=== PATIENT | male | born 1995 | race Caucasian/White ===

== ENCOUNTER 2018-12-20 16:15 | Emergency (ER) | payer OTHER, SELFPAY ==
[2018-12-20 16:16] VITALS: BP 146/93; PULSE 92; RESP 16; TEMP 36.3; BMI 30.4
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
[2018-12-20] MEDS: Diphth,Pertuss(Acell),Tet Vac 0.5 ML Vial IM (16:42)
== END 2018-12-20 17:21 | disposition home or self-care (01) ==
PROVIDERS: Emergency Provider Nurse Practitioner; Family Provider Family Medicine; PCP Family Medicine
DX: S61.214A Laceration without foreign body of right ring finger without damage to nail, initial encounter (principal); W45.8XXA Other foreign body or object entering through skin, initial encounter; Y93.89 Activity, other specified
CPT/HCPCS: 12001; 90715; 99282

== ENCOUNTER 2022-05-07 08:42 | Emergency (ER) | payer OTHER, SELFPAY ==
[2022-05-07 08:43] VITALS: BP 167/95; PULSE 86; RESP 14; TEMP 36.2; O2SAT 97; BMI 32.5
--- NOTE | 2022-05-07 09:11 | EDS_ITS ---
HPI HPI - GI History of Present Illness Chief Complaint: Abd Pain Informant: patient Narrative Narrative: Patient is a 26-year-old male with history of heavy alcohol use (drinks 8-12 which lights a day) and gallbladder/pancreas issues presenting with lower abdominal pain. Patient states he ate [employer] around noon yesterday for lunch. He states his stomach felt bad after that. Around 6 PM he started having diarrhea. He had 1 episode of pretty bad diarrhea and thought maybe there is some small flecks of black in his stool. He since had some small but formed bowel movements. He has burning in his lower abdomen diffusely. He states when he woke up this morning and drink water the burning got better. He went to urgent care where they wanted him to be evaluated for that the ER. He was told he had blood in his urine at the urgent care. Denies associated urinary symptoms or back pain. Denies any fever but did have cold sweats. Notes currently he is just very anxious about being in the ER and feels nauseous secondary to being so anxious. He states he is afraid of needles as he passed out once when he had an IV. He notes his pain is improving currently. No other complaints at this time. PFSH PFSH Home Medications naproxen 500 mg tablet 500 mg PO BID PRN #20 tabs 06/02/15 [Rx Last Taken Unknown] oxycodone-acetaminophen 5 mg-325 mg tablet 1 - 2 tab PO Q4H PRN PRN Pain #20 tabs 06/02/15 [Rx Last Taken Unknown] azithromycin 250 mg tablet (Zithromax Z-Dung) See Rx Instructions PO .COMPLEX #6 tabs 12/23/20 [Rx Last Taken Unknown] prednisone 10 mg tablet 10 mg PO .COMPLEX #30 tabs 12/23/20 [Rx Last Taken Unknown] famotidine 20 mg tablet (Pepcid) 20 mg PO BID #28 tabs 05/07/22 [Rx Last Taken Unknown] Allergy/AdvReac Type Severity Reaction Status Date / Time No Known Allergies Allergy Verified 05/07/22 08:45 Social History Smoking Status: Unknown if ever smoked Smokeless tobacco user: chewing tobacco ROS ROS ED Constitutional Constitutional ED: Reports sweats; Denies chills or fever(s) Cardiovascular Cardiovascular: Denies chest pain Respiratory/Chest Respiratory/Chest: Denies cough Gastrointestinal Gastrointestinal: Reports abdominal pain, diarrhea and nausea; Denies melena or vomiting Genitourinary Genitourinary ED: Denies dysuria, hematuria or urinary frequency Musculoskeletal Musculoskeletal: Denies arthralgias, back pain or myalgias Integumentary Denies rash Neurologic Neurologic: Denies headache(s) or weakness Psychiatric Psychiatric: Reports anxiety; Denies depression Hematologic/Lymphatic Hematologic/Lymphatic: Denies easy bleeding or easy bruising EXAM Physical Exam Const Vital Signs: 05/07/22 08:43 Temperature 97.2 F L Temperature Source Temporal Pulse Rate 86 Respiratory Rate 14 Blood Pressure 167/95 H Blood Pressure Mean 119 Pulse Ox 97 Oxygen Delivery Method Room Air Positive well nourished and well developed General Appearance ED: well developed and NAD; Negative for pallor HEENT Reports dry mucous membranes Mouth ED: Yes dry mucous membranes Mouth: dry mucous membranes Eyes PERRL and EOMs intact bilaterally Neck supple Resp normal respiratory effort and clear to auscultation bilaterally Cardio regular rate, regular rhythm and no murmurs GI non-tender and non-distended Inspection: Negative for abdominal distention Auscultation: hyperactive bowel sounds Palpation: soft; Negative for guarding, rigid, pulsatile mass or rebound tenderness present Back/Spine no CVA tenderness Extremity full ROM General Extremety ED: Negative for edema General Extremity: Negative for edema Neuro moves all extremities Sensorium / Orientation: alert, oriented to person, oriented to place and oriented to time Psych mental status grossly normal and thought process normal Mood & Affect: anxious Skin no wounds General Skin Exam: Negative for jaundice or pallor MDM MDM MDM Narrative Medical decision making narrative: Patient is evaluated for lower abdominal discomfort that been going on for a little over 12 hours. He is quite anxious but otherwise peers nontoxic. Abdominal exam is pretty benign. He describes a burning lower abdominal pain. Urinalysis is largely normal and not consistent with infection or hematuria. Patient does not appear dehydrated based on his specific gravity 1.005, lack of ketones and normal kidney function. He has a slightly elevated hemoglobin of 17.9 but this appears to be patient's baseline. Patient does not have any si gnificant electrolyte abnormalities. Patient counseled that given his benign abdominal exam, lack of fever, normal labs and normal vital signs I do not think he requires further emergent evaluation including CT imaging. He is comfortable with this. Patient is counseled the importance of abstaining from alcohol, following with a primary care doctor and given his anxiety discussed follow-up with the counseling center. He is also given information for 180 for his alcohol use. At this time patient does not appear to be having any signs of active alcohol withdrawal and I do not think requires medical admission for detox. Patient is given return precautions. Discharged home in stable condition. Lab Data Attestation: I reviewed the patient's lab results. Labs: Laboratory Results - last 24 hr 05/07/22 05/07/22 05/07/22 09:45 09:53 09:53 WBC 10.9 RBC 5.44 Hgb 17.9 H Hct 49.3 MCV 90.6 MCH 32.9 H MCHC 36.3 H RDW Std Deviation 39.7 RDW Coeff of Jett 12.1 Plt Count 234 MPV 9.6 Immature Gran % (Auto) 0.500 Neut % (Auto) 82.7 H Lymph % (Auto) 12.2 L [place] % (Auto) 3.5 Eos % (Auto) 0.5 Baso % (Auto) 0.6 Absolute Neuts (auto) 9.0 H Absolute Lymphs (auto) 1.32 Nucleated RBC % 0 Sodium 138 Potassium 4.1 Chloride 106 Carbon Dioxide 24.0 Anion Gap 8 BUN 12 Creatinine 1.10 Estim Creat Clear Calc 99.98 Est GFR (MDRD) Af Amer 102 Est GFR (MDRD) Non-Af 84 BUN/Creatinine Ratio 10.9 Glucose 128 H Calcium 9.9 Total Bilirubin 0.70 AST 36 ALT 57 Alkaline Phosphatase 71 Total Protein 8.7 H Albumin 4.6 Globulin 4.1 Albumin/Globulin Ratio 1.1 Lipase 114 Urine Color Yellow Urine Clarity Clear Urine pH 6.0 Ur Specific [place] 1.005 Urine Protein Negative Urine Glucose (UA) Normal Urine Ketones Negative Urine Occult Blood Negative Urine Nitrite Negative Urine Bilirubin Negative Urine Urobilinogen Normal Ur Leukocyte Esterase Negative Urine RBC 0 SEEN Urine WBC 0 SEEN Ur Squamous Epith Cells 0 SEEN Urine Bacteria 0 SEEN Urine Mucus 0 SEEN Discharge Plan Triage Chief Complaint: Abd Pain ED Provider: Iliana Nixon Dx/Rx/DC Orders Clinical Impression: Lower abdominal pain Instructions: ED Abdominal Pain Unkn Cause Male... Prescriptions: New famotidine [Pepcid] 20 mg tablet 20 mg PO BID Qty: 28 0RF No Action azithromycin [Zithromax Z-Dung] 250 mg tablet See Rx Instructions PO .COMPLEX Qty: 6 0RF Rx Instructions: take 500 mg today (day 1), then 250 mg for 4 days (days 2-5) PO prednisone 10 mg tablet 10 mg PO .COMPLEX Qty: 30 0RF Rx Instructions: Take 4 pills for 3 days, 3 pills for 3 days, 2 pills for 3 days, take 1 pill for 3 days naproxen 500 MG tablet 500 mg PO BID PRN Qty: 20 0RF oxycodone-acetaminophen 1 TABLET tablet 1 - 2 tab PO Q4H PRN PRN (Reason: Pain) Qty: 20 0RF Stand Alone Forms: ED Work / School Excuse Primary Care Provider: Alma Beavers Referrals: Alma Beavers MD [Primary Care Provider] - Martina Cherry MD [Med Staff - Active Staff] - As soon as possible [facility] [Non-Staff] - As soon as possible Activity Restrictions/Additional Instructions: Drink lots of fluids. You can take [id number] Pepto-Bismol for your discomfort. At this time your lab work is largely normal. I recommend you follow-up with a primary care doctor as well as abstain from alcohol. To be given referral to [facility] which is a service in [facility] for addiction. There is also the counseling center if you like to talk to someone about your anxiety. Disposition Disposition: Home, Self Care
[2022-05-07 09:51] LABS: Bacteria 0 SEEN /hpf (None Seen); Mucous, Urine 0 SEEN /hpf (<or=2+); Red Blood Cells-Urine 0 SEEN /hpf (0-5); Squamous Epithelial Cells - UA 0 SEEN /hpf (0-5); White Blood Cells 0 SEEN /hpf (0-5)
[2022-05-07 09:56] LABS: Color, Urine Yellow (Yellow); Glucose, Dipstick Normal (Normal); Ketone-Dipstick Negative (Negative); Leukocyte Esterase-Dipstick Negative /ul (Negative); Nitrite-Dipstick Negative (Negative); Occult Blood-Urine Negative /ul (Negative); Protein-Dipstick Negative (Negative); Specific Gravity, Urine 1.005 (1.002-1.030); Urine Bilirubin Dipstick Negative (Negative); Urine Clarity Clear (Clear); Urine Urobilinogen Normal (Normal)
[2022-05-07 10:07] LABS: Absolute Lymphocyte Count 1.32 X10^3/uL (0.83-4.51); Basophil# 0.06 X10^3/uL; Basophil% 0.6 % (0-1); Eosinophil# 0.05 X10^3/uL; Eosinophils% 0.5 % (0-5); Hematocrit 49.3 % (40-54); Hemoglobin 17.9 g/dL (13.0-16.5); Lymphocyte # 1.32 X10^3/ul (0.83-4.51); Lymphocyte % 12.2 % (19-41); Mean Corp Hgb Conc 36.3 g/dL (32-36); Mean Corpuscular Hgb 32.9 pg (27.0-32.0); Mean Corpuscular Volume 90.6 fL (80-94); Mean Platelet Vol. 9.6 fl (6.2-12.0); Monocyte# 0.38 X10^3/uL; Monocyte% 3.5 % (0-10); NRBC Flagged by Analyzer 0 % (0-5); Neutrophil % 82.7 % (47-70); Platelet Count 234 K/mm3 (150-450); RBC Distribution Width CV 12.1 % (11.6-14.6); RBC Distribution Width SD 39.7 fl (35.1-43.9); Red Blood Count 5.44 M/mm3 (4.6-6.2); White Blood Count 10.9 K/mm3 (4.4-11.0)
[2022-05-07 10:24] LABS: ALB/GLOB Ratio 1.1 RATIO (0.9-2.4); AST(SGOT) 36 U/L (15-37); Alanine Aminotransfer ALT/SGPT 57 U/L (16-61); Albumin, Serum 4.6 g/dL (3.2-5.0); Alkaline Phosphatase 71 U/L (45-117); Anion Gap 8 (5-15); BUN 12 mg/dL (7-18); BUN/Creat Ratio 10.9 RATIO (10-20); Calcium,Total 9.9 mg/dL (8.5-10.1); Chloride 106 mmol/L (98-107); EST Glomerular Filtration Rate 84 mL/min (>60); Est Glom Filt Rate - Afr Amer 102 mL/min (>60); Estimated Creatinine Clearance 99.98 ml/min; Globulin 4.1 g/dL (2.2-4.2); Glucose 128 mg/dL (74-106); Lipase 114 U/L (73-393); Potassium 4.1 mmol/L (3.5-5.1); Protein, Total 8.7 g/dL (6.4-8.2); Sodium Level 138 mmol/L (136-145)
== END 2022-05-07 11:07 | disposition home or self-care (01) ==
PROVIDERS: Emergency Provider Emergency Medicine; PCP Family Medicine; Visit Provider Emergency Medicine
DX: R10.30 Lower abdominal pain, unspecified (principal); F17.220 Nicotine dependence, chewing tobacco, uncomplicated
CPT/HCPCS: 80053; 81001; 83690; 85025; 99282

== ENCOUNTER 2022-05-08 10:49 | Inpatient (IN) | payer OTHER, SELFPAY ==
[2022-05-08] VITALS (9 sets, daily range): BP systolic 134–166; BP diastolic 77–95; PULSE 100–120; RESP 17–18; TEMP 37–39.6; O2SAT 93–97; BMI 31.6
--- NOTE | 2022-05-08 11:35 | EDS_ITS ---
HPI HPI - GI History of Present Illness Chief Complaint: Abd Pain Informant: patient Abdominal Pain/Flank Pain Onset: Days (3) Context: Gradual Onset Timing: Continuous Quality: Burning Location: RLQ Worsened by: Movement Relieved by: Nothing Nausea/Vomiting/Emesis GI Symptom: Positive for Nausea; Negative for Vomiting Diarrhea/Melena/Hematochezia GI Symptom: Positive for Diarrhea; Negative for Melena or Hematochezia Associated Symptoms Associated Symptoms: Negative for Dysuria, Frequency or Hematuria Narrative Narrative: Patient presents with abdominal pain that became worse today. Patient states that it is gradually gotten worse over the last 3 days. Patient states he was seen here yesterday but states yesterday his pain was over his entire lower abdomen. Patient describes his pain as burning. Patient states today is localized to the right lower abdomen. Patient states it is worse with movement. Patient admits to nausea decreased appetite. Patient admits to diarrhea but denies any melena or hematochezia. Patient denies any vomiting. Patient denies any dysuria or hematuria or frequency. Patient denies any fevers or chills. PFSH PFSH Medical History Anxiety Home Medications famotidine 20 mg tablet (Pepcid) 20 mg PO BID #28 tabs 05/07/22 [Rx Last Taken 05/08/22] bupropion HCl 150 mg 24 hr tablet, extended release 150 mg PO DAILY 05/08/22 [History Last Taken 05/08/22] ibuprofen 200 mg tablet 200 - 400 mg PO Q6H PRN Pain 05/08/22 [History Last Taken 05/08/22] Allergy/AdvReac Type Severity Reaction Status Date / Time No Known Allergies Allergy Verified 05/07/22 08:45 Social History Smoking Status: Current some day smoker tobacco type: cigarettes Smokeless tobacco user: chewing tobacco ROS ROS ED Constitutional Constitutional ED: Denies chills or fever(s) Eyes Eyes: Denies blurry vision or change in vision ENT ENT ED: Denies rhinorrhea or sore throat Cardiovascular Cardiovascular: Denies chest pain or palpitations Respiratory/Chest Respiratory/Chest: Denies cough or dyspnea Gastrointestinal Gastrointestinal: Reports abdominal pain, diarrhea and nausea; Denies vomiting Genitourinary Genitourinary ED: Denies dysuria or hematuria Musculoskeletal Musculoskeletal: Denies back pain or neck pain Integumentary Denies abscess or rash Neurologic Neurologic: Denies headache(s) or weakness Allergic/Immunologic Allergic/Immunologic ED: Denies mouth swelling or urticaria EXAM Physical Exam Const Vital Signs: 05/08/22 10:51 Temperature 98.9 F Temperature Source Temporal Pulse Rate 109 H Respiratory Rate 17 Blood Pressure 160/89 H Blood Pressure Mean 112 Pulse Ox 96 Oxygen Delivery Method Room Air Positive well nourished, well developed and obese General Appearance ED: well developed and NAD Nutritional Appearance: obese HEENT Reports moist mucous membranes Neck supple and no JVD Resp normal respiratory effort and clear to auscultation bilaterally Cardio regular rate, regular rhythm and no murmurs GI normal to inspection, nondistended, normoactive bowel sounds Palpation: soft and tender RLQ and Rovsing's sign; Negative for guarding or rebound tenderness present Extremity normal to inspection General Extremety ED: Negative for edema or tenderness General Extremity: Negative for edema Neuro oriented x3, CN's II-XII intact bilaterally and no sensory deficits noted Sensorium / Orientation: alert Motor Exam: strength 5/5 throughout Psych mental status grossly normal Mood & Affect: anxious Skin no rashes or lesions noted MDM MDM MDM Narrative Medical decision making narrative: Differential diagnosis includes appendicitis, gastroenteritis, ureteral calculus, urinary tract infection, pyelonephritis, enteritis, colitis, and mesenteric adenitis. CBC will be obtained to assess for leukocytosis and anemia. Comprehensive metabolic profile will be obtained to assess for hepatic function, renal function, and electrolyte abnormality. Urinalysis will be obtained to assess for urinary tract infection and hematuria. CT scan of the abdomen pelvis will be obtained to assess for appendicitis, colitis, mesenteric adenitis, perforation, and enteritis. Lab Data Lab results narrative: CBC was reviewed. There is a leukocytosis of 15.6. Platelets are normal. Comprehensive metabolic profile was reviewed. There is a hypokalemia of 2.7. The remainder was within normal limits. Urinalysis was reviewed and does not show any evidence of urinary tract infection or hematuria. Labs: Laboratory Results - last 24 hr 05/08/22 05/08/22 05/08/22 11:45 11:45 13:20 WBC 15.6 H RBC 5.23 Hgb 17.2 H Hct 47.6 MCV 91.0 MCH 32.9 H MCHC 36.1 H RDW Std Deviation 40.4 RDW Coeff of Jett 12.3 Plt Count 222 MPV 9.6 Immature Gran % (Auto) 0.400 Neut % (Auto) 89.4 H Lymph % (Auto) 6.1 L [place] % (Auto) 3.9 Eos % (Auto) 0.1 Baso % (Auto) 0.1 Absolute Neuts (auto) 13.9 H Absolute Lymphs (auto) 0.96 Nucleated RBC % 0 Sodium 143 Potassium 2.7 L* Chloride 113 H Carbon Dioxide 23.0 Anion Gap 7 BUN 7 Creatinine 0.76 Estim Creat Clear Calc 144.71 Est GFR (MDRD) Af Amer 155 Est GFR (MDRD) Non-Af 128 BUN/Creatinine Ratio 9.2 L Glucose 101 Calcium 7.2 L Total Bilirubin 0.80 AST 12 L ALT 30 Alkaline Phosphatase 52 Total Protein 6.3 L Albumin 3.2 Globulin 3.1 Albumin/Globulin Ratio 1.0 Urine Color Yellow Urine Clarity Clear Urine pH 7.0 Ur Specific [place] 1.010 Urine Protein 30 H Urine Glucose (UA) Normal Urine Ketones Negative Urine Occult Blood 10 H Urine Nitrite Negative Urine Bilirubin Negative Urine Urobilinogen Normal Ur Leukocyte Esterase 25 H Urine RBC 0 SEEN Urine WBC 0 SEEN Ur Squamous Epith Cells 0 SEEN Urine Bacteria 0 SEEN Urine Mucus 0 SEEN Radiography Diagnostic Testing: Clinical Impression(s) from Imaging Studies Abdomen/Pelvis CT 05/08/22 11:42 IMPRESSION: Acute appendicitis with appendicolith in the appendiceal lumen. Increased markings in the surrounding peritoneal fat in the right lower quadrant extending into the right pararenal space with inflammatory change. Small lymph nodes are also seen within the mesentery in the right lower quadrant. Electronically Signed: Maurilio Kwan MD at 14:11 EST , CT scan of the abdomen pelvis was reviewed independently by myself. There is evidence of appendicitis with an appendicolith. There is no perforation or obst ruction. Radiologist also interpreted the CT scan and agrees that there is appendicitis with an appendicolith. There are small lymph nodes noted in the mesentery of the right lower quadrant as well. Treatment and Re-Evaluation Narrative: Patient was given IV fluids, morphine, and Zofran. Patient was given a dose of IV potassium. Patient was started on Zosyn. Patient was advised of his findings of appendicitis. Patient was advised of the need for surgery. Patient is agreeable with admission for surgery. Case was discussed with Dr. Mtz from general surgery. He will admit the patient to his service. He also asked to consult the hospitalist because patient reported to his physician assistant golf professional that he drinks 8 beers per day. Previously to me, he only stated that he drank occasionally. Case was discussed with the hospitalist. She will see the patient in consultation. Patient understands and is agreeable with the plan. All questions were answered. Discharge Plan Dx/Rx/DC Orders Clinical Impression: Acute appendicitis, Right lower quadrant abdominal pain, Hypokalemia Disposition Disposition: [facility]
--- NOTE | 2022-05-08 11:42 | CT_ITS ---
STUDY: CT ABDOMEN AND PELVIS WITH CONTRAST REASON FOR EXAM: Male, 26 years old. Abdominal pain -- IV PO Contrast RADIATION DOSAGE (If Supplied By Facility): CTDIvol = ( 14.9 ) mGy, DLP = ( 1146.78 ) mGycm TECHNIQUE: Transaxial images were obtained from the dome of the diaphragm to the symphysis pubis with oral contrast. Oral and amp;amp; IV Gastrografin and amp;amp; 100mL Isovue-300 was administered. Sagittal and coronal images were reconstructed. Individualized dose optimization techniques were used for this CT. COMPARISON: None. FINDINGS: Mild degree of increased markings at the lung bases slightly more prominent on the right side suggestive of bibasilar atelectasis. The visualized portions of the heart are within normal limits. There is decreased attenuation of the liver consistent with steatosis. Normal gallbladder and extrahepatic biliary system. Normal spleen. Normal pancreas. Normal bilateral adrenal glands. Normal right kidney. Normal left kidney. Normal visualized stomach. Normal small intestine. Inflammatory changes involving the cecum. There is a tubular, thick-walled appendix (>7mm), consistent with acute appendicitis. Inflammatory changes are seen in the mesenteric fat in the right lower quadrant extending into the right pararenal space. An appendicolith is seen within the appendiceal lumen. Normal abdominal aorta. Normal inferior vena cava. Normal retroperitoneum. Normal urinary bladder. Normal abdominal wall. Normal osseous structures. CT/Abdomen/Pelvis WITH Contrast IMPRESSION: Acute appendicitis with appendicolith in the appendiceal lumen. Increased markings in the surrounding peritoneal fat in the right lower quadrant extending into the right pararenal space with inflammatory change. Small lymph nodes are also seen within the mesentery in the right lower quadrant. Electronically Signed: Maurilio Kwan MD at 14:11 EST ,
[2022-05-08] MEDS: 0.9% Normal Saline 1,000 ML 1000 ML IV (12:02)
[2022-05-08] MEDS: Morphine 4 MG/ML Syringe IV (12:02)
[2022-05-08] MEDS: Ondansetron 4 MG/2 ML Vial IV (12:02)
[2022-05-08 12:05] LABS: Absolute Lymphocyte Count 0.96 X10^3/uL (0.83-4.51); Absolute Neutrophil Count 13.9 X10^3/uL (2.0-7.7); Basophil# 0.02 X10^3/uL; Basophil% 0.1 % (0-1); Eosinophil# 0.02 X10^3/uL; Eosinophils% 0.1 % (0-5); Hematocrit 47.6 % (40-54); Hemoglobin 17.2 g/dL (13.0-16.5); Lymphocyte # 0.96 X10^3/ul (0.83-4.51); Lymphocyte % 6.1 % (19-41); Mean Corp Hgb Conc 36.1 g/dL (32-36); Mean Corpuscular Hgb 32.9 pg (27.0-32.0); Mean Platelet Vol. 9.6 fl (6.2-12.0); Monocyte# 0.61 X10^3/uL; Monocyte% 3.9 % (0-10); NRBC Flagged by Analyzer 0 % (0-5); Neutrophil # 13.94 X10^3/uL (2.7-7.7); Neutrophil % 89.4 % (47-70); Platelet Count 222 K/mm3 (150-450); RBC Distribution Width CV 12.3 % (11.6-14.6); RBC Distribution Width SD 40.4 fl (35.1-43.9); Red Blood Count 5.23 M/mm3 (4.6-6.2); White Blood Count 15.6 K/mm3 (4.4-11.0)
[2022-05-08 12:40] LABS: AST(SGOT) 12 U/L (15-37); Alanine Aminotransfer ALT/SGPT 30 U/L (16-61); Albumin, Serum 3.2 g/dL (3.2-5.0); Alkaline Phosphatase 52 U/L (45-117); Anion Gap 7 (5-15); BUN 7 mg/dL (7-18); BUN/Creat Ratio 9.2 RATIO (10-20); Calcium,Total 7.2 mg/dL (8.5-10.1); Chloride 113 mmol/L (98-107); Creatinine, Serum 0.76 mg/dL (0.70-1.30); EST Glomerular Filtration Rate 128 mL/min (>60); Est Glom Filt Rate - Afr Amer 155 mL/min (>60); Estimated Creatinine Clearance 144.71 ml/min; Globulin 3.1 g/dL (2.2-4.2); Glucose 101 mg/dL (74-106); Potassium 2.7 mmol/L (3.5-5.1); Protein, Total 6.3 g/dL (6.4-8.2); Sodium Level 143 mmol/L (136-145)
[2022-05-08] MEDS: Potassium Chloride 10mEq/100mL 10 MEQ/100 ML IV.SOLN. 100 MEQ IV BOLUS ×2 (13:34→14:41)
[2022-05-08 13:38] LABS: Bacteria 0 SEEN /hpf (None Seen); Mucous, Urine 0 SEEN /hpf (<or=2+); Red Blood Cells-Urine 0 SEEN /hpf (0-5); Squamous Epithelial Cells - UA 0 SEEN /hpf (0-5); White Blood Cells 0 SEEN /hpf (0-5)
[2022-05-08 13:41] LABS: Color, Urine Yellow (Yellow); Glucose, Dipstick Normal (Normal); Ketone-Dipstick Negative (Negative); Leukocyte Esterase-Dipstick 25 /ul (Negative); Nitrite-Dipstick Negative (Negative); Occult Blood-Urine 10 /ul (Negative); Protein-Dipstick 30 mg/dl (Negative); Urine Bilirubin Dipstick Negative (Negative); Urine Clarity Clear (Clear); Urine Urobilinogen Normal (Normal)
--- NOTE | 2022-05-08 15:39 | PCM.HP.STD ---
HPI - General General Date of Service: 05/08/22 Chief Complaint: Acute appendicitis HPI Narrative LUCIANA CORDOBA, is a 26 M who presents with 3 day history of right lower quadrant abdominal pain. Patient notes nausea associated with his abdominal pain. He notes his appetite has been poor over the last 3 days due to the pain. Patient denies vomiting. He denies fever. He notes constipation. He notes he presented to the ED yesterday however his abdomen was nontender at that time on exam and patient's labs were unremarkable. Patient was discharged to home. Patient returned to the ED today noting increased abdominal pain. CT scan of the abdomen/pelvis was obtained demonstrating acute appendicitis with appendicolith. Patient is also noted to have an elevated WBC of 15.6 with a left shift. Patient's labs are also notable for hypokalemia. Patient was given 10 meq bolus in the ED. Patient denies any cardiac or pulmonary history. Patient denies any previous abdominal surgeries. He denies having any anesthesia previously. Patient notes he is a heavy alcohol drinker daily. Patient states he drinks approximately 10-12 beers daily. He notes on the weekends he smokes cigarettes while consuming alcohol. Patient states he has not been drinking for 3 days due to his onset of abdominal symptoms. Patient was concerned that his alcohol consumption contributed to his abdominal pain. Patient denies any withdraw symptoms. He notes feeling anxious about the surgery. Patient notes he is not dependent on the alcohol, he notes he just likes to have a few drinks after work. [facility] Medical History Anxiety Home Medications famotidine 20 mg tablet (Pepcid) 20 mg PO BID #28 tabs 05/07/22 [Rx Last Taken 05/08/22] bupropion HCl 150 mg 24 hr tablet, extended release 150 mg PO DAILY 05/08/22 [History Last Taken 05/08/22] ibuprofen 200 mg tablet 200 - 400 mg PO Q6H PRN Pain 05/08/22 [History Last Taken 05/08/22] Allergy/AdvReac Type Severity Reaction Status Date / Time No Known Allergies Allergy Verified 05/07/22 08:45 Social History Smoking Status: Current some day smoker tobacco type: cigarettes Smokeless tobacco user: chewing tobacco ROS Constitutional Constitutional: Reports systems reviewed and no addt'l complaints, except as documented Eyes Eyes: Reports systems reviewed and no addt'l complaints, except as documented ENT HEENT: Reports systems reviewed and no addt'l complaints, except as documented Cardiovascular Cardiovascular: Reports systems reviewed and no addt'l complaints, except as documented Respiratory/Chest Respiratory/Chest: Reports systems reviewed and no addt'l complaints, except as documented Gastrointestinal Gastrointestinal: Reports systems reviewed and no addt'l complaints, except as documented Genitourinary Genitourinary: Reports systems reviewed and no addt'l complaints, except as documented Musculoskeletal Musculoskeletal: Reports systems reviewed and no addt'l complaints, except as documented Integumentary Integumentary: Reports systems reviewed and no addt'l complaints, except as documented Neurologic Neurologic: Reports systems reviewed and no addt'l complaints, except as documented Psychiatric Psychiatric: Reports systems reviewed and no addt'l complaints, except as documented Endocrine Endocrinology: Reports systems reviewed and no addt'l complaints, except as documented Hematologic/Lymphatic Hematologic/Lymphatic: Reports systems reviewed and no addt'l complaints, except as documented Allergic/Immunologic Allergic/Immunologic: Reports systems reviewed and no addt'l complaints, except as documented Vital Signs Vital Signs Vital Signs: 05/08/22 10:51 Temperature 98.9 F Temperature Source Temporal Pulse Rate 109 H Respiratory Rate 17 Blood Pressure 160/89 H Blood Pressure Mean 112 Pulse Ox 96 Oxygen Delivery Method Room Air Weight Weight: 213 lb 14.4 oz Body Mass Index (BMI) 31.6 Physical Exam Const alert and oriented x3 HEENT normocephalic and head/scalp atraumatic HEENT Narrative: Red face and neck Eyes PERRL Neck full ROM Lymph Lymphatic: no lymphadenopathy noted Resp normal respiratory effort and clear to auscultation bilaterally Cardio regular rhythm Rate: tachycardic GI Inspection: central obesity Auscultation: hypoactive bowel sounds Palpation: tender RLQ, McBurney's point and Rovsing's sign and guarding no CVA tenderness Back/Spine no CVA tenderness Extremity normal to inspection Skin no rashes or lesions noted Neuro no focal motor deficits and no sensory deficits noted Psych mental status grossly normal Mood & Affect: anxious Results Lab / Micro Data Result Diagrams: 05/08/22 11:45 05/08/22 11:45 Labs: Laboratory Results - last 24 hr 05/08/22 11:45: WBC 15.6 H, RBC 5.23, Hgb 17.2 H, Hct 47.6, MCV 91.0, MCH 32.9 H, MCHC 36.1 H, RDW Std Deviation 40.4, RDW Coeff of Jett 12.3, Plt Count 222, MPV 9.6, Immature Gran % (Auto) 0.400, Neut % (Auto) 89.4 H, Lymph % (Auto) 6.1 L, [place] % (Auto) 3.9, Eos % (Auto) 0.1, Baso % (Auto) 0.1, Absolute Neuts (auto) 13.9 H, Absolute Lymphs (auto) 0.96, Nucleated RBC % 0 05/08/22 11:45: Sodium 143, Potassium 2.7 L*, Chloride 113 H, Carbon Dioxide 23.0, Anion Gap 7, BUN 7, Creatinine 0.76, Estim Creat Clear Calc 144.71, Est GFR (MDRD) Af Amer 155, Est GFR (MDRD) Non-Af 128, BUN/Creatinine Ratio 9.2 L, Glucose 101, Calcium 7.2 L, Total Bilirubin 0.80, AST 12 L, ALT 30, Alkaline Phosphatase 52, Total Protein 6.3 L, Albumin 3.2, Globulin 3.1, Albumin/Globulin Ratio 1.0 05/08/22 13:20: Urine Color Yellow, Urine Clarity Clear, Urine pH 7.0, Ur Specific [place] 1.010, Urine Protein 30 H, Urine Glucose (UA) Normal, Urine Ketones Negative, Urine Occult Blood 10 H, Urine Nitrite Negative, Urine Bilirubin Negative, Urine Urobilinogen Normal, Ur Leukocyte Esterase 25 H, Urine RBC 0 SEEN, Urine WBC 0 SEEN, Ur Squamous Epith Cells 0 SEEN, Urine Bacteria 0 SEEN, Urine Mucus 0 SEEN Radiology Impression Abdomen/Pelvis CT 05/08/22 11:42 IMPRESSION: Acute appendicitis with appendicolith in the appendiceal lumen. Increased markings in the surrounding peritoneal fat in the right lower quadrant extending into the right pararenal space with inflammatory change. Small lymph nodes are also seen within the mesentery in the right lower quadrant. Electronically Signed: Maurilio Kwan MD at 14:11 EST , Assessment & Plan Assessment/Plan (1) Acute appendicitis: PLAN: Plan I am seeing this patient in conjunction with Dr. Mtz. We will plan to admit the patient for observation. Dr. Mtz will plan to perform a laparoscopic appendectomy. Procedure details, risks and benefits have been explained. Patient and his have had the opportunity to ask and have questions answered. Patient verbally understands and agrees with the plan. We will consult the hospitalist as patient is a heavy alcohol drinker and has currently ceased his alcohol 72 hours now. Patient is currently anxious and clammy. Concern for withdrawal symptoms. Appreciate hospitalist recommendations and care of this patient. Thank you for allowing us to participate in this patient's care. Charges/Coding Visit Charges Inpatient E&M: 35451 Init Hosp L2
--- NOTE | 2022-05-08 15:41 | NURSING ---
SURGERY PARTH ACUTE APPENDICITIS, HYPOKALEMIA, RT LOWER QUADRENT ABD PAIN
--- NOTE | 2022-05-08 16:13 | CON.PCM.HO_ITS ---
Assessment & Plan Assessment/Plan (1) Acute appendicitis: (2) No history of previous surgery: PLAN: Plan The patient is a 26 y/o M w/ PMHx: Anxiety, Tobacco use (2 packs/week, primarily Sat/Sun), EtOH abuse (8 beers, 12 ounces each daily) who presents to the [facility] ED on 05/08/22 with history of persistent right lower quadrant progressively worsening abdominal pain x3 days with associated nausea with decreased appetite with no specific recent fevers or chills however did have onset of fevers while in the emergency room reporting pain severe and sharp in the right lower quadrant, 10 out of 10 in severity currently, worse with any movement or palpation. #1. Acute appendicitis: Patient will be admitted per primary service, noted plan transition from ED to OR for appendectomy per Dr. Mtz, currently n.p.o. status on IV fluids with continued IV Zosyn therapy, as needed oral and IV pain regimen per primary service discretion, as needed antiemetics. #2. Elevated BP without hypertensive diagnosis: Potentially secondary to acute presentation as noted #1 with acute pain, continue to monitor and if despite alleviation of pain ongoing elevated blood pressure may necessitate oral regimen, as needed IV hydralazine in interim. #3. Hypokalemia, hypomagnesia, hypophosphatemia: Admission potassium 2.7, magnesium obtained and noted to be 1.6 as well as Phos 1.3, supplementation administered, repeat BMP with improvement with potassium 3.6, will repeat those in the morning. #4. EtOH Abuse: Patient notes routine consumption of approximately 8 beers per day. He notes his last intake was 3 days prior to current presentation he denies any withdrawal symptoms. He states he can go days at a time without alcohol and does not have any withdrawal symptoms during those episodes either. Will maintain on CIWA protocol, MVI, thiamine and folic acid to be cautious. Mag and Phos levels obtained as noted and supplementation administered. Case management consulted for substance abuse assistance. #5. Tobacco Abuse: Encouraged cessation, inpatient consultation per RT, NR if desired. #6. DVT prophylaxis: SCDs/chemoprophylaxis all per surgery discretion given planned OR. Admission Evaluation Time spent evaluating chart, patient history, patient evaluation, care planning and discussion with specialists: 60 minutes. HPI Consult Data Date of Consult: 05/08/22 HPI Narrative Reason for Consultation: Medical management HPI Narrative: The patient is a 26 y/o M w/ PMHx: Anxiety, Tobacco use (2 packs/week, primarily Sat/Sun), EtOH abuse (8 beers, 12 ounces each daily) who presents to the [facility] ED on 05/08/22 with history of persistent right lower quadrant progressively worsening abdominal pain x3 days with associated nausea with decreased appetite with no specific recent fevers or chills however did have onset of fevers while in the emergency room reporting pain severe and sharp in the right lower quadrant, 10 out of 10 in severity currently, worse with any movement or palpation. He does report that his last alcohol consumption was approximately 3 days prior to his current presentation secondary to his abdominal discomfort ongoing. Work-up in the ED included initially 98.9 however patient quickly became febrile with T103.2, heart rate 109, BP 160/89, respiratory rate 17, 96% on room air, CBC with WBC 15.6, hemoglobin 17.2, platelet 222 with left shift, CMP with sodium 143, potassium 2.7, chloride 113, glucose 101 hepatic profile not marked appearing, CT abdomen and pelvis with acute appendicitis with appendicolith in the appendiceal lumen with increased markings in the surrounding peritoneal fat in the right lower quadrant extending into the right pararenal space with inflammatory change, small lymph nodes also seen within the mesentery in the right lower quadrant. In the ED patient ministered normal saline 1 L bolus, IV Zosyn, IV Zofran and morphine. ED physician discussed case with general surgery who planned admission with transition from ED to OR with requested hospitalist consultation given concern for patient's alcohol abuse. [facility] Medical History Alcohol abuse Anxiety Tobacco use Home Medications famotidine 20 mg tablet (Pepcid) 20 mg PO BID #28 tabs 05/07/22 [Rx Last Taken 05/08/22] bupropion HCl 150 mg 24 hr tablet, extended release 150 mg PO DAILY 05/08/22 [History Last Taken 05/08/22] ibuprofen 200 mg tablet 200 - 400 mg PO Q6H PRN Pain 05/08/22 [History Last Taken 05/08/22] Allergy/AdvReac Type Severity Reaction Status Date / Time No Known Allergies Allergy Verified 05/07/22 08:45 Family History (Updated 05/08/22 @ 20:[address] Shahnaz Lambert MD) Mother Breast cancer Father Hypertension Surgical History No history of previous surgery Social History (Updated 05/08/22 @ 20:[address] Shahnaz Lambert MD) household members: significant other Smoking Status: Current some day smoker tobacco type: cigarettes Smokeless tobacco user: chewing tobacco and other alcohol intake: current alcohol intake frequency: 3 or more drinks per day details: Drinks 8-10, 12 ounces beers daily. substance use type: does not use ROS ROS Narrative Admission Review of Systems: CONSTITUTIONAL: No weight loss, fever, chills, + weakness or fatigue although does have onset then of fever while in the ED. HEENT: Eyes: No visual loss, blurred vision, double vision or yellow sclerae. Ears, Nose, Throat: No hearing loss, sneezing, congestion, runny nose or sore throat. SKIN: No rash or itching, lesions, wounds. CARDIOVASCULAR: No chest pain, chest pressure or chest discomfort, palpitations, edema, orthopnea, syncopal events. RESPIRATORY: No shortness of breath, cough or sputum, wheezing, hemoptysis. GASTROINTESTINAL: + anorexia, nausea without vomiting, abdominal pain, No diarrhea, melena, BRBPR. GENITOURINARY: No dysuria, frequency, urgency or retention. NEUROLOGICAL: No headache, dizziness, syncope, paralysis, ataxia, numbness or tingling in the extremities, focal weakness, change in bowel or bladder control, seizure. MUSCULOSKELETAL: + muscle, back pain, joint pain or stiffness. HEMATOLOGIC: No anemia, bleeding or bruising. LYMPHATICS: No enlarged nodes. No history of splenectomy. PSYCHIATRIC: + history of depression or anxiety. ENDOCRINOLOGIC: No reports of sweating, cold or heat intolerance. No polyuria or polydipsia. ALLERGIES: No history of asthma, hives, eczema or rhinitis. Physical Exam Narrative Physical Examination: General: Awake, alert, oriented x 3 and cooperative, seated upright in the ED bed, significantly uncomfortable appearing, ill-appearing. Skin: Flushed color, normal turgor, no icterus, no cyanosis. HEENT: AT/NC, EOMI, PERRLA, dry MM, no carotid bruits or JVD noted. Lungs: Diminished, mildly decreased bases, mildly increased respiratory rate but no distress, no rales, ronchi or wheezing. Heart: Tachycardic with regular rhythm; no gallop, rub audible. Abdomen: Soft, significant right lower quadrant discomfort with palpation with rebound and guarding, no obvious distention, distant bowel sounds, unable to discern HSM given severity of pain with palpation. Extremities: No cyanosis, clubbing, or edema. Neurological: Patient awake, alert, oriented as noted, cognitive function intact; pupils equally reactive to light and accommodation, cranial nerves II- XII grossly normal, moving all 4 extremities, no focal deficits, strength severely impaired given acute presentation with infection. Psychiatric: Affect appears uncomfortable, ill-appearing, no acute evidence of depressive or anxiety feelings. Lab / Micro Data Result Diagrams: 05/08/22 11:45 05/08/22 16:34 Labs: Laboratory Results - last 24 hr 05/08/22 11:45: WBC 15.6 H, RBC 5.23, Hgb 17.2 H, Hct 47.6, MCV 91.0, MCH 32.9 H , MCHC 36.1 H, RDW Std Deviation 40.4, RDW Coeff of Jett 12.3, Plt Count 222, MPV 9.6, Immature Gran % (Auto) 0.400, Neut % (Auto) 89.4 H, Lymph % (Auto) 6.1 L, [place] % (Auto) 3.9, Eos % (Auto) 0.1, Baso % (Auto) 0.1, Absolute Neuts (auto) 13.9 H, Absolute Lymphs (auto) 0.96, Nucleated RBC % 0 05/08/22 11:45: Sodium 143, Potassium 2.7 L*, Chloride 113 H, Carbon Dioxide 23.0, Anion Gap 7, BUN 7, Creatinine 0.76, Estim Creat Clear Calc 144.71, Est GFR (MDRD) Af Amer 155, Est GFR (MDRD) Non-Af 128, BUN/Creatinine Ratio 9.2 L, Glucose 101, Calcium 7.2 L, Total Bilirubin 0.80, AST 12 L, ALT 30, Alkaline Phosphatase 52, Total Protein 6.3 L, Albumin 3.2, Globulin 3.1, Albumin/Globulin Ratio 1.0 05/08/22 13:20: Urine Color Yellow, Urine Clarity Clear, Urine pH 7.0, Ur Specific [place] 1.010, Urine Protein 30 H, Urine Glucose (UA) Normal, Urine Ketones Negative, Urine Occult Blood 10 H, Urine Nitrite Negative, Urine Bilirubin Negative, Urine Urobilinogen Normal, Ur Leukocyte Esterase 25 H, Urine RBC 0 SEEN, Urine WBC 0 SEEN, Ur Squamous Epith Cells 0 SEEN, Urine Bacteria 0 SEEN, Urine Mucus 0 SEEN Radiology Impression Abdomen/Pelvis CT 05/08/22 11:42 IMPRESSION: Acute appendicitis with appendicolith in the appendiceal lumen. Increased markings in the surrounding peritoneal fat in the right lower quadrant extending into the right pararenal space with inflammatory change. Small lymph nodes are also seen within the mesentery in the right lower quadrant. Electronically Signed: Maurilio Kwan MD at 14:11 EST , Charges/Coding Visit Charges Office Visits / Consults: [id number] IP Consult L3
--- NOTE | 2022-05-08 16:22 | CHAPLAIN ---
Type of Pastoral Visit _x__ Initial Visit ___ Follow-up Visit ___ On-call Visit ___ General Patient Visit ___ Spiritual Assessment ___ Family Conference ___ Bereavement ___ Rapid Response ___ Code Blue ___ Other (describe below) Pastoral Care Referral From ___ Patient ___ Family ___ Nurse ___ Physician ___ Consumer Advocate ___ Livestock Commission Agent _x__ Other (describe below) Sacrament/Intervention _x__ Active listening ___ Anointing ___ Gnosticist ___ Bereavement ___ Communion ___ Beatriz exploration ___ ___ Life review _x__ Prayer ___ Reconciliation ___ Sacrament of Sick _x__ Supportive presence ___ Wedding ___ Other (describe below) Pastoral Comments Volunteer recommended offer of support for this patient who was exhibiting anxiety; offer of support to patient was welcomed; spouse was also in the room; pt describes his situation and pain; pt welcomes presence and prayer for support
--- NOTE | 2022-05-08 16:30 | APP_PTH ---
PATIENT: LUCIANA CORDOBA LOC: MS3 U#:[id number] AGE/SX: 26/M ROOM: [facility] RE05/08/[address]: Dr. Ben Mtz MD : 1995 BED: 1 DIS: 05/11/2022 SPEC #: [id number] RECD: 05/09/22 08:55 STATUS: NISSA REQ #: [id number] RUBENS: 05/08/22 16:[address]: Ben Mtz DEPT: SURGICAL PATHOLOGY RECD BY: Faustina Ledezma ENTERED: 05/09/22 12:28 SP TYPE: APPENDIX OTHR DR: MD Dr. Laura Nielson MD Dr. Autumn L White, MD Dr. Mary Catherine Sementi, MD Severiano Alvarez Dr., MD Dr. Eric Jopperi, DO MD Dr. Martina Rhodes MD Dr. Joseph Agyepong, MD Dr. James Mooney, MD Dr. Jonathan Vogt, DO Dr. Marline Shin, DO Dr. Andrea Nassar, MD Dr. Fab Grigsby Dr., MD Dr. Prakash Chand, MD Dr. Paul Nielsen, MD Dr. Paige Pierce, MD Dr. Ryan Burkholder, MD Jessica Franklin, [employer] CONS[employer]ANT-C Tissues: Appendix, NOS Procedures: Surgery Specimen Level III HEADER OPERATION: Laparoscopic appendectomy PRE-OP DIAGNOSIS: Acute appendicitis TISSUE SUBMITTED: Appendix MICROSCOPIC DIAGNOSIS Appendix, appendectomy: Acute necrotizing and hemorrhagic appendicitis and periappendicitis. RAYRAY:sasha 05/10/2022 MICROSCOPIC DESCRIPTION Slides are reviewed. GROSS DESCRIPTION Received in fixative is one container labeled with the patient's name and designated appendix. The specimen consists of an L-shaped appendix measuring 9.5 cm in length and up to 1.2 cm in diameter. The attached periappendiceal adipose tissue measures up to 1 cm in width. Also present in the container is a detached piece of periappendiceal adipose tissue measuring 2 x 2 x 1 cm. The serosal surface is congested and hemorrhagic. No obvious perforation is identified. The lumen contains fecal material. No fecalith is identified. In Processing Instructor sections are submitted in one cassette. / RAYRAY:sasha 05/09/2022 TC:2 [facility]: [id number]
[2022-05-08 16:46] LABS: Phosphorus 1.3 mg/dL (2.5-4.9)
[2022-05-08 17:00] LABS: Magnesium 1.6 mg/dL (1.6-2.6)
[2022-05-08 17:23] LABS: Anion Gap 9 (5-15); BUN 9 mg/dL (7-18); BUN/Creat Ratio 7.3 RATIO (10-20); Chloride 105 mmol/L (98-107); Creatinine, Serum 1.24 mg/dL (0.70-1.30); EST Glomerular Filtration Rate 73 mL/min (>60); Est Glom Filt Rate - Afr Amer 89 mL/min (>60); Estimated Creatinine Clearance 88.69 ml/min; Glucose 118 mg/dL (74-106); Potassium 3.6 mmol/L (3.5-5.1); Sodium Level 139 mmol/L (136-145)
[2022-05-08] MEDS: Acetaminophen 500 MG Tablet PO ×2 (18:19→23:12)
[2022-05-08] MEDS: Lactated Ringers 1,000 ML 15 ML IV (18:22)
[2022-05-08] MEDS: Bupiv/Epi 0.5% Mpf 30 ML Vial (20:17)
--- NOTE | 2022-05-08 21:22 | OP.PCM_ITS ---
Report of Operation Date of Procedure: 05/08/22 Pre-Operative Diagnosis: Acute appendicitis Post-Operative Diagnosis: Acute, perforated appendicitis Surgery/Procedure Performed:: Laparoscopic appendectomy with drain placement Description of Surgical Findings:: ? Purulent fluid flowing along the right paracolic gutter with obvious perforation in the mid appendix secreting purulent fluid Surgeon: Ben Mtz manager communication: None Type of Anesthesia: General/Supplemental Anesthesiologist: Antoni Felton Specimen's removed: 1. Peritoneal fluid culture 2. Appendix Drains: 15 Mauritanian round Elijah Estimated Blood Loss (mL): 25 Description of Procedure: After appropriate identification in the preoperative holding area, the patient was brought to the operating room and placed supine on the operating room table. Antibiotics had been preoperatively administered by emergency medicine. Patient was then induced with general endotracheal anesthetic. The abdomen was prepped and draped in usual sterile fashion. Formal timeout was conducted to confirm both the patient and the procedure. A supraumbilical incision was made and carried down to the level of the fascia which was sharply opened. After opening the peritoneum in like fashion a finger sweep was made to confirm position, and a balloon trocar was placed and pneumoperitoneum was established to 15 mmHg. Patient was positioned in Trendelenburg with the left side down. 2 additional 5 mm trocars were placed in the left lower quadrant and suprapubic positions. The peritoneum was inspected and there were no signs of inadvertent injury from this Saab entry. However, there was a significant amount of purulent fluid along the right paracolic gutter entering the pelvis and the appendix was partially visualized with severe inflammation. Given the presence of this fluid, a Luken's trap was attached to our suction granulating blender and a peritoneal fluid specimen was obtained. The right colon was gently retracted medially so that we could better visualize the appendix which was adherent to the paracolic gutter. With this retraction of the colon pressure was applied to the appendix and there was extrusion of purulent fluid from the midportion of the appendix?indicating the point of its perforation. Notably the base of the appendix appeared relatively free of inflammation. Using blunt laparoscopic dissection, a window was made in the mesoappendix adjacent to the appendiceal base. Then the base of the appendix was divided with the use of an Endo EDMUDN stapler. The harmonic scalpel device was used to seal and divide the mesoappendix. The appendix was placed in an Endo Catch bag. The staple line was inspected for intactness and hemostasis. After hemostasis was confirmed, purulent fluid was suctioned free of the peritoneum from the paracolic gutter as well as the pelvis. Then a a 15 [place]ian round Elijah drain was fed into the abdomen through the suprapubic port and the the appendix was removed from the umbilical port site. Pneumoperitoneum was then evacuated and the drain was secured at the skin using a 2-0 nylon suture. The supraumbilical port site fascia was closed with #1 Vicryl in a [id number] fashion. The port sites were infiltrated with 30 mL local anesthetic. The skin of each port site was closed with 4-0 Monocryl in a subcuticular fashion. Steri-Strips and OpSite dressings were applied. Patient tolerated procedure well without any apparent complications. They were awoken from general anesthetic without issue and transferred to post anesthesia care unit for ongoing recovery. Complications None Admit VTE Documentation VTE Mechan Device Prophylaxis: SCD's Procedures Digestive [id number]-49xxx: [id number] Laparoscopy appendectomy
[2022-05-08] MEDS: 0.9% Saline Lock 10 ML Syringe IV (22:58)
[2022-05-08] MEDS: HYDROmorphone 1 MG/ML Syringe IV (22:58)
[2022-05-08] MEDS: 0.9% Normal Saline 1,000 ML 125 ML IV (23:00)
[2022-05-09 00:45] VITALS: BP 154/90; PULSE 95; RESP 18; TEMP 37.3; O2SAT 99
[2022-05-09] MEDS: oxyCODONE 5 MG Tablet PO ×3 (00:57→17:17)
[2022-05-09 02:28] VITALS: BP 141/87; PULSE 95; RESP 18; TEMP 37.3; O2SAT 100
[2022-05-09] MEDS: HYDROmorphone 1 MG/ML Syringe IV ×4 (02:33→20:36)
[2022-05-09] MEDS: 0.9% Saline Lock 10 ML Syringe IV ×4 (02:34→20:36)
[2022-05-09] MEDS: 0.9% Normal Saline 1,000 ML 125 ML IV (05:19)
[2022-05-09 05:50] LABS: Absolute Lymphocyte Count 0.91 X10^3/uL (0.83-4.51); Absolute Neutrophil Count 12.4 X10^3/uL (2.0-7.7); Basophil# 0.02 X10^3/uL; Basophil% 0.1 % (0-1); Hematocrit 43.2 % (40-54); Hemoglobin 14.6 g/dL (13.0-16.5); Lymphocyte # 0.91 X10^3/ul (0.83-4.51); Lymphocyte % 6.5 % (19-41); Mean Corp Hgb Conc 33.8 g/dL (32-36); Mean Corpuscular Hgb 32.7 pg (27.0-32.0); Mean Corpuscular Volume 96.9 fL (80-94); Mean Platelet Vol. 9.9 fl (6.2-12.0); Monocyte# 0.56 X10^3/uL; NRBC Flagged by Analyzer 0 % (0-5); Neutrophil # 12.44 X10^3/uL (2.7-7.7); Neutrophil % 88.8 % (47-70); Platelet Count 183 K/mm3 (150-450); RBC Distribution Width CV 12.9 % (11.6-14.6); RBC Distribution Width SD 45.6 fl (35.1-43.9); Red Blood Count 4.46 M/mm3 (4.6-6.2)
--- NOTE | 2022-05-09 05:50 | NURSING ---
encouraged pt to try and stand at bedside and ambulate. pt states that will cause pain and Im scared to. pt educated on importance of early ambulation and promotion of flatus production. this RN also reassured using the splinting technique, pt aware and acknowledged and wants to wait regardless
[2022-05-09 06:00] LABS: Anion Gap 6 (5-15); BUN 10 mg/dL (7-18); BUN/Creat Ratio 8.4 RATIO (10-20); Calcium,Total 8.5 mg/dL (8.5-10.1); Chloride 106 mmol/L (98-107); Creatinine, Serum 1.19 mg/dL (0.70-1.30); EST Glomerular Filtration Rate 77 mL/min (>60); Est Glom Filt Rate - Afr Amer 93 mL/min (>60); Estimated Creatinine Clearance 92.42 ml/min; Glucose 111 mg/dL (74-106); Magnesium 2.6 mg/dL (1.6-2.6); Potassium 3.9 mmol/L (3.5-5.1); Sodium Level 140 mmol/L (136-145)
[2022-05-09 06:27] LABS: Phosphorus 3.4 mg/dL (2.5-4.9)
--- NOTE | 2022-05-09 07:16 | PN.HOSP_ITS ---
Reason for Visit Reason for Visit: Diagnoses Unspecified acute appendicitis (05/08/22) Subjective Subjective Mr. Chance is a 26-year-old white male with a history of alcohol abuse (8 12 ounce beers daily) who presented to [facility] on 05/08/2022 with right lower quadrant pain that had worsened over 3 days with associated decreased appetite and nausea. He rated the pain sharp in the right lower quadrant at 10 out of 10 in severity at its worse. He did indicate it worsened with any movement or palpation. Last alcohol consumption was approximately 3 days prior to presentation. CT of the abdomen pelvis showed acute appendicitis and he was taken to the OR on 05/08/2022. He was diagnosed with acute perforated appendicitis and a laparoscopic appendectomy with drain placement was performed. He tolerated the surgery well and we were consulted postoperatively for medical management. No flatus. Pain is minimal. Patient is anxious to get out of bed and get moving around some. He states he is tired of laying in bed. States he is little bit anxious just because of everything that happened. No specific complaints. Objective Data Objective Data Vital Signs: Vital Signs Temp Pulse Resp BP Pulse Ox O2 Del Method O2 Flow Rate 99.2 F H 95 18 141/87 H 100 Room Air 2 05/09/22 02:28 05/09/22 02:28 05/09/22 02:28 05/09/22 02:28 05/09/22 02:28 05/09/22 02:28 05/08/22 22:45 Oxygen Flow Rate (L/min) 2 Oxygen Delivery Method Room Air Weight: 97 kg Body Mass Index (BMI) 31.6 Intake & Output: Intake and Output for Last 24 Hours 05/07/22 05/08/22 05/09/22 23:59 23:59 23:59 Intake Total 1370 / 1370 1300.58 / 1300.58 Output Total 550 / 550 880 / 880 Balance 820 / 820 420.58 / 420.58 Lab / Micro Data Result Diagrams: 05/09/22 05:20 05/09/22 05:20 Labs: Laboratory Results - last 24 hr 05/08/22 11:45: WBC 15.6 H, RBC 5.23, Hgb 17.2 H, Hct 47.6, MCV 91.0, MCH 32.9 H , MCHC 36.1 H, RDW Std Deviation 40.4, RDW Coeff of Jett 12.3, Plt Count 222, MPV 9.6, Immature Gran % (Auto) 0.400, Neut % (Auto) 89.4 H, Lymph % (Auto) 6.1 L, [place] % (Auto) 3.9, Eos % (Auto) 0.1, Baso % (Auto) 0.1, Absolute Neuts (auto) 13.9 H, Absolute Lymphs (auto) 0.96, Nucleated RBC % 0 05/08/22 11:45: Sodium 143, Potassium 2.7 L*, Chloride 113 H, Carbon Dioxide 23.0, Anion Gap 7, BUN 7, Creatinine 0.76, Estim Creat Clear Calc 144.71, Est GFR (MDRD) Af Amer 155, Est GFR (MDRD) Non-Af 128, BUN/Creatinine Ratio 9.2 L, Glucose 101, Calcium 7.2 L, Total Bilirubin 0.80, AST 12 L, ALT 30, Alkaline Phosphatase 52, Total Protein 6.3 L, Albumin 3.2, Globulin 3.1, Albumin/Globulin Ratio 1.0 05/08/22 11:45: Sodium Cancelled, Potassium Cancelled, Chloride Cancelled, Car bon Dioxide Cancelled, Anion Gap Cancelled, BUN Cancelled, Creatinine Cancelled, Est GFR (MDRD) Af Amer Cancelled, Est GFR (MDRD) Non-Af Cancelled, BUN/Creatinine Ratio Cancelled, Glucose Cancelled, Calcium Cancelled, Magnesium 1.6 05/08/22 11:45: Phosphorus 1.3 L 05/08/22 13:20: Urine Color Yellow, Urine Clarity Clear, Urine pH 7.0, Ur Specific [place] 1.010, Urine Protein 30 H, Urine Glucose (UA) Normal, Urine Ketones Negative, Urine Occult Blood 10 H, Urine Nitrite Negative, Urine Bilirubin Negative, Urine Urobilinogen Normal, Ur Leukocyte Esterase 25 H, Urine RBC 0 SEEN, Urine WBC 0 SEEN, Ur Squamous Epith Cells 0 SEEN, Urine Bacteria 0 SEEN, Urine Mucus 0 SEEN 05/08/22 16:34: Sodium 139, Potassium 3.6, Chloride 105, Carbon Dioxide 25.0, Anion Gap 9, BUN 9, Creatinine 1.24, Estim Creat Clear Calc 88.69, Est GFR (MDRD) Af Amer 89, Est GFR (MDRD) Non-Af 73, BUN/Creatinine Ratio 7.3 L, Glucose 118 H, Calcium 9.0 05/09/22 05:20: WBC 14.0 H, RBC 4.46 L, Hgb 14.6, Hct 43.2, MCV 96.9 H D, MCH 32.7 H, MCHC 33.8 D, RDW Std Deviation 45.6 H, RDW Coeff of Jett 12.9, Plt Count 183, MPV 9.9, Immature Gran % (Auto) 0.600, Neut % (Auto) 88.8 H, Lymph % (Auto) 6.5 L, [place] % (Auto) 4.0, Eos % (Auto) 0.0, Baso % (Auto) 0.1, Absolute Neuts (auto) 12.4 H, Absolute Lymphs (auto) 0.91, Nucleated RBC % 0 05/09/22 05:20: Sodium 140, Potassium 3.9, Chloride 106, Carbon Dioxide 28.0, Anion Gap 6, BUN 10, Creatinine 1.19, Estim Creat Clear Calc 92.42, Est GFR (MDRD) Af Amer 93, Est GFR (MDRD) Non-Af 77, BUN/Creatinine Ratio 8.4 L, Glucose 111 H, Calcium 8.5, Magnesium 2.6 05/09/22 05:20: Phosphorus 3.4 Radiography Diagnostic Testing: Radiology Impression Abdomen/Pelvis CT 05/08/22 11:42 IMPRESSION: Acute appendicitis with appendicolith in the appendiceal lumen. Increased markings in the surrounding peritoneal fat in the right lower quadrant extending into the right pararenal space with inflammatory change. Small lymph nodes are also seen within the mesentery in the right lower quadrant. Electronically Signed: Maurilio Kwan MD at 14:11 EST , Physical Exam Const alert, oriented x3, no apparent distress and well nourished Constitutional Narrative: Obese, young, white male, sitting up in bed, appears comfortable nontoxic, nursing at bedside HEENT head/scalp atraumatic and moist oral mucous membranes Head and Scalp: normocephalic Resp normal respiratory effort, no retractions, no use of accessory muscles and clear to auscultation bilaterally Auscultation: Negative for rales, rhonchi or wheezes Cardio regular rate, regular rhythm, S1 normal heart sound, S2 normal heart sound, no murmurs, no rub, no gallops and no clicks GI GI Narrative: Bowel sounds are hypoactive, Doron-Kruger drain in place with serosanguineous drainage, abdomen is soft and no significant distention, mild diffuse tenderness related to operative procedure Extremity no clubbing, cyanosis or edema Extremity Narrative: 2+ pedal pulses Neuro oriented x3, moves all extremities and no focal motor deficits Speech: speech normal Psych affect normal Mood & Affect: anxious Assessment & Plan Assessment/Plan (1) Acute appendicitis: (2) Right lower quadrant abdominal pain: (3) Leukocytosis: (4) Fever: (5) Hypokalemia: (6) Elevated blood pressure reading: (7) Tachycardia: PLAN: Plan Right lower quadrant pain secondary to acute appendicitis with perforation -Postop day 1 status post laparoscopic appendectomy with drain placement -Management per primary service -Continue pain medications -Continue IV fluids--> will decrease to 75 cc/h -Patient remains n.p.o. -Await return of bowel function--> high risk for postoperative ileus with perforation Fever/leukocytosis -Suspect attributed to the above -Seems to be clinically improving -White count has trended down subtly -Tmax through the night was 100 and fever curve seems to be improving Tachycardia -Mild and seems to be improving -Suspect reactive with acute infection -Continue to monitor Hypokalemia -Replaced and resolved Elevated blood pressure reading -Suspect related to acute events -As needed hydralazine for systolic pressure greater than 160 -Would monitor and follow-up as an outpatient once acute issues are resolved to see if he actually has the diagnosis of hypertension Alcohol abuse -Patient does regularly consume 8 beers per day -Last intake was 3 days prior to admission -Given the length of time from his last use until now acute alcohol withdrawal is highly unlikely -Continue thiamine and folate -CIWA as ordered Tobacco abuse -Recommend cessation -Nicotine replacement DVT prophylaxis -SCDs -Chemoprophylaxis per primary service Charges/Coding Visit Charges Inpatient E&M: 23098 Subs Hosp L2
[2022-05-09 08:25] VITALS: BP 141/86; PULSE 98; RESP 18; TEMP 37.3; O2SAT 93
[2022-05-09] MEDS: Thiamine Hydrochloride 100 MG Tablet PO (08:35)
[2022-05-09] MEDS: Folic Acid 1 MG Tablet PO (08:35)
[2022-05-09 09:10] VITALS: O2SAT 92
[2022-05-09] MEDS: Acetaminophen 500 MG Tablet PO ×2 (09:12→17:17)
--- NOTE | 2022-05-09 09:40 | PCM.PN.SRG ---
Subjective Subjective Patient evaluated resting comfortably in bed. Patient notes minimal amount of incisional discomfort. Patient denies nausea, vomiting, fever. Patient denies passing flatus or bowel movement. He notes pain is much improved compared to yesterday. Objective Data Objective Data Vital Signs: Vital Signs Temp Pulse Resp BP Pulse Ox O2 Del Method O2 Flow Rate 99.2 F H 98 18 141/86 H 92 Room Air 2 05/09/22 08:25 05/09/22 08:25 05/09/22 08:25 05/09/22 08:25 05/09/22 09:10 05/09/22 09:10 05/08/22 22:45 Oxygen Flow Rate (L/min) 2 Oxygen Delivery Method Room Air Weight: 213 lb 13.574 oz Body Mass Index (BMI) 31.6 Intake & Output: Intake and Output for Last 24 Hours 05/07/22 05/08/22 05/09/22 23:59 23:59 23:59 Intake Total 1370 / 1370 1300.58 / 1300.58 Output Total 550 / 550 880 / 880 Balance 820 / 820 420.58 / 420.58 Lab / Micro Data Result Diagrams: 05/09/22 05:20 05/09/22 05:20 Labs: Laboratory Results - last 24 hr 05/08/22 11:45: WBC 15.6 H, RBC 5.23, Hgb 17.2 H, Hct 47.6, MCV 91.0, MCH 32.9 H, MCHC 36.1 H, RDW Std Deviation 40.4, RDW Coeff of Jett 12.3, Plt Count 222, MPV 9.6, Immature Gran % (Auto) 0.400, Neut % (Auto) 89.4 H, Lymph % (Auto) 6.1 L, [place] % (Auto) 3.9, Eos % (Auto) 0.1, Baso % (Auto) 0.1, Absolute Neuts (auto) 13.9 H, Absolute Lymphs (auto) 0.96, Nucleated RBC % 0 05/08/22 11:45: Sodium 143, Potassium 2.7 L*, Chloride 113 H, Carbon Dioxide 23.0, Anion Gap 7, BUN 7, Creatinine 0.76, Estim Creat Clear Calc 144.71, Est GFR (MDRD) Af Amer 155, Est GFR (MDRD) Non-Af 128, BUN/Creatinine Ratio 9.2 L, Glucose 101, Calcium 7.2 L, Total Bilirubin 0.80, AST 12 L, ALT 30, Alkaline Phosphatase 52, Total Protein 6.3 L, Albumin 3.2, Globulin 3.1, Albumin/Globulin Ratio 1.0 05/08/22 11:45: Sodium Cancelled, Potassium Cancelled, Chloride Cancelled, Carbon Dioxide Cancelled, Anion Gap Cancelled, BUN Cancelled, Creatinine Cancelled, Est GFR (MDRD) Af Amer Cancelled, Est GFR (MDRD) Non-Af Cancelled, BUN/Creatinine Ratio Cancelled, Glucose Cancelled, Calcium Cancelled, Magnesium 1.6 05/08/22 11:45: Phosphorus 1.3 L 05/08/22 13:20: Urine Color Yellow, Urine Clarity Clear, Urine pH 7.0, Ur Specific [place] 1.010, Urine Protein 30 H, Urine Glucose (UA) Normal, Urine Ketones Negative, Urine Occult Blood 10 H, Urine Nitrite Negative, Urine Bilirubin Negative, Urine Urobilinogen Normal, Ur Leukocyte Esterase 25 H, Urine RBC 0 SEEN, Urine WBC 0 SEEN, Ur Squamous Epith Cells 0 SEEN, Urine Bacteria 0 SEEN, Urine Mucus 0 SEEN 05/08/22 16:34: Sodium 139, Potassium 3.6, Chloride 105, Carbon Dioxide 25.0, Anion Gap 9, BUN 9, Creatinine 1.24, Estim Creat Clear Calc 88.69, Est GFR (MDRD) Af Amer 89, Est GFR (MDRD) Non-Af 73, BUN/Creatinine Ratio 7.3 L, Glucose 118 H, Calcium 9.0 05/09/22 05:20: WBC 14.0 H, RBC 4.46 L, Hgb 14.6, Hct 43.2, MCV 96.9 H D, MCH 32.7 H, MCHC 33.8 D, RDW Std Deviation 45.6 H, RDW Coeff of Jett 12.9, Plt Count 183, MPV 9.9, Immature Gran % (Auto) 0.600, Neut % (Auto) 88.8 H, Lymph % (Auto) 6.5 L, [place] % (Auto) 4.0, Eos % (Auto) 0.0, Baso % (Auto) 0.1, Absolute Neuts (auto) 12.4 H, Absolute Lymphs (auto) 0.91, Nucleated RBC % 0 05/09/22 05:20: Sodium 140, Potassium 3.9, Chloride 106, Carbon Dioxide 28.0, Anion Gap 6, BUN 10, Creatinine 1.19, Estim Creat Clear Calc 92.42, Est GFR (MDRD) Af Amer 93, Est GFR (MDRD) Non-Af 77, BUN/Creatinine Ratio 8.4 L, Glucose 111 H, Calcium 8.5, Magnesium 2.6 05/09/22 05:20: Phosphorus 3.4 Micro: Microbiology 05/08/22 Unknown Incision/Surgical Site Wound Culture - Preliminary GNR lactose senior behavioral scientist Radiography Diagnostic Testing: Radiology Impression Abdomen/Pelvis CT 05/08/22 11:42 IMPRESSION: Acute appendicitis with appendicolith in the appendiceal lumen. Increased markings in the surrounding peritoneal fat in the right lower quadrant extending into the right pararenal space with inflammatory change. Small lymph nodes are also seen within the mesentery in the right lower quadrant. Electronically Signed: Maurilio Kwan MD at 14:11 EST , Physical Exam GI GI Narrative: KATIE drain intact draining serosanguineous drainage. Inspection: abdominal distention and incision intact and healing well Auscultation: hypoactive bowel sounds Palpation: tender other (generalized minimal tenderness) Assessment & Plan Assessment/Plan (1) Acute appendicitis with perforation and generalized peritonitis: PLAN: Recommend ambulating multiple times per day today and sitting in the chair Continue NPO until passing flatus Continue antibiotic Labs were reviewed. WBC trending down We will continue to monitor patient Charges/Coding Visit Charges Inpatient E&M: 06874 Subs Hosp L1 (post-op; no charge)
--- NOTE | 2022-05-09 12:24 | CASEMGMT ---
PAMELA LEWIS DC Planning Assessment: Face to Face with patient for initial transition planning/care coordination assessment.?Pt alert, oriented x4, sitting up in chair with pt's present. PAMELA LEWIS introduced self and role at [facility], pt voices understanding and is agreeable to participate in assessment in the presence of his .? Care providers, pharmacy,?and demographics verified. Admitting dx: acute appendicitis with perforation PCP: Ruthann Specialists: none Preferred Pharmacy: [facility] Insurance: U[employer] Prescription Benefit:?yes Living Will/HPOA: none LNOK: Naz Living Arrangements: Pt lives with his and 1yo child in a single story home without steps. Pt states he is independent with all ADLs including self care and household tasks. Transportation: pt drives and is able to drive if needed DME/HHC/SNF: none ? Plan: Pt plans to return home at discharge with the support of his . Denies any discharge needs at this time. Will continue to monitor and assist with needs as identified. Fidencio Pizarro RN CM
--- NOTE | 2022-05-09 13:47 | CASEMGMT ---
Social Work SW met with pt and spoke with him regarding alcohol use. Pt willing to speak openly with SW. Pt states he drinks beer daily and is uncertain how many a day. Possibly 8 to 10. Pt states he has spoke to physicians about fatty liver and it has been a wake up call for him. Pt with good insight and able to state understanding of need to quit drinking for health reasons. Pt also citing his one year old daughter as a reason to stop drinking. SW provided support and encouragement regarding cessation. SW provided resources for local agencies to assist with alcohol use. Pt appreciative and accepting of information. Denies further needs. DAVID Jimenes
[2022-05-09 14:24] VITALS: BP 129/81; PULSE 90; RESP 18; TEMP 37.6; O2SAT 95
--- NOTE | 2022-05-09 15:27 | CHAPLAIN ---
Type of Pastoral Visit ___ Initial Visit _x__ Follow-up Visit ___ On-call Visit ___ General Patient Visit ___ Spiritual Assessment ___ Family Conference ___ Bereavement ___ Rapid Response ___ Code Blue ___ Other (describe below) Pastoral Care Referral From _x__ Patient ___ Family ___ Nurse ___ Physician ___ Pharmacology Associate ___ Traffic Survey Technician ___ Other (describe below) Sacrament/Intervention _x__ Active listening ___ Anointing ___ Taoism ___ Bereavement ___ Communion ___ Beatriz exploration ___ ___ Life review _x__ Prayer ___ Reconciliation ___ Sacrament of Sick _x__ Supportive presence ___ Wedding ___ Other (describe below) Pastoral Comments patient met in ED yesterday and had surgery yesterday; this is follow up to offer support and presence; pt welcomed support and spoke about his recovery from surgery and his years of struggles with anxiety; pt asked for prayer support; pt invited this wire twister to return for another follow up tomorrow if possible
[2022-05-09] MEDS: 0.9% Normal Saline 1,000 ML 75 ML IV (15:43)
[2022-05-09 20:35] VITALS: BP 161/92; PULSE 102; RESP 18; TEMP 37.1; O2SAT 95
[2022-05-10] VITALS (9 sets, daily range): BP systolic 140–168; BP diastolic 69–95; PULSE 93–113; RESP 16–18; TEMP 36.7–38.1; O2SAT 92–98
[2022-05-10] MEDS: oxyCODONE 5 MG Tablet PO ×4 (01:31→20:45)
[2022-05-10] MEDS: Acetaminophen 500 MG Tablet PO ×3 (01:31→14:26)
[2022-05-10] MEDS: hydrOXYzine PAM 25 MG Capsule 50 MG PO ×3 (01:31→20:05)
[2022-05-10] MEDS: Dicyclomine 10 MG Capsule 20 MG PO (01:31)
[2022-05-10] MEDS: 0.9% Normal Saline 1,000 ML 75 ML IV ×2 (01:43→15:11)
[2022-05-10] MEDS: HYDROmorphone 1 MG/ML Syringe IV ×2 (02:30→05:36)
[2022-05-10] MEDS: Ondansetron 4 MG/2 ML Vial IV (02:30)
[2022-05-10] MEDS: LORazepam 1 MG Tablet 2 MG PO (02:31)
[2022-05-10] MEDS: 0.9% Saline Lock 10 ML Syringe IV ×2 (05:36→07:36)
[2022-05-10 06:49] LABS: Absolute Lymphocyte Count 0.66 X10^3/uL (0.83-4.51); Absolute Neutrophil Count 12.4 X10^3/uL (2.0-7.7); Basophil# 0.03 X10^3/uL; Basophil% 0.2 % (0-1); Eosinophil# 0.01 X10^3/uL; Eosinophils% 0.1 % (0-5); Hematocrit 45.4 % (40-54); Hemoglobin 14.8 g/dL (13.0-16.5); Lymphocyte # 0.66 X10^3/ul (0.83-4.51); Lymphocyte % 4.8 % (19-41); Mean Corp Hgb Conc 32.6 g/dL (32-36); Mean Corpuscular Hgb 32.2 pg (27.0-32.0); Mean Corpuscular Volume 98.7 fL (80-94); Mean Platelet Vol. 9.8 fl (6.2-12.0); Monocyte# 0.57 X10^3/uL; Monocyte% 4.1 % (0-10); NRBC Flagged by Analyzer 0 % (0-5); Neutrophil # 12.35 X10^3/uL (2.7-7.7); Neutrophil % 89.9 % (47-70); Platelet Count 223 K/mm3 (150-450); RBC Distribution Width CV 12.9 % (11.6-14.6); RBC Distribution Width SD 46.6 fl (35.1-43.9); White Blood Count 13.8 K/mm3 (4.4-11.0)
[2022-05-10 07:04] LABS: Anion Gap 9 (5-15); BUN 11 mg/dL (7-18); BUN/Creat Ratio 10.7 RATIO (10-20); Chloride 105 mmol/L (98-107); Creatinine, Serum 1.03 mg/dL (0.70-1.30); EST Glomerular Filtration Rate 91 mL/min (>60); Est Glom Filt Rate - Afr Amer 110 mL/min (>60); Estimated Creatinine Clearance 106.77 ml/min; Glucose 115 mg/dL (74-106); Potassium 4.1 mmol/L (3.5-5.1); Sodium Level 136 mmol/L (136-145)
[2022-05-10] MEDS: Metoclopramide 10 MG/2 ML Vial 5 MG IV (07:36)
--- NOTE | 2022-05-10 07:42 | PCM.PN.SRG ---
Subjective Subjective Patient seen and examined early in the a.m. and then just before lunchtime. Earlier in the day patient complained that he had a difficult overnight course. He reported significant anxiety and nausea. He also expressed concern over his drain output. He stated that he attempted to pass gas but felt as though he had a small bowel movement. He reports I could eat, but denies express hunger. He denies frequent belching or hiccuping. Lastly confirms that he does feel puffy. Objective Data Objective Data Vital Signs: Vital Signs Temp Pulse Resp BP Pulse Ox O2 Del Method O2 Flow Rate 99.1 F 107 H 18 159/84 H 92 Room Air 2 05/10/22 05:37 05/10/22 05:37 05/10/22 05:37 05/10/22 05:37 05/10/22 05:37 05/10/22 05:37 05/08/22 22:45 Oxygen Flow Rate (L/min) 2 Oxygen Delivery Method Room Air Weight: 213 lb 13.574 oz Body Mass Index (BMI) 31.6 Intake & Output: Intake and Output for Last 24 Hours 05/08/22 05/09/22 05/10/22 23:59 23:59 23:59 Intake Total 1370 / 1370 2500.58 / 2500.58 800 / 800 Output Total 550 / 550 1274 / 1274 415 / 415 Balance 820 / 820 1226.58 / 1226.58 385 / 385 Lab / Micro Data Result Diagrams: 05/10/22 06:30 05/10/22 06:30 Labs: Laboratory Results - last 24 hr 05/10/22 06:30: WBC 13.8 H, RBC 4.60, Hgb 14.8, Hct 45.4, MCV 98.7 H, MCH 32.2 H, MCHC 32.6, RDW Std Deviation 46.6 H, RDW Coeff of Jett 12.9, Plt Count 223, MPV 9.8, Immature Gran % (Auto) 0.900, Neut % (Auto) 89.9 H, Lymph % (Auto) 4.8 L, [place] % (Auto) 4.1, Eos % (Auto) 0.1, Baso % (Auto) 0.2, Absolute Neuts (auto) 12.4 H, Absolute Lymphs (auto) 0.66 L, Nucleated RBC % 0 05/10/22 06:30: Sodium 136, Potassium 4.1, Chloride 105, Carbon Dioxide 22.0, Anion Gap 9, BUN 11, Creatinine 1.03, Estim Creat Clear Calc 106.77, Est GFR (MDRD) Af Amer 110, Est GFR (MDRD) Non-Af 91, BUN/Creatinine Ratio 10.7, Glucose 115 H, Calcium 9.0 Micro: Microbiology 05/08/22 Unknown Incision/Surgical Site Gram Stain - Final 05/08/22 Unknown Incision/Surgical Site Wound Culture - Preliminary GNR lactose senior bi developer Physical Exam Const oriented x3 Constitutional Narrative: Mild distress initially, then improved later in the morning Resp normal respiratory effort GI GI Narrative: Moderate abdominal distention. Some erythema surrounding patient's supraumbilical port site closure that is blanchable. Unremarkable left lower quadrant port site. Drain site appropriate containing KATIE drain with simple peritoneal fluid. Patient mildly tender with palpation. Assessment & Plan Assessment/Plan (1) Acute appendicitis with perforation and generalized peritonitis: PLAN: Postoperative day 2 from laparoscopic appendectomy with drain placement. Patient appears consistent with postoperative ileus that is slowly resolving given signs of return of bowel function. Recommend ambulating multiple times per day today and sitting in the chair Advance to sips of clear liquids Continue drain until patient tolerating p.o. Continue antibiotic Labs were reviewed. WBC still trending down Charges/Coding Visit Charges Inpatient E&M: 52929 Subs Hosp L2
[2022-05-10] MEDS: Folic Acid 1 MG Tablet PO (08:07)
[2022-05-10] MEDS: Thiamine Hydrochloride 100 MG Tablet PO (08:07)
--- NOTE | 2022-05-10 11:44 | PN.HOSP_ITS ---
Reason for Visit Reason for Visit: Diagnoses Elevated white blood cell count, unspecified (05/08/22) Hypokalemia (05/08/22) Acute appendicitis with generalized peritonitis, without abscess (05/08/22) Unspecified acute appendicitis (05/08/22) Tachycardia, unspecified (05/08/22) Elevated blood-pressure reading, without diagnosis of hypertension (05/08/22) Right lower quadrant pain (05/08/22) Fever, unspecified (05/08/22) Subjective Subjective Patient reports he is feeling better. He stated he have some anxiety overnight with some abdominal pain however I did assure him having pain after a perforated appendix and surgery was normal. He has had continued output of his Doron- Kruger drain but it is clear to sanguinous fluid appearance at this point. Patient is ambulating around the room independently and overall feels much improved and looks better clinically. Objective Data Objective Data Vital Signs: Vital Signs Temp Pulse Resp BP Pulse Ox O2 Del Method O2 Flow Rate 98.0 F 110 H 18 168/95 H 94 Room Air 2 05/10/22 08:02 05/10/22 08:15 05/10/22 08:02 05/10/22 08:02 05/10/22 08:02 05/10/22 08:15 05/08/22 22:45 Oxygen Flow Rate (L/min) 2 Oxygen Delivery Method Room Air Weight: 97 kg Body Mass Index (BMI) 31.6 Intake & Output: Intake and Output for Last 24 Hours 05/08/22 05/09/22 05/10/22 23:59 23:59 23:59 Intake Total 1370 / 1370 2500.58 / 2500.58 800 / 800 Output Total 550 / 550 1274 / 1274 415 / 415 Balance 820 / 820 1226.58 / 1226.58 385 / 385 Lab / Micro Data Result Diagrams: 05/10/22 06:30 05/10/22 06:30 Labs: Laboratory Results - last 24 hr 05/10/22 06:30: WBC 13.8 H, RBC 4.60, Hgb 14.8, Hct 45.4, MCV 98.7 H, MCH 32.2 H , MCHC 32.6, RDW Std Deviation 46.6 H, RDW Coeff of Jett 12.9, Plt Count 223, MPV 9.8, Immature Gran % (Auto) 0.900, Neut % (Auto) 89.9 H, Lymph % (Auto) 4.8 L, [place] % (Auto) 4.1, Eos % (Auto) 0.1, Baso % (Auto) 0.2, Absolute Neuts (auto) 12.4 H, Absolute Lymphs (auto) 0.66 L, Nucleated RBC % 0 05/10/22 06:30: Sodium 136, Potassium 4.1, Chloride 105, Carbon Dioxide 22.0, Anion Gap 9, BUN 11, Creatinine 1.03, Estim Creat Clear Calc 106.77, Est GFR ( MDRD) Af Amer 110, Est GFR (MDRD) Non-Af 91, BUN/Creatinine Ratio 10.7, Glucose 115 H, Calcium 9.0 Micro: Microbiology 05/08/22 Unknown Incision/Surgical Site Gram Stain - Final 05/08/22 Unknown Incision/Surgical Site Wound Culture - Preliminary Escherichia coli Gram positive organism Physical Exam Const alert, oriented x3, no apparent distress and well nourished Constitutional Narrative: Obese, young, white male, standing up in room getting ready to ambulate around the halls appears comfortable nontoxic HEENT head/scalp atraumatic and moist oral mucous membranes Head and Scalp: normocephalic Resp normal respiratory effort, no retractions, no use of accessory muscles and clear to auscultation bilaterally Auscultation: Negative for rales, rhonchi or wheezes Cardio regular rate, regular rhythm, S1 normal heart sound, S2 normal heart sound, no murmurs, no rub, no gallops and no clicks GI GI Narrative: Bowel sounds are normal active, Doron-Kruger drain in place with sanguinous drainage, abdominal is soft but abdomen appears somewhat distended today, mild diffuse tenderness related to operative procedure Extremity no clubbing, cyanosis or edema Extremity Narrative: 2+ pedal pulses Neuro oriented x3, moves all extremities and no focal motor deficits Speech: speech normal Psych Mood & Affect: anxious Assessment & Plan Assessment/Plan (1) Acute appendicitis: (2) Right lower quadrant abdominal pain: (3) Leukocytosis: (4) Fever: (5) Hypokalemia: (6) Elevated blood pressure reading: (7) Tachycardia: PLAN: Plan Right lower quadrant pain secondary to acute appendicitis with perforation -Postop day 2 status post laparoscopic appendectomy with drain placement -Management per primary service -Continue pain medications -Continue IV fluids--> but would recommend discontinuation if patient tolerates p.o. -Clear liquid initiated -Bowel function appears to be returning Fever/leukocytosis -Suspect attributed to the above -Seems to be clinically improving -White count is slowly trending down -Tmax through the night was 100.5 but overall fever curve is improving Tachycardia -Mild and seems to be improving -Suspect reactive with acute infection -Rates are fluctuating -Patient with also significant anxiety -Continue to monitor Hypokalemia -Replaced and resolved Elevated blood pressure reading -Suspect related to acute events -As needed hydralazine for systolic pressure greater than 160 -Would monitor and follow-up as an outpatient once acute issues are resolved to see if he actually has the diagnosis of hypertension Alcohol abuse -Patient does regularly consume 8 beers per day -No signs of acute withdrawal -Last intake was 3 days prior to admission -Given the length of time from his last use until now acute alcohol withdrawal is highly unlikely -Continue thiamine and folate -CIWA as ordered Tobacco abuse -Recommend cessation -Nicotine replacement DVT prophylaxis -SCDs -Chemoprophylaxis per primary service Charges/Coding Visit Charges Inpatient E&M: 79107 Subs Hosp L2
[2022-05-11] MEDS: Acetaminophen 500 MG Tablet PO ×2 (01:29→10:08)
[2022-05-11] MEDS: oxyCODONE 5 MG Tablet PO (03:08)
[2022-05-11] MEDS: hydrOXYzine PAM 25 MG Capsule 50 MG PO (03:09)
[2022-05-11] MEDS: 0.9% Normal Saline 1,000 ML 75 ML IV (04:31)
[2022-05-11 05:36] VITALS: BP 132/63; PULSE 90; RESP 16; TEMP 37.1; O2SAT 96
[2022-05-11 07:01] VITALS: O2SAT 93
--- NOTE | 2022-05-11 07:38 | PN.HOSP_ITS ---
Reason for Visit Reason for Visit: Diagnoses Elevated white blood cell count, unspecified (05/08/22) Hypokalemia (05/08/22) Acute appendicitis with generalized peritonitis, without abscess (05/08/22) Unspecified acute appendicitis (05/08/22) Tachycardia, unspecified (05/08/22) Elevated blood-pressure reading, without diagnosis of hypertension (05/08/22) Right lower quadrant pain (05/08/22) Fever, unspecified (05/08/22) Objective Data Objective Data Follow-up for postop acute appendicitis with history of chronic alcohol use, electrolyte abnormality. Vital Signs: Vital Signs Temp Pulse Resp BP Pulse Ox O2 Del Method O2 Flow Rate 98.8 F 90 16 132/63 H 93 Room Air 2 05/11/22 05:36 05/11/22 05:36 05/11/22 05:36 05/11/22 05:36 05/11/22 07:01 05/11/22 07:01 05/08/22 22:45 Oxygen Flow Rate (L/min) 2 Oxygen Delivery Method Room Air Weight: 213 lb 13.574 oz Body Mass Index (BMI) 31.6 Intake & Output: Intake and Output for Last 24 Hours 05/09/22 05/10/22 05/11/22 23:59 23:59 23:59 Intake Total 2500.58 / 2500.58 2300 / 2300 1050 / 1050 Output Total 1274 / 1274 560 / 560 Balance 1226.58 / 1226.58 1740 / 1740 1050 / 1050 Lab / Micro Data Result Diagrams: 05/11/22 06:44 05/11/22 06:44 Micro: Microbiology 05/08/22 Unknown Incision/Surgical Site Gram Stain - Final 05/08/22 Unknown Incision/Surgical Site Wound Culture - Preliminary Escherichia coli Gram positive organism 05/08/22 Unknown Incision/Surgical Site Anaerobic Culture - Preliminary Checking for anaerobes, further studies to follow. Physical Exam Narrative Seen and examined. Patient is walking around the nursing station. Mild postop pain. Patient does not have symptoms of acute alcohol withdrawal. Physical exam: General: Alert, Oriented x3, Cooperative HEENT: Atraumatic, PERRLA, EOMI, Normocephalic Oral: No Gingival or Mucosal Lesions/ Ulcerations Neck: Supple, No JVD, Negative Carotid Bruits Lungs: Air entry diminished in bilateral lung bases. No crepitation/rhonchi Cardiovascular: Regular rate, Regular Rhythm, Normal S1, Normal S2, No murmurs Abdomen:Surgical dressing dry. Bowel Sounds sluggish, soft, Non Tender, Non- Distended : No renal angle tenderness. No suprapubic tenderness. Extremities: No edema, Capillary Refill Less than 3 Seconds Skin: No rashes, No breakdown Musculoskeletal: No Tenderness to Palpation of Joints or Extremities Neurological: Cranial nerves II-XII grossly intact, DTR 2+/4 and Symmetrical, Neuro grossly intact Psych/Mental Status: Normal Affect, Appropriate. Assessment & Plan Assessment/Plan (1) Acute appendicitis: (2) Hypokalemia: PLAN: Plan Patient was admitted with acute appendicitis. 1. Acute appendicitis with perforation and peritonitis: Patient had laparos copic appendectomy with drain placement on 05/08/2022. Found to have purulent fluid along right paracolic gutter with obvious perforation with appendix. On postop day 3. Tmax 100.6 Fahrenheit. No tachycardia or tachypnea or hypoxia. Clear liquid diet advanced. Patient is getting discharged today. Hypokalemia -Replaced and resolved. Repeat potassium 4.1. Electrolytes sodium potassium chloride bicarb and anion gap in normal limit. Elevated BP probably transient and reactive due to acute appendicitis:Repeat blood pressure elevated 168/93. Advised follow-up with PCP. Will need outpatient home BP monitoring or ambulatory BP monitoring to diagnose hypertension. Chronic alcohol use disorder -Patient does regularly consume 8 beers per day -No signs of acute withdrawal -Last intake was 3 days prior to admission -Given the length of time from his last use until now acute alcohol withdrawal is highly unlikely -Continue thiamine and folate Chronic nicotine/cigarette smoking use disorder -Recommend cessation -Nicotine replacement DVT prophylaxis -SCDs -Chemoprophylaxis per primary service Follow-up with PCP. Patient is being discharged home. Charges/Coding Visit Charges Inpatient E&M: 17797 Subs Hosp L2
[2022-05-11 07:51] LABS: Absolute Lymphocyte Count 1.07 X10^3/uL (0.83-4.51); Basophil# 0.02 X10^3/uL; Basophil% 0.3 % (0-1); Eosinophil# 0.17 X10^3/uL; Eosinophils% 2.1 % (0-5); Hematocrit 39.7 % (40-54); Hemoglobin 13.3 g/dL (13.0-16.5); Lymphocyte # 1.07 X10^3/ul (0.83-4.51); Lymphocyte % 13.5 % (19-41); Mean Corp Hgb Conc 33.5 g/dL (32-36); Mean Corpuscular Hgb 32.6 pg (27.0-32.0); Mean Corpuscular Volume 97.3 fL (80-94); Mean Platelet Vol. 9.6 fl (6.2-12.0); Monocyte# 0.63 X10^3/uL; NRBC Flagged by Analyzer 0 % (0-5); Neutrophil % 75.7 % (47-70); Platelet Count 219 K/mm3 (150-450); RBC Distribution Width CV 12.7 % (11.6-14.6); RBC Distribution Width SD 45.4 fl (35.1-43.9); Red Blood Count 4.08 M/mm3 (4.6-6.2); White Blood Count 7.9 K/mm3 (4.4-11.0)
[2022-05-11 08:43] LABS: Anion Gap 8 (5-15); BUN 11 mg/dL (7-18); BUN/Creat Ratio 10.7 RATIO (10-20); Calcium,Total 8.8 mg/dL (8.5-10.1); Chloride 107 mmol/L (98-107); Creatinine, Serum 1.03 mg/dL (0.70-1.30); EST Glomerular Filtration Rate 91 mL/min (>60); Est Glom Filt Rate - Afr Amer 110 mL/min (>60); Estimated Creatinine Clearance 106.77 ml/min; Glucose 85 mg/dL (74-106); Magnesium 2.1 mg/dL (1.6-2.6); Phosphorus 2.2 mg/dL (2.5-4.9); Potassium 4.1 mmol/L (3.5-5.1); Sodium Level 140 mmol/L (136-145)
--- NOTE | 2022-05-11 09:54 | PN.SURG_ITS ---
Subjective Subjective patient has minimal abdominal pain feels hungry passing flatus wants to go home Objective Data Objective Data Vital Signs: Vital Signs Temp Pulse Resp BP Pulse Ox O2 Del Method O2 Flow Rate 98.8 F 90 16 132/63 H 93 Room Air 2 05/11/22 05:36 05/11/22 05:36 05/11/22 05:36 05/11/22 05:36 05/11/22 07:01 05/11/22 07:01 05/08/22 22:45 Oxygen Flow Rate (L/min) 2 Oxygen Delivery Method Room Air Weight: 97 kg Body Mass Index (BMI) 31.6 Intake & Output: Intake and Output for Last 24 Hours 05/09/22 05/10/22 05/11/22 23:59 23:59 23:59 Intake Total 2500.58 / 2500.58 2300 / 2300 1050 / 1050 Output Total 1274 / 1274 560 / 560 Balance 1226.58 / 1226.58 1740 / 1740 1050 / 1050 Lab / Micro Data Attestation: I reviewed the patient's lab results. Result Diagrams: 05/11/22 06:44 05/11/22 06:44 Labs: Laboratory Results - last 24 hr 05/11/22 06:44: WBC 7.9, RBC 4.08 L, Hgb 13.3, Hct 39.7 L, MCV 97.3 H, MCH 32.6 H, MCHC 33.5, RDW Std Deviation 45.4 H, RDW Coeff of Jett 12.7, Plt Count 219, MPV 9.6, Immature Gran % (Auto) 0.400, Neut % (Auto) 75.7 H, Lymph % (Auto) 13.5 L, Frederick % (Auto) 8.0, Eos % (Auto) 2.1, Baso % (Auto) 0.3, Absolute Neuts (auto) 6.0, Absolute Lymphs (auto) 1.07, Nucleated RBC % 0 05/11/22 06:44: Sodium 140, Potassium 4.1, Chloride 107, Carbon Dioxide 25.0, Anion Gap 8, BUN 11, Creatinine 1.03, Estim Creat Clear Calc 106.77, Est GFR (MDRD) Af Amer 110, Est GFR (MDRD) Non-Af 91, BUN/Creatinine Ratio 10.7, Glucose 85, Calcium 8.8, Phosphorus 2.2 L, Magnesium 2.1 Micro: Microbiology 05/08/22 Unknown Incision/Surgical Site Gram Stain - Final 05/08/22 Unknown Incision/Surgical Site Wound Culture - Preliminary Escherichia coli Gram positive organism 05/08/22 Unknown Incision/Surgical Site Anaerobic Culture - Preliminary Checking for anaerobes, further studies to follow. Physical Exam GI GI Narrative: abdomen is soft and benign - dressings intact Assessment & Plan Assessment/Plan (1) Acute appendicitis with perforation and generalized peritonitis: PLAN: POD#3 s/p laparoscopic appendectomy for perforated appendicits will start diet if tolerated, then d/c to home
[2022-05-11] MEDS: Thiamine Hydrochloride 100 MG Tablet PO (10:00)
[2022-05-11] MEDS: Folic Acid 1 MG Tablet PO (10:00)
[2022-05-11 10:09] VITALS: BP 168/93; PULSE 94; RESP 16; TEMP 37.5; O2SAT 96
--- NOTE | 2022-05-21 11:56 | PCM.DC.SUM ---
Providers Date of Admission: 05/08/22 Primary Care Physician: Dr. Alma Beavers MD Consultations 05/08/22 19:40 Consult: Hospitalist Routine Consulting Provider: Toby Guy Reason for Consult: Management of alcohol withdraw EMERGENT Consult: No MD Notified: Yes Date Notified: 05/08/22 Time Notified: 15:36 Method of Notification: ED Physician Initiated Reason For Visit: ACUTE APPENDICITIS Diagnosis Discharge Diagnosis (1) Acute appendicitis: Status: Acute Code(s): K35.80 - Unspecified acute appendicitis (2) Hypokalemia: Status: Acute Code(s): E87.6 - Hypokalemia Hospital Course Operations appendectomy Procedures None Summary of Care Provided Minutes Spent on Discharge: 5 Hospital Course: Patient is a 26-year-old male who presented on 05/08/2022 with complaints of severe right lower quadrant pain that had been progressive over the preceding couple of days and acutely worsened that day. ER work-up was consistent with acute appendicitis. CT imaging was included as part of this work-up and radiology not record any concerns for perforation at that time. However, the patient was taken later that same day for emergent laparoscopic appendectomy and intraoperatively was determined to have perforated appendicitis. Given this operative finding/contamination a suprapubic drain was left and a inpatient admission was planned. Patient was kept on IV antibiotics postoperatively on account of the peritoneal contamination. It should also be noted that patient reported a history of alcohol abuse during his ER history taking and, therefore, the hospitalist service was consulted for assistance with possible withdrawal symptoms. CIWA protocol was ordered. Postoperatively Mr. Chance was kept n.p.o. with maintenance IV fluids until he experienced return of bowel function as a postoperative ileus was anticipated. Gradually this return of function occurred and his diet was advanced. As patient demonstrated tolerance of p.o. intake and his operative drain output cleared in character, I made the decision to remove his drain on postoperative day 2. Coinciding with this clinical progress, we noted a progressive decrease in his leukocytosis from postoperative day 1 to postoperative day 3. On postoperative day 3, Dr. Cordoba determined that the patient was clinically fit for discharge and he was given outpatient follow-up with me to review his recovery, pathology, and perform a wound check. Weight / BMI Weight Weight: 213 lb 13.574 oz Body Mass Index (BMI) 31.6 ABG / Lab / Microbiology Data Result Diagrams: 05/11/22 06:44 05/11/22 06:44 Microbiology: Microbiology 05/08/22 Unknown Incision/Surgical Site Gram Stain - Final 05/08/22 Unknown Incision/Surgical Site Wound Culture - Final Escherichia coli Enterococcus avium 05/08/22 Unknown Incision/Surgical Site Anaerobic Culture - Final Clostridium ramosum Bacteroides fragilis Meaningful Use Info Meaningful Use Diagnoses (Choose all that apply): None applicable Discharge Plan Admission Admit Date/Time: 05/08/22 21:22 Primary Reason for Your Visit: Acute perforated appendicitis Attending Provider: Ben Mtz Primary Care Provider: Alma Beavers Consulting Providers: Laura Gonzalez ; Laura Madera ; Shahnaz Lambert ; Marsha Vidales ; Jered Cormier ; Severiano Sandy ; Pepe Zepeda ; Martina Cherry ; Josesito Escobar ; Raad Alfaro ; Lion Fish ; Marline Shin ; Andrea Nassar ; Ivet Duque ; Fab Ramos ; Chirag Luther ; Houston Lovett ; Christina Soresnon ; Sameer Kumar ; Berta Tilley [employer] Instructions Additional Instructions / Restrictions: Recommended pain control regimen - May take 600 mg ibuprofen (Motrin) and then in 3-4 hours, may take 650 mg acetaminophen (Tylenol), then in 3-4 hours may take 600 mg ibuprofen, then in 3-4 hours may take 650 mg acetaminophen and so on for 2-3 days You will be discharged with a prescription called into your pharmacy for pain medications and antibiotics May take narcotic pain medication for pain that is not controlled by above and at night for comfort through the night Leave dressings in place May shower, cover dressings with large towel to prevent from getting wet Do not soak - no tub baths/swimming No lifting/pushing/pulling greater than 10 pounds for a month. Regular diet as tolerated, drink plenty of fluids. Avoid carbonated beverages for a few days as this will cause abdominal bloating and thus discomfort after our surgery. Call Dr. Mtz's office for outpatient follow up appointment Discharge Orders/Prescriptions Referrals / Follow Up: Alma Beavers MD [Primary Care Provider] - Disposition Disposition (needs filled in before D/C Order can be placed): Home, Self Care
== END 2022-05-11 12:27 | disposition home or self-care (01) | DRG 342 ==
LOC: ED 15:17 → SDC 16:08 → ED 17:05 → MS3 17:06
PROVIDERS: Family Medicine; Physician Assistant; Admitting Provider Surgery; Emergency Provider Emergency Medicine; PCP Family Medicine; Visit Provider Surgery
PROC: 0DTJ4ZZ Resection of Appendix, Percutaneous Endoscopic Approach (ICD-10-PCS; CPT 44970; principal; 2022-05-08 16:10)
DX: K35.20 Acute appendicitis with generalized peritonitis, without abscess (principal); K91.89 Other postprocedural complications and disorders of digestive system; K56.7 Ileus, unspecified; E83.39 Other disorders of phosphorus metabolism; E83.42 Hypomagnesemia; E87.6 Hypokalemia; F41.9 Anxiety disorder, unspecified; F10.10 Alcohol abuse, uncomplicated; F17.210 Nicotine dependence, cigarettes, uncomplicated; F17.220 Nicotine dependence, chewing tobacco, uncomplicated; Y90.9 Presence of alcohol in blood, level not specified; R03.0 Elevated blood-pressure reading, without diagnosis of hypertension; E66.9 Obesity, unspecified; Z68.31 Body mass index [BMI] 31.0-31.9, adult; Z79.899 Other long term (current) drug therapy
CPT/HCPCS: 36415; 74177; 80048; 80053; 81001; 83735; 84100; 85025; 87070; 87075; 87077; 87186; 87205; 88304; 94668; 99252; 99284; 99406; J7030; J7050; J7120; Q9967; A4216; G0463; J2405

== ENCOUNTER → 2023-05-14 | Outpatient (CLI) | payer OTHER, SELFPAY ==
[2023-05-14 17:42] LABS: Absolute Lymphocyte Count 1.46 X10^3/uL (0.83-4.51); Absolute Neutrophil Count 6.8 X10^3/uL (2.0-7.7); Basophil# 0.08 X10^3/uL; Basophil% 0.9 % (0-1); Eosinophil# 0.12 X10^3/uL; Eosinophils% 1.3 % (0-5); Hemoglobin 16.3 g/dL (13.0-16.5); Lymphocyte # 1.46 X10^3/ul (0.83-4.51); Mean Corp Hgb Conc 34.7 g/dL (32-36); Mean Corpuscular Hgb 33.3 pg (27.0-32.0); Mean Corpuscular Volume 96.1 fL (80-94); Mean Platelet Vol. 9.7 fl (6.2-12.0); Monocyte# 0.53 X10^3/uL; Monocyte% 5.8 % (0-10); NRBC Flagged by Analyzer 0 % (0-5); Neutrophil # 6.76 X10^3/uL (2.7-7.7); Neutrophil % 74.1 % (47-70); Platelet Count 289 K/mm3 (150-450); RBC Distribution Width CV 12.4 % (11.6-14.6); RBC Distribution Width SD 43.5 fl (35.1-43.9); Red Blood Count 4.89 M/mm3 (4.6-6.2); White Blood Count 9.1 K/mm3 (4.4-11.0)
[2023-05-14 17:51] LABS: Erythrocyte Sedimentation Rate 2 mm/hr (0-20)
--- OUTSIDE RECORDS SUMMARY | 2023-05-14 17:56 | XMS RPT_ITS | CCD ---
Author Name Unknown Address [email or web address] [place] [address] Organization [facility] Care Team Providers Care Nut Roaster Helper Name Role Phone Alma Beavers MD Primary Care Provider ALMA BEAVERS Primary Care Unavailable ALMA BEAVERS Primary Care Unavailable ALMA BEAVERS Primary Care Unavailable Medications Current Medications Medication Drug Class(es) Dates Sig (Normalized) Sig (Original) doxycycline hyclate 100 mg oral tablet (1 source) Tetracycline-cla ss Drug Start: 05-07-2023 End: 05-14-2023 take 1 tablet by mouth twice daily doxycycline (VIBRA-TABS) 100 mg tablet Indications: Sinobronchitis Take 1 tablet by mouth two times a day for 7 days. 14 tablet 0 05/07/2023 05/14/2023 Active Completed/Discontinued Medications Medication Drug Class(es) Dates Sig (Normalized) Sig (Original) [id number] 200 actuat albuterol 0.09 mg/actuat metered dose inhaler (3 sources) beta2-Adrenergic Agonist Start: 01-15-2017 take 2 puff(s) by inhalation every four hours as needed for wheezing albuterol HFA (VENTOLIN HFA) 90 mcg/actuation inhaler Indications: Cough , Chest congestion Inhale 2 Puffs as instructed every 4 hours as needed for Wheezing/Shortnes s of Breath. 1 Inhaler 0 01/15/2017 Active Problems Problem Classification Problem Date Documented Da te Episodic/Chronic Allergic reactions (1 source) Contact dermatitis due to plants; Translations: [Unspecified contact dermatitis due to plants, except food] 01-20-2023 Episodic Conditions associated with dizziness or vertigo (1 source) Vertigo; Translations: [Dizziness and giddiness] 09-09-2023 Episodic Other upper respiratory infections (1 source) Chronic sinusitis; Translations: [Chronic sinusitis, unspecified] 05-07-2023 Chronic Results Test Name Value Interpretation Reference Range Facil ity Vital Signs Date Time Vital Sign Value Performing Clinician Da chen 05-07-2023 08:43-0500 Body temperature 98.01 [degF] Ta Kedar CIVIL ENGINEER.RING CUTTER LATHE OPERATOR Work Phone: [facility] 05-07-2023 08:43-0500 Body weight 102.51 kg Ta Kedar CIVIL ENGINEER.RING CUTTER LATHE OPERATOR Work Phone: [facility] 05-07-2023 08:43-0500 Diastolic blood pressure 80 mm[Hg] Ta Kedar CIVIL ENGINEER.RING CUTTER LATHE OPERATOR Work Phone: [facility] 05-07-2023 08:43-0500 Heart rate 86 /min Ta Kedar CIVIL ENGINEER.RING CUTTER LATHE OPERATOR Work Phone: [facility] 05-07-2023 08:43-0500 Respiratory rate 16 /min Ta CIVIL ENGINEER.RING CUTTER LATHE OPERATOR Work Phone: [facility] 05-07-2023 08:43-0500 SaO2% (BldA) [Mass fraction] 98 % Ta Kedar CIVIL ENGINEER.RING CUTTER LATHE OPERATOR Work Phone: [facility] 05-07-2023 08:43-0500 Systolic blood pressure 132 mm[Hg] Ta Kedar CIVIL ENGINEER.RING CUTTER LATHE OPERATOR Work Phone: [facility] 01-20-2023 18:40-0400 Body temperature 98.91 [degF] Danay Praisler-Wood CIVIL ENGINEER.RING CUTTER LATHE OPERATOR Work Phone: [facility] 01-20-2023 18:40-0400 Body weight 101.06 kg Danay Praisler-Wood CIVIL ENGINEER.RING CUTTER LATHE OPERATOR Work Phone: [facility] 01-20-2023 18:40-0400 Diastolic blood pressure 82 mm[Hg] Danay Praisler-Wood CIVIL ENGINEER.RING CUTTER LATHE OPERATOR Work Phone: [facility] 01-20-2023 18:40-0400 Heart rate 80 /min Danay Praisler-Wood CIVIL ENGINEER.RING CUTTER LATHE OPERATOR Work Phone: [facility] 01-20-2023 18:40-0400 Respiratory rate 21 /min Danay Castillo-Robert CIVIL ENGINEER.RING CUTTER LATHE OPERATOR Work Phone: [facility] 01-20-2023 18:40-0400 SaO2% (BldA) [Mass fraction] 96 % Danay Castillo-Robert CIVIL ENGINEER.RING CUTTER LATHE OPERATOR Work Phone: [facility] 01-20-2023 18:40-0400 Systolic blood pressure 148 mm[Hg] Danay Castillo-Robert CIVIL ENGINEER.RING CUTTER LATHE OPERATOR Work Phone: [facility] 12-07-2022 11:31-0400 Body temperature 97.7 [degF] Vanessa Athy PA-C Work Phone: [facility] 12-07-2022 11:31-0400 Body weight 98.16 kg Vanessa Athy PA-C Work Phone: [facility] 12-07-2022 11:31-0400 Diastolic blood pressure 88 mm[Hg] Vanessa Athy PA-C Work Phone: [facility] 12-07-2022 11:31-0400 Heart rate 79 /min Vanessa Athy PA-C Work Phone: [facility] 12-07-2022 11:31-0400 Respiratory rate 21 /min Vanessa Athy PA-C Work Phone: [facility] 12-07-2022 11:31-0400 SaO2% (BldA) [Mass fraction] 100 % Vanessa Athy PA-C Work Phone: [facility] 12-07-2022 11:31-0400 Systolic blood pressure 140 mm[Hg] Vanessa Athy PA-C Work Phone: [facility] Encounters Encounter Date Encounter Type Care Provider Facility Start: 05-07-2023 End: 05-07-2023 ambulatory ALMA BEAVERS Facility:[facility] Start: 05-07-2023 End: 05-07-2023 Patient encounter procedure Ta Thacker CIVIL ENGINEER.RING CUTTER LATHE OPERATOR Work Phone: [facility] Plan of Treatment Date Care Activity Detail Author Start: 12-20-2028 Urine microalbumin profile DTaP,Tdap,Td Vaccine (8 - Td or Tdap) [facility] Start: 03-31-2023 Depression Assessment Depression Ass [facility] Start: 11-29-2022 Influenza vaccination [facility] Start: 03-31-2022 DEPRESSION ASSESSMENT DEPRESSION ASS [facility] Start: 12-24-2020 Urine microalbumin profile DTAP,TDAP,TD (7 - Td or Tdap) [facility] Start: 08-06-2011 HEPATITIS C SCREENING HEPATITIS C [facility] Start: 08-06-2011 Hepatitis C screening Hepatitis C [facility] Start: 08-06-2011 HIV SCREENING HIV SCREENING [facility] Start: 08-06-2011 HIV screening HIV Screening [facility] Start: 08-06-1999 PNEUMOCOCCAL (1 - PCV) PNEUMOCOCCAL (1 - PCV) [facility] Start: 08-06-1999 Pneumococcal vaccination [facility] Start: 02-05-1994 COVID-19 VACCINE (#1) COVID-19 VACCI NE (#1) [facility] Immunizations Immunization Date Immunization Notes Care Provider Fa jody 12-24-2010 hepatitis B vaccine, pediatric or pediatric/adolescent dosage Vanessa Gu PA-C Work Phone: [facility] 12-24-2010 meningococcal polysaccharide (groups A, C, Y and W-135) diphtheria toxoid conjugate vaccine (MCV4P) Vanessa Gu PA-C Work Phone: [facility] 12-24-2010 tetanus toxoid, redu arnoldo diphtheria toxoid, and acellular pertussis vaccine, adsorbed Vanessa Gu PA-C Work Phone: [facility] 08-14-1998 diphtheria, tetanus toxoids and acellular pertussis vaccine Vanessa Gu PA-C Work Phone: [facility] 08-14-1998 measles, mumps and rubella virus vaccine Vanessa Gu PA-C Work Phone: [facility] 08-14-1998 poliovirus vaccine, inactivated Vanessa Athy PA-C Work Phone: [facility] 12-17-1994 diphtheria, tetanus toxoids and acellular pertussis vaccine Vanessa Athy PA-C Work Phone: [facility] 12-17-1994 haemophilus influenz ae type b vaccine, PRP-T conjugate Vanessa Athy PA-C Work Phone: [facility] 09-11-1994 measles, mumps and rubella virus vaccine Vanessa Athy PA-C Work Phone: [facility] 03-11-1994 diphtheria, tetanus toxoids and acellular pertussis vaccine Vanessa Athy PA-C Work Phone: [facility] 03-11-1994 haemophilus influenz ae type b vaccine, PRP-T conjugate Vanessa Athy PA-C Work Phone: [facility] 03-11-1994 poliovirus vaccine, inactivated Vanessa Athy PA-C Work Phone: [facility] 01-23-1994 diphtheria, tetanus toxoids and acellular pertussis vaccine Vanessa Athy PA-C Work Phone: [facility] 01-23-1994 haemophilus influenz ae type b vaccine, PRP-T conjugate Vanessa Athy PA-C Work Phone: [facility] 01-23-1994 hepatitis B vaccine, pediatric or pediatric/adolescent dosage Vanessa Athy PA-C Work Phone: [facility] 01-23-1994 poliovirus vaccine, inactivated Vanessa Athy PA-C Work Phone: [facility] 1993 diphtheria, tetanus toxoids and acellular pertussis vaccine Vanessa Athy PA-C Work Phone: [facility] 1993 haemophilus influenz ae type b vaccine, PRP-T conjugate Vanessa Athy PA-C Work Phone: [facility] 1993 hepatitis B vaccine, pediatric or pediatric/adolescent dosage Vanessa Athy PA-C Work Phone: [facility] 1993 poliovirus vaccine, inactivated Vanessa Athy PA-C Work Phone: [facility] Payers Date Payer Category Payer Private Health Insurance [id number] 2019 Private Health Insurance [id number] 2019 Unknown [id number] Social History Date Type Detail Facility Start: [facility]07-[facility]22 [facility] Work Phone: History of tobacco use Cigarette Smoker [facility] Work Phone: Start: 05-07-2022 Tobacco use and exposure Smokeless tobacco non-user [facility] Work Phone: Start: 12-07-2022 End: 05-07-2023 Alcohol intake Current drinker of alcohol (finding) [facility] Start: 03-08-2020 End: 12-07-2022 Alcohol intake [facility] Start: 03-08-2020 End: 12-07-2022 Tobacco use panel [facility] National Score (1-100), lower number is lower risk Not on file [facility] Start: 05-07-2022 Tobacco Comment 2-3 cigarettes a wee k [facility] Start: 1995 Sex Assigned At Not on file [facility] Clinical Notes 12-07-2022 to 05-07-2023 Ta Thacker APRN.RING CUTTER LATHE OPERATOR - 05/07/2023 9:06 AM Danay Frazier APRN.CNP - 01/20/2023 6:48 PM EDTPatient InstructionsVanessa Gu PA-C - 12/07/2022 11:59 AM EDTPatient Instructions Note Date & Type Note Facility 05-07-2023 Note HNO ID: [id number] Author: TA THACKER APRN.MARTY Service: ? Author Type: Nurse Practitioner Type: Progress Notes Filed: 05/07/2023 09:08 Note Text: Subjective HPI HPI Luciana Cordoba is a 27 year old male who presents today for CC of cough, congestion, sob. This started 3 days ago. Has tried otc medication for relief. Symptoms are worsened by nothing. Risk factors smoker. Reports hx of pneumonia. .Patient presents with: Chest Congestion: cough x 3 days PAST MEDICAL HISTORY Diagnosis Date ADD (attention deficit disorder) Class 1 obesity due to excess calories without serious comorbidity with body mass index (BMI) of 31.0 to 31.9 in adult Plantar fasciitis PAST SURGICAL HISTORY Procedure Laterality Date NONE ALLERGIES Patient has no known allergies. MEDICATIONS predniSONE (DELTASONE) 10 mg tablet Take 4 tabs daily for 3 days, then 2 tabs daily for 3 days, then 1 tab daily for 3 days with food. doxycycline (VIBRA-TABS) 100 mg tablet Take 1 tablet by mouth two times a day for 7 days. triamcinolone (KENALOG) 0.025 % cream Apply 1 application to affected area two times a day. (Patient not taking: Reported on 05/07/2023) promethazine (PHENERGAN) 25 mg tablet (Patient not taking: Reported on 01/20/2023) meclizine (ANTIVERT) 25 mg tab Take 1 tablet by mouth every 6 hours as needed (dizziness). (Patient not taking: Reported on 01/20/2023) lisinopril (ZESTRIL, PRINIVIL) 20 mg tablet Take 1 tablet by mouth once daily. (Patient not taking: Reported on 05/07/2022) hydroCHLOROthiazide (HYDRODIURIL, ESIDRIX) 25 mg tablet Take 1 tablet by mouth once daily. (Patient not taking: Reported on 05/07/2022) albuterol HFA (VENTOLIN HFA) 90 mcg/actuation inhaler Inhale 2 Puffs as instructed every 4 hours as needed for Wheezing/Shortness of Breath. (Patient not taking: Reported on 05/16/2020 ) FAMILY HISTORY Problem Relation Age of Onset Hypertension Mother Breast Cancer Mother Hypertension Father Hypertension Brother No Known Problems Paternal Grandmother No Known Problems Paternal Grandfather Social History Tobacco Use Smoking status: Some Days Years: 8 Types: Cigarettes Smokeless tobacco: Never Tobacco comments: 2-3 cigarettes a week Substance Use Topics Alcohol use: Yes Alcohol/week: 35.0 standard drinks of alcohol Types: 35 Cans of Beer (12oz) per week Drug use: Yes Frequency: 3.0 times per week Types: Marijuana Review of Systems Constitutional: Negative for fever. HENT: Positive for congestion. Negative for ear pain, nosebleeds and sore throat. Respiratory: Positive for cough and shortness of breath. Negative for wheezing. Cardiovascular: Negative for chest pain. Musculoskeletal: Negative for neck pain. Skin: Negative for itching and rash. Objective Blood pressure 132/80, pulse 86, temperature 36.7 ?C (98 ?F), resp. rate 16, weight 102.5 kg (226 lb), SpO2 98%. Physical Exam Constitutional: General: He is not in acute distress. Appearance: He is not toxic-appearing or diaphoretic. HENT: Head: Normocephalic and atraumatic. Right Ear: Hearing, tympanic membrane, ear canal and external ear normal. Left Ear: Hearing, tympanic membrane, ear canal and external ear normal. Nose: Nose normal. Mouth/Throat: Pharynx: Uvula midline. No pharyngeal swelling, oropharyngeal exudate, posterior oropharyngeal erythema or uvula swelling. Eyes: General: Lids are normal. No scleral icterus. Right eye: No discharge. Left eye: No discharge. Conjunctiva/sclera: Conjunctivae normal. Pupils: Pupils are equal, round, and reactive to light. Neck: Trachea: Trachea normal. Cardiovascular: Rate and Rhythm: Normal rate and regular rhythm. Heart sounds: Normal heart sounds. Pulmonary: Effort: Pulmonary effort is normal. Breath sounds: Normal breath sounds. Musculoskeletal: Cervical back: Normal range of motion and neck supple. Lymphadenopathy: Cervical: No cervical adenopathy. Right cervical: No superficial cervical adenopathy. Left cervical: No superficial cervical adenopathy. Skin: Findings: No rash. Neurological: Mental Status: He is alert and oriented to person, place, and time. ASSESSMENT/PLAN: 1. Sinobronchitis - ICD9: 473.9, 490, ICD10: J32.9, J40 Viral today, start steroid/hold atb, if s/s persist or worse fill/take atb rx. - Supportive care with plenty of fluids, rest, and analgesia prn. - Follow up in 3-5 days if symptoms persist or worsen. -If you experience chest pain/shortness of breath go to ER - PREDNISONE 10 MG TABLET - DOXYCYCLINE HYCLATE 100 MG TABLET Ta Thacker APRN.[facility] 05-07-2023 History of Present illness Narrative Subjective HPI HPI Luciana Cordoba is a 27 year old male who presents today for CC of cough, congestion, sob. This started 3 days ago. Has tried otc medication for relief. Symptoms are worsened by nothing. Risk factors smoker. Reports hx of pneumonia. .Patient presents with: Chest Congestion: cough x 3 days PAST MEDICAL HISTORY Diagnosis Date ADD (attention deficit disorder) Class 1 obesity due to excess calories without serious comorbidity with body mass index (BMI) of 31.0 to 31.9 in adult Plantar fasciitis PAST SURGICAL HISTORY Procedure Laterality Date NONE ALLERGIES Patient has no known allergies. MEDICATIONS predniSONE (DELTASONE) 10 mg tablet Take 4 tabs daily for 3 days, then 2 tabs daily for 3 days, then 1 tab daily for 3 days with food. doxycycline (VIBRA-TABS) 100 mg tablet Take 1 tablet by mouth two times a day for 7 days. triamcinolone (KENALOG) 0.025 % cream Apply 1 application to affected area two times a day. (Patient not taking: Reported on 05/07/2023) promethazine (PHENERGAN) 25 mg tablet (Patient not taking: Reported on 01/20/2023) meclizine (ANTIVERT) 25 mg tab Take 1 tablet by mouth every 6 hours as needed (dizziness). (Patient not taking: Reported on 01/20/2023) lisinopril (ZESTRIL, PRINIVIL) 20 mg tablet Take 1 tablet by mouth once daily. (Patient not taking: Reported on 05/07/2022) hydroCHLOROthiazide (HYDRODIURIL, ESIDRIX) 25 mg tablet Take 1 tablet by mouth once daily. (Patient not taking: Reported on 05/07/2022) albuterol HFA (VENTOLIN HFA) 90 mcg/actuation inhaler Inhale 2 Puffs as instructed every 4 hours as needed for Wheezing/Shortness of Breath. (Patient not taking: Reported on 05/16/2020 ) FAMILY HISTORY Problem Relation Age of Onset Hypertension Mother Breast Cancer Mother Hypertension Father Hypertension Brother No Known Problems Paternal Grandmother No Known Problems Paternal Grandfather Social History Tobacco Use Smoking status: Some Days Years: 8 Types: Cigarettes Smokeless tobacco: Never Tobacco comments: 2-3 cigarettes a week Substance Use Topics Alcohol use: Yes Alcohol/week: 35.0 standard drinks of alcohol Types: 35 Cans of Beer (12oz) per week Drug use: Yes Frequency: 3.0 times per week Types: Marijuana Review of Systems Constitutional: Negative for fever. HENT: Positive for congestion. Negative for ear pain, nosebleeds and sore throat. Respiratory: Positive for cough and shortness of breath. Negative for wheezing. Cardiovascular: Negative for chest pain. Musculoskeletal: Negative for neck pain. Skin: Negative for itching and rash. Objective Blood pressure 132/80, pulse 86, temperature 36.7 C (98 F), resp. rate 16, weight 102.5 kg (226 lb), SpO2 98%. Physical Exam Constitutional: General: He is not in acute distress. Appearance: He is not toxic-appearing or diaphoretic. HENT: Head: Normocephalic and atraumatic. Right Ear: Hearing, tympanic membrane, ear canal and external ear normal. Left Ear: Hearing, tympanic membrane, ear canal and external ear normal. Nose: Nose normal. Mouth/Throat: Pharynx: Uvula midline. No pharyngeal swelling, oropharyngeal exudate, posterior oropharyngeal erythema or uvula swelling. Eyes: General: Lids are normal. No scleral icterus. Right eye: No discharge. Left eye: No discharge. Conjunctiva/sclera: Conjunctivae normal. Pupils: Pupils are equal, round, and reactive to light. Neck: Trachea: Trachea normal. Cardiovascular: Rate and Rhythm: Normal rate and regular rhythm. Heart sounds: Normal heart sounds. Pulmonary: Effort: Pulmonary effort is normal. Breath sounds: Normal breath sounds. Musculoskeletal: Cervical back: Normal range of motion and neck supple. Lymphadenopathy: Cervical: No cervical adenopathy. Right cervical: No superficial cervical adenopathy. Left cervical: No superficial cervical adenopathy. Skin: Findings: No rash. Neurological: Mental Status: He is alert and oriented to person, place, and time. ASSESSMENT/PLAN: 1. Sinobronchitis - ICD9: 473.9, 490, ICD10: J32.9, J40 Viral today, start steroid/hold atb, if s/s persist or worse fill/take atb rx. - Supportive care with plenty of fluids, rest, and analgesia prn. - Follow up in 3-5 days if symptoms persist or worsen. -If you experience chest pain/shortness of breath go to ER - PREDNISONE 10 MG TABLET - DOXYCYCLINE HYCLATE 100 MG TABLET Ta Thacker APRN.MARTY documented in this encounter [facility] 01-20-2023 Note HNO ID: [id number] Author: Danay Heck APRN.CNP Service: ? Author Type: Nurse Practitioner Type: Progress Notes Filed: 01/20/2023 6:51 PM Note Text: Subjective Rash Pertinent negatives include no fever. Luciana Cordoba is a 27 year old male who presents with a rash present for the past month. He gets poison ariane often from splitting wood, but it does not typically last this long. He has been using ARIANE DRY and calamine lotion. He feels it has been getting better but his wanted him to be seen. He denies pain, rash is itchy and is present on bilateral arms and trunk. Review of Systems Constitutional: Negative for chills and fever. Respiratory: Negative. Cardiovascular: Negative. Musculoskeletal: Negative for myalgias. Skin: Positive for itching and rash. BP 148/82 Pulse 80 Temp 37.2 ?C (98.9 ?F) Resp 21 Wt 101.1 kg (222 lb 12.8 oz) SpO2 96% BMI 32.90 kg/m? PAST MEDICAL HISTORY Diagnosis Date ADD (attention deficit disorder) Class 1 obesity due to excess calories without serious comorbidity with body mass index (BMI) of 31.0 to 31.9 in adult Plantar fasciitis PAST SURGICAL HISTORY Procedure Laterality Date NONE ALLERGIES Patient has no known allergies. MEDICATIONS methylPREDNISolone (MEDROL, KAERL,) 4 mg Dose-Pack Follow dosing instructions, take with food. triamcinolone (KENALOG) 0.025 % cream Apply 1 application to affected area two times a day. promethazine (PHENERGAN) 25 mg tablet (Patient not taking: Reported on 01/20/2023) meclizine (ANTIVERT) 25 mg tab Take 1 tablet by mouth every 6 hours as needed (dizziness). (Patient not taking: Reported on 01/20/2023) lisinopril (ZESTRIL, PRINIVIL) 20 mg tablet Take 1 tablet by mouth once daily. (Patient not taking: Reported on 05/07/2022) hydroCHLOROthiazide (HYDRODIURIL, ESIDRIX) 25 mg tablet Take 1 tablet by mouth once daily. (Patient not taking: Reported on 05/07/2022) albuterol HFA (VENTOLIN HFA) 90 mcg/actuation inhaler Inhale 2 Puffs as instructed every 4 hours as needed for Wheezing/Shortness of Breath. (Patient not taking: Reported on 05/16/2020 ) FAMILY HISTORY Problem Relation Age of Onset Hypertension Mother Breast Cancer Mother Hypertension Father Hypertension Brother No Known Problems Paternal Grandmother No Known Problems Paternal Grandfather Social History Tobacco Use Smoking status: Some Days Years: 8 Types: Cigarettes Smokeless tobacco: Never Tobacco comments: 2-3 cigarettes a week Substance Use Topics Alcohol use: Yes Alcohol/week: 35.0 standard drinks of alcohol Types: 35 Cans of Beer (12oz) per week Drug use: Yes Frequency: 3.0 times per week Types: Marijuana Objective Physical Exam Vitals and nursing note reviewed. Constitutional: Appearance: Normal appearance. Cardiovascular: Rate and Rhythm: Normal rate. Pulmonary: Effort: Pulmonary effort is normal. Skin: General: Skin is warm and dry. Findings: Erythema and rash present. Neurological: Mental Status: He is alert. ASSESSMENT/PLAN: 1. 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 - METHYLPREDNISOLONE 4 MG TABLETS IN A DOSE PACK - TRIAMCINOLONE ACETONIDE 0.025 % TOPICAL CREAM - Follow-up with your PCP in 3-5 days if symptoms have not improved or sooner if symptoms worsen - Discussed red flags and need for immediate medical evaluation if any occur. - Discussed supportive care treatment with fluids, rest and analgesia. - Discussed expected course of illness Danay Heck APRN.[facility] 01-20-2023 History of Present illness Narrative Subjective Rash Pertinent negatives include no fever. Luciana Cordoba is a 27 year old male who presents with a rash present for the past month. He gets poison ariane often from splitting wood, but it does not typically last this long. He has been using ARIANE DRY and calamine lotion. He feels it has been getting better but his wanted him to be seen. He denies pain, rash is itchy and is present on bilateral arms and trunk. Review of Systems Constitutional: Negative for chills and fever. Respiratory: Negative. Cardiovascular: Negative. Musculoskeletal: Negative for myalgias. Skin: Positive for itching and rash. BP 148/82 Pulse 80 Temp 37.2 C (98.9 F) Resp 21 Wt 101.1 kg (222 lb 12.8 oz) SpO2 96% BMI 32.90 kg/m PAST MEDICAL HISTORY Diagnosis Date ADD (attention deficit disorder) Class 1 obesity due to excess calories without serious comorbidity with body mass index (BMI) of 31.0 to 31.9 in adult Plantar fasciitis PAST SURGICAL HISTORY Procedure Laterality Date NONE ALLERGIES Patient has no known allergies. MEDICATIONS methylPREDNISolone (MEDROL, KAREL,) 4 mg Dose-Pack Follow dosing instructions, take with food. triamcinolone (KENALOG) 0.025 % cream Apply 1 application to affected area two times a day. promethazine (PHENERGAN) 25 mg tablet (Patient not taking: Reported on 01/20/2023) meclizine (ANTIVERT) 25 mg tab Take 1 tablet by mouth every 6 hours as needed (dizziness). (Patient not taking: Reported on 01/20/2023) lisinopril (ZESTRIL, PRINIVIL) 20 mg tablet Take 1 tablet by mouth once daily. (Patient not taking: Reported on 05/07/2022) hydroCHLOROthiazide (HYDRODIURIL, ESIDRIX) 25 mg tablet Take 1 tablet by mouth once daily. (Patient not taking: Reported on 05/07/2022) albuterol HFA (VENTOLIN HFA) 90 mcg/actuation inhaler Inhale 2 Puffs as instructed every 4 hours as needed for Wheezing/Shortness of Breath. (Patient not taking: Reported on 05/16/2020 ) FAMILY HISTORY Problem Relation Age of Onset Hypertension Mother Breast Cancer Mother Hypertension Father Hypertension Brother No Known Problems Paternal Grandmother No Known Problems Paternal Grandfather Social History Tobacco Use Smoking status: Some Days Years: 8 Types: Cigarettes Smokeless tobacco: Never Tobacco comments: 2-3 cigarettes a week Substance Use Topics Alcohol use: Yes Alcohol/week: 35.0 standard drinks of alcohol Types: 35 Cans of Beer (12oz) per week Drug use: Yes Frequency: 3.0 times per week Types: Marijuana Objective Physical Exam Vitals and nursing note reviewed. Constitutional: Appearance: Normal appearance. Cardiovascular: Rate and Rhythm: Normal rate. Pulmonary: Effort: Pulmonary effort is normal. Skin: General: Skin is warm and dry. Findings: Erythema and rash present. Neurological: Mental Status: He is alert. ASSESSMENT/PLAN: 1. 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 - METHYLPREDNISOLONE 4 MG TABLETS IN A DOSE PACK - TRIAMCINOLONE ACETONIDE 0.025 % TOPICAL CREAM - Follow-up with your PCP in 3-5 days if symptoms have not improved or sooner if symptoms worsen - Discussed red flags and need for immediate medical evaluation if any occur. - Discussed supportive care treatment with fluids, rest and analgesia. - Discussed expected course of illness Danay Heck APRN.RING CUTTER LATHE OPERATOR documented in this encounter [facility] 01-20-2023 Instructions Danay Heck APRN.CNP - 01/20/2023 6:48 PM EDT ASSESSMENT/PLAN: 1. 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 - METHYLPREDNISOLONE 4 MG TABLETS IN A DOSE PACK - TRIAMCINOLONE ACETONIDE 0.025 % TOPICAL CREAM - Follow-up with your PCP in 3-5 days if symptoms have not improved or sooner if symptoms worsen - Discussed red flags and need for immediate medical evaluation if any occur. - Discussed supportive care treatment with fluids, rest and analgesia. - Discussed expected course of illness Danay Heck APRN.[facility] PATIENT INFO POISON ARIANE INTRODUCTION When the skin comes in direct contact with an irritating or allergy-causing substance, contact dermatitis can develop. Exposure to poison ariane, poison oak, and poison sumac cause more cases of allergic contact dermatitis than all other plant families combined. People of all ethnicities and skin types are at risk for developing poison ariane dermatitis. The severity of the reaction tends to decrease with age, especially in people who have had mild reactions in the past. People in occupations such as firefighting, forestry, and farming are at a higher risk of poison ariane dermatitis because of repeated exposure to toxic plants. POISON ARIANE CAUSES Poison ariane, poison oak, and poison sumac plants all contain a compound called urushiol, which is a light, colorless oil that is found on the fruit, leaves, stem, root, and sap of the plant. When urushiol is exposed to air, it turns brown and the plant leaves develop small black spots. There are several ways that you can be exposed to urushiol: By touching the sap or rubbing against the leaves of the toxic plant By touching something that has urushiol on it, such as animal fur or garden tools By breathing in smoke when toxic plants are burned Ginkgo fruit and the skin of mangoes also contain urushiol and can produce symptoms similar to poison ariane dermatitis. IDENTIFYING POISON ARIANE Leaves of three, let them be is a phrase often used to identify plants that cause poison ariane dermatitis. Generally, poison ariane and poison oak have three leaves with flowering branches on a single stem. Poison sumac has five, seven, or more leaves that angle upward toward the top of the stem. Some types of poison ariane produce a green or off-white fruit in hailey, and in some cases, black dots form on the plants' leaves. It is not always possible to identify the plant by the leaves alone since the appearance can vary depending upon the season, growth cycle, region, and climate. Poison ariane, oak, and sumac plants grow in many areas across the [facility] and throughout the world. East of the [facility], poison ariane commonly grows as a climbing vine. In the [place] area and west, poison ariane tends to grow low to the ground as a shrub. Poison oak most often grows west of the [facility], and crystal zuleta inhabits boggy areas in the southeastern part of the [facility]. The plants are not usually found in areas at high elevations or in desert climates. POISON ARIAEN SIGNS AND SYMPTOMS After contact with urushiol, approximately 50 percent of people develop signs and symptoms of poison ariane dermatitis. The symptoms and severity differ from person to person. The most common signs and symptoms of poison ariane dermatitis are: Intense itching Skin swelling Skin redness These symptoms usually develop within four hours to four days after exposure to the urushiol. After the initial symptoms, you will develop fluid-filled blisters in a line or streak-like pattern. The symptoms are worst within 1 to 14 days after touching the plant, but can develop up to 21 days later if you have never been exposed to urushiol before. The blisters can occur at different times in different people; blisters can develop on the arms several days after blisters on the hands developed. This does not mean that the reaction is spreading from one area of the body to the other. The fluid that leaks from blisters does not cause symptoms. Poison ariane dermatitis is not contagious and cannot be passed from person to person. However, urushiol can be carried under fingernails and on clothes; if another person comes in contact with the urushiol, they can develop poison ariane dermatitis. POISON ARIANE DIAGNOSIS Poison ariane is usually diagnosed based upon how your skin looks. Further testing is not usually necessary. POISON ARIANE TREATMENT Poison ariane dermatitis usually resolves within one to three weeks without treatment. Treatments that may help relieve the itching, soreness, and discomfort caused by poison ariane dermatitis include: Skin treatments -- For some people, adding oatmeal to a bath, applying cool wet compresses, and applying calamine lotion may help to relieve itching. Once the blisters begin weeping fluid, astringents containing aluminum acetate (Rolanda's solution) and Domeboro may help to relieve the rash. Antihistamines -- Antihistamines may help to relieve itching caused by poison ariane dermatitis. Some antihistamines make you sleepy while others do not. Antihistamines that make you sleepy (eg, diphenhydramine [Benadryl ]) may be helpful if you have trouble sleeping due to itching. Other formulas (eg, loratadine [Claritin ], cetirizine [Zyrtec ]) may be preferable for daytime. Steroid creams -- Steroid creams may be helpful if they are used during the first few days after symptoms develop. Low potency steroid creams, such as 1 percent hydrocortisone (available in the [place] without prescription) are not usually helpful. A stronger prescription formula may be helpful. Steroids -- If you develop severe symptoms or the rash covers a large area (especially on the face or genitals), you may need steroid pills or injections (eg, prednisone) to help relieve itching and swelling. Pills are usually given for 14 to 21 days, with the dosage slowly decreased over time. Antibiotics -- Skin infections are a potential complication of poison ariane, especially if you scratch your skin. If you develop a skin infection because of poison ariane dermatitis, you may need antibiotics to treat the infection. Other treatments -- An herbal therapy called jewelweed extract has been used to treat poison ariane dermatitis, although it has not been proven effective. You should not use antihistamine creams or lotions, anesthetic creams containing benzocaine, or antibiotic creams containing neomycin or bacitracin to the skin. These creams or ointments could make the rash worse. POISON ARIANE PREVENTION The best way to prevent poison ariane dermatitis is to identify and avoid the plants that cause it. These plants can irritate the skin year round, even during the winter months, and can still cause a reaction years after the plant dies. Wear protective clothing, including long sleeves and pants when working in areas where toxic plants may be found. Keep in mind that the resin and oils from the toxic plants can be carried on clothing, pets, and under fingernails. Wear heavy-duty vinyl gloves when doing yard work or gardening. The oils from toxic plants can seep through latex or rubber gloves. After coming in contact with poison ariane, remove any contaminated clothing and gently wash (do not scrub or rub) you skin and under the fingernails with mild soap and water as soon as possible. Washing within two hours after exposure can reduce the likelihood and severity of symptoms; washing the skin after you have symptoms will not help. Creams and ointments that create a barrier between the skin and the urushiol oil may be somewhat effective for people who are frequently exposed to poison ariane. Antonellaoquatam (Ariane Block ) is one type of barrier cream that may prevent poison ariane dermatitis. It must be reapplied every four hours and it leaves a yemi residue on the skin. Avoid burning poisonous vegetation, which can disperse the plant particles in the smoke, irritate the skin, and cause poison ariane dermatitis. documented in this encounter [facility] 12-07-2022 Note HNO ID: [id number] Author: Vanessa Gu PA-C Service: ? Author Type: Physician Crew Attendant Type: Progress Notes Filed: 12/07/2022 12:34 PM Note Text: This note was created using PingStamp. Subjective Luciana Cordoba is a 27 year old male. HPI Patient presents with a chief complaint of vertigo over the past 10 days. He states he was seen by his PCP and prescribed meclizine. He states it does help but he is almost out of the medicine. He states when he moves his head to the right or looks up he will get room spinning dizziness. He states if he is sitting still he does not get the sensation. He woke up this morning also dizzy. He took meclizine this morning which seemed to help with his symptoms significantly. He is not dizzy right now. No chest pain or shortness of breath. He has had vertigo a few times before but usually does not last 10 days. Denies headache. He states his ears feel full especially on the left side. He denies cough congestion. Review of Systems Constitutional: Negative. HENT: Positive for ear pain. Negative for congestion, ear discharge and postnasal drip. Respiratory: Negative. Cardiovascular: Negative. Gastrointestinal: Negative. Genitourinary: Negative. Musculoskeletal: Negative. Neurological: Positive for dizziness. Negative for tremors, seizures, syncope, speech difficulty, weakness, light-headedness, numbness and headaches. Hematological: Negative. All other systems reviewed and are negative. PAST MEDICAL HISTORY Diagnosis Date ADD (attention deficit disorder) Class 1 obesity due to excess calories without serious comorbidity with body mass index (BMI) of 31.0 to 31.9 in adult Plantar fasciitis Current Outpatient Medications Medication Sig Dispense Refill promethazine (PHENERGAN) 25 mg tablet meclizine (ANTIVERT) 25 mg tab Take 1 tablet by mouth every 6 hours as needed (dizziness). 30 tablet 0 fluticasone (FLONASE) 50 mcg/actuation nasal spray Use 2 Sprays in each nostril once daily for 7 days. Rinse mouth after use. 1 Each 0 lisinopril (ZESTRIL, PRINIVIL) 20 mg tablet Take 1 tablet by mouth once daily. (Patient not taking: Reported on 05/07/2022) 30 tablet 2 hydroCHLOROthiazide (HYDRODIURIL, ESIDRIX) 25 mg tablet Take 1 tablet by mouth once daily. (Patient not taking: Reported on 05/07/2022) 30 tablet 2 albuterol HFA (VENTOLIN HFA) 90 mcg/actuation inhaler Inhale 2 Puffs as instructed every 4 hours as needed for Wheezing/Shortness of Breath. (Patient not taking: Reported on 05/16/2020 ) 1 Inhaler 0 No current facility-administered medications for this visit. PAST SURGICAL HISTORY Procedure Laterality Date NONE FAMILY HISTORY Problem Relation Age of Onset Hypertension Mother Breast Cancer Mother Hypertension Father Hypertension Brother No Known Problems Paternal Grandmother No Known Problems Paternal Grandfather Social History Tobacco Use Smoking status: Some Days Years: 8 Types: Cigarettes Smokeless tobacco: Never Tobacco comments: 2-3 cigarettes a week Substance Use Topics Alcohol use: Yes Alcohol/week: 35.0 standard drinks of alcohol Types: 35 Cans of Beer (12oz) per week Drug use: Yes Frequency: 3.0 times per week Types: Marijuana Objective BP 140/88 Pulse 79 Temp 36.5 ?C (97.7 ?F) Resp 21 Wt 98.2 kg (216 lb 6.4 oz) SpO2 100% BMI 31.96 kg/m? Physical Exam Vitals reviewed. Constitutional: Appearance: Normal appearance. HENT: Head: Normocephalic and atraumatic. Ears: Comments: TMs are bulging appear to have increased pressure in the middle ear especially on the left. There is no middle ear effusion or sign of infection. Nose: Nose normal. Mouth/Throat: Mouth: Mucous membranes are moist. Pharynx: Oropharynx is clear. Cardiovascular: Rate and Rhythm: Normal rate and regular rhythm. Heart sounds: Normal heart sounds. Pulmonary: Effort: Pulmonary effort is normal. Breath sounds: Normal breath sounds. Skin: General: Skin is warm and dry. Neurological: General: No focal deficit present. Mental Status: He is alert and oriented to person, place, and time. Cranial Nerves: No cranial nerve deficit. Sensory: No sensory deficit. Motor: No weakness. Coordination: Coordination normal. Gait: Gait normal. Comments: Patient has some mild left beating nystagmus noted. When he lays back looking left and right vertigo not reproduced however patient had taken meclizine just prior to coming in his symptoms really have improved right now. Assessment and Plan ASSESSMENT/PLAN: 1. Vertigo - ICD9: 780.4, ICD10: R42 Appears to be benign positional vertigo. No sign of a CVA. He did have improvement with the meclizine this morning but is out. I did give him a refill on this and will trial Flonase... Gave him instructions on how to do Nubia-Hallpike maneuver. Discussed red flags for ER care. Recommended follow-up with PCP. Discussed that there is vestibular the (more content not included)... [facility] 12-07-2022 History of Present illness Narrative This note was created using PingStamp. Subjective Luciana Cordoba is a 27 year old male. HPI Patient presents with a chief complaint of vertigo over the past 10 days. He states he was seen by his PCP and prescribed meclizine. He states it does help but he is almost out of the medicine. He states when he moves his head to the right or looks up he will get room spinning dizziness. He states if he is sitting still he does not get the sensation. He woke up this morning also dizzy. He took meclizine this morning which seemed to help with his symptoms significantly. He is not dizzy right now. No chest pain or shortness of breath. He has had vertigo a few times before but usually does not last 10 days. Denies headache. He states his ears feel full especially on the left side. He denies cough congestion. Review of Systems Constitutional: Negative. HENT: Positive for ear pain. Negative for congestion, ear discharge and postnasal drip. Respiratory: Negative. Cardiovascular: Negative. Gastrointestinal: Negative. Genitourinary: Negative. Musculoskeletal: Negative. Neurological: Positive for dizziness. Negative for tremors, seizures, syncope, speech difficulty, weakness, light-headedness, numbness and headaches. Hematological: Negative. All other systems reviewed and are negative. PAST MEDICAL HISTORY Diagnosis Date ADD (attention deficit disorder) Class 1 obesity due to excess calories without serious comorbidity with body mass index (BMI) of 31.0 to 31.9 in adult Plantar fasciitis Current Outpatient Medications Medication Sig Dispense Refill promethazine (PHENERGAN) 25 mg tablet meclizine (ANTIVERT) 25 mg tab Take 1 tablet by mouth every 6 hours as needed (dizziness). 30 tablet 0 fluticasone (FLONASE) 50 mcg/actuation nasal spray Use 2 Sprays in each nostril once daily for 7 days. Rinse mouth after use. 1 Each 0 lisinopril (ZESTRIL, PRINIVIL) 20 mg tablet Take 1 tablet by mouth once daily. (Patient not taking: Reported on 05/07/2022) 30 tablet 2 hydroCHLOROthiazide (HYDRODIURIL, ESIDRIX) 25 mg tablet Take 1 tablet by mouth once daily. (Patient not taking: Reported on 05/07/2022) 30 tablet 2 albuterol HFA (VENTOLIN HFA) 90 mcg/actuation inhaler Inhale 2 Puffs as instructed every 4 hours as needed for Wheezing/Shortness of Breath. (Patient not taking: Reported on 05/16/2020 ) 1 Inhaler 0 No current facility-administered medications for this visit. PAST SURGICAL HISTORY Procedure Laterality Date NONE FAMILY HISTORY Problem Relation Age of Onset Hypertension Mother Breast Cancer Mother Hypertension Father Hypertension Brother No Known Problems Paternal Grandmother No Known Problems Paternal Grandfather Social History Tobacco Use Smoking status: Some Days Years: 8 Types: Cigarettes Smokeless tobacco: Never Tobacco comments: 2-3 cigarettes a week Substance Use Topics Alcohol use: Yes Alcohol/week: 35.0 standard drinks of alcohol Types: 35 Cans of Beer (12oz) per week Drug use: Yes Frequency: 3.0 times per week Types: Marijuana Objective BP 140/88 Pulse 79 Temp 36.5 C (97.7 F) Resp 21 Wt 98.2 kg (216 lb 6.4 oz) SpO2 100% BMI 31.96 kg/m Physical Exam Vitals reviewed. Constitutional: Appearance: Normal appearance. HENT: Head: Normocephalic and atraumatic. Ears: Comments: TMs are bulging appear to have increased pressure in the middle ear especially on the left. There is no middle ear effusion or sign of infection. Nose: Nose normal. Mouth/Throat: Mouth: Mucous membranes are moist. Pharynx: Oropharynx is clear. Cardiovascular: Rate and Rhythm: Normal rate and regular rhythm. Heart sounds: Normal heart sounds. Pulmonary: Effort: Pulmonary effort is normal. Breath sounds: Normal breath sounds. Skin: General: Skin is warm and dry. Neurological: General: No focal deficit present. Mental Status: He is alert and oriented to person, place, and time. Cranial Nerves: No cranial nerve deficit. Sensory: No sensory deficit. Motor: No weakness. Coordination: Coordination normal. Gait: Gait normal. Comments: Patient has some mild left beating nystagmus noted. When he lays back looking left and right vertigo not reproduced however patient had taken meclizine just prior to coming in his symptoms really have improved right now. Assessment and Plan ASSESSMENT/PLAN: 1. Vertigo - ICD9: 780.4, ICD10: R42 Appears to be benign positional vertigo. No sign of a CVA. He did have improvement with the meclizine this morning but is out. I did give him a refill on this and will trial Flonase... Gave him instructions on how to do Nubia-Hallpike maneuver. Discussed red flags for ER care. Recommended follow-up with PCP. Discussed that there is vestibular therapy if symptoms persist despite medication and time. Patient voiced understanding of the plan. Vanessa Gu PA-C documented in this encounter [facility] 12-07-2022 Instructions Vanessa Gu PA-C - 12/07/2022 11:42 AM EDT Benign Paroxysmal Positional Vertigo (BPPV) What is BPPV? Benign Paroxysmal Positional Vertigo (BPPV) is an inner ear disorder in which changes to the position of the head, such as tipping the head backward, lead to sudden vertigo -- a feeling that the room is spinning. Vertigo can vary in intensity from mild to severe and usually lasts only a few minutes. It may be accompanied by other symptoms, including dizziness lightheadedness a sense of imbalance nausea vomiting Anatomy of the right inner ear. Particle repositioning therapy moves the otoconia out of the semicircular canals and into the utricle where they dissolve naturally. BPPV is not a sign of a serious problem, and it usually disappears on its own within 6 weeks of the first episode. However, the symptoms of BPPV can be very frightening and may be dangerous, especially in older individuals. The unsteadiness associated with BPPV can lead to falls. About half of all people over age 65 experience an episode of BPPV, and falls are a leading cause of fractures in this age-range. What causes BPPV? BPPV develops when calcium carbonate crystals, which are known as otoconia, shift into and become trapped within the semicircular canals (one of the vestibular organs of the inner ear that controls balance). The otoconia make up a normal part of the structure of the utricle, a vestibular organ next to the semicircular canals. (see illustration to the right.) In the utricle, the otoconia may be loosened as a result of injury, infection, or age, and they land in a sac -- the utricle -- where they are naturally dissolved. However, otoconia in the semicircular canals will not dissolve. As a person s head position changes, the otoconia begin to roll around and push on the tiny hairs that line the semicircular canals. Those hairs act as sensors to give the brain information about balance. Vertigo develops when the hairs are stimulated by the rolling otoconia. What head positions trigger BPPV? Movements that can trigger an episode of BPPV include rolling over or sitting up in bed, bending the head forward to look down, or tipping the head backward. In most people, only a single ear is affected by BPPV, although both ears may be involved on occasion. How is BPPV diagnosed and treated? With advances in medical technology, BPPV can easily be diagnosed and treated. The diagnosis can usually be made in the office based on medical history and a physical exam. Treatment also involves a short, simple in-office procedure known as the particle repositioning maneuver. (See addendum below.) How can I identify the affected side? Steps to determine affected side: Sit on bed so that if you lie down, your head hangs slightly over the end of the bed. Turn head to the right and lie back quickly. Wait 1 minute. If you feel dizzy, then the right ear is your affected ear. If no dizziness occurs, sit up. Wait 1 minute. Turn head to the left and lie back quickly. Wait 1 minute. If you feel dizzy, then the left ear is your affected ear. How successful is the treatment? A single particle repositioning procedure is effective in treating about 80% to 90% of cases of BPPV. Additional exercise or repositioning maneuvers may be needed if symptoms persist. Can BPPV recur? If so, what can I do? A new episode of BPPV can develop after successful treatment -- on average there is a 15 percent rate of recurrence each year. However, it may be possible to treat recurrent BPPV at home by performing a series of movements at the time an episode occurs. Patients will receive information on ways to handle recurrences on their own or they can work with a physical therapist to develop a plan. In general, if you wake up with positional vertigo, slowly move into the [id number] position and wait for a minute. Next, slowly move into a face-down position and slide to the foot of the bed. Keep your head down until you reach the end of the bed and are kneeling or standing on the floor. Slowly bring your head backward into an upright position. Hold on to the bed at all times. Another method is to sit toward the foot of the bed, leaving enough room to lay back with your head resting comfortably at the end of the bed, slightly extended. Be careful not to overextend your neck, as this may aggravate existing neck problems. If your symptoms are severe, you may need assistance to complete the maneuver. Follow the same steps as described in the boxed instructions on the next page. Without treatment, the symptoms of BPPV may worsen. However, with time, the otoconia dissolve on their own, which is usually within 6 weeks. Until the time the otoconia dissolve on their own, the number and severity of episodes may be reduced simply by paying careful attention to head position. In addition, anti-motion sickness drugs can be given to control nausea. However, before drugs are taken, it is usually best to try the particle repositioning procedure first. It is a very safe and rapid way to relieve symptoms and reduce the chance for falls. Medications should not be taken for a long period of time. ADDENDUM Particle repositioning procedure: [id number] instructions The particle repositioning procedure takes about 15 minutes to complete and involves a series of physical movements that change the position of the head and body. These actions shift the otoconia out of the semicircular canals and back into their proper location in the utricle. The particle repositioning procedure begins with the patient is sitting up and then lying down on a treatment table. The procedure is very easy to perform. Patients should wear comfortable clothing that will allow them to move freely. Hold each of the following positions for 1 to 2 minutes. Step 1: Turn your head toward your affected ear. Step 2: Lay back quickly. Hold. Step 3: Keep your head back against the bed and turn it toward the good ear. Hold. Step 4: Roll onto your side with your good ear down. Your nose should be turned toward the floor. Hold. Step 5: Sit up, keeping your chin tucked in toward your shoulder. Hold. When you end, you should be sitting over the side of your bed so your feet touch the floor. Step 6: Follow your post-particle repositioning instructions. BPPV: Glossary of Terms Semicircular canals: These structures act like a gyroscope, with canals positioned in three dimensions -- upward, downward, and horizontal. Together, the canals send signals to the brain about the rotation/positioning of the head (for example, when you bend over or spin around.) Cupula: Detects the flow of fluid within the semicircular canals. The flow of fluid gives the body a sense of motion. Utricle: An organ located in the inner ear that helps control balance. The utricle contains hair cells, which are covered with otoconia. The otoconia sway with gravity, sending signals to the brain about the position of the head and body (upright, tilted, etc). Otoconia: The tiny calcium crystal particles that become dislodged from within the utricle (where they can dissolve) and move into the semicircular canals (where they can t dissolve). Cochlea: The 'snail-shell' sense organ of the inner ear that translates sound into nerve impulses and sent to the brain. References Conrad BT, Pramod LB. Jewel HADLEY. Peripheral Vestibular Disorders. In: [facility], 3-Volume Set. Marc; 2014. Jessica Rebollar. Benign Paroxysmal Positional Vertigo (BPPV): History, Pathophysiology, Office Treatment and Future Directions. International Journal of Otolaryngology. 2011;2011:396618. Janny JS, Nela DS. Clinical practice. Benign paroxysmal positional vertigo. N Engl J Med. 2014 Jun 17;370(12):1138-47. Jack Almaraz DD, Nuria Agudelo. The Head and Neck. In: Alla FERNÁNDEZ, Jack KWOK, Beckie Talavera, Nuria HARO. eds. DeGdebrain s Diagnostic Examination, 10e. [place], [place]: [facility]; 2015. Copyright 3418-1558 The [facility]. All rights reserved This information is provided by the [facility] and is not intended to replace the medical advice of your doctor or health care provider. Please consult your health care provider for advice about a specific medical condition. For additional health information, please contact the [facility] Information at the [facility] or toll-free extension [phone]. If you prefer, you may visit [email or web address] or [email or web address]. This document was last reviewed on: 2014 index#[id number] documented in this encounter [facility] documented [facility] encounter [facility]* Diagnosis Dermatitis due to plants, including poison ariane, sumac, and oak- Primary Contact dermatitis and other eczema due to plants (except food) [facility]* Diagnosis Sinobronchitis- Primary Unspecified sinusitis (chronic) documented in this encounter [facility] Summary Purpose Family History No Family History Records FoundNo Family History Records Found Advance Directives No Advanced Directives Records FoundNo Advanced Directives Records Found Additional Source Comments (unrecognized sect ion and content) No Status Records FoundNo Status Records Found INFORMATION SOURCE (unrecogn ized section and content) DATE CREATED AUTHOR AUTHOR'S ORGANIZ ATION 05/08/2023 [facility] Source Comments (unrecognize d section and content) In the event this informatio n is protected by the Federal Confidentiality of Alcohol and Drug Abuse Patient Records regulations: The Federal rules restrict any use of the information to criminally investigate or prosecute any alcohol or drug abuse patient.[facility] the event this information is protected by the Federal Confidentiality of Alcohol and Drug Abuse Patient Records regulations: The Federal rules restrict any use of the information to criminally investigate or prosecute any alcohol or drug abuse patient.[facility] AdministrationIn the event this information is protected by the Federal Confidentiality of Alcohol and Drug Abuse Patient Records regulations: The Federal rules restrict any use of the information to criminally investigate or prosecute any alcohol or drug abuse patient.[facility] Reason for Visit (unrecogniz ed section and content) Reason Comments Rash Poison ariane x 1 month Reason Comments Chest Congestion cough x 3 days Care Teams (unrecognized sec tion and content) 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 This clinical summary was aggregated from multiple sources. Caution should be exercised in using it in the provision of clinical care. This summary normalizes information from multiple sources, and as a consequence, information in this document may materially change the coding, format and clinical context of patient data. In addition, data may be omitted in some cases. CLINICAL DECISIONS SHOULD BE BASED ON THE PRIMARY CLINICAL RECORDS. [employer] provides no warranty or guarantee of the accuracy or completeness of information in this document.
[2023-05-14 18:54] LABS: ALB/GLOB Ratio 1.2 RATIO (0.9-2.4); AST(SGOT) 26 U/L (15-37); Alanine Aminotransfer ALT/SGPT 53 U/L (16-61); Alkaline Phosphatase 62 U/L (45-117); Anion Gap 4 (5-15); BUN 16 mg/dL (7-18); BUN/Creat Ratio 14.5 RATIO (10-20); CRP < 2.90 mg/L (0.0-3.0); Calcium,Total 8.9 mg/dL (8.5-10.1); Chloride 106 mmol/L (98-107); Cholesterol 279 mg/dL (200); EST Glomerular Filtration Rate 84 mL/min (>60); Est Glom Filt Rate - Afr Amer 101 mL/min (>60); Globulin 3.3 g/dL (2.2-4.2); Glucose 133 mg/dL (74-106); High Density Lipoprotein 42 mg/dL; Potassium 3.7 mmol/L (3.5-5.1); Protein, Total 7.3 g/dL (6.4-8.2); Sodium Level 139 mmol/L (136-145); Triglycerides 843 mg/dL
== END | disposition home or self-care (01) ==
PROVIDERS: PCP Nurse Practitioner Family; Visit Provider Nurse Practitioner Family
DX: K92.1 Melena (principal); R19.7 Diarrhea, unspecified
CPT/HCPCS: 36415; 80053; 80061; 85025; 85652; 86140

== ENCOUNTER → 2023-05-24 | Outpatient (CLI) | payer OTHER, SELFPAY ==
--- OUTSIDE RECORDS SUMMARY | 2023-05-24 09:13 | XMS RPT_ITS ---
Author Name Auto Generated Organization OH[facility] Care Team Providers Care Chief Jailer Name Role Phone ANAYA FANG Primary Care Unavailable ANAYA FANG Primary Care Unavailable ANAYA FANG Primary Care Unavailable PROBLEMS No Problem Records Found PROCEDURES No Procedure Records Found RESULTS PROGRESS Observed: 05/07/2023 9:06 AM Status: COMPLETED Source: [facility] REPOSITORY HNO ID: [id number] Author: TA THACKER APRN.PRODUCTION OPERATIONS INSPECTOR Service: ? Author Type: Nurse Practitioner Type: [...] DOXYCYCLINE HYCLATE 100 MG TABLET Ta Thacker APRN.CNP CNOV Observed: 05/07/2023 8:45 AM Status: COMPLETED Source: [facility] REPOSITORY Office Visit ([facility]) LUCIANA CORDOBA ([id number]) 1995 M Date Time Provider Department 05/07/23 8:45 AM TA THACKER [facility] During your visit today, we recorded the following information about you: Temperature Pulse Respiration Blood pressure 98 degrees 86/minute 16/minute 132/80 Weight 102.5 kg Ta Thacker APRN.CNP 05/07/2023 9:08 AM Signed Subjective HPI HPI Luciana Kelly Robson is a 27 year old male who [...] DOXYCYCLINE HYCLATE 100 MG TABLET Ta Thacker APRN.PRODUCTION OPERATIONS INSPECTOR Allergies As of Date: 05/07/2023 (No Known Allergies) Date Reviewed: 05/07/2023 Reviewed by: Ta Thacker APRN.PRODUCTION OPERATIONS INSPECTOR - Fully Assessed Reason for Visit: Chest Congestion [236] Cmt: cough x 3 days Primary Visit Diagnosis:Sinobronchitis [J32.9, J40] Order(s):predniSONE (DELTASONE) 10 mg tabletTake 4 tabs daily for 3 days, then 2 tabs daily for 3 days, then 1 tab daily for 3 days with food.Disp: 21 tabletRfl: 0 doxycycline (VIBRA-TABS) 100 mg tabletTake 1 tablet by mouth two times a day for 7 days.Disp: 14 tabletRfl: 0 Prescriptions as of 05/07/2023 - predniSONE (DELTASONE) 10 mg tablet Take 4 tabs daily for 3 days, then 2 tabs daily for 3 days, then 1 tab daily for 3 days with food. - doxycycline (VIBRA-TABS) 100 mg tablet Take 1 tablet by mouth two times a day for 7 days. - triamcinolone (KENALOG) 0.025 % cream Apply 1 application to affected area two times a day. - promethazine (PHENERGAN) 25 mg tablet - meclizine (ANTIVERT) 25 mg tab Take 1 tablet by mouth every 6 hours as needed (dizziness). - lisinopril (ZESTRIL, PRINIVIL) 20 mg tablet Take 1 tablet by mouth once daily. - hydroCHLOROthiazide (HYDRODIURIL, ESIDRIX) 25 mg tablet Take 1 tablet by mouth once daily. - albuterol HFA (VENTOLIN HFA) 90 mcg/actuation inhaler Inhale 2 Puffs as instructed every 4 hours as needed for Wheezing/Shortness of Breath. Problem List As Of Date: 05/07/2023 (None) Prescriptions ordered this encounter Disp Refills Start End PREDNISONE 10 MG TABLET 21 t* 0 05/07/2023 05/16/2023 Sig: Take 4 tabs daily for 3 days, then 2 tabs daily for 3 days, then 1 tab daily for 3 days with food. DOXYCYCLINE HYCLATE 100 MG TABLET 14 t* 0 05/07/2023 05/14/2023 Class: Print RX Cmt: May transfer to Hyclate if less expensive. Route: ORAL Sig: Take 1 tablet by mouth two times a day for 7 days. Encounter Status:Closed by TA THACKER on 05/07/23 PROGRESS Observed: 01/20/2023 6:48 PM Status: COMPLETED Source: [facility] REPOSITORY O ID: [id number] Author: Danay Ch APRN.PRODUCTION OPERATIONS INSPECTOR Service: ? Author Type: Nurse Practitioner Type: [...] - Discussed expected course of illness Danay Ch APRN.PRODUCTION OPERATIONS INSPECTOR CNOV Observed: 01/20/2023 6:30 PM Status: COMPLETED Source: [facility] REPOSITORY [facility]ORD[facility] ([id number]) 1995 M Date Time Provider Department 01/20/23 6:30 PM [facility] During your visit today, we recorded the following information about you: Temperature Pulse Respiration Blood pressure 98.9 degrees 80/minute 21/minute 148/82 Weight 101.1 kg Danay Ch APRN.CNP 01/20/2023 6:48 PM Signed ASSESSMENT/PLAN: 1. Dermatitis due to plants, including [...] - Discussed expected course of illness Danay Ch APRN.PRODUCTION OPERATIONS INSPECTOR [facility] PATIENT INFO POISON ARIANE INTRODUCTION [...] plants grow in many areas across the [facility] and throughout the world. [place] of the [facility], poison ariane commonly grows as a climbing vine. In the [place] area and west, poison ariane tends to grow low to the ground as a shrub. Poison oak most often grows west of the [facility], and poison sumac inhabits boggy areas in the southeastern part of the [facility]. The plants are not usually found in areas at high elevations or in desert climates. POISON ARIANE SIGNS AND SYMPTOMS After contact with urushiol, [...] Antihistamines that make you sleepy (eg, diphenhydramine [Benadryl?]) may be helpful if you have trouble sleeping due to itching. Other formulas (eg, loratadine [Claritin?], cetirizine [Zyrtec?]) may be preferable for daytime. Steroid creams [...] who are frequently exposed to poison ariane. Bentoquatam (Ariane Block?) is one type of barrier cream that may prevent poison ariane dermatitis. It must be reapplied every four hours and it leaves a yemi residue on the skin. Avoid burning poisonous vegetation, which can disperse the plant particles in the smoke, irritate the skin, and cause poison ariane dermatitis. Danay Ch APRN.[facility] 01/20/2023 6:51 PM Signed Subjective Rash Pertinent negatives include no fever. [...] - Discussed expected course of illness Danay Ch APRN.PRODUCTION OPERATIONS INSPECTOR Allergies As of Date: 01/20/2023 (No Known Allergies) Date Reviewed: 01/20/2023 Reviewed by: Olivia Cox MA - Fully Assessed Reason for Visit: Rash [1087] Cmt: Poison ariane x 1 month Primary Visit Diagnosis:Dermatitis due to plants, including poison ariane, sumac, and oak [L25.5] Order(s):methylPREDNISolone (MEDROL, KAREL,) 4 mg Dose-PackFollow dosing instructions, take with food.Disp: 21 tabletRfl: 0 triamcinolone (KENALOG) 0.025 % creamApply 1 application to affected area two times a day.Disp: 30 gRfl: 0 Prescriptions as of 01/20/2023 - methylPREDNISolone (MEDROL, KAREL,) 4 mg Dose-Pack Follow dosing instructions, take with food. - triamcinolone (KENALOG) 0.025 % cream Apply 1 application to affected area two times a day. - promethazine (PHENERGAN) 25 mg tablet - meclizine (ANTIVERT) 25 mg tab Take 1 tablet by mouth every 6 hours as needed (dizziness). - lisinopril (ZESTRIL, PRINIVIL) 20 mg tablet Take 1 tablet by mouth once daily. - hydroCHLOROthiazide (HYDRODIURIL, ESIDRIX) 25 mg tablet Take 1 tablet by mouth once daily. - albuterol HFA (VENTOLIN HFA) 90 mcg/actuation inhaler Inhale 2 Puffs as instructed every 4 hours as needed for Wheezing/Shortness of Breath. Problem List As Of Date: 01/20/2023 (None) Other instructions from your clinician: ASSESSMENT/PLAN: 1. Dermatitis due to plants, including [...] - Discussed expected course of illness Danay Ch APRN.[facility] CARE PATIENT INFO POISON ARIANE INTRODUCTION When [...] plants grow in many areas across the [facility] and throughout the world. [place] of the [facility], poison ariane commonly grows as a climbing vine. In the [place] area and west, poison ariane tends to grow low to the ground as a shrub. Poison oak most often grows west of the [facility], and poison sumac inhabits boggy areas in the sout[place] part of the [facility]. The plants are not usually found in areas at high elevations or in desert climates. POISON ARIANE SIGNS AND SYMPTOMS After contact with urushiol, [...] Antihistamines that make you sleepy (eg, diphenhydramine [Benadryl?]) may be helpful if you have trouble sleeping due to itching. Other formulas (eg, loratadine [Claritin?], cetirizine [Zyrtec?]) may be preferable for daytime. Steroid creams [...] who are frequently exposed to poison ariane. Bentoquatam (Ariane Block?) is one type of barrier cream that may prevent poison ariane dermatitis. It must be reapplied every four hours and it leaves a yemi residue on the skin. Avoid burning poisonous vegetation, which can disperse the plant particles in the smoke, irritate the skin, and cause poison ariane dermatitis. Prescriptions ordered this encounter Disp Refills Start End METHYLPREDNISOLONE 4 MG TABLETS IN A* 21 t* 0 01/20/2023 01/26/2023 Sig: Follow dosing instructions, take with food. TRIAMCINOLONE ACETONIDE 0.025 % TOPI* 30 g 0 01/20/2023 Route: TOPICAL Sig: Apply 1 application to affected area two times a day. Disposition: Return if symptoms worsen or fail to improve. Follow-up and Disposition History for Encounter Date Provider Department [id number] Encounter Status:Closed by DANAY CH on 01/20/23 PROGRESS Observed: 12/07/2022 11:59 AM Status: COMPLETED Source: [facility] REPOSITORY HNO ID: [id number] Author: Agustin Herbert PA-C Service: ? Author Type: Physician Deburrer Machine Type: Progress Notes Filed: 12/07/2022 12:34 PM Note Text: This note was created using NoteWriter. Subjective Luciana Cordoba is a 27 year [...] Gave him instructions on how to do Creston-Hallpike maneuver. Discussed red flags for ER care. Recommended follow-up with PCP. Discussed that there is vestibular therapy if symptoms persist despite medication and time. Patient voiced understanding of the plan. Agustin Herbert PA-C CNOV Observed: 12/07/2022 11:30 AM Status: COMPLETED Source: [facility] REPOSITORY Office Visit ([facility]) LUCIANA CORDOBA ([id number]) 1995 M Date Time Provider Department 12/07/22 11:30 AM AGUSTIN HERBERT [facility] During your visit today, we recorded the following information about you: Temperature Pulse Respiration Blood pressure 97.7 degrees 79/minute 21/minute 140/88 Weight 98.2 kg Agustin Herbert PA-C 12/07/2022 11:42 AM Signed Benign Paroxysmal Positional Vertigo (BPPV) What is [...] semicircular canals will not dissolve. As a person?s head position changes, the otoconia begin to [...] with positional vertigo, slowly move into the xaya-ajj-[id number] position and wait for a minute. Next, [...] period of time. ADDENDUM Particle repositioning procedure: [id number] instructions The particle repositioning procedure takes about [...] move into the semicircular canals (where they can?t dissolve). Cochlea: The 'snail-shell' sense organ of the inner ear that translates sound into nerve impulses and sent to the brain. References Conrad BT, Pramod LB. Jewel HADLEY. Peripheral Vestibular Disorders. In: [place] [facility], Head [facility] Neck Surgery, 3-Volume Set. Marc; 2014. Jessica Rebollar. Benign Paroxysmal Positional Vertigo (BPPV): History, Pathophysiology, Office Treatment and Future Directions. International Journal of Otolaryngology. 2011;2011:804132. Janny JS, Nela DS. Clinical practice. Benign paroxysmal positional vertigo. N Engl J Med. 2014 Jun 17;370(12):1138-47. Jack Almaraz DD, Nuria Agudelo. The Head and Neck. In: Jack Almaraz DD, Beckie Talavera, Nuria HARO. eds. DeGowin?s Diagnostic Examination, 10e. [place], [place]: [facility]; 2014. ?Copyright 4422-7883 The [facility]. All rights reserved This information is provided by the [facility] and is not intended to replace the medical advice of your doctor or health care provider. Please consult your health care provider for advice about a specific medical condition. For additional health information, please contact the Center for Consumer Health Information at the [facility] or toll-free extension [phone]. If you prefer, you may visit [email or web address] or [email or web address]. This document was last reviewed on: 2014 index#[id number] Agustin Herbert PA-C 12/07/2022 12:34 PM Signed This note was created using [employer]. Subjective Luciana Cordoba is a 27 year [...] time. Patient voiced understanding of the plan. Agustin Herbert PA-C Allergies As of Date: 12/07/2022 (No Known Allergies) Date Reviewed: 12/07/2022 Reviewed by: Olivia Cox MA - Fully Assessed Reason for Visit: Dizziness [36] Cmt: Possible vertigo x 1.5 weeks Primary Visit Diagnosis:Vertigo [R42] Order(s):meclizine (ANTIVERT) 25 mg tabTake 1 tablet by mouth every 6 hours as needed (dizziness).Disp: 30 tabletRfl: 0 fluticasone (FLONASE) 50 mcg/actuation nasal sprayUse 2 Sprays in each nostril once daily for 7 days. Rinse mouth after use.Disp: 1 EachRfl: 0 Prescriptions as of 12/07/2022 - promethazine (PHENERGAN) 25 mg tablet - meclizine (ANTIVERT) 25 mg tab Take 1 tablet by mouth every 6 hours as needed (dizziness). - fluticasone (FLONASE) 50 mcg/actuation nasal spray Use 2 Sprays in each nostril once daily for 7 days. Rinse mouth after use. - lisinopril (ZESTRIL, PRINIVIL) 20 mg tablet Take 1 tablet by mouth once daily. - hydroCHLOROthiazide (HYDRODIURIL, ESIDRIX) 25 mg tablet Take 1 tablet by mouth once daily. - albuterol HFA (VENTOLIN HFA) 90 mcg/actuation inhaler Inhale 2 Puffs as instructed every 4 hours as needed for Wheezing/Shortness of Breath. Problem List As Of Date: 12/07/2022 (None) Other instructions from your clinician: Benign Paroxysmal Positional Vertigo (BPPV) What is [...] semicircular canals will not dissolve. As a person?s head position changes, the otoconia begin to [...] with positional vertigo, slowly move into the gdez-lal-gxzy position and wait for a minute. Next, [...] period of time. ADDENDUM Particle repositioning procedure: [id number]-[id number] instructions The particle repositioning procedure takes about [...] move into the semicircular canals (where they can?t dissolve). Cochlea: The 'snail-shell' sense organ of the inner ear that translates sound into nerve impulses and sent to the brain. References Conrad BT, Pramod LB. Jewel HADLEY. Peripheral Vestibular Disorders. In: [place] [facility], Head and Neck Surgery, 3-Volume Set. Marc; 2014. Jessica Rebollar. Benign Paroxysmal Positional Vertigo (BPPV): History, Pathophysiology, Office Treatment and Future Directions. International Journal of Otolaryngology. 2011;2011:665812. Janny JS, Nela DS. Clinical practice. Benign paroxysmal positional vertigo. N Engl J Med. 2014 Jun 17;370(12):1138-47. Jack Almaraz DD, Beckie Talavera, Nuria HARO. The Head and Neck. In: Jack Almaraz DD, Beckie Talavera, Nuria HARO. eds. DeGowin?s Diagnostic Examination, 10e. [place], [place]: [facility]; 2015. ?Copyright 5409-8326 The [facility]. All rights reserved This information is provided by the [facility] and is not intended to replace the medical advice of your doctor or health care provider. Please consult your health care provider for advice about a specific medical condition. For additional health information, please contact the Center for Consumer Health Information at the [facility] or toll-free extension [phone]. If you prefer, you may visit [email or web address] or [email or web address]. This document was last reviewed on: 2014 index#[id number] Prescriptions ordered this encounter Disp Refills Start End MECLIZINE 25 MG TABLET 30 t* 0 12/07/2022 Route: ORAL Sig: Take 1 tablet by mouth every 6 hours as needed (dizziness). FLUTICASONE PROPIONATE 50 MCG/ACTUAT* 1 Ea* 0 12/07/2022 12/14/2022 Route: EACH NOSTRIL Sig: Use 2 Sprays in each nostril once daily for 7 days. Rinse mouth after use. Encounter Status:Closed by AGUSTIN HERBERT on 12/07/22 ALLERGIES DATE TYPE / CODE NAME / CODE REACTION SEVERITY SOURCE Drug Class/[id number](SNO MED CT) NO KNOWN ALLERGIES [facility] ENCOUNTERS ADMIT/DISCHARGE ACCOUNT NUMBER ADMITTING ENCOUNTER CLASS LOC ATION SOURCE 05/07/2023/ 4 [id number] [id number] PAYERS ENCOUNTER GUARANTOR PAYER SUBSCRIBER SOURCE 05/07/2023 Primary Insuranc e:[facility]: [id number] Date:4615-88-49Ijqe Name:Abhijit Kelly ROXANNEB: [id number] [place] [address] [facility] 01/20/2023 Primary Insuranc e:[facility] [employer]MR CHOICE PLUSPolicy Number: [id number] Date:4874-88-15Ogti Name:Abhijit Kelly ROXANNEB: [id number] [place] [address] [facility] 12/07/2022 Primary Insuranc e:[facility] U[employer] CHOICE PLUSPolicy Number: [id number] Date:6773-36-00Tgor Name:Abhijit Kelly ROXANNEB: [id number] [place] [address] [facility]
== END | disposition home or self-care (01) ==
LOC: LAB 09:10
PROVIDERS: PCP Nurse Practitioner Family; Referring Provider Nurse Practitioner Family; Visit Provider Nurse Practitioner Family
DX: K92.1 Melena (principal); R19.7 Diarrhea, unspecified
CPT/HCPCS: 83630; 87177; 87209; 87493; 87506

== ENCOUNTER → 2024-08-30 | Outpatient (CLI) | payer BC, SELFPAY ==
[2024-08-30 18:03] LABS: Absolute Lymphocyte Count 2.26 X10^3/uL (0.83-4.51); Absolute Neutrophil Count 4.5 X10^3/uL (2.0-7.7); Basophil# 0.05 X10^3/uL; Basophil% 0.7 % (0-1); Eosinophil# 0.15 X10^3/uL; Hematocrit 48.8 % (40-54); Hemoglobin 17.2 g/dL (13.0-16.5); Lymphocyte # 2.26 X10^3/ul (0.83-4.51); Lymphocyte % 30.3 % (19-41); Mean Corp Hgb Conc 35.2 g/dL (32-36); Mean Corpuscular Hgb 32.5 pg (27.0-32.0); Mean Corpuscular Volume 92.2 fL (80-94); Mean Platelet Vol. 10.2 fl (6.2-12.0); Monocyte# 0.47 X10^3/uL; Monocyte% 6.3 % (0-10); NRBC Flagged by Analyzer 0 % (0-5); Neutrophil # 4.49 X10^3/uL (2.7-7.7); Neutrophil % 60.3 % (47-70); Platelet Count 239 K/mm3 (150-450); RBC Distribution Width CV 11.9 % (11.6-14.6); RBC Distribution Width SD 40.4 fl (35.1-43.9); Red Blood Count 5.29 M/mm3 (4.6-6.2); White Blood Count 7.5 K/mm3 (4.4-11.0)
[2024-08-30 18:49] LABS: ALB/GLOB Ratio 1.7 RATIO (0.9-2.4); AST(SGOT) 31 U/L (<=37); Alanine Aminotransfer ALT/SGPT 45 U/L (<=46); Albumin, Serum 5.1 g/dL (3.5-5.0); Alkaline Phosphatase 62 U/L (40-129); Anion Gap 15 (5-15); BUN 14 mg/dL (4-19); BUN/Creat Ratio 13.6 RATIO (10-20); Calcium,Total 10.3 mg/dL (7.6-11.0); Carbon Dioxide 23.7 mmol/L (21.0-32.0); Chloride 102 mmol/L (98-108); Cholesterol 291 mg/dL (<=200); Creatinine, Serum 1.03 mg/dL (0.70-1.20); EST Glomerular Filtration Rate 100 (>60); Globulin 3.1 g/dL (2.2-4.2); Glucose 96 mg/dL (70-99); High Density Lipoprotein 39 mg/dL; Low Density Lipoprotein Calc. 123 mg/dL; Potassium 3.5 mmol/L (3.3-5.1); Protein, Total 8.1 g/dL (5.9-8.4); Sodium Level 140 mmol/L (133-145); Total Bilirubin 0.59 mg/dL (0.00-1.30); Triglycerides 645 mg/dL; Very Low Density Lipoprotein 129 mg/dL (5-40)
== END | disposition home or self-care (01) ==
LOC: MTLAB 15:39
PROVIDERS: PCP Nurse Practitioner Family; Referring Provider Nurse Practitioner Family; Visit Provider Nurse Practitioner Family
DX: Z00.01 Encounter for general adult medical examination with abnormal findings (principal)
CPT/HCPCS: 36415; 80053; 80061; 85025

== ENCOUNTER → 2024-09-03 | Outpatient (CLI) | payer BC, SELFPAY ==
--- OUTSIDE RECORDS SUMMARY | 2024-09-03 07:07 | XMS RPT_ITS | CCD ---
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 Alma Beavers Primary Care Provider [phone] Pepe Barker Emergency Provider Dr. Ben Mtz Other Provider MALVIN Alexander Attending Provider Dr. Ben Mtz Admit Provider Dr. Laura Gonzalez Other Provider Dr. Laura Madera Other Provider Dr. Hailey Lambert Attending Provider Dr. Hailey Lambert Other Provider Dr. Marsha Vidales Other Provider Dr. Jered Cormier Other Provider Unavailable MD Severiano Sandy Other Provider Dr. Pepe Zepeda Other Provider Dr. Martina Cherry Other Provider Dr. Josesito Escobar Other Provider Dr. Raad Alfaro Other Provider Dr. Lion Fish Other Provider Dr. Marline Shin Other Provider Dr. Andrea Nassar Other Provider Dr. vIet Duque Other Provider Dr. Fab Ramos Other Provider Dr. Chirag Luther Other Provider Dr. Houston Lovett Other Provider Dr. Christina Sorenson Other Provider Dr. Sameer Kumar Other Provider Jarek LAUNDRY SUPERVISOR, LAUNDRY SUPERVISOR-C Berta Other Provider Dr. Marline Shin Attending Provider Dr. Ben Mtz Attending Provider Alma Beavers MD Primary Care Provider Kole Daniel MD Primary Care Provider Alma Beavers MD Primary Care Provider ALMA BEAVERS Primary Care Unavailable ALMA BEAVERS Primary Care Unavailable MARY JANE MORATAYA Referring Unavailable ALMA BEAVERS Primary Care Unavailable ReddRenée arteaga Referring Unavailable Renée Rainey Primary Care Unavailable Renée Rainey Attending Unavailable Renée Rainey Referring Unavailable Redd, Renée Primary Care Unavailable Renée Rainey Attending Unavailable Medications Current Medications Medication Drug Class(es) Dates Sig (Normalized) Sig (Original) acetaminophen 325 mg / oxyCODONE hydrochloride 5 mg oral tablet (1 source) Opioid Agonist Start: 06-02-19 16 take 1 tablet by mouth every four hours as needed Oxycodone-Acetaminophe n Active 1 - 2 TABLET PO EVERY 4 HOURS NEEDED June 02, 2015 12:00am [id number] 200 actuat albuterol 0.09 mg/actuat metered dose inhaler (7 sources) beta2-Adrenergic Agonist Start: 01-16-20 17 take 2 puff(s) by inhalation every four hours as needed for wheezing albuterol HFA (VENTOLIN HFA) 90 mcg/actuation inhaler Indications: Cough , Chest congestion Inhale 2 Puffs as instructed every 4 hours as needed for Wheezing/Shortness of Breath. 1 Inhaler 01/15/2017 Active Comment on above: Inhale 2 Puffs as in structed every 4 hours as needed for Wheezing/Shortness of Breath. azithromycin 250 mg oral tablet (1 source) Macrolide Antimicrobial Start: 12-24-19 21 take 2-5 tablets by mouth once daily Azithromycin (Zithromax Z-Karel) 250 mg tablet Active 0 PO .COMPLEX 6 December 22, 2020 11:00pm take 500 mg today (day 1), then 250 mg for 4 days (days 2-5) PO 24 hr buPROPion hydrochloride 150 mg extended release oral tablet (1 source) Aminoketone Start: 05-08-19 take 150 mg by mouth once daily Bupropion Hcl Active 150 MG PO DAILY May 08, 2022 12:00am doxycycline hyclate 100 mg oral tablet (1 source) Tetracycline-clas s Drug Start: 05-07-19 End: 05-14-19 24 take 1 tablet by mouth twice daily doxycycline (VIBRA-TABS) 100 mg tablet Indications: Sinobronchitis Take 1 tablet by mouth two times a day for 7 days. 14 tablet 0 05/07/2023 05/14/2023 Active Comment on above: Take 1 tablet by judith th two times a day for 7 days. escitalopram 20 mg oral tablet (3 sources) Serotonin Reuptake Inhibitor Start: 03-10-20 take 1 tablet by mouth once escitalopram oxalate (LEXAPRO) 20 mg tablet Take 1 tablet by mouth every afternoon. 03/10/2024 Active famotidine 20 mg oral tablet (2 sources) Histamine-2 Receptor Antagonist Start: 05-07-19 take 1 tablet by mouth twice daily Famotidine (Pepcid) 20 mg tablet Active 20 MG PO TWICE A DAY May 07, 2022 12:00am fluticasone propionate 0.05 mg/actuat metered dose nasal spray (1 source) Corticosteroid Start: 12-08-19 End: 12-15-19 23 take 2 spray(s) by mouth once daily fluticasone (FLONASE) 50 mcg/actuation nasal spray Use 2 Sprays in each nostril once daily for 7 days. Rinse mouth after use. 1 Each 0 12/07/2022 12/14/2022 Active Comment on above: Use 2 Sprays in each nostril once daily for 7 days. Rinse mouth after use. hydroCHLOROthiazide 25 mg oral tablet (7 sources) Thiazide Diuretic Start: 04-11-19 21 take 1 tablet by mouth once daily hydroCHLOROthiazide (HYDRODIURIL, ESIDRIX) 25 mg tablet Indications: Hypertension, unspecified type Take 1 tablet by mouth once daily. 30 tablet 2 04/11/2020 Active Comment on above: Take 1 tablet by judith th once daily. hydrOXYzine hydrochloride 25 mg oral tablet (3 sources) Antihistamine Start: 03-10-20 take 1 tablet by mouth every six hours as needed hydrOXYzine HCl (ATARAX) 25 mg tablet Take 25 mg by mouth four times a day as needed. 03/10/2024 Active ibuprofen 200 mg oral tablet (1 source) Nonsteroidal Anti-inflammatory Drug Start: 05-08-19 take 200-400 mg by mouth every six hours Ibuprofen Active 200 - 400 MG PO EVERY 6 HOURS May 08, 2022 12:00am Ivermectin (2 sources) Antiparasitic, Pediculicide IVERMECTIN ORAL Take by mouth. Active lisinopril 20 mg oral tablet (7 sources) Angiotensin Converting Enzyme Inhibitor Start: 04-11-19 take 1 tablet by mouth once daily lisinopril (ZESTRIL, PRINIVIL) 20 mg tablet Indications: Hypertension, unspecified type Take 1 tablet by mouth once daily. 30 tablet 2 04/11/2020 Active Comment on above: Take 1 tablet by judith th once daily. meclizine hydrochloride 25 mg oral tablet (6 sources) Antiemetic Start: 12-08-19 take 1 tablet by mouth every six hours as needed meclizine (ANTIVERT) 25 mg tab Take 1 tablet by mouth every 6 hours as needed (dizziness). 30 tablet 12/07/2022 Active Comment on above: Take 1 tablet by judith th every 6 hours as needed (dizziness). methylPREDNISolone (1 source) Corticosteroid Start: 01-21-20 End: 01-27-20 23 methylPREDNISolone (MEDROL, KAREL,) 4 mg Dose-Pack Indications: Dermatitis due to plants, including poison alba, sumac, and oak Follow dosing instructions, take with food. 21 tablet 0 01/20/2023 01/26/2023 Active Comment on above: Follow dosing instru ctions, take with food. naproxen 500 mg oral tablet (1 source) Nonsteroidal Anti-inflammatory Drug Start: 06-02-19 16 take 500 mg by mouth twice daily as needed Naproxen Active 500 MG PO TWICE DAILY NEEDED June 02, 2015 12:00am predniSONE 10 mg oral tablet (2 sources) Start: 05-07-19 24 End: 02-16-20 24 predniSONE (DELTASONE) 10 mg tablet Indications: Sinobronchitis Take 4 tabs daily for 3 days, then 2 tabs daily for 3 days, then 1 tab daily for 3 days with food. 21 tablet 0 05/07/2023 05/16/2023 Active Start: 12-23-2020 Prednisone Act michael 10 MG PO .COMPLEX December 22, 2020 11:00pm Take 4 pills for 3 days, 3 pills for 3 days, 2 pills for 3 days, take 1 pill for 3 days Comment on above: Take 4 tabs daily fo r 3 days, then 2 tabs daily for 3 days, then 1 tab daily for 3 days with food. promethazine hydrochloride 25 mg oral tablet (6 sources) Phenothiazine Start: 10-14-2022 promethazine (PHENERGAN) 25 mg tablet 10/14/2022 Active triamcinolone acetonide 0.25 mg/ml topical cream (5 sources) Corticosteroid Start: 01-20-2023 triamcinolone (KENALOG) 0.025 % cream Indications: Dermatitis due to plants, including poison alba, sumac, and oak Apply 1 application to affected area two times a day. 30 g 01/20/2023 Active Comment on above: Apply 1 application to affected area two times a day. Completed/Discontinued Medications Medication Drug Class(es) Dates Sig (Normalized) Sig (Original) acetaminophen 325 mg / HYDROcodone bitartrate 5 mg oral tablet (3 sources) Opioid Agonist Start: 05-11-2022 End: 05-17-2022 take 1 tablet by mouth every eight hours Hydrocodone-Acetam inophen Discontinued 1 TABLET PO Q8H 15 May 11, 2022 May 17, 2022 10:01am amoxicillin 500 mg / clavulanate 125 mg oral tablet (3 sources) Penicillin-class Antibacterial Start: 05-11-2022 End: 05-17-2022 take 1 tablet by mouth every eight hours Amoxicillin-Pot Clavulanate (Augmentin) 500-125 mg tablet Discontinued 1 TABLET PO Q8H May 11, 2022 12:00am May 17, 2022 10:01am perflutren lipid microspheres 1.3 mL in NaCl (PF) 0.9% 10 mL injection (DEFINITY) (1 source) Start: 05-16-2020 End: 08-15-2021 perflutren lipid microspheres 1.3 mL in NaCl (PF) 0.9% 10 mL injection (DEFINITY) 125 ml sodium chloride 9 mg/ml prefilled syringe (1 source) Start: 05-16-2020 End: 08-15-2021 sodium chloride 0.9 % (flush) 10 mL (BD POSIFLUSH) Problems Active Problems Problem Classification Problem Date Documented Da te Episodic/Chronic Abdominal hernia (2 sources) Umbilical hernia; Translations: [Umbilical hernia without obstruction or gangrene] 05-18-2022 Episodic Abdominal pain (11 sources) Lower abdominal pain; Translations: [Lower abdominal pain, unspecified] Onset: 08-31-2024 05-07-2022 Episodic Allergic reactions (1 source) Contact dermatitis due to plants; Translations: [Unspecified contact dermatitis due to plants, except food] 01-20-2023 Episodic Appendicitis and other appendiceal conditions (10 sources) Acute appendicitis; Translations: [Unspecified acute appendicitis] 05-08-2022 Episodic Cardiac dysrhythmias (4 sources) Tachycardia; Translations: [Tachycardia, unspecified] 05-09-2022 Episodic Conditions associated with dizziness or vertigo (1 source) Vertigo; Translations: [Dizziness and giddiness] 12-07-2022 Episodic Diseases of white blood cells (4 sources) Leukocytosis; Translations: [Elevated white blood cell count, unspecified] 05-09-2022 Chronic Fever of unknown origin (4 sources) Fever; Translations: [Fever, unspecified] 05-09-2022 Episodic Fluid and electrolyte disorders (6 sources) Hypokalemia; Translations: [Hypokalemia] 05-08-2022 Episodic Open wounds of extremities (5 sources) Laceration of finger; Translations: [Laceration without foreign body of unspecified finger without damage to nail, initial encounter] 12-21-2018 Episodic Other circulatory disease (3 sources) Elevated blood pressure; Translations: [Elevated blood-pressure reading, without diagnosis of hypertension] 05-09-2022 Episodic Other circulatory disease (1 source) Elevated blood-pressure reading, without diagnosis of hypertension; Translations: [Elevated blood pressure reading without diagnosis of hypertension] 05-11-2022 Episodic Other upper respiratory infections (1 source) Chronic sinusitis; Translations: [Chronic sinusitis, unspecified] 05-07-2023 Chronic Pneumonia (except that caused by tuberculosis or sexually transmitted disease) (2 sources) Pneumonia; Translations: [Pneumonia, unspecified organism] 12-23-2020 Episodic Residual codes; unclassified (1 source) Pain, unspecified; Translations: [Pain] Onset: 05-19-2024 Episodic Residual codes; unclassified (5 sources) Pain; Translations: [Pain, unspecified] 05-19-2024 Episodic Viral infection (1 source) Viral disease; Translations: [Viral infection, unspecified] 04-10-2024 Episodic Past or Other Problems Problem Classification Problem Date Documented Da te Episodic/Chronic Unclassified (3 sources) No history of procedure; Translations: [No history of previous surgery] 05-08-2022 Results Test Name Value Interpretation Reference Range Facility CBC W/Diff, Automatedon 06-0 Absolute Lymph 2.26 X10 3/uL Normal 0.83-4.51 [facility] Comment on above: Performed By: #### L 100.0100, L500.4100, L500.4050 #### [facility] [address] [place], [address] Absolute Neut 4.5 X10 3/uL Normal 2.0-7.7 [facility] Comment on above: Performed By: #### L 100.0100, L500.4100, [id number] #### [facility] [address] [place], [address] Basophils/100 WBC (Bld) 0.7 % Normal 0-1 [facility] Comment on above: Performed By: #### L 100.0100, L500.4100, [id number] #### [facility] [address] [place], [address] Eosinophils/100 WBC (Bld) 2.0 % Normal 0-5 [facility] Comment on above: Performed By: #### L 100.0100, L500.4100, [id number] #### [facility] [address] [place], [address] Erythrocyte distribution width (RBC) [Ratio] 11.9 % Normal 11.6-14.6 [facility] Comment on above: Performed By: #### L 100.0100, L500.4100, [id number] #### [facility] [address] [place], [address] Hematocrit (Bld) [Volume fraction] 48.8 % Normal 40-54 [facility] Comment on above: Performed By: #### L 100.0100, L500.4100, [id number] #### [facility] [address] [place], [address] Hemoglobin (Bld) [Mass/Vol] 17.2 g/dL High 13.0-16.5 [facility] Comment on above: Performed By: #### L 100.0100, L500.4100, [id number] #### [facility] [address] [place], [address] IG% 0.400 Normal 0.0-0.9 [facility] Comment on above: Result Comment: IG% - Immature Granulocytes (promyelocytes, myelocytes and metamyelocytes) > 1% indicates that a LEFT SHIFT is Present. Performed By: #### L 100.0100, L500.4100, L500.4050 #### [facility] [address] [place], [address] Lymphocytes/100 WBC (Bld) 30.3 % Normal 19-41 [facility] Comment on above: Performed By: #### L 100.0100, L500.4100, [id number] #### [facility] [address] [place], [address] MCH (RBC) [Entitic mass] 32.5 pg High 27.0-32.0 [facility] Comment on above: Performed By: #### L 100.0100, L500.4100, [id number] #### [facility] [address] [place], [address] MCHC (RBC) [Mass/Vol] 35.2 g/dL Normal 32-36 [facility] Comment on above: Performed By: #### L 100.0100, L500.4100, [id number] #### [facility] [address] [place], [address] MCV (RBC) [Entitic vol] 92.2 fL Normal 80-[address] [facility] Comment on above: Performed By: #### L 100.0100, L500.4100, [id number] #### [facility] [address] [place], [address] Monocytes/100 WBC (Bld) 6.3 % Normal 0-10 [facility] Comment on above: Performed By: #### L 100.0100, L500.4100, [id number] #### [facility] [address] [place], [address] Neutrophils/100 WBC (Bld) 60.3 % Normal 47-70 [facility] Comment on above: Performed By: #### L 100.0100, L500.4100, [id number] #### [facility] [address] [place], [address] Nucleated RBC (Bld) [#/Vol] 0 10*3/uL Normal 0-5 [facility] Comment on above: Performed By: #### L 100.0100, L500.4100, [id number] #### [facility] [address] [place], [address] Platelet mean volume (Bld) [Entitic vol] 10.2 fL Normal 6.2-12.0 [facility] Comment on above: Performed By: #### L 100.0100, L500.4100, [id number] #### [facility] [address] [place], [address] Platelets (Bld) [#/Vol] 239 10*3/uL Normal 150-450 [facility] Comment on above: Performed By: #### L 100.0100, L500.4100, [id number] #### [facility] [address] [place], [address] RBC (Bld) [#/Vol] 5.29 10*6/uL Normal 4.6-6.2 [facility] Comment on above: Performed By: #### L 100.0100, L500.4100, [id number] #### [facility] [address] [place], [address] RDW SD 40.4 fl Normal 35.1-43.9 [facility] Comment on above: Performed By: #### L 100.0100, L500.4100, [id number] #### [facility] [address] [place], [address] WBC (Bld) [#/Vol] 7.5 10*3/uL Normal 4.4-11.0 [facility] Comment on above: Performed By: #### L 100.0100, L500.4100, [id number] #### [facility] [address] [place], [address] Comprehensive Metabolic Prof [facility] 08-30-2024 Albumin [Mass/Vol] 5.1 g/dL High 3.5-5.0 [facility] Comment on above: Performed By: #### L 100.0100, L500.4100, [id number] #### [facility] [address] [place], [address] Albumin/Globulin [Mass ratio] 1.7 {ratio} Normal 0.9-2.4 [facility] Comment on above: Performed By: #### L 100.0100, L500.4100, [id number] #### [facility] [address] [place], [address] ALK PHOS 62 U/L Normal 40-129 [facility] Comment on above: Performed By: #### L 100.0100, L500.4100, [id number] #### [facility] [address] [place], [address] ALT [Catalytic activity/Vol] 45 U/L Normal <=46 [facility] Comment on above: Performed By: #### L 100.0100, L500.4100, [id number] #### [facility] [address] [place], [address] AST [Catalytic activity/Vol] 31 U/L Normal <=37 [facility] Comment on above: Performed By: #### L 100.0100, L500.4100, [id number] #### [facility] [address] [place], [address] Bilirubin [Mass/Vol] 0.59 mg/dL Normal 0.00-1.30 [facility] Comment on above: Performed By: #### L 100.0100, L500.4100, [id number] #### [facility] [address] [place], [address] BUN/CRE 13.6 RATIO Normal 10-20 [facility] Comment on above: Performed By: #### L 100.0100, L500.4100, [id number] #### [facility] [address] [place], [address] Calcium [Mass/Vol] 10.3 mg/dL Normal 7.6-11.0 [facility] Comment on above: Performed By: #### L 100.0100, L500.4100, [id number] #### [facility] [address] [place], [address] Chloride [Moles/Vol] 102 mmol/L Normal 98-108 [facility] Comment on above: Performed By: #### L 100.0100, L500.4100, [id number] #### [facility] [address] [place], [address] CO2 [Moles/Vol] 23.7 mmol/L Normal 21.0-32.0 [facility] Comment on above: Performed By: #### L 100.0100, L500.4100, [id number] #### [facility] [address] [place], [address] Creatinine [Mass/Vol] 1.03 mg/dL Normal 0.70-1.20 [facility] Comment on above: Performed By: #### L 100.0100, L500.4100, [id number] #### [facility] [address] [place], [address] GAP 15 Normal 5-15 [facility] Comment on above: Performed By: #### L 100.0100, L500.4100, [id number] #### [facility] [address] [place], [address] GFR/1.73 sq M.predicted among non-blacks MDRD (S/P/Bld) [Vol rate/Area] 100 mL/min/{1.73_m2} Normal >60 [facility] Comment on above: Result Comment: mL/m in/1.73m2 CKD-EPI Creatinine Equation (2020) Performed By: #### L 100.0100, L500.4100, [id number] #### [facility] [address] [place], [address] Globulin (S) [Mass/Vol] 3.1 g/dL Normal 2.2-4.2 [facility] Comment on above: Performed By: #### L 100.0100, L500.4100, [id number] #### [facility] [address] [place], [address] Glucose [Mass/Vol] 96 mg/dL Normal 70-99 [facility] Comment on above: Performed By: #### L 100.0100, L500.4100, [id number] #### [facility] [address] [place], [address] Potassium [Moles/Vol] 3.5 mmol/L Normal 3.3-5.1 [facility] Comment on above: Performed By: #### L 100.0100, L500.4100, [id number] #### [facility] [address] [place], [address] Sodium [Moles/Vol] 140 mmol/L Normal 133-145 [facility] Comment on above: Performed By: #### L 100.0100, L500.4100, [id number] #### [facility] [address] [place], [address] T PROT 8.1 g/dL Normal 5.9-8.4 [facility] Comment on above: Performed By: #### L 100.0100, L500.4100, [id number] #### [facility] [address] [place], [address] Urea nitrogen [Mass/Vol] 14 mg/dL Normal 4-19 [facility] Comment on above: Performed By: #### L 100.0100, L500.4100, [id number] #### [facility] [address] [place], [address] Lipid Profileon 08-30-2024 CHOL:HDL 7.40 Normal [facility] Comment on above: Performed By: #### L 100.0100, L500.4100, [id number] #### [facility] [address] [place], [address] Cholesterol [Mass/Vol] 291 mg/dL High <=200 [facility] Comment on above: Result Comment: Chol esterol level, Desirable <200 mg/dL Borderline high cholesterol 200-239 mg/dL High cholesterol >=240 mg/dL Recommendations of the NCEP Adult Treatment Panel for the following risk-cutoff thresholds for the [place] population. Performed By: #### L 100.0100, L500.4100, [id number] #### [facility] [address] [place], [address] Cholesterol in HDL [Mass/Vol] 39 mg/dL Low [facility] Comment on above: Result Comment: Hien onal Cholesterol Education Program (NCEP) guidelines: <40 mg/dL: Low HDL-cholesterol (major risk factor for CHD) >= 60 mg/dL: High HDL-cholesterol (negative risk factor for CHD) HDL-cholesterol is affected by a number of factors, e.g. smoking, exercise, hormones, sex and age. Performed By: #### L 100.0100, L500.4100, L500.4050 #### [facility] [address] [place], [address] Cholesterol in LDL [Mass/Vol] 123 mg/dL Normal [facility] Comment on above: Result Comment: Bord genucz=096-275 mg/dL Higher Otuh=368 mg/dL or greater Performed By: #### L 100.0100, L500.4100, [id number] #### [facility] [address] [place], [address] Cholesterol in VLDL [Mass/Vol] 129 mg/dL High 5-40 [facility] Comment on above: Performed By: #### L 100.0100, L500.4100, [id number] #### [facility] [address] [place], [address] Triglyceride [Mass/Vol] 645 mg/dL High [facility] Comment on above: Result Comment: The drugs N-Acetylcysteine and Metamizole may falsely depress this assay. Normal range: <150 mg/dL Borderline High: 150-199 mg/dL High: 200-499 mg/dL Very High: >500 mg/dL Performed By: #### L 100.0100, L500.4100, [id number] #### [facility] [place], [address] CNOVon 05-19-2024 CN Office Visit ([facility] ) LUCIANA CORDOBA ([id number]) 1995 M Date Time Provider Department 05/19/24 9:30 AM MARY JANE MORATAYA [facility] During your visit today, we recorded the following information about you: Temperature Pulse Respiration Blood pressure 99.4 degrees 92/minute 16/minute 128/72 Weight 98.5 kg Mary Jane Morataya APRN.SOFTWARE ENGINEERING SPECIALIST 05/19/2024 10:30 AM Signed Subjective Came in with complaints of right ankle pain. Patient says it has been going on about a week. Patient says is not feeling any better. Patient says he has torn ligaments before says it does feel similar. Patient does not remember any injuries happening. Patient does have a job where he is constantly up on his feet. Patient denies any numbness tingling or loss of feeling. The history is provided by the patient. No speech language therapist was used. Ankle Pain Review of Systems Constitutional: Negative. Skin: Negative. Objective Physical Exam Constitutional: Appearance: Normal appearance. Pulmonary: Effort: Pulmonary effort is normal. Musculoskeletal: Feet: Feet: Comments: Patient is slightly swollen in the area marked above and tender. Pain when rotating ankle. Neurological: Mental Status: He is alert. PAST MEDICAL HISTORY Diagnosis Date ADD (attention deficit disorder) Class 1 obesity due to excess calories without serious comorbidity with body mass index (BMI) of 31.0 to 31.9 in adult Plantar fasciitis PAST SURGICAL HISTORY Procedure Laterality Date NONE ALLERGIES Patient has no known allergies. MEDICATIONS IVERMECTIN ORAL Take by mouth. escitalopram oxalate (LEXAPRO) 20 mg tablet Take 1 tablet by mouth every afternoon. (Patient not taking: Reported on 05/19/2024) hydrOXYzine HCl (ATARAX) 25 mg tablet Take 25 mg by mouth four times a day as needed. (Patient not taking: Reported on 05/19/2024) triamcinolone (KENALOG) 0.025 % cream Apply 1 [...] History Tobacco Use Smoking status: Some Days Types: Cigarettes Smokeless tobacco: Never Tobacco comments: 2-3 cigarettes a week Substance Use Topics Alcohol use: Yes Alcohol/week: 35.0 standard drinks of alcohol Types: 35 Cans of Beer (12oz) per week Drug use: Yes Frequency: 3.0 times per week Types: Marijuana ASSESSMENT/PLAN: 1. Pain - ICD9: 780.96, ICD10: R52 - XR ANKLE GENERAL 3V AP/LAT/OBL RIGHT * * * * Physician Interpretation * * * * EXAMINATION: XR ANKLE 3V AP/LAT/OBL RT PATIENT/TECHNOLOGIST PROVIDED HISTORY: Right ankle pain and swelling x1 week, pain/swelling at lateral side of ankle. 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 CLINICAL INFORMATION: 28 years old Male with Pain TECHNIQUE: XR ANKLE 3V AP/LAT/OBL RT Laterality: RIGHT Number of different views (projections): 3 COMPARISON: None RESULT: No acute fracture. Remote healed fracture deformity of the lateral malleolus. Ankle mortise is maintained. IMPRESSION IMPRESSION: No acute osseous abnormality. Cloud Systems Architect: GURU Transcribe Date/Time: May 19 2024 10:14A Dictated by : KATY FERRARI DO - CONSULT PANEL TO ORTHOPAEDICS Patient was instructed to follow up with ortho for further testing at this time. Instructed to rest and ice at this time. Patient agreeable to this care plan. Mary Jane Morataya APRN.SOFTWARE ENGINEERING SPECIALIST Allergies As of Date: 05/19/2024 (No Known Allergies) Date Reviewed: 05/19/2024 Reviewed by: Esha Aguirre MA - Fully Assessed Reason for Visit: Ankle Pain [1036] Cmt: right and swelling x 1 week Primary Visit Diagnosis:Pain [R52] Order(s):XR ANKLE GENERAL 3V AP/LAT/OBL RIGHT [5738100] Order #: [id number] FUTURE CONSULT PANEL TO ORTHOPAEDICS [[id number]] Order #: [id number]: 1 FUTURE Prescriptions as of 05/19/2024 - IVERMECTIN ORAL Take by mouth. - escitalopram oxalate (LEXAPRO) 20 mg tablet Take 1 tablet by mouth every afternoon. - hydrOXYzine HCl (ATARAX) 25 mg ta (more content not included)... Normal [facility] XR ANKLE 3V AP/LAT/OBL RTon 05-19-2024 XR ANKLE 3V AP/LAT/OBL RT * * *Final Report* * * DATE OF EXAM: May 19 2024 9:52AM WOX [id number] - XR ANKLE 3V AP/LAT/OBL RT / PROCEDURE REASON: Pain * * * * Physician Interpretation * * * * EXAMINATION: XR ANKLE 3V AP/LAT/OBL RT PATIENT/TECHNOLOGIST PROVIDED HISTORY: Right ankle pain and swelling x1 week, pain/swelling at lateral side of ankle. 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 CLINICAL INFORMATION: 28 years old Male with Pain TECHNIQUE: XR ANKLE 3V AP/LAT/OBL RT Laterality: RIGHT Number of different views (projections): 3 COMPARISON: None RESULT: No acute fracture. Remote healed fracture deformity of the lateral malleolus. Ankle mortise is maintained. IMPRESSION: No acute osseous abnormality. Cloud Systems Architect: GURU Transcribe Date/Time: May 19 2024 10:14A Dictated by : KATY FERRARI DO This examination was interpreted and the report reviewed and electronically signed by: KATY FERRARI DO on May 19 2024 10:15AM EST [id number] Normal [facility] XR Ankle - right AP and Late ral and obliqueon 05-19-2024 IMPRESSION: No acute osseous abnormality. Cloud Systems Architect: [facility] Transcribe Date/Time: May 19 2024 10:14A Dictated by : KATY FERRARI DO This examination was interpreted and the report reviewed and electronically signed by: KATY FERRARI DO on May 19 2024 10:15AM EST DIVISION OF RADIOLOGY * * *Final Report* * * DATE OF EXAM: May 19 2024 9:52AM WOX 5297 - XR ANKLE 3V AP/LAT/OBL RT / PROCEDURE REASON: Pain * * * * Physician Interpretation * * * * EXAMINATION: XR ANKLE 3V AP/LAT/OBL RT PATIENT/TECHNOLOGIST PROVIDED HISTORY: Right ankle pain and swelling x1 week, pain/swelling at lateral side of ankle. 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 CLINICAL INFORMATION: 28 years old Male with Pain TECHNIQUE: XR ANKLE 3V AP/LAT/OBL RT Laterality: RIGHT Number of different views (projections): 3 COMPARISON: None RESULT: No acute fracture. Remote healed fracture deformity of the lateral malleolus. Ankle mortise is maintained. DIVISION OF RADIOLOGY Provider, [facility] - 05/19/2024 * * *Final Report* * * DATE OF EXAM: May 19 2024 9:52AM WOX 5297 - XR ANKLE 3V AP/LAT/OBL RT / PROCEDURE REASON: Pain * * * * Physician Interpretation * * * * EXAMINATION: XR ANKLE 3V AP/LAT/OBL RT PATIENT/TECHNOLOGIST PROVIDED HISTORY: Right ankle pain and swelling x1 week, pain/swelling at lateral side of ankle. 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 CLINICAL INFORMATION: 28 years old Male with Pain TECHNIQUE: XR ANKLE 3V AP/LAT/OBL RT Laterality: RIGHT Number of different views (projections): 3 COMPARISON: None RESULT: No acute fracture. Remote healed fracture deformity of the lateral malleolus. Ankle mortise is maintained. IMPRESSION IMPRESSION: No acute osseous abnormality. Cloud Systems Architect: [employer] Transcribe Date/Time: May 19 2024 10:14A Dictated by : KATY FERRARI DO This examination was interpreted and the report reviewed and electronically signed by: KATY FERRARI DO on May 19 2024 10:15AM EST [facility] Rad[facility]ative[facility] Ankle - right AP and Late ral and obliqueOrdered By: [facility] Provider on 05-19-2024 [facility] CNOVon 04-10-2024 CNOV Office Visit (WSTR ) LUCIANA CORDOBA ([id number]) 1995 M Date Time Provider Department 04/10/24 3:15 PM POLLO JONES [facility] During your visit today, we recorded the following information about you: Temperature Pulse Respiration Blood pressure 103.3 degrees 97/minute 20/minute 151/87 Weight 99.5 kg Pollo Jones APRN.SOFTWARE ENGINEERING SPECIALIST 04/10/2024 3:22 PM Signed This note was created using [employer]. Subjective Luciana Cordoba is a 28 year old male. HPI Pt developed a fever, headache, chest congestion, and sharp pain with coughing. He states that he gets pneumonia every year and is worried that it might be coming back this year. Review of Systems Constitutional: Positive for fatigue. Musculoskeletal: Positive for myalgias. As above Objective BP 151/87 Pulse 97 Temp (!) 39.6 ?C (103.3 ?F) Resp 20 Wt 99.5 kg (219 lb 5.7 oz) SpO2 98% BMI 32.39 kg/m? Physical Exam Vitals and nursing note reviewed. Constitutional: General: He is not in acute distress. Appearance: Normal appearance. He is ill-appearing. He is not toxic-appearing. HENT: Head: Normocephalic. Mouth/Throat: Mouth: Mucous membranes are moist. Eyes: Conjunctiva/sclera: Conjunctivae normal. Cardiovascular: Rate and Rhythm: Normal rate and regular rhythm. Pulmonary: Effort: Pulmonary effort is normal. Breath sounds: Normal breath sounds. Musculoskeletal: General: Normal range of motion. Cervical back: Normal range of motion. Skin: General: Skin is warm and dry. Neurological: General: No focal deficit present. Mental Status: He is alert. Psychiatric: Mood and Affect: Mood normal. Behavior: Behavior normal. Assessment and Plan ASSESSMENT/PLAN: 1. Viral illness - ICD9: 079.99, ICD10: B34.9 -Discussed with patient that his symptoms seem more consistent with probable viral illness including influenza or COVID. Discussed possible testing for same which patient declines. Discussed with patient that he should continue with ibuprofen and/or Tylenol as needed for pain and fever and get plenty rest and fluids. Informed him that symptoms should begin to resolve within 3-4 days of onset of symptoms but may last as long as 7 or 8. He may return for any new or worsening concerns. Pollo Jones APRN.MARTY Allergies As of Date: 04/10/2024 (No Known Allergies) Date Reviewed: 04/10/2024 Reviewed by: Pollo Jones APRN.[facility] [employer] [facility] - Fully Assessed Reason for Visit: Flu Like Symptoms [267] Cmt: Cough, fever, bodyaches, chills, OREILLY x last night Primary Visit Diagnosis:Viral illness [B34.9] Prescriptions as of 04/10/2024 - escitalopram oxalate (LEXAPRO) 20 mg tablet Take 1 tablet by mouth every afternoon. - hydrOXYzine HCl (ATARAX) 25 mg tablet Take 25 mg by mouth four times a day as needed. - triamcinolone (KENALOG) 0.025 % cream Apply [...] of Breath. Problem List As Of Date: 04/10/2024 (None) Encounter Status:Closed by POLLO JONES on 04/10/24 Normal [facility] Clostridioides difficile nuc leic acid assay by PCROrdered By: Renée Rainey on 05-24-2023 C. difficile DNA SYMONE+probe Ql (Unsp spec) [facility] Stool enteric pathogen panel by probe and target amplification methodOrdered By: Renée Rainey on 05-24-2023 Gastrointestinal pathogens panel SYMONE+probe (Stl) [facility] Stool lactoferrin detection by immunoassayOrdered By: Renée Rainey on 05-24-2023 Lactoferrin IA Ql (Stl) [facility] Absolute lymphocyte countOrd ered By: Renée Rainey on 05-14-2023 Lymphocytes Auto (Unsp spec) [#/Vol] 1.46 10*3/uL 0.83-4.51 [facility] Automated lymphocyte count a s percentage of total leukocytesOrdered By: Renée Rainey on 05-14-2023 Lymphocytes/100 WBC Auto (Unsp spec) 16.0 % 19-41 [facility] Basophil percentageOrdered B y: Renée Rainey on 05-14-2023 Basophils/100 WBC (Bld) 0.9 % 0-1 [facility] Bilirubin [Mass/Vol] 0.60 mg/dL 0.20-1.00 [facility] Comment on above: Slight Lipemia, Resu lt may be falsely increased. For patients on eltrombopag therapy, use of Dimension [place] TBIL is not recommended. Chloride [Moles/Vol] 106 mmol/L 98-107 [facility] Cholesterol [Mass/Vol] 279 mg/dL <200 [facility] Comment on above: Slight Lipemia, Resu lt may be falsely increased. <200 mg/dL Desirable 200-240 mg/dL Borderline >240 mg/dL High Risk Eosinophils/100 WBC (Bld) 1.3 % 0-5 [facility] Glucose [Mass/Vol] 133 mg/dL 74-106 [facility] Comment on above: Slight Lipemia, Resu lt may be falsely increased.Fasting Glucose result greater than or equal to 126 mg/dL suggests DIABETES MELLITUS per A.D.A. criteria. Hemoglobin (Bld) [Mass/Vol] 16.3 g/dL 13.0-16.5 [facility] Monocytes/100 WBC (Bld) 5.8 % 0-10 [facility] Neutrophils (Bld) [#/Vol] 6.8 10*3/uL 2.0-7.7 [facility] Neutrophils/100 WBC (Bld) 74.1 % 47-70 [facility] Potassium [Moles/Vol] 3.7 mmol/L 3.5-5.1 [facility] Comment on above: Slight Hemolysis, Re sult may be falsely increased.-Slight Lipemia, Result may be falsely increased. Protein [Mass/Vol] 7.3 g/dL 6.4-8.2 [facility] Comment on above: Slight Lipemia, Resu lt may be falsely increased. Sodium [Moles/Vol] 139 mmol/L 136-145 [facility] Triglyceride [Mass/Vol] 843 mg/dL <199 [facility] Comment on above: The drugs N-Acetylcy steine and Metamizole may falsely depress this assay. Slight Lipemia, Result may be falsely increased. TRIGLYCERIDE IS GREATER THAN 400 mg/dL. LDL RESULT IS INVALID AND WILL NOT BE REPORTED.Serum Triglycerides Reference Interval Normal <150 mg/dL Borderline high 150 - 199 mg/dL High 200 - 499 mg/dL Very High > or = 500 mg/dL WBC (Bld) [#/Vol] 9.1 10*3/uL 4.4-11.0 [facility] Determination of erythrocyte mean corpuscular volume (MCV)Ordered By: Renée Rainey on 05-14-2023 MCV (RBC) [Entitic vol] 96.1 fL 80-94 [facility] Erythrocyte distribution wid th ratioOrdered By: Renée Daveygar on 05-14-2023 Erythrocyte distribution width (RBC) [Ratio] 12.4 % 11.6-14.6 [facility] Erythrocyte distribution wid th standard deviationOrdered By: [facility] on 05-14-2023 Erythrocyte distribution width (RBC) [Entitic vol] 43.5 fL 35.1-43.9 [facility] Erythrocyte sedimentation ra teOrdered By: [facility] on 05-14-2023 ESR (Bld) [Velocity] 2 mm/h 0-20 [facility] Hematocrit Auto (Bld) [Volum e fraction]Ordered By: [facility] on 05-14-2023 Hematocrit (Bld) [Volume fraction] 47.0 % 40-54 [facility] Immature granulocytes/100 WB C Auto (Bld)Ordered By: [facility] on 05-14-2023 Immature granulocytes/100 WBC (Bld) 1.900 % 0.0-0.9 [facility] Comment on above: IG% - Immature Granu locytes (promyelocytes, myelocytes and metamyelocytes) > 1% indicates that a LEFT SHIFT is Present. Laboratory - Chemistry and C hemistry - challengeOrdered By: [facility] on 05-14-2023 Albumin/Globulin [Mass ratio] 1.2 {ratio} 0.9-2.4 [facility] ALP [Catalytic activity/Vol] 62 U/L 45-117 [facility] ALT [Catalytic activity/Vol] 53 U/L 16-61 [facility] Comment on above: Slight Lipemia, Resu lt may be falsely increased. Cholesterol in HDL [Mass/Vol] 42 mg/dL >40 [facility] Comment on above: The drugs N-Acetylcy steine and Metamizole may falsely depress this assay. Reference Range HDL <40 mg/dL Low HDL Cholesterol HDL >or= 60 mg/dL High HDL Cholesterol CO2 [Moles/Vol] 29.0 mmol/L 21.0-32.0 [facility] Comment on above: Slight Lipemia, Resu lt may be falsely increased. Globulin (S) [Mass/Vol] 3.3 g/dL 2.2-4.[address] [facility] Urea nitrogen/Creatinine [Mass ratio] 14.5 mg/mg 10-20 [facility] Laboratory - Hematology and Cell countsOrdered By: Renée Rainey on 05-14-2023 MCH (RBC) [Entitic mass] 33.3 pg 27.0-32.0 [facility] MCHC (RBC) [Mass/Vol] 34.7 g/dL 32-36 [facility] Nucleated RBC/100 WBC (Bld) [Ratio] 0 % 0-5 [facility] Platelet mean volume (Bld) [Entitic vol] 9.7 fL 6.2-12.0 [facility] Platelets (Bld) [#/Vol] 289 10*3/uL 150-450 [facility] No Panel InformationOrdered By: Renée Rainey on 05-14-2023 C-Reactive Protein Extended Range < 2.90 mg/L 0.0-3.0 [facility] Comment on above: C-Reactive Protein ( CRP) provides useful information for thediagnosis, therapy and monitoring of inflammatory processesand associated diseases. For the evaluation of Relative Riskfor Cardiovascular Disease, a High Sensitivity CRP (HSCRP)should be ordered. Estimated GFR (MDRD) Amer 101 mL/min >60 [facility] Comment on above: GFR Calc Estimated GFR (MDRD) Non-Af Amer 84 mL/min >60 [facility] Comment on above: Non- GFR Calc LDL Cholesterol [facility] Comment on above: Test not performed VLDL Cholesterol [facility] Comment on above: Test not performed RBC Auto (Bld) [#/Vol]Ordere d By: Renée Rainey on 05-14-2023 RBC (Bld) [#/Vol] 4.89 10*6/uL 4.6-6.2 [facility] Serum or plasma calcium delfino urement (mass/volume)Ordered By: Renée Rainey on 05-14-2023 Calcium [Mass/Vol] 8.9 mg/dL 8.5-10.1 [facility] Comment on above: Slight Lipemia, Resu lt may be falsely increased. Serum or plasma creatinine m easurement (mass/volume)Ordered By: Renée Rainey on 05-14-2023 Creatinine [Mass/Vol] 1.10 mg/dL 0.70-1.30 [facility] Comment on above: Slight Lipemia, Resu lt may be falsely increased.The validity of the calculated GFR & GFRAA in patients over 70 years has not been determined. Clinical correlation is essential. Serum or plasma urea nitroge n measurement (mass/volume)Ordered By: Renée Rainey on 05-14-2023 Urea nitrogen [Mass/Vol] 16 mg/dL 7-18 [facility] Comment on above: Slight Lipemia, Resu lt may be falsely increased. Thin prep Papanicolaou smear with manual screeningOrdered By: Renée Rainey on 05-14-2023 Thin prep Papanicolaou smear with manual screening 4.0 g/dL 3.2-5.0 [facility] Thin prep Papanicolaou smear with manual screening 26 U/L 15-37 [facility] Comment on above: Slight Hemolysis, Re sult may be falsely increased.-Slight Lipemia, Result may be falsely increased. Thin prep Papanicolaou smear with manual screening 4 5-15 [facility] Absolute lymphocyte countOrd ered By: Dr. Mtz on 05-11-2022 Lymphocytes Auto (Unsp spec) [#/Vol] 1.07 10*3/uL 0.83-4.51 [facility] Basophil percentageOrdered B y: Dr. Mtz on 05-11-2022 Basophil percentage 2.2 mg/dL 2.5-4.9 [facility] Basophils/100 WBC (Bld) 0.3 % 0-[address] [facility] Chloride [Moles/Vol] 107 mmol/L 98-107 [facility] Eosinophils/100 WBC (Bld) 2.1 % 0-5 [facility] Glucose [Mass/Vol] 85 mg/dL 74-106 [facility] Neutrophils (Bld) [#/Vol] 6.0 10*3/uL 2.0-7.7 [facility] Neutrophils/100 WBC (Bld) 75.7 % 47-70 [facility] Potassium [Moles/Vol] 4.1 mmol/L 3.5-5.1 [facility] Sodium [Moles/Vol] 140 mmol/L 136-145 [facility] WBC (Bld) [#/Vol] 7.9 10*3/uL 4.4-11.0 [facility] Blood erythrocytes count (nu mber/volume)Ordered By: Dr. Mtz on 05-11-2022 RBC (Bld) [#/Vol] 4.08 10*6/uL 4.6-6.2 [facility] Blood hemoglobin measurement (mass/volume)Ordered By: Dr. Mtz on 05-11-2022 Hemoglobin (Bld) [Mass/Vol] 13.3 g/dL 13.0-16.5 [facility] Blood lymphocytes/100 leukoc ytesOrdered By: Dr. Mtz on 05-11-2022 Lymphocytes/100 WBC (Bld) 13.5 % 19-41 [facility] Blood monocytes/100 leukocyt esOrdered By: Dr. Mtz on 05-11-2022 Monocytes/100 WBC (Bld) 8.0 % 0-[address] [facility] Blood platelet mean volumeOr dered By: Dr. Mtz on 05-11-2022 Platelet mean volume (Bld) [Entitic vol] 9.6 fL 6.2-12.0 [facility] Determination of erythrocyte mean corpuscular volume (MCV)Ordered By: Dr. Mtz on 05-11-2022 MCV (RBC) [Entitic vol] 97.3 fL 80-[address] [facility] Hematocrit Auto (Bld) [Volum e fraction]Ordered By: Dr. Mtz on 05-11-2022 Hematocrit (Bld) [Volume fraction] 39.7 % 40-54 [facility] Laboratory - Chemistry and C hemistry - challengeOrdered By: Dr. Mtz on 05-11-2022 CO2 [Moles/Vol] 25.0 mmol/L 21.0-32.0 [facility] Magnesium [Mass/Vol] 2.1 mg/dL 1.6-2.6 [facility] Urea nitrogen/Creatinine [Mass ratio] 10.7 mg/mg 10-20 [facility] Laboratory - Hematology and Cell countsOrdered By: Dr. Mtz on 05-11-2022 Erythrocyte distribution width (RBC) [Entitic vol] 45.4 fL 35.1-43.9 [facility] Erythrocyte distribution width (RBC) [Ratio] 12.7 % 11.6-14.6 [facility] Immature granulocytes/100 WBC (Bld) 0.400 % 0.0-0.9 [facility] Comment on above: IG% - Immature Granu locytes (promyelocytes, myelocytes and metamyelocytes) > 1% indicates that a LEFT SHIFT is Present. MCH (RBC) [Entitic mass] 32.6 pg 27.0-32.0 [facility] Nucleated RBC/100 WBC (Bld) [Ratio] 0 % 0-5 [facility] MCHC Auto (RBC) [Mass/Vol]Or dered By: Dr. Mtz on 05-11-2022 MCHC (RBC) [Mass/Vol] 33.5 g/dL 32-36 [facility] No Panel InformationOrdered By: Dr. Mtz on 05-11-2022 Estimated Creatinine Clearance Calc 106.77 ml/min [facility] Estimated GFR (MDRD) Amer 110 mL/min >60 [facility] Comment on above: GFR Calc Estimated GFR (MDRD) Non-Af Amer 91 mL/min >60 [facility] Comment on above: Non- GFR Calc Platelets bldOrdered By: Dr. Mtz on 05-11-2022 Platelets (Bld) [#/Vol] 219 10*3/uL 150-450 [facility] Serum or plasma calcium delfino urement (mass/volume)Ordered By: Dr. Mtz on 05-11-2022 Calcium [Mass/Vol] 8.8 mg/dL 8.5-10.1 [facility] Serum or plasma creatinine m easurement (mass/volume)Ordered By: Dr. Mtz on 05-11-2022 Creatinine [Mass/Vol] 1.03 mg/dL 0.70-1.30 [facility] Comment on above: The validity of the calculated GFR & GFRAA in patients over 70 years has not been determined. Clinical correlation is essential. Serum or plasma urea nitroge n measurement (mass/volume)Ordered By: Dr. Mtz on 05-11-2022 Urea nitrogen [Mass/Vol] 11 mg/dL 7-18 [facility] Thin prep Papanicolaou smear with manual screeningOrdered By: Dr. Mtz on 05-11-2022 Thin prep Papanicolaou smear with manual screening 8 5-15 [facility] Gram stain for investigation of transfusion reactionOrdered By: Dr. Mtz on 05-09-2022 Microscopic observation Gram stain Nom (Unsp spec) [facility] Absolute lymphocyte countOrd ered By: Dr. Barker on 05-08-2022 Lymphocytes Auto (Unsp spec) [#/Vol] 0.96 10*3/uL 0.83-4.51 [facility] Basophil percentageOrdered B y: Dr. Mtz on 05-08-2022 Chloride [Moles/Vol] 105 mmol/L 98-107 [facility] Glucose [Mass/Vol] 118 mg/dL 74-106 [facility] Comment on above: Fasting Glucose resu lt from 100 to 125 mg/dL suggests IMPAIRED HOMEOSTASIS per A.D.A. criteria. Potassium [Moles/Vol] 3.6 mmol/L 3.5-5.1 [facility] Sodium [Moles/Vol] 139 mmol/L 136-145 [facility] Basophil percentageOrdered B y: Dr. Barker on 05-08-2022 Basophil percentage 0 SEEN /hpf 0-5 [facility] Basophils/100 WBC (Bld) 0.1 % 0-1 [facility] Bilirubin [Mass/Vol] 0.80 mg/dL 0.20-1.00 [facility] Comment on above: For patients on eltr ombopag therapy, use of Dimension [place] TBIL is not recommended. Eosinophils/100 WBC (Bld) 0.1 % 0-5 [facility] Neutrophils (Bld) [#/Vol] 13.9 10*3/uL 2.0-7.7 [facility] Neutrophils/100 WBC (Bld) 89.4 % 47-70 [facility] Protein [Mass/Vol] 6.3 g/dL 6.4-8.2 [facility] WBC (Bld) [#/Vol] 15.6 10*3/uL 4.4-11.0 [facility] Basophil percentageOrdered B y: Dr. Lambert on 05-08-2022 Basophil percentage 1.3 mg/dL 2.5-4.9 [facility] Bilirubin Test strip Ql (U)O rdered By: Dr. Barker on 05-08-2022 Bilirubin Ql (U) Negative Negative [facility] Blood erythrocytes count (nu mber/volume)Ordered By: Dr. Barker on 05-08-2022 RBC (Bld) [#/Vol] 5.23 10*6/uL 4.6-6.2 [facility] Blood hemoglobin measurement (mass/volume)Ordered By: Dr. Barker on 05-08-2022 Hemoglobin (Bld) [Mass/Vol] 17.2 g/dL 13.0-16.5 [facility] Blood lymphocytes/100 leukoc ytesOrdered By: Dr. Barker on 05-08-2022 Lymphocytes/100 WBC (Bld) 6.1 % 19-41 [facility] Blood monocytes/100 leukocyt esOrdered By: Dr. Barker on 05-08-2022 Monocytes/100 WBC (Bld) 3.9 % 0-[address] [facility] Blood platelet mean volumeOr dered By: Dr. Barker on 05-08-2022 Platelet mean volume (Bld) [Entitic vol] 9.6 fL 6.2-12.0 [facility] Determination of erythrocyte mean corpuscular volume (MCV)Ordered By: Dr. Barker on 05-08-2022 MCV (RBC) [Entitic vol] 91.0 fL 80-[address] [facility] Hematocrit Auto (Bld) [Volum e fraction]Ordered By: Dr. Barker on 05-08-2022 Hematocrit (Bld) [Volume fraction] 47.6 % 40-54 [facility] Ketones Test strip Ql (U)Ord ered By: Dr. Barker on 05-08-2022 Ketones Ql (U) Negative Negative [facility] Laboratory - Chemistry and C hemistry - challengeOrdered By: Dr. Mtz on 05-08-2022 CO2 [Moles/Vol] 25.0 mmol/L 21.0-32.0 [facility] Urea nitrogen/Creatinine [Mass ratio] 7.3 mg/mg 10-20 [facility] Laboratory - Chemistry and C hemistry - challengeOrdered By: Dr. Barker on 05-08-2022 ALP [Catalytic activity/Vol] 52 U/L 45-117 [facility] ALT [Catalytic activity/Vol] 30 U/L 16-61 [facility] Globulin (S) [Mass/Vol] 3.1 g/dL 2.2-4.[address] [facility] Laboratory - Chemistry and C hemistry - challengeOrdered By: Dr. Lambert on 05-08-2022 Magnesium [Mass/Vol] 1.6 mg/dL 1.6-2.6 [facility] Laboratory - Hematology and Cell countsOrdered By: Dr. Barker on 05-08-2022 Erythrocyte distribution width (RBC) [Entitic vol] 40.4 fL 35.1-43.9 [facility] Erythrocyte distribution width (RBC) [Ratio] 12.3 % 11.6-14.6 [facility] Immature granulocytes/100 WBC (Bld) 0.400 % 0.0-0.9 [facility] Comment on above: IG% - Immature Granu locytes (promyelocytes, myelocytes and metamyelocytes) > 1% indicates that a LEFT SHIFT is Present. MCH (RBC) [Entitic mass] 32.9 pg 27.0-32.0 [facility] Nucleated RBC/100 WBC (Bld) [Ratio] 0 % 0-5 [facility] MCHC Auto (RBC) [Mass/Vol]Or dered By: Dr. Barker on 05-08-2022 MCHC (RBC) [Mass/Vol] 36.1 g/dL 32-36 [facility] Mucus LM Ql (Urine sed)Order ed By: Dr. Barker on 05-08-2022 Mucus Ql (Urine sed) 0 SEEN /hpf [facility] Nitrite Test strip Ql (U)Ord ered By: Dr. Barker on 05-08-2022 Nitrite Ql (U) Negative Negative [facility] No Panel InformationOrdered By: Dr. Mtz on 05-08-2022 Estimated Creatinine Clearance Calc 88.69 ml/min [facility] Estimated GFR (MDRD) Amer 89 mL/min >60 [facility] Comment on above: GFR Calc Estimated GFR (MDRD) Non-Af Amer 73 mL/min >60 [facility] Comment on above: Non- GFR Calc Platelets bldOrdered By: Dr. Barker on 05-08-2022 Platelets (Bld) [#/Vol] 222 10*3/uL 150-450 [facility] Protein Test strip Ql (U)Ord ered By: Dr. Barker on 05-08-2022 Protein Ql (U) 30 mg/dl Negative [facility] Serum or plasma albumin delfino urement (mass/volume)Ordered By: Dr. Barker on 05-08-2022 Albumin [Mass/Vol] 3.2 g/dL 3.2-5.0 [facility] Serum or plasma albumin/glob ulin mass ratioOrdered By: Dr. Barker on 05-08-2022 Albumin/Globulin [Mass ratio] 1.0 {ratio} 0.9-2.4 [facility] Serum or plasma calcium delfino urement (mass/volume)Ordered By: Dr. Mtz on 05-08-2022 Calcium [Mass/Vol] 9.0 mg/dL 8.5-10.1 [facility] Serum or plasma creatinine m easurement (mass/volume)Ordered By: Dr. Mtz on 05-08-2022 Creatinine [Mass/Vol] 1.24 mg/dL 0.70-1.30 [facility] Comment on above: The validity of the calculated GFR & GFRAA in patients over 70 years has not been determined. Clinical correlation is essential. Serum or plasma urea nitroge n measurement (mass/volume)Ordered By: Dr. Mtz on 05-08-2022 Urea nitrogen [Mass/Vol] 9 mg/dL 7-18 [facility] Squamous epithelial cells de tection in urine sediment by light microscopyOrdered By: Dr. Barker on 05-08-2022 Epithelial cells.squamous LM Ql (Urine sed) 0 SEEN /hpf 0-5 [facility] Thin prep Papanicolaou smear with manual screeningOrdered By: Dr. Mtz on 05-08-2022 Thin prep Papanicolaou smear with manual screening 9 5-15 [facility] Thin prep Papanicolaou smear with manual screeningOrdered By: Dr. Barker on 05-08-2022 Thin prep Papanicolaou smear with manual screening 12 U/L 15-37 [facility] Urine blood detectionOrdered By: Dr. Barker on 05-08-2022 RBC Ql (U) 10 /ul Negative [facility] RBC Ql (U) 0 SEEN /hpf 0-5 [facility] Urine clarityOrdered By: Dr. Barker on 05-08-2022 Clarity (U) Clear Clear [facility] Urine color determinationOrd ered By: Dr. Barker on 05-08-2022 Color (U) Yellow Yellow [facility] Urine glucose detectionOrder ed By: Dr. Barker on 05-08-2022 Glucose Ql (U) Normal mg/dl Normal [facility] Urine leukocyte esterase det ection by dipstickOrdered By: Dr. Barker on 05-08-2022 Leukocyte esterase Test strip Ql (U) 25 /ul Negative [facility] Urine pHOrdered By: Dr. Philly goetz on 05-08-2022 pH (U) 7.0 [pH] 5.0 - 8.0 [facility] Urine sediment bacteria coun t by microscopy (number/high power field)Ordered By: Dr. Barker on 05-08-2022 Bacteria LM.HPF (Urine sed) [#/Area] 0 /[HPF] None Seen [facility] Urine specific gravity measu rementOrdered By: Dr. Barker on 05-08-2022 Specific gravity (U) [Rel density] 1.010 1.002-1.030 [facility] Urobilinogen Auto test strip Ql (U)Ordered By: Dr. Barker on 05-08-2022 Urobilinogen Ql (U) Normal mg/dl Normal [facility] Absolute lymphocyte countOrd ered By: Dr. Nixon on 05-07-2022 Lymphocytes Auto (Unsp spec) [#/Vol] 1.32 10*3/uL 0.83-4.51 [facility] Basophil percentageOrdered B y: Dr. Nixon on 05-07-2022 Basophils/100 WBC (Bld) 0.6 % 0-[address] [facility] Bilirubin [Mass/Vol] 0.70 mg/dL 0.20-1.00 [facility] Comment on above: For patients on eltr ombopag therapy, use of Dimension [place] TBIL is not recommended. Chloride [Moles/Vol] 106 mmol/L 98-107 [facility] Eosinophils/100 WBC (Bld) 0.5 % 0-5 [facility] Glucose [Mass/Vol] 128 mg/dL 74-106 [facility] Comment on above: Fasting Glucose resu lt greater than or equal to 126 mg/dL suggests DIABETES MELLITUS per A.D.A. criteria. Neutrophils (Bld) [#/Vol] 9.0 10*3/uL 2.0-7.7 [facility] Neutrophils/100 WBC (Bld) 82.7 % 47-70 [facility] Potassium [Moles/Vol] 4.1 mmol/L 3.5-5.1 [facility] Comment on above: Moderate Hemolysis, Result may be falsely increased. Protein [Mass/Vol] 8.7 g/dL 6.4-8.2 [facility] Sodium [Moles/Vol] 138 mmol/L 136-145 [facility] WBC (Bld) [#/Vol] 10.9 10*3/uL 4.4-11.0 [facility] Basophil percentage 0 SEEN /hpf 0-5 [facility] Bilirubin Test strip Ql (U)O rdered By: Dr. Nixon on 05-07-2022 Bilirubin Ql (U) Negative Negative [facility] Blood erythrocytes count (nu mber/volume)Ordered By: Dr. Nixon on 05-07-2022 RBC (Bld) [#/Vol] 5.44 10*6/uL 4.6-6.2 [facility] Blood hemoglobin measurement (mass/volume)Ordered By: Dr. Nixon on 05-07-2022 Hemoglobin (Bld) [Mass/Vol] 17.9 g/dL 13.0-16.5 [facility] Blood lymphocytes/100 leukoc ytesOrdered By: Dr. Nixon on 05-07-2022 Lymphocytes/100 WBC (Bld) 12.2 % 19-41 [facility] Blood monocytes/100 leukocyt esOrdered By: Dr. Nixon on 05-07-2022 Monocytes/100 WBC (Bld) 3.5 % 0-10 [facility] Blood platelet mean volumeOr dered By: Dr. Nixon on 05-07-2022 Platelet mean volume (Bld) [Entitic vol] 9.6 fL 6.2-12.0 [facility] Determination of erythrocyte mean corpuscular volume (MCV)Ordered By: Dr. Nixon on 05-07-2022 MCV (RBC) [Entitic vol] 90.6 fL 80-[address] [facility] Hematocrit Auto (Bld) [Volum e fraction]Ordered By: Dr. Nixon on 05-07-2022 Hematocrit (Bld) [Volume fraction] 49.3 % 40-54 [facility] Ketones Test strip Ql (U)Ord ered By: Dr. Nixon on 05-07-2022 Ketones Ql (U) Negative Negative [facility] Laboratory - Chemistry and C hemistry - challengeOrdered By: Dr. Nixon on 05-07-2022 ALP [Catalytic activity/Vol] 71 U/L 45-117 [facility] ALT [Catalytic activity/Vol] 57 U/L 16-61 [facility] CO2 [Moles/Vol] 24.0 mmol/L 21.0-32.0 [facility] Globulin (S) [Mass/Vol] 4.1 g/dL 2.2-4.[address] [facility] Lipase [Catalytic activity/Vol] 114 U/L 73-393 [facility] Urea nitrogen/Creatinine [Mass ratio] 10.9 mg/mg 10-20 [facility] Laboratory - Hematology and Cell countsOrdered By: Dr. Nixon on 05-07-2022 Erythrocyte distribution width (RBC) [Entitic vol] 39.7 fL 35.1-43.9 [facility] Erythrocyte distribution width (RBC) [Ratio] 12.1 % 11.6-14.6 [facility] Immature granulocytes/100 WBC (Bld) 0.500 % 0.0-0.9 [facility] Comment on above: IG% - Immature Granu locytes (promyelocytes, myelocytes and metamyelocytes) > 1% indicates that a LEFT SHIFT is Present. MCH (RBC) [Entitic mass] 32.9 pg 27.0-32.0 [facility] Nucleated RBC/100 WBC (Bld) [Ratio] 0 % 0-5 [facility] MCHC Auto (RBC) [Mass/Vol]Or dered By: Dr. Nixon on 05-07-2022 MCHC (RBC) [Mass/Vol] 36.3 g/dL 32-36 [facility] Mucus LM Ql (Urine sed)Order ed By: Dr. Nixon on 05-07-2022 Mucus Ql (Urine sed) 0 SEEN /hpf [facility] Nitrite Test strip Ql (U)Ord ered By: Dr. Nixon on 05-07-2022 Nitrite Ql (U) Negative Negative [facility] No Panel InformationOrdered By: Dr. Nixon on 05-07-2022 Estimated Creatinine Clearance Calc 99.98 ml/min [facility] Estimated GFR (MDRD) Amer 102 mL/min >60 [facility] Comment on above: GFR Calc Estimated GFR (MDRD) Non-Af Amer 84 mL/min >60 [facility] Comment on above: Non- GFR Calc Platelets bldOrdered By: Dr. Nixon on 05-07-2022 Platelets (Bld) [#/Vol] 234 10*3/uL 150-450 [facility] Protein Test strip Ql (U)Ord ered By: Dr. Nixon on 05-07-2022 Protein Ql (U) Negative Negative [facility] Serum or plasma albumin delfino urement (mass/volume)Ordered By: Dr. Nixon on 05-07-2022 Albumin [Mass/Vol] 4.6 g/dL 3.2-5.0 [facility] Serum or plasma albumin/glob ulin mass ratioOrdered By: Dr. Nixon on 05-07-2022 Albumin/Globulin [Mass ratio] 1.1 {ratio} 0.9-2.4 [facility] Serum or plasma calcium delfino urement (mass/volume)Ordered By: Dr. Nixon on 05-07-2022 Calcium [Mass/Vol] 9.9 mg/dL 8.5-10.1 [facility] Serum or plasma creatinine m easurement (mass/volume)Ordered By: Dr. Nixon on 05-07-2022 Creatinine [Mass/Vol] 1.10 mg/dL 0.70-1.30 [facility] Comment on above: The validity of the calculated GFR & GFRAA in patients over 70 years has not been determined. Clinical correlation is essential. Serum or plasma urea nitroge n measurement (mass/volume)Ordered By: Dr. Nixon on 05-07-2022 Urea nitrogen [Mass/Vol] 12 mg/dL 7-18 [facility] Squamous epithelial cells de tection in urine sediment by light microscopyOrdered By: Dr. Nixon on 05-07-2022 Epithelial cells.squamous LM Ql (Urine sed) 0 SEEN /hpf 0-5 [facility] Thin prep Papanicolaou smear with manual screeningOrdered By: Dr. Nixon on 05-07-2022 Thin prep Papanicolaou smear with manual screening 36 U/L 15-37 [facility] Comment on above: Moderate Hemolysis, Result may be falsely increased. Thin prep Papanicolaou smear with manual screening 8 5-15 [facility] Urine blood detectionOrdered By: Dr. Nixon on 05-07-2022 RBC Ql (U) Negative Negative [facility] RBC Ql (U) 0 SEEN /hpf 0-5 [facility] Urine clarityOrdered By: Dr. Nixon on 05-07-2022 Clarity (U) Clear Clear [facility] Urine color determinationOrd ered By: Dr. Nixon on 05-07-2022 Color (U) Yellow Yellow [facility] Urine glucose detectionOrder ed By: Dr. Nixon on 05-07-2022 Glucose Ql (U) Normal mg/dl Normal [facility] Urine leukocyte esterase det ection by dipstickOrdered By: Dr. Nixon on 05-07-2022 Leukocyte esterase Test strip Ql (U) Negative Negative [facility] Urine pHOrdered By: Dr. Rachel jaime on 05-07-2022 pH (U) 6.0 [pH] 5.0 - 8.0 [facility] Urine sediment bacteria coun t by microscopy (number/high power field)Ordered By: Dr. Nixon on 05-07-2022 Bacteria LM.HPF (Urine sed) [#/Area] 0 /[HPF] None Seen [facility] Urine specific gravity measu rementOrdered By: Dr. Nixon on 05-07-2022 Specific gravity (U) [Rel density] 1.005 1.002-1.030 [facility] Urobilinogen Auto test strip Ql (U)Ordered By: Dr. Nixon on 05-07-2022 Urobilinogen Ql (U) Normal mg/dl Normal [facility] XR Chest PA and Lateralon IMPRESSION: No acute radiographic abnormality. Cloud Systems Architect: GURU Transcribe Date/Time: May 27 2021 4:28P Dictated by : BRIDGET MARI MD This examination was interpreted and the report reviewed and electronically signed by: BRIDGET MARI MD on Aug 24 2020 4:29PM EST DIVISION OF RADIOLOGY * * *Final Report* * * DATE OF EXAM: Aug 24 2020 4:27PM WOX 5291 - XR CHEST 2V FRONTAL/LAT / PROCEDURE REASON: SOB (shortness of breath) * * * * Physician Interpretation * * * * EXAMINATION: CHEST RADIOGRAPH (2 VIEW FRONTAL & LATERAL) CLINICAL HISTORY: SOB (shortness of breath) MQ: XC2_6 EXAM DATE/TIME: 08/24/2020 4:27 PM COMPARISON: 01/11/2016 RESULT: Lines, tubes, and devices: None. Lungs and pleura: No consolidation. No lung mass. No pleural effusion. No pneumothorax. Cardiomediastinal silhouette: Normal cardiomediastinal silhouette. Bones and soft tissues: Unremarkable. DIVISION OF RADIOLOGY Provider, [facility] Jin [facility] - 08/24/2020 * * *Final Report* * * DATE OF EXAM: Aug 24 2020 4:27PM WOX 5291 - XR CHEST 2V FRONTAL/LAT / PROCEDURE REASON: SOB (shortness of breath) * * * * Physician Interpretation * * * * EXAMINATION: CHEST RADIOGRAPH (2 VIEW FRONTAL & LATERAL) CLINICAL HISTORY: SOB (shortness of breath) MQ: XC2_6 EXAM DATE/TIME: 08/24/2020 4:27 PM COMPARISON: 01/11/2016 RESULT: Lines, tubes, and devices: None. Lungs and pleura: No consolidation. No lung mass. No pleural effusion. No pneumothorax. Cardiomediastinal silhouette: Normal cardiomediastinal silhouette. Bones and soft tissues: Unremarkable. IMPRESSION IMPRESSION: No acute radiographic abnormality. Cloud Systems Architect: PSCB Transcribe Date/Time: Aug 24 2020 4:28P Dictated by : BRIDGET MARI MD This examination was interpreted and the report reviewed and electronically signed by: BRIDGET MARI MD on Aug 24 2020 4:29PM EST [facility] Radiology Study observation (narrative) Arjun Romano XR Chest PA and LateralOrder ed By: Cc [facility] BERYLLUCIANA ([id number]) 1995 M Date Time Provider Department 05/31/20 TATIANA ROWLAND (RN) [facility] During your visit today, we recorded the following information about you: Tatiana Rowland RN, RN 05/31/2020 2:55 PM Signed Left message regarding reminder for stress test tomorrow and given instructions. Allergies As of Date: 05/31/2020 (Not on File) Date Reviewed: 05/16/2020 Reviewed by: Bong Vieyra DO - Fully Assessed Reason for Visit: Reminder Call [[id number]] Prescriptions as of 05/31/2020 Sig: LISINOPRIL 20 MG TABLET Take 1 tablet by mouth once d* HYDROCHLOROTHIAZIDE 25 MG TAB* Take 1 tablet by mouth once d* ALBUTEROL SULFATE HFA 90 MCG/* Inhale 2 Puffs as instructed * Patient not taking: Reported on 05/16/2020 Problem List As Of Date: 05/31/2020 (None) Encounter Status:Closed by TATIANA ROWLAND on 05/31/[address] [facility] Vital Signs Date Time Vital Sign Value Performing Clinician Facility 05-19-2024 09:25-0500 Body mass index (BMI) [Ratio] 32.07 kg/m2 Mary Jane Morataya APRN.CNP Work Phone: [facility] 05-19-2024 09:25-0500 Body temperature 99.39 [degF] Mary aJne Morataya APRN.CNP Work Phone: [facility] 05-19-2024 09:25-0500 Body weight 98.5 kg Mary Jane Morataya APRN.CNP Work Phone: [facility] 05-19-2024 09:25-0500 Diastolic blood pressure 72 mm[Hg] Mary Jane Morataya COMMERCIAL REAL ESTATE UNDERWRITER.SOFTWARE ENGINEERING SPECIALIST Work Phone: [facility] 05-19-2024 09:25-0500 Heart rate 92 /min Mary Jane Morataya COMMERCIAL REAL ESTATE UNDERWRITER.SOFTWARE ENGINEERING SPECIALIST Work Phone: [facility] 05-19-2024 09:25-0500 Respiratory rate 16 /min Mary Jane Morataya COMMERCIAL REAL ESTATE UNDERWRITER.SOFTWARE ENGINEERING SPECIALIST Work Phone: [facility] 05-19-2024 09:25-0500 SaO2% (BldA) [Mass fraction] 98 % Mary Jane Morataya COMMERCIAL REAL ESTATE UNDERWRITER.SOFTWARE ENGINEERING SPECIALIST Work Phone: [facility] 05-19-2024 09:25-0500 Systolic blood pressure 128 mm[Hg] Mary Jane Morataya COMMERCIAL REAL ESTATE UNDERWRITER.SOFTWARE ENGINEERING SPECIALIST Work Phone: [facility] 04-10-2024 15:12-0500 Body mass index (BMI) [Ratio] 32.39 kg/m2 Pollo Moomaw COMMERCIAL REAL ESTATE UNDERWRITER.SOFTWARE ENGINEERING SPECIALIST Work Phone: [facility] 04-10-2024 15:12-0500 Body temperature 103.3 [degF] Pollo Moomaw COMMERCIAL REAL ESTATE UNDERWRITER.SOFTWARE ENGINEERING SPECIALIST Work Phone: [facility] 04-10-2024 15:12-0500 Body weight 99.5 kg Pollo Moomaw COMMERCIAL REAL ESTATE UNDERWRITER.SOFTWARE ENGINEERING SPECIALIST Work Phone: [facility] 04-10-2024 15:12-0500 Diastolic blood pressure 87 mm[Hg] Pollo Moomaw COMMERCIAL REAL ESTATE UNDERWRITER.SOFTWARE ENGINEERING SPECIALIST Work Phone: [facility] 04-10-2024 15:12-0500 Heart rate 97 /min Pollo Moomaw COMMERCIAL REAL ESTATE UNDERWRITER.SOFTWARE ENGINEERING SPECIALIST Work Phone: [facility] 04-10-2024 15:12-0500 Respiratory rate 20 /min Pollo Moomaw COMMERCIAL REAL ESTATE UNDERWRITER.SOFTWARE ENGINEERING SPECIALIST Work Phone: [facility] 04-10-2024 15:12-0500 SaO2% (BldA) [Mass fraction] 98 % Pollo Moomaw COMMERCIAL REAL ESTATE UNDERWRITER.SOFTWARE ENGINEERING SPECIALIST Work Phone: [facility] 01-11-2025 15:12-0500 Systolic blood pressure 151 mm[Hg] Pollo Joshuaomaw COMMERCIAL REAL ESTATE UNDERWRITER.SOFTWARE ENGINEERING SPECIALIST Work Phone: [facility] 05-07-2023 08:43-0500 Body temperature 98.01 [degF] Lion Thacker COMMERCIAL REAL ESTATE UNDERWRITER.SOFTWARE ENGINEERING SPECIALIST Work Phone: [facility] 05-07-2023 08:43-0500 Body weight 102.51 kg Lion Thacker COMMERCIAL REAL ESTATE UNDERWRITER.SOFTWARE ENGINEERING SPECIALIST Work Phone: [facility] 05-07-2023 08:43-0500 Diastolic blood pressure 80 mm[Hg] Lion Kedar COMMERCIAL REAL ESTATE UNDERWRITER.SOFTWARE ENGINEERING SPECIALIST Work Phone: [facility] 05-07-2023 08:43-0500 Heart rate 86 /min Lion Thacker COMMERCIAL REAL ESTATE UNDERWRITER.SOFTWARE ENGINEERING SPECIALIST Work Phone: [facility] 05-07-2023 08:43-0500 Respiratory rate 16 /min Lion Thacker COMMERCIAL REAL ESTATE UNDERWRITER.SOFTWARE ENGINEERING SPECIALIST Work Phone: [facility] 05-07-2023 08:43-0500 SaO2% (BldA) [Mass fraction] 98 % Lion Thacker COMMERCIAL REAL ESTATE UNDERWRITER.SOFTWARE ENGINEERING SPECIALIST Work Phone: [facility] 05-07-2023 08:43-0500 Systolic blood pressure 132 mm[Hg] Lion Thacker COMMERCIAL REAL ESTATE UNDERWRITER.SOFTWARE ENGINEERING SPECIALIST Work Phone: [facility] 01-20-2023 18:40-0400 Body temperature 98.91 [degF] Danay Pracorrineler-Wood COMMERCIAL REAL ESTATE UNDERWRITER.SOFTWARE ENGINEERING SPECIALIST Work Phone: [facility] 01-20-2023 18:40-0400 Body weight 101.06 kg Danay Praisler-Wood COMMERCIAL REAL ESTATE UNDERWRITER.SOFTWARE ENGINEERING SPECIALIST Work Phone: [facility] 01-20-2023 18:40-0400 Diastolic blood pressure 82 mm[Hg] Danay Praisler-Wood COMMERCIAL REAL ESTATE UNDERWRITER.SOFTWARE ENGINEERING SPECIALIST Work Phone: [facility] 01-20-2023 18:40-0400 Heart rate 80 /min Danay Praisler-Wood COMMERCIAL REAL ESTATE UNDERWRITER.SOFTWARE ENGINEERING SPECIALIST Work Phone: [facility] 01-20-2023 18:40-0400 Respiratory rate 21 /min Danay Praisler-Wood COMMERCIAL REAL ESTATE UNDERWRITER.SOFTWARE ENGINEERING SPECIALIST Work Phone: [facility] 01-20-2023 18:40-0400 SaO2% (BldA) [Mass fraction] 96 % Danay Praisler-Wood COMMERCIAL REAL ESTATE UNDERWRITER.SOFTWARE ENGINEERING SPECIALIST Work Phone: [facility] 01-20-2023 18:40-0400 Systolic blood pressure 148 mm[Hg] Danay Praisler-Wood COMMERCIAL REAL ESTATE UNDERWRITER.SOFTWARE ENGINEERING SPECIALIST Work Phone: [facility] 12-07-2022 11:31-0400 Body temperature 97.7 [degF] Vanessa Athy PA-C Work Phone: [facility] 12-07-2022 11:31-0400 Body weight 98.16 kg Vanessa Athy PA-C Work Phone: [facility] 12-07-2022 11:31-0400 Diastolic blood pressure 88 mm[Hg] Vanessa Athy PA-C Work Phone: [facility] 12-07-2022 11:31-0400 Heart rate 79 /min Vanessa Athy PA-C Work Phone: [facility] 12-07-2022 11:31-0400 Respiratory rate 21 /min Vanessa Athy PA-C Work Phone: [facility] 12-07-2022 11:31-0400 SaO2% (BldA) [Mass fraction] 100 % Vanessa Athy PA-C Work Phone: [facility] 12-07-2022 11:31-0400 Systolic blood pressure 140 mm[Hg] Vanessa Athy PA-C Work Phone: [facility] 05-11-2022 10:09-0500 Body temperature 99.5 [degF] Dr. Alma Beavers Work Phone: [facility] 05-11-2022 10:09-0500 Diastolic blood pressure 93 mm[Hg] Dr. Alma Beavers Work Phone: [facility] 05-11-2022 10:09-0500 Heart rate 94 /min Dr. Alma Beavers Work Phone: [facility] 05-11-2022 10:09-0500 Respiratory rate 16 /min Dr. Alma Beavers Work Phone: [facility] 05-11-2022 10:09-0500 SaO2% (BldA) [Mass fraction] 96 % Dr. Alma Beavers Work Phone: [facility] 05-11-2022 10:09-0500 Systolic blood pressure 168 mm[Hg] Dr. Alma Beavers Work Phone: [facility] 05-10-2022 14:18-0500 Body height 175.[address] Alma Beavers Work Phone: [facility] 05-10-2022 14:18-0500 Body weight [address] Alma Beavers Work Phone: [facility] 05-08-2022 22:50-0500 Body mass index (BMI) [Ratio] 31.6 kg/m2 Dr. Alma Beavers Work Phone: [facility] [facility] 05-[facility]-2022 22:45-0500 Inhaled oxygen flow rate 2 L/min Dr. Alma Beavers Work Phone: [facility] 05-08-2022 17:33-0500 Body height 175.[address] Alma Beavers Work Phone: [facility] 05-08-2022 17:33-0500 Body mass index (BMI) [Ratio] 31.6 kg/m2 Dr. Alma Beavers Work Phone: [facility] 05-08-2022 17:33-0500 Body temperature 103.2 [degF] Dr. Alma Beavers Work Phone: [facility] 05-08-2022 17:33-0500 Body weight 97.[address] Alma Beavers Work Phone: [facility] 05-08-2022 17:33-0500 Diastolic blood pressure 77 mm[Hg] Dr. Alma Beavers Work Phone: [facility] 05-08-2022 17:33-0500 Heart rate 120 /min Dr. Alma Beavers Work Phone: [facility] 05-08-2022 17:33-0500 Respiratory rate 18 /min Dr. Alma Beavers Work Phone: [facility] 05-08-2022 17:33-0500 SaO2% (BldA) [Mass fraction] 93 % Dr. Alma Beavers Work Phone: [facility] 05-08-2022 17:33-0500 Systolic blood pressure 134 mm[Hg] Dr. Alma Beavers Work Phone: [facility] 05-07-2022 08:43-0500 Body height 175.[address] [facility] 05-07-2022 08:43-0500 Body mass index (BMI) [Ratio] 32.5 kg/m2 [facility] 05-07-2022 08:43-0500 Body temperature 97.2 [degF] [facility] 05-07-2022 08:43-0500 Body weight 99.[address] [facility] 05-07-2022 08:43-0500 Diastolic blood pressure 95 mm[Hg] [facility] 05-07-2022 08:43-0500 Heart rate 86 /min [facility] 05-07-2022 08:43-0500 Respiratory rate 14 /min [facility] 05-07-2022 08:43-0500 SaO2% (BldA) [Mass fraction] 97 % [facility] 05-07-2022 08:43-0500 Systolic blood pressure 167 mm[Hg] [facility] Encounters Encounter Date Encounter Type Care Provider Facility Start: 09-03-2024 ambulatory [facility] Facility:[facility] Start: 08-30-2024 Encounter for genera l adult medical examination with abnormal findings [facility] Start: 08-30-2024 ambulatory [facility] Facility:[facility] Start: 05-19-2024 End: 05-19-2024 Subsequent hospital visit by physician Eva [facility] Work Phone: Radiology Comment on above: Pain [R52] Start: 05-19-2024 End: 05-19-2024 ambulatory [facility] Facility:[facility] Start: 05-19-2024 End: 05-19-2024 Patient encounter procedure Mary Jane Morataya APRN.SOFTWARE ENGINEERING SPECIALIST Work Phone: [facility] Comment on above: Pain (Primary Dx) Start: 04-10-2024 End: 04-10-2024 ambulatory [facility] Facility:[facility] Start: 04-10-2024 End: 04-10-2024 Patient encounter procedure Pollo Kjkayla COMMERCIAL REAL ESTATE UNDERWRITER.SOFTWARE ENGINEERING SPECIALIST Work Phone: [facility] Comment on above: Viral illness (Prima ry Dx) Start: 05-24-2023 End: 05-24-2023 [facility] Work Phone: Start: 05-24-2023 End: 05-24-2023 Patient encounter procedure [facility] Work Phone: Start: 05-14-2023 End: 05-14-2023 ambulatory [facility] Work Phone: Start: 05-14-2023 End: 05-14-2023 Patient encounter procedure [facility], Lavonne Farmer [facility] Start: 05-07-2023 End: 05-07-2023 Patient encounter procedure Lion Thacker COMMERCIAL REAL ESTATE UNDERWRITER.SOFTWARE ENGINEERING SPECIALIST Work Phone: [facility] Comment on above: Sinobronchitis (Prim earle Dx) Start: 01-20-2023 End: 01-20-2023 Patient encounter procedure Danay Heck COMMERCIAL REAL ESTATE UNDERWRITER.SOFTWARE ENGINEERING SPECIALIST Work Phone: [facility] Comment on above: Dermatitis due to pl ants, including poison alba, sumac, and oak (Primary Dx) Start: 12-07-2022 End: 12-07-2022 Patient encounter procedure Vanessa Gu PA-C Work Phone: [facility] Comment on above: Vertigo (Primary Dx) Start: 05-10-2022 Non-patient / Non-visit Dr. Riley Beavers Work Phone: [facility] Start: 05-10-2022 Non-patient / Non-visit [facility]. Riley Beavers Work Phone: [facility] Start: 05-09-2022 Non-patient / Non-visit Dr. Riley Beavers Work Phone: [facility] Start: 05-09-2022 Non-patient / Non-visit Dr. Riley Beavers Work Phone: [facility] Start: 05-08-2022 End: 05-11-2022 Evaluation and management of inpatient Dr[facility] Alma Beavers [facility] Start: 05-08-2022 Non-patient / Non-visit Dr. Riley Beavers Work Phone: [facility] Start: 05-08-2022 Evaluation and manag ement of inpatient Dr. Alma Beavers [facility] Start: 05-08-[address] Monica Beavers Work Phone: [facility] Work Phone: Start: 05-07-2022 End: 05-07-2022 Emergency department patient visit [facility] Start: 08-24-2020 End: 08-24-2020 Subsequent hospital visit by physician Xr [facility] Work Phone: Radiology Comment on above: SOB (shortness of br eath) [R06.02] Procedures Date Procedure Procedure Detail Performing Clinician Start: 05-19-2024 Radex ankle complete minimum 3 views Mary Jane Morataya APRN.SOFTWARE ENGINEERING SPECIALIST Work Phone: Start: 05-24-2023 Clostridium difficil e detection Start: 05-24-2023 Lactoferrin measurement Start: 05-24-2023 Nucleic acid assay Start: 05-08-[address] Alma Beavers Work Phone: Start: 05-08-2022 Computed tomography of abdomen and pelvis with contrast Dr. Alma Beavers Work Phone: Start: 08-24-2020 Radiologic exam ches t 2 views Anish Levi APRN.SOFTWARE ENGINEERING SPECIALIST Work Phone: History of appendectomy Status p ost appendectomy, follow-up exam Investigation of transfusion reaction Dr. Alma Beavers Work Phone: Plan of Treatment Date Care Activity Detail Author Start: 12-20-2028 Urine microalbumin profile DTaP,Tdap,Td Vaccine (8 - Td or Tdap) [facility] Start: 11-30-2023 Covid-19 Vaccine ( season) Covid-19 Vaccine ( season) [facility] Start: 11-30-2023 Influenza vaccination Influenza Vaccine (#1) [facility] Start: 03-31-2023 Depression Assessment Depression Assessment [facility] Start: 11-29-2022 Influenza vaccination [facility] Start: 05-11-2022 Patient discharge [facility] Start: 05-10-2022 [facility] Start: 05-09-2022 [facility] Start: 05-08-2022 Application of intermittent pneumatic compression device [facility] Start: 05-08-2022 Following clinical pathway protocol [facility] Start: 05-08-2022 Admission procedure [facility] Start: 05-08-2022 Nil by mouth [facility] Start: 05-08-2022 Ambulation without limitation [facility] Start: 05-08-2022 Assessment of risk of venous thromboembolism [facility] Start: 05-08-2022 Consultation [facility] Start: 05-08-2022 Insertion of catheter into peripheral vein [facility] Start: 05-08-2022 Measuring intake and output [facility] Start: 05-08-2022 Preoperative care [facility] Start: 05-08-2022 Providing care according to standard [facility] Start: 05-08-2022 Referral to service [facility] Start: 05-08-2022 [facility] Start: 05-08-2022 Laparoscopic appendectomy Laparoscopic, Appendectomy (Not Applicable) [facility] Start: 05-08-2022 Verification routine [facility] Start: 05-08-2022 Admission procedure [facility] Start: 03-31-2022 DEPRESSION ASSESSMENT DEPRESSION ASSESSMENT [facility] Start: 12-24-2020 Urine microalbumin profile DTAP,TDAP,TD (7 - Td or Tdap) [facility] Start: 2012 Pneumococcal vaccination Pneumococcal Vaccine (1 of 2 - PCV) [facility] Start: 08-06-2011 Anxiety Screening Anxiety Screening [facility] Start: 08-06-2011 Depression Screening Depression Screening [facility] Start: 08-06-2011 HEPATITIS C SCREENING HEPATITIS C SCREENING [facility] Start: 08-06-2011 Hepatitis C screening Hepatitis C Screening [facility] Start: 08-06-2011 HIV SCREENING HIV SCREENING [facility] Start: 08-06-2011 HIV screening HIV Screening [facility] Start: 08-06-1999 PNEUMOCOCCAL (1 - PCV) PNEUMOCOCCAL (1 - PCV) [facility] Start: 08-06-1999 [facility] Start: 02-05-1994 COVID-19 VACCINE (#1) COVID-19 VACCINE (#1) [facility] Anaerobic microbial culture Anaerobic Culture [facility] Bacteria identified in Unspecified specimen by Anaerobe culture [facility] Microbial culture, routine Wound Culture [facility] Ova and parasites identified in Unspecified specimen by Light microscopy [facility] Patient Education ED Abdominal P ain Unkn Cause Male... [facility] Work Phone: Patient referral [facility] Work Phone: Immunizations Immunization Date Immunization Notes Care Provider Micha galan 12-20-2018 tetanus toxoid, redu arnoldo diphtheria toxoid, and acellular pertussis vaccine, adsorbed [facility] 12-24-2010 hepatitis B vaccine, pediatric or pediatric/adolescent dosage Vanessa Rubykenneth TRIPP-C Work Phone: [facility] 12-24-2010 meningococcal polysaccharide (groups A, C, Y and W-135) diphtheria toxoid conjugate vaccine (MCV4P) Vanessa Rubykenneth PA-C Work Phone: [facility] 12-24-2010 tetanus toxoid, redu arnoldo diphtheria toxoid, and acellular pertussis vaccine, adsorbed Vanessa Beltrany PA-C Work Phone: [facility] 08-14-1998 diphtheria, tetanus toxoids and acellular pertussis vaccine Vanessa Athy PA-C Work Phone: [facility] 08-14-1998 measles, mumps and rubella virus vaccine Vanessa Athy PA-C Work Phone: [facility] 08-14-1998 poliovirus vaccine, inactivated Vanessa Athy PA-C Work Phone: [facility] 12-17-1994 diphtheria, tetanus toxoids and acellular pertussis vaccine Vanessa Athy PA-C Work Phone: [facility] 12-17-1994 haemophilus influenz ae type b vaccine, PRP-T conjugate Vanessa Athy PA-C Work Phone: [facility] 09-11-1994 measles, mumps and rubella virus vaccine Vanessa Athy PA-C Work Phone: [facility] 03-11-1994 diphtheria, tetanus toxoids and acellular pertussis vaccine Vanessa Athy PA-C Work Phone: [facility] 03-11-1994 haemophilus influenz ae type b vaccine, PRP-T conjugate Vanessa Athy PA-C Work Phone: [facility] 03-11-1994 poliovirus vaccine, inactivated Vanessa Athy PA-C Work Phone: [facility] 01-23-1994 diphtheria, tetanus toxoids and acellular pertussis vaccine Vanessa Athy PA-C Work Phone: [facility] 01-23-1994 haemophilus influenz ae type b vaccine, PRP-T conjugate Vanessa Athy PA-C Work Phone: [facility] 01-23-1994 hepatitis B vaccine, pediatric or pediatric/adolescent dosage Vanessa Athy PA-C Work Phone: [facility] 01-23-1994 poliovirus vaccine, inactivated Vanessa Athy PA-C Work Phone: [facility] 1993 diphtheria, tetanus toxoids and acellular pertussis vaccine Vanessa Athy PA-C Work Phone: [facility] 1993 haemophilus influenz ae type b vaccine, PRP-T conjugate Vanessa Athy PA-C Work Phone: [facility] 1993 hepatitis B vaccine, pediatric or pediatric/adolescent dosage Vanessa Athy PA-C Work Phone: [facility] 1993 poliovirus vaccine, inactivated Vanessa Athy PA-C Work Phone: [facility] Payers Date Payer Category Payer Self-pay [id number] 2024 [employer] [facility] [id number] 2024 Unknown [employer]ILY [employer] ACCE PPO [id number] 2024-Present [phone] [id number] [id number] 2024 Unknown [id number] 2019 Private Health Insurance [id number] 2010 Private Health Insurance JORGE [id number] Private Health Insurance [id number] Unknown [facility] RYANN [id number] Unknown [id number] Unknown [id number] Social History Date Type Detail Facility Start: 05-07-2022 End: 05-09-2022 Tobacco smoking status [facility] Unknown if ever smoked [facility] Start: 12-20-2018 Occasional [facility] Start: 12-20-2018 None [facility] Start: 12-20-2018 Spouse/ Signif icant Other [facility] Start: 1995 Sex Assigned At Male [facility] Start: 05-07-2022 End: 04-10-2024 Tobacco smoking status CAIS Occasional tobacco smoker [facility] Work Phone: History of tobacco use Cigarette Smoker [facility] Work Phone: Start: 05-07-2022 End: 04-10-2024 Tobacco use and exposure Smokeless tobacco non-user [facility] Work Phone: Start: 12-07-2022 End: 04-10-2024 Alcohol intake Current drinker of alcohol (finding) [facility] Start: 03-08-2020 End: 12-07-2022 Alcohol intake [facility] Start: 03-08-2020 End: 12-07-2022 Tobacco use panel [facility] National Score (1-100), lower number is lower risk Not on file [facility] Start: 05-11-2015 End: 05-07-2022 Tobacco Comment 2-3 cigarettes a week [facility] Start: 1995 Sex Assigned At Not on file [facility] Start: 07-25-2020 End: 08-24-2020 Exposure to SARS-CoV-2 (event) Not sure [facility] Medical Equipment Procedure Code Equipment Code Equipment Origin al Text Equipment Identifier Dates Appendectomy, laparoscopic Surgical staple loading unit, non-cutting [id number] FDA Start: 05-08-2022 Goals Date Patient Goal Desired Activity /State Functional Status Date Assessment Result Facility 05-11-2022 Functional status Ambulates;Bathroom Priv ilege [facility] Work Phone: 05-10-2022 Functional status None [facility] Work Phone: Mental Status Date Assessment Result Facility 05-11-2022 Cognitive function Voice/Name [facility] Work Phone: Clinical Notes 08-24-2020 to 05-19-2024 Latasha Houser, RT(R) - 05/19/2024 9:50 AM Mary Jane Mckinney COMMERCIAL REAL ESTATE UNDERWRITER.SOFTWARE ENGINEERING SPECIALIST - 05/19/2024 9:41 AM Pollo Henderson COMMERCIAL REAL ESTATE UNDERWRITER.[facility] - 04/10/2024 3:16 PM Lion Hawthorne COMMERCIAL REAL ESTATE UNDERWRITER.[facility] - 05/07/2023 9:06 AM EST Note Date & Type Note Facility 05-19-2024 History of Present illness Narrative Radiology Service Progress Note PATIENT NAME: Luciana Cordoba DATE OF SERVICE: May 19, 2024 TIME: 9:43 AM PATIENT IDENTITY VERIFICATION COMPLETED USING TWO (2) IDENTIFIERS: Name and Date of confirmed by patient verbally. FALL SCREENING: Has the patient had 2 falls in the last year or 1 fall with injury or currently using an Ambulatory Assistive Device (Walker, Cane, Wheelchair, Crutches, etc.)? No PATIENT GENDER DATA: Assigned male at PATIENT RELEVANT IMPLANT DATA REVIEWED: Yes PATIENT PRESENTS WITH AN IMPLANTABLE OR ATTACHED FINISHED CLOTH EXAMINER: No RADIOLOGY DEPARTMENT: General X-ray: Exam(s) Completed: Lower Extremity X-Ray(s): Ankle, Right PERIPHERAL IV DATA: Not applicable SIGNED BY: RT Tejal(Zoraida) May 19, 2024 9:43 AM documented in this encounter [facility] 05-19-2024 Note HNO ID: [id number] Author: LATASHA HOUSER RT(R) Service: ? Author Type: [employer] Impregnating Range Tender Type: Progress Notes Filed: 05/19/2024 09:51 Note Text: Radiology Service Progress Note PATIENT NAME: Luciana Cordoba DATE OF SERVICE: May 19, 2024 TIME: 9:43 AM PATIENT IDENTITY VERIFICATION COMPLETED USING TWO (2) IDENTIFIERS: Name and Date of confirmed by patient verbally. FALL SCREENING: Has the patient had 2 falls in the last year or 1 fall with injury or currently using an Ambulatory Assistive Device (Walker, Cane, Wheelchair, Crutches, etc.)? No PATIENT GENDER DATA: Assigned male at PATIENT RELEVANT IMPLANT DATA REVIEWED: Yes PATIENT PRESENTS WITH AN IMPLANTABLE OR ATTACHED FINISHED CLOTH EXAMINER: No RADIOLOGY DEPARTMENT: General X-ray: Exam(s) Completed: Lower Extremity X-Ray(s): Ankle, Right PERIPHERAL IV DATA: Not applicable SIGNED BY: RT Tejal(Zoraida) May 19, 2024 9:43 AM [facility] 05-19-2024 Note HNO ID: [id number] Author: MARY JANE MORATAYA APRN.SOFTWARE ENGINEERING SPECIALIST Service: ? Author Type: Nurse Practitioner Type: Progress Notes Filed: 05/19/2024 10:30 Note Text: Subjective Came in with complaints of right ankle pain. Patient says it has been going on about a week. Patient says is not feeling any better. Patient says he has torn ligaments before says it does feel similar. Patient does not remember any injuries happening. Patient does have a job where he is constantly up on his feet. Patient denies any numbness tingling or loss of feeling. The history is provided by the patient. No speech language therapist was used. Ankle Pain Review of Systems Constitutional: Negative. Skin: Negative. Objective Physical Exam Constitutional: Appearance: Normal appearance. Pulmonary: Effort: Pulmonary effort is normal. Musculoskeletal: Feet: Feet: Comments: Patient is slightly swollen in the area marked above and tender. Pain when rotating ankle. Neurological: Mental Status: He is alert. PAST MEDICAL HISTORY Diagnosis Date ADD (attention deficit disorder) Class 1 obesity due to excess calories without serious comorbidity with body mass index (BMI) of 31.0 to 31.9 in adult Plantar fasciitis PAST SURGICAL HISTORY Procedure Laterality Date NONE ALLERGIES Patient has no known allergies. MEDICATIONS IVERMECTIN ORAL Take by mouth. escitalopram oxalate (LEXAPRO) 20 mg tablet Take 1 tablet by mouth every afternoon. (Patient not taking: Reported on 05/19/2024) hydrOXYzine HCl (ATARAX) 25 mg tablet Take 25 mg by mouth four times a day as needed. (Patient not taking: Reported on 05/19/2024) triamcinolone (KENALOG) 0.025 % cream Apply 1 [...] History Tobacco Use Smoking status: Some Days Types: Cigarettes Smokeless tobacco: Never Tobacco comments: 2-3 cigarettes a week Substance Use Topics Alcohol use: Yes Alcohol/week: 35.0 standard drinks of alcohol Types: 35 Cans of Beer (12oz) per week Drug use: Yes Frequency: 3.0 times per week Types: Marijuana ASSESSMENT/PLAN: 1. Pain - ICD9: 780.96, ICD10: R52 - XR ANKLE GENERAL 3V AP/LAT/OBL RIGHT * * * * Physician Interpretation * * * * EXAMINATION: XR ANKLE 3V AP/LAT/OBL RT PATIENT/TECHNOLOGIST PROVIDED HISTORY: Right ankle pain and swelling x1 week, pain/swelling at lateral side of ankle. 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 CLINICAL INFORMATION: 28 years old Male with Pain TECHNIQUE: XR ANKLE 3V AP/LAT/OBL RT Laterality: RIGHT Number of different views (projections): 3 COMPARISON: None RESULT: No acute fracture. Remote healed fracture deformity of the lateral malleolus. Ankle mortise is maintained. IMPRESSION IMPRESSION: No acute osseous abnormality. Cloud Systems Architect: GURU Transcribe Date/Time: May 19 2024 10:14A Dictated by : KATY FERRARI DO - CONSULT PANEL TO ORTHOPAEDICS Patient was instructed to follow up with ortho for further testing at this time. Instructed to rest and ice at this time. Patient agreeable to this care plan. Mary Jane Morataya APRN.[facility] 05-19-2024 History of Present illness Narrative Images from the original note were not included. Subjective Came in with complaints of right ankle pain. Patient says it has been going on about a week. Patient says is not feeling any better. Patient says he has torn ligaments before says it does feel similar. Patient does not remember any injuries happening. Patient does have a job where he is constantly up on his feet. Patient denies any numbness tingling or loss of feeling. The history is provided by the patient. No speech language therapist was used. Ankle Pain Review of Systems Constitutional: Negative. Skin: Negative. Objective Physical Exam Constitutional: Appearance: Normal appearance. Pulmonary: Effort: Pulmonary effort is normal. Musculoskeletal: Feet: Feet: Comments: Patient is slightly swollen in the area marked above and tender. Pain when rotating ankle. Neurological: Mental Status: He is alert. PAST MEDICAL HISTORY Diagnosis Date ADD (attention deficit disorder) Class 1 obesity due to excess calories without serious comorbidity with body mass index (BMI) of 31.0 to 31.9 in adult Plantar fasciitis PAST SURGICAL HISTORY Procedure Laterality Date NONE ALLERGIES Patient has no known allergies. MEDICATIONS IVERMECTIN ORAL Take by mouth. escitalopram oxalate (LEXAPRO) 20 mg tablet Take 1 tablet by mouth every afternoon. (Patient not taking: Reported on 05/19/2024) hydrOXYzine HCl (ATARAX) 25 mg tablet Take 25 mg by mouth four times a day as needed. (Patient not taking: Reported on 05/19/2024) triamcinolone (KENALOG) 0.025 % cream Apply 1 [...] History Tobacco Use Smoking status: Some Days Types: Cigarettes Smokeless tobacco: Never Tobacco comments: 2-3 cigarettes a week Substance Use Topics Alcohol use: Yes Alcohol/week: 35.0 standard drinks of alcohol Types: 35 Cans of Beer (12oz) per week Drug use: Yes Frequency: 3.0 times per week Types: Marijuana ASSESSMENT/PLAN: 1. Pain - ICD9: 780.96, ICD10: R52 - XR ANKLE GENERAL 3V AP/LAT/OBL RIGHT * * * * Physician Interpretation * * * * EXAMINATION: XR ANKLE 3V AP/LAT/OBL RT PATIENT/TECHNOLOGIST PROVIDED HISTORY: Right ankle pain and swelling x1 week, pain/swelling at lateral side of ankle. 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 CLINICAL INFORMATION: 28 years old Male with Pain TECHNIQUE: XR ANKLE 3V AP/LAT/OBL RT Laterality: RIGHT Number of different views (projections): 3 COMPARISON: None RESULT: No acute fracture. Remote healed fracture deformity of the lateral malleolus. Ankle mortise is maintained. IMPRESSION IMPRESSION: No acute osseous abnormality. Cloud Systems Architect: GURU Transcribe Date/Time: May 19 2024 10:14A Dictated by : KATY FERRARI DO - CONSULT PANEL TO ORTHOPAEDICS Patient was instructed to follow up with ortho for further testing at this time. Instructed to rest and ice at this time. Patient agreeable to this care plan. Mary Jane Morataya APRN.SOFTWARE ENGINEERING SPECIALIST documented in this encounter [facility] 04-10-2024 Note HNO ID: [id number] Author: POLLO JONES APRN.SOFTWARE ENGINEERING SPECIALIST Service: ? Author Type: Nurse Practitioner Type: Progress Notes Filed: 04/10/2024 15:22 Note Text: This note was created using [employer]. Subjective Luciana Cordoba is a 28 year old male. HPI Pt developed a fever, headache, chest congestion, and sharp pain with coughing. He states that he gets pneumonia every year and is worried that it might be coming back this year. Review of Systems Constitutional: Positive for fatigue. Musculoskeletal: Positive for myalgias. As above Objective BP 151/87 Pulse 97 Temp (!) 39.6 ?C (103.3 ?F) Resp 20 Wt 99.5 kg (219 lb 5.7 oz) SpO2 98% BMI 32.39 kg/m? Physical Exam Vitals and nursing note reviewed. Constitutional: General: He is not in acute distress. Appearance: Normal appearance. He is ill-appearing. He is not toxic-appearing. HENT: Head: Normocephalic. Mouth/Throat: Mouth: Mucous membranes are moist. Eyes: Conjunctiva/sclera: Conjunctivae normal. Cardiovascular: Rate and Rhythm: Normal rate and regular rhythm. Pulmonary: Effort: Pulmonary effort is normal. Breath sounds: Normal breath sounds. Musculoskeletal: General: Normal range of motion. Cervical back: Normal range of motion. Skin: General: Skin is warm and dry. Neurological: General: No focal deficit present. Mental Status: He is alert. Psychiatric: Mood and Affect: Mood normal. Behavior: Behavior normal. Assessment and Plan ASSESSMENT/PLAN: 1. Viral illness - ICD9: 079.99, ICD10: B34.9 -Discussed with patient that his symptoms seem more consistent with probable viral illness including influenza or COVID. Discussed possible testing for same which patient declines. Discussed with patient that he should continue with ibuprofen and/or Tylenol as needed for pain and fever and get plenty rest and fluids. Informed him that symptoms should begin to resolve within 3-4 days of onset of symptoms but may last as long as 7 or 8. He may return for any new or worsening concerns. Pollo Jones APRN.[facility] 04-10-2024 History of Present illness Narrative This note was created using [employer]. Subjective Luciana Cordoba is a 28 year old male. HPI Pt developed a fever, headache, chest congestion, and sharp pain with coughing. He states that he gets pneumonia every year and is worried that it might be coming back this year. Review of Systems Constitutional: Positive for fatigue. Musculoskeletal: Positive for myalgias. As above Objective BP 151/87 Pulse 97 Temp (!) 39.6 C (103.3 F) Resp 20 Wt 99.5 kg (219 lb 5.7 oz) SpO2 98% BMI 32.39 kg/m Physical Exam Vitals and nursing note reviewed. Constitutional: General: He is not in acute distress. Appearance: Normal appearance. He is ill-appearing. He is not toxic-appearing. HENT: Head: Normocephalic. Mouth/Throat: Mouth: Mucous membranes are moist. Eyes: Conjunctiva/sclera: Conjunctivae normal. Cardiovascular: Rate and Rhythm: Normal rate and regular rhythm. Pulmonary: Effort: Pulmonary effort is normal. Breath sounds: Normal breath sounds. Musculoskeletal: General: Normal range of motion. Cervical back: Normal range of motion. Skin: General: Skin is warm and dry. Neurological: General: No focal deficit present. Mental Status: He is alert. Psychiatric: Mood and Affect: Mood normal. Behavior: Behavior normal. Assessment and Plan ASSESSMENT/PLAN: 1. Viral illness - ICD9: 079.99, ICD10: B34.9 -Discussed with patient that his symptoms seem more consistent with probable viral illness including influenza or COVID. Discussed possible testing for same which patient declines. Discussed with patient that he should continue with ibuprofen and/or Tylenol as needed for pain and fever and get plenty rest and fluids. Informed him that symptoms should begin to resolve within 3-4 days of onset of symptoms but may last as long as 7 or 8. He may return for any new or worsening concerns. Pollo Jones APRN.MARTY documented in this encounter [facility] 05-07-2023 History of Present illness Narrative [...] TABLET - DOXYCYCLINE HYCLATE 100 MG TABLET Lion Thacker APRN.SOFTWARE ENGINEERING SPECIALIST documented in this encounter [facility] 01-20-2023 History of Present illness Narrative Subjective Rash Pertinent negatives include no fever. Luciana Cordoba is a 27 year old male who presents with a rash present for the past month. He gets poison alba often from splitting wood, but it does not typically last this long. He has been using ALBA DRY and calamine lotion. He feels it [...] 1. Dermatitis due to plants, including poison alba, sumac, and oak - ICD9: 692.6, ICD10: [...] Discussed expected course of illness Danay Heck APRN.MARTY documented in this encounter [facility] 01-20-2023 Instructions Danay Heck APRN.CNP - 01/20/2023 6:48 PM EDT ASSESSMENT/PLAN: 1. Dermatitis due to plants, including poison alba, sumac, and oak - ICD9: 692.6, ICD10: [...] Discussed expected course of illness Danay Heck APRN.CNP [facility] PATIENT INFO POISON ALBA INTRODUCTION When the skin comes in direct contact with an irritating or allergy-causing substance, contact dermatitis can develop. Exposure to poison alba, poison oak, and poison sumac cause more cases of allergic contact dermatitis than all other plant families combined. People of all ethnicities and skin types are at risk for developing poison alba dermatitis. The severity of the reaction tends to decrease with age, especially in people who have had mild reactions in the past. People in occupations such as firefighting, forestry, and farming are at a higher risk of poison alba dermatitis because of repeated exposure to toxic plants. POISON ALBA CAUSES Poison alba, poison oak, and poison sumac plants all [...] and can produce symptoms similar to poison alba dermatitis. IDENTIFYING POISON ALBA Leaves of three, let them be is a phrase often used to identify plants that cause poison alba dermatitis. Generally, poison alba and poison oak have three leaves with flowering branches on a single stem. Poison sumac has five, seven, or more leaves that angle upward toward the top of the stem. Some types of poison alba produce a green or off-white fruit in hailey, and in some cases, black dots form on the plants' leaves. It is not always possible to identify the plant by the leaves alone since the appearance can vary depending upon the season, growth cycle, region, and climate. Poison alba, oak, and sumac plants grow in many areas across the [facility] and throughout the world. East of the [facility], poison alba commonly grows as a climbing vine. In the [place] area and west, poison alba tends to grow low to the ground as a shrub. Poison oak most often grows west of the [facility], and poison sumac inhabits boggy areas in the southeastern part of the [facility]. The plants are not usually found in areas at high elevations or in desert climates. POISON ALBA SIGNS AND SYMPTOMS After contact with urushiol, approximately 50 percent of people develop signs and symptoms of poison alba dermatitis. The symptoms and severity differ from person to person. The most common signs and symptoms of poison alba dermatitis are: Intense itching Skin swelling Skin [...] from blisters does not cause symptoms. Poison alba dermatitis is not contagious and cannot be passed from person to person. However, urushiol can be carried under fingernails and on clothes; if another person comes in contact with the urushiol, they can develop poison alba dermatitis. POISON ALBA DIAGNOSIS Poison alba is usually diagnosed based upon how your skin looks. Further testing is not usually necessary. POISON ALBA TREATMENT Poison alba dermatitis usually resolves within one to three weeks without treatment. Treatments that may help relieve the itching, soreness, and discomfort caused by poison alba dermatitis include: Skin treatments -- For some people, adding oatmeal to a bath, applying cool wet compresses, and applying calamine lotion may help to relieve itching. Once the blisters begin weeping fluid, astringents containing aluminum acetate (Rolanda's solution) and [place] may help to relieve the rash. Antihistamines -- Antihistamines may help to relieve itching caused by poison alba dermatitis. Some antihistamines make you sleepy while [...] infections are a potential complication of poison alba, especially if you scratch your skin. If you develop a skin infection because of poison alba dermatitis, you may need antibiotics to treat the infection. Other treatments -- An herbal therapy called jewelweed extract has been used to treat poison alba dermatitis, although it has not been proven effective. You should not use antihistamine creams or lotions, anesthetic creams containing benzocaine, or antibiotic creams containing neomycin or bacitracin to the skin. These creams or ointments could make the rash worse. POISON ALBA PREVENTION The best way to prevent poison alba dermatitis is to identify and avoid the [...] gloves. After coming in contact with poison alba, remove any contaminated clothing and gently wash [...] people who are frequently exposed to poison alba. Bentoquatam (Alba Block ) is one type of barrier cream that may prevent poison alba dermatitis. It must be reapplied every four hours and it leaves a yemi residue on the skin. Avoid burning poisonous vegetation, which can disperse the plant particles in the smoke, irritate the skin, and cause poison alba dermatitis. documented in this encounter [facility] 12-07-2022 History of Present illness Narrative This note was created using [employer]. Subjective Luciana Cordoba is a 27 year [...] Vanessa Gu PA-C documented in this encounter [facility] 12-07-2022 Instructions Vanessa Gu PA-C - 12/07/2022 [...] with positional vertigo, slowly move into the [id number] position and wait for a minute. Next, [...] period of time. ADDENDUM Particle repositioning procedure: [id number] instructions The particle repositioning procedure takes about [...] LB. Jewel HADLEY. Peripheral Vestibular Disorders. In: [facility], Head [facility] Neck Surgery, 3-Volume Set. Tari; 2014. Jessica Rebollar. Benign Paroxysmal Positional Vertigo (BPPV): History, Pathophysiology, Office Treatment and Future Directions. International Journal of Otolaryngology. 2011;2011:869254. Janny JS, Nela DS. Clinical practice. Benign paroxysmal positional vertigo. N Engl J Med. 2014 May 20;370(12):1138-47. Jack Almaraz DD, Beckie Talavera, Nuria HARO. The Head and Neck. In: Jack Almaraz DD, Beckie Talavera, Nuria HARO. eds. DeGowin s Diagnostic Examination, 10e. [place], [place]: [facility]; 2015. Copyright 0412-7815 The [facility]. All rights reserved This information is provided by the [facility] and is not intended to replace the medical advice of your doctor or health care provider. Please consult your health care provider for advice about a specific medical condition. For additional health information, please contact the Center for Consumer Health Information at the [facility] or toll-free extension [phone]. If you prefer, you may visit [email or web address] or [email or web address]. This document was last reviewed on: 2014 index#[id number] documented in this encounter [facility] 05-11-2022 Progress note Note Date/Time May 11, 2022 9:55am [facility] Medical Records Department [address] [place] [address] Progress Note - Surgery 05/11/22953 MR#: [id number] Acct: [id number] Name: LUCIANA CORDOBA Rep #:[id number] : 1995 26 From: Lina Cordoba MD PCP: Dr. Alma Beavers MD Status:ADM IN Location: [place] [address]-1 Subjective Subjective patient has minimal abdominal pain feels hungry passing flatus wants to go home Objective Data Objective Data Vital Signs: Vital Signs Temp Pulse Resp BP Pulse Ox O2 Del Method O2 Flow Rate 98.8 F 90 16 132/63 H 93 Room Air 2 05/11/22 05:36 05/11/22 05:36 05/11/22 05:36 05/11/22 05:36 05/11/22 07:01 05/11/22 07:01 05/08/22 22:45 Oxygen Flow Rate (L/min) 2 Oxygen Delivery Method Room Air Weight: 97 kg Body Mass Index (BMI) 31.6 Intake & Output: Intake and Output for Last 24 Hours 05/09/22 05/10/22 05/11/22 23:59 23:59 23:59 Intake Total 2500.58 / 2500.58 2300 / 2300 1050 / 1050 Output Total 1274 / 1274 560 / 560 Balance 1226.58 / 1226.58 1740 / 1740 1050 / 1050 Lab / Micro Data Attestation: I reviewed the patient's lab results. Result Diagrams: 05/11/22 06:44 05/11/22 06:44 Labs: Laboratory Results - last 24 hr 05/11/22 06:44: WBC 7.9, RBC 4.08 L, Hgb 13.3, Hct 39.7 L, MCV 97.3 H, MCH 32.6 H, MCHC 33.5, RDW Std Deviation 45.4 H, RDW Coeff of Jett 12.7, Plt Count 219, MPV 9.6, Immature Gran % (Auto) 0.400, Neut % (Auto) 75.7 H, Lymph % (Auto) 13.5L, [place] % (Auto) 8.0, Eos % (Auto) 2.1, Baso % (Auto) 0.3, Absolute Neuts (auto)6.0, Absolute Lymphs (auto) 1.07, Nucleated RBC % 0 05/11/22 06:44: Sodium 140, Potassium 4.1, Chloride 107, Carbon Dioxide 25.0, Anion Gap 8, BUN 11, Creatinine 1.03, Estim Creat Clear Calc 106.77, Est GFR (MDRD) Af Amer 110, Est GFR (MDRD) Non-Af 91, BUN/Creatinine Ratio 10.7, [id number], Calcium 8.8, Phosphorus 2.2 L, Magnesium 2.1 Micro: Microbiology 05/08/22 Unknown Incision/Surgical Site Gram Stain - Final 05/08/22 Unknown Incision/Surgical Site Wound Culture - Preliminary Escherichia coli Gram positive organism 05/08/22 Unknown Incision/Surgical Site Anaerobic Culture - Preliminary Checking for anaerobes, further studies to follow. Physical Exam GI GI Narrative: abdomen is soft and benign - dressings intact Assessment & Plan Assessment/Plan (1) Acute appendicitis with perforation and generalized peritonitis: PLAN: POD#3 s/p laparoscopic appendectomy for perforated appendicits will start diet if tolerated, then d/c to home 05/11/22 1049 <Electronically signed by Lina Cordoba MD> Cosigner Signature (if applicable): CC: ~ Signed [facility] Work Phone: 1(625) 875-313202-10-[address] Mtz [facility] May 10, 2022 12:49pm Note Date/Time May 10, 2022 7:42am [facility] Medical Records Department [address] [place] [address] Progress Note - Surgery 05/10/22 0742 MR#: [id number] Acct: [id number] Name: LUCIANA CORDOBA Rep #:[id number] : 1995 26 From: Ben Saez PCP: Dr. Alma Beavers MD Status:ADM IN [id number] Subject[facility] Subjective Patient seen and examined early in the a.m. and then just before lunchtime. Earlier in the day patient complained that he had a difficult overnight course. He reported significant anxiety and nausea. He also expressed concern over his drain output. He stated that he attempted to pass gas but felt as though he hada small bowel movement. He reports I could eat, but denies express hunger. He denies frequent belching or hiccuping. Lastly confirms that he does feel puffy. Objective Data Objective Data Vital Signs: Vital Signs Temp Pulse Resp BP Pulse Ox O2 Del Method O2 Flow Rate 99.1 F 107 H 18 159/84 H 92 Room Air 2 05/10/22 05:37 05/10/22 05:37 05/10/22 05:37 05/10/22 05:37 05/10/22 05:37 05/10/22 05:37 05/08/22 22:45 Oxygen Flow Rate (L/min) 2 Oxygen Delivery Method Room Air Weight: 213 lb 13.574 oz Body Mass Index (BMI) 31.6 Intake & Output: Intake and Output for Last 24 Hours 05/08/22 05/09/22 05/10/22 23:59 23:59 23:59 Intake Total 1370 / 1370 2500.58 / 2500.58 800 / 800 Output Total 550 / 550 1274 / 1274 415 / 415 Balance 820 / 820 1226.58 / 1226.58 385 / 385 Lab / Micro Data Result Diagrams: 05/10/22 06:30 05/10/22 06:30 Labs: Laboratory Results - last 24 hr 05/10/22 06:30: WBC 13.8 H, RBC 4.60, Hgb 14.8, Hct 45.4, MCV 98.7 H, MCH 32.2 H, MCHC 32.6, RDW Std Deviation 46.6 H, RDW Coeff of Jett 12.9, Plt Count 223, MPV9.8, Immature Gran % (Auto) 0.900, Neut % (Auto) 89.9 H, Lymph % (Auto) 4.8 L, [place] % (Auto) 4.1, Eos % (Auto) 0.1, Baso % (Auto) 0.2, Absolute Neuts (auto) 12.4 H, Absolute Lymphs (auto) 0.66 L, Nucleated RBC % 0 05/10/22 06:30: Sodium 136, Potassium 4.1, Chloride 105, Carbon Dioxide 22.0, Anion Gap 9, BUN 11, Creatinine 1.03, Estim Creat Clear Calc 106.77, Est GFR (MDRD) Af Amer 110, Est GFR (MDRD) Non-Af 91, BUN/Creatinine Ratio 10.7, [id number] H, Calcium 9.0 Micro: Microbiology 05/08/22 Unknown Incision/Surgical Site Gram Stain - Final 05/08/22 Unknown Incision/Surgical Site Wound Culture - Preliminary GNR lactose loftsman Physical Exam Const oriented x3 Constitutional Narrative: Mild distress initially, then improved later in the morning Resp normal respiratory effort GI GI Narrative: Moderate abdominal distention. Some erythema surrounding patient's supraumbilical port site closure that is blanchable. Unremarkable left lower quadrant port site. Drain site appropriate containing KATIE drain with simple peritoneal fluid. Patient mildly tender with palpation. Assessment & Plan Assessment/Plan (1) Acute appendicitis with perforation and generalized peritonitis: PLAN: Postoperative day 2 from laparoscopic appendectomy with drain placement. Patient appears consistent with postoperative ileus that is slowly resolving given signs of return of bowel function. Recommend ambulating multiple times per day today and sitting in the chair Advance to sips of clear liquids Continue drain until patient tolerating p.o. Continue antibiotic Labs were reviewed. WBC still trending down Charges/Coding Visit Charges Inpatient E&M: 39572 Subs Hosp L2 05/10/22 1249 <Electronically signed by Ben Mtz MD> Cosigner Signature (if applicable): CC: ~ Signed [facility] Work Phone: 1(671) 154-129202-10-[address] Shin [facility] May 10, 2022 11:49am Note Date/Time May 10, 2022 11:49am [facility] Medical Records Department [address] [place] [address] Progress Note - Hospitalist 05/10/22 1144 MR#: [id number] Acct: [id number] Name: LUCIANA CORDOBA Rep #:[id number] : 1995 26 From: Marline Shin DO PCP: Dr. Alma Beavers MD Status:ADM IN [facility] Reason for Visit Reason for Visit: Diagnoses Elevated white blood cell count, unspecified (05/08/22) Hypokalemia (05/08/22) Acute appendicitis with generalized peritonitis, without abscess (05/08/22) Unspecified acute appendicitis (05/08/22) Tachycardia, unspecified (05/08/22) Elevated blood-pressure reading, without diagnosis of hypertension (05/08/22) Right lower quadrant pain (05/08/22) Fever, unspecified (05/08/22) Subjective Subjective Patient reports he is feeling better. He stated he have some anxiety overnight with some abdominal pain however I did assure him having pain after a perforatedappendix and surgery was normal. He has had continued output of his Doron-Kruger drain but it is clear to sanguinous fluid appearance at this point. Patient is ambulating around the room independently and overall feels much improved and looks better clinically. Objective Data Objective Data Vital Signs: Vital Signs Temp Pulse Resp BP Pulse Ox O2 Del Method O2 Flow Rate 98.0 F 110 H 18 168/95 H 94 Room Air 2 05/10/22 08:02 05/10/22 08:15 05/10/22 08:02 05/10/22 08:02 05/10/22 08:02 05/10/22 08:15 05/08/22 22:45 Oxygen Flow Rate (L/min) 2 Oxygen Delivery Method Room Air Weight: 97 kg Body Mass Index (BMI) 31.6 Intake & Output: Intake and Output for Last 24 Hours 05/08/22 05/09/22 05/10/22 23:59 23:59 23:59 Intake Total 1370 / 1370 2500.58 / 2500.58 800 / 800 Output Total 550 / 550 1274 / 1274 415 / 415 Balance 820 / 820 1226.58 / 1226.58 385 / 385 Lab / Micro Data Result Diagrams: 05/10/22 06:30 05/10/22 06:30 Labs: Laboratory Results - last 24 hr 05/10/22 06:30: WBC 13.8 H, RBC 4.60, Hgb 14.8, Hct 45.4, MCV 98.7 H, MCH 32.2 H, MCHC 32.6, RDW Std Deviation 46.6 H, RDW Coeff of Jett 12.9, Plt Count 223, MPV9.8, Immature Gran % (Auto) 0.900, Neut % (Auto) 89.9 H, Lymph % (Auto) 4.8 L, [place] % (Auto) 4.1, Eos % (Auto) 0.1, Baso % (Auto) 0.2, Absolute Neuts (auto) 12.4 H, Absolute Lymphs (auto) 0.66 L, Nucleated RBC % 0 05/10/22 06:30: Sodium 136, Potassium 4.1, Chloride 105, Carbon Dioxide 22.0, Anion Gap 9, BUN 11, Creatinine 1.03, Estim Creat Clear Calc 106.77, Est GFR (MDRD) Af Amer 110, Est GFR (MDRD) Non-Af 91, BUN/Creatinine Ratio 10.7, [id number] H, Calcium 9.0 Micro: Microbiology 05/08/22 Unknown Incision/Surgical Site Gram Stain - Final 05/08/22 Unknown Incision/Surgical Site Wound Culture - Preliminary Escherichia coli Gram positive organism Physical Exam Const alert, oriented x3, no apparent distress and well nourished Constitutional Narrative: Obese, young, white male, standing up in room getting ready to ambulate around the halls appears comfortable nontoxic HEENT head/scalp atraumatic and moist oral mucous membranes Head and Scalp: normocephalic Resp normal respiratory effort, no retractions, no use of accessory muscles and clearto auscultation bilaterally Auscultation: Negative for rales, rhonchi or wheezes Cardio regular rate, regular rhythm, S1 normal heart sound, S2 normal heart sound, no murmurs, no rub, no gallops and no clicks GI GI Narrative: Bowel sounds are normal active, Doron-Kruger drain in place with sanguinous drainage, abdominal is soft but abdomen appears somewhat distended today, mild diffuse tenderness related to operative procedure Extremity no clubbing, cyanosis or edema Extremity Narrative: 2+ pedal pulses Neuro oriented x3, moves all extremities and no focal motor deficits Speech: speech normal Psych Mood & Affect: anxious Assessment & Plan Assessment/Plan (1) Acute appendicitis: (2) Right lower quadrant abdominal pain: (3) Leukocytosis: (4) Fever: (5) Hypokalemia: (6) Elevated blood pressure reading: (7) Tachycardia: PLAN: Plan Right lower quadrant pain secondary to acute appendicitis with perforation -Postop day 2 status post laparoscopic appendectomy with drain placement -Management per primary service -Continue pain medications -Continue IV fluids--> but would recommend discontinuation if patient tolerates p.o. -Clear liquid initiated -Bowel function appears to be returning Fever/leukocytosis -Suspect attributed to the above -Seems to be clinically improving -White count is slowly trending down -Tmax through the night was 100.5 but overall fever curve is improving Tachycardia -Mild and seems to be improving -Suspect reactive with acute infection -Rates are fluctuating -Patient with also significant anxiety -Continue to monitor Hypokalemia -Replaced and resolved Elevated blood pressure reading -Suspect related to acute events -As needed hydralazine for systolic pressure greater than 160 -Would monitor and follow-up as an outpatient once acute issues are resolved to see if he actually has the diagnosis of hypertension Alcohol abuse -Patient does regularly consume 8 beers per day -No signs of acute withdrawal -Last intake was 3 days prior to admission -Given the length of time from his last use until now acute alcohol withdrawal is highly unlikely -Continue thiamine and folate -CIWA as ordered Tobacco abuse -Recommend cessation -Nicotine replacement DVT prophylaxis -SCDs -Chemoprophylaxis per primary service Charges/Coding Visit Charges Inpatient E&M: 19911 Subs Hosp L2 05/10/22 1149 <Electronically signed by Marline Shin DO> Cosigner Signature (if applicable): CC: ~ Signed [facility] Work Phone: 1(459) 125-830102-09-[address] Shin [facility] May 09, 2022 11:19am Note Date/Time May 09, 2022 7 :25am [facility] Medical Records Department [address] [place] [address] Progress Note - Hospitalist 05/09/22 0716 MR#: [id number] Acct: [id number] Name: LUCIANA CORDOBA Rep #:[id number] : 1995 26 From: Marline Shin DO PCP: Dr. Alma Beavers MD Status:ADM IN Location: [place] [address]-1 Reason for Visit Reason for Visit: Diagnoses Unspecified acute appendicitis (05/08/22) Subjective Subjective Mr. Cordoba is a 26-year-old white male with a history of alcohol abuse (8 12 ounce beers daily) who presented to [facility] on 05/08/2022 with right lower quadrant pain that had worsened over 3 days with associated decreased appetite and nausea. He rated the pain sharp in the right lower quadrant at10 out of 10 in severity at its worse. He did indicate it worsened with any movement or palpation. Last alcohol consumption was approximately 3 days prior to presentation. CT of the abdomen pelvis showed acute appendicitis and he was taken to the OR on 05/08/2022. He was diagnosed with acute perforated appendicitis and a laparoscopic appendectomy with drain placement was performed. He tolerated the surgery well and we were consulted postoperatively for medicalmanagement. No flatus. Pain is minimal. Patient is anxious to get out of bed and get moving around some. He states he is tired of laying in bed. States he is little bit anxious just because of everything that happened. No specific complaints. Objective Data Objective Data Vital Signs: Vital Signs Temp Pulse Resp BP Pulse Ox O2 Del Method O2 Flow Rate 99.2 F H 95 18 141/87 H 100 Room Air 2 05/09/22 02:28 05/09/22 02:28 05/09/22 02:28 05/09/22 02:28 05/09/22 02:28 05/09/22 02:28 05/08/22 22:45 Oxygen Flow Rate (L/min) 2 Oxygen Delivery Method Room Air Weight: 97 kg Body Mass Index (BMI) 31.6 Intake & Output: Intake and Output for Last 24 Hours 05/07/22 05/08/22 05/09/22 23:59 23:59 23:59 Intake Total 1370 / 1370 1300.58 / 1300.58 Output Total 550 / 550 880 / 880 Balance 820 / 820 420.58 / 420.58 Lab / Micro Data Result Diagrams: 05/09/22 05:20 05/09/22 05:20 Labs: Laboratory Results - last 24 hr 05/08/22 11:45: WBC 15.6 H, RBC 5.23, Hgb 17.2 H, Hct 47.6, MCV 91.0, MCH 32.9 H, MCHC 36.1 H, RDW Std Deviation 40.4, RDW Coeff of Jett 12.3, Plt Count 222, MPV9.6, Immature Gran % (Auto) 0.400, Neut % (Auto) 89.4 H, Lymph % (Auto) 6.1 L, [place] % (Auto) 3.9, Eos % (Auto) 0.1, Baso % (Auto) 0.1, Absolute Neuts (auto) 13.9 H, Absolute Lymphs (auto) 0.96, Nucleated RBC % 0 05/08/22 11:45: Sodium 143, Potassium 2.7 L*, Chloride 113 H, Carbon Dioxide 23.0, Anion Gap 7, BUN 7, Creatinine 0.76, Estim Creat Clear Calc 144.71, Est GFR (MDRD) Af Amer 155, Est GFR (MDRD) Non-Af 128, BUN/Creatinine Ratio 9.2 L, Glucose 101, Calcium 7.2 L, Total Bilirubin 0.80, AST 12 L, ALT 30, Alkaline Phosphatase 52, Total Protein 6.3 L, Albumin 3.2, Globulin 3.1, Albumin/GlobulinRatio 1.0 05/08/22 11:45: Sodium Cancelled, Potassium Cancelled, Chloride Cancelled, Carbon Dioxide Cancelled, Anion Gap Cancelled, BUN Cancelled, Creatinine Cancelled, Est GFR (MDRD) Af Amer Cancelled, Est GFR (MDRD) Non-Af Cancelled, BUN/Creatinine Ratio Cancelled, Glucose Cancelled, Calcium Cancelled, Magnesium 1.6 05/08/22 11:45: Phosphorus 1.3 L 05/08/22 13:20: Urine Color Yellow, Urine Clarity Clear, Urine pH 7.0, Ur Specific [place] 1.010, Urine Protein 30 H, Urine Glucose (UA) Normal, Urine Ketones Negative, Urine Occult Blood 10 H, Urine Nitrite Negative, Urine Bilirubin Negative, Urine Urobilinogen Normal, Ur Leukocyte Esterase 25 H, UrineRBC 0 SEEN, Urine WBC 0 SEEN, Ur Squamous Epith Cells 0 SEEN, Urine Bacteria 0 SEEN, Urine Mucus 0 SEEN 05/08/22 16:34: Sodium 139, Potassium 3.6, Chloride 105, Carbon Dioxide 25.0, Anion Gap 9, BUN 9, Creatinine 1.24, Estim Creat Clear Calc 88.69, Est GFR (MDRD) Af Amer 89, Est GFR (MDRD) Non-Af 73, BUN/Creatinine Ratio 7.3 L, [id number] H, Calcium 9.0 05/09/22 05:20: WBC 14.0 H, RBC 4.46 L, Hgb 14.6, Hct 43.2, MCV 96.9 H D, MCH 32.7 H, MCHC 33.8 D, RDW Std Deviation 45.6 H, RDW Coeff of Jett 12.9, Plt [id number], MPV 9.9, Immature Gran % (Auto) 0.600, Neut % (Auto) 88.8 H, Lymph % (Auto)6.5 L, [place] % (Auto) 4.0, Eos % (Auto) 0.0, Baso % (Auto) 0.1, Absolute Neuts (auto) 12.4 H, Absolute Lymphs (auto) 0.91, Nucleated RBC % 0 05/09/22 05:20: Sodium 140, Potassium 3.9, Chloride 106, Carbon Dioxide 28.0, Anion Gap 6, BUN 10, Creatinine 1.19, Estim Creat Clear Calc 92.42, Est GFR (MDRD) Af Amer 93, Est GFR (MDRD) Non-Af 77, BUN/Creatinine Ratio 8.4 L, [id number] H, Calcium 8.5, Magnesium 2.6 05/09/22 05:20: Phosphorus 3.4 Radiography Diagnostic Testing: Radiology Impression Abdomen/Pelvis CT 05/08/22 11:42 IMPRESSION: Acute appendicitis with appendicolith in the appendiceal lumen. Increased markings in the surrounding peritoneal fat in the right lower quadrant extending into the right pararenal space with inflammatory change. Small lymph nodes are also seen within the mesentery in the right lower quadrant. Electronically Signed: Maurilio Kwan MD at 14:11 EST , Physical Exam Const alert, oriented x3, no apparent distress and well nourished Constitutional Narrative: Obese, young, white male, sitting up in bed, appears comfortable nontoxic, nursing at bedside HEENT head/scalp atraumatic and moist oral mucous membranes Head and Scalp: normocephalic Resp normal respiratory effort, no retractions, no use of accessory muscles and clearto auscultation bilaterally Auscultation: Negative for rales, rhonchi or wheezes Cardio regular rate, regular rhythm, S1 normal heart sound, S2 normal heart sound, no murmurs, no rub, no gallops and no clicks GI GI Narrative: Bowel sounds are hypoactive, Doron-Kruger drain in place with serosanguineous drainage, abdomen is soft and no significant distention, mild diffuse tendernessrelated to operative procedure Extremity no clubbing, cyanosis or edema Extremity Narrative: 2+ pedal pulses Neuro oriented x3, moves all extremities and no focal motor deficits Speech: speech normal Psych affect normal Mood & Affect: anxious Assessment & Plan Assessment/Plan (1) Acute appendicitis: (2) Right lower quadrant abdominal pain: (3) Leukocytosis: (4) Fever: (5) Hypokalemia: (6) Elevated blood pressure reading: (7) Tachycardia: PLAN: Plan Right lower quadrant pain secondary to acute appendicitis with perforation -Postop day 1 status post laparoscopic appendectomy with drain placement -Management per primary service -Continue pain medications -Continue IV fluids--> will decrease to 75 cc/h -Patient remains n.p.o. -Await return of bowel function--> high risk for postoperative ileus with perforation Fever/leukocytosis -Suspect attributed to the above -Seems to be clinically improving -White count has trended down subtly -Tmax through the night was 100 and fever curve seems to be improving Tachycardia -Mild and seems to be improving -Suspect reactive with acute infection -Continue to monitor Hypokalemia -Replaced and resolved Elevated blood pressure reading -Suspect related to acute events -As needed hydralazine for systolic pressure greater than 160 -Would monitor and follow-up as an outpatient once acute issues are resolved to see if he actually has the diagnosis of hypertension Alcohol abuse -Patient does regularly consume 8 beers per day -Last intake was 3 days prior to admission -Given the length of time from his last use until now acute alcohol withdrawal is highly unlikely -Continue thiamine and folate -CIWA as ordered Tobacco abuse -Recommend cessation -Nicotine replacement DVT prophylaxis -SCDs -Chemoprophylaxis per primary service Charges/Coding Visit Charges Inpatient E&M: 45232 Subs Hosp L2 05/09/22 1119 <Electronically signed by Marline Shin DO> Cosigner Signature (if applicable): CC: ~ Signed [facility] Work Phone: 1(921) 542-641502-09-2023 Progress note Author Jocelynn Gonzalez [facility] May 09, 2022 9:48am Note Date/Time May 09, 2022 9 :48am [facility] Medical Records Department [address] [place] [address] Progress Note - Surgery 05/09/2249 MR#: [id number] Acct: [id number] Name: LUCIANA CORDOBA Rep #:[id number] : 1995 26 From: Jocelynn TRIPP PA-C PCP: Dr. Alma Beavers MD Status:ADM MANDA Location: [place] [address] Subjective Subjective Patient evaluated resting comfortably in bed. Patient notes minimal amount of incisional discomfort. Patient denies nausea, vomiting, fever. Patient denies passing flatus or bowel movement. He notes pain is much improved compared to yesterday. Objective Data Objective Data Vital Signs: Vital Signs Temp Pulse Resp BP Pulse Ox O2 Del Method O2 Flow Rate 99.2 F H 98 18 141/86 H 92 Room Air 2 05/09/22 08:25 05/09/22 08:25 05/09/22 08:25 05/09/22 08:25 05/09/22 09:10 05/09/22 09:10 05/08/22 22:45 Oxygen Flow Rate (L/min) 2 Oxygen Delivery Method Room Air Weight: 213 lb 13.574 oz Body Mass Index (BMI) 31.6 Intake & Output: Intake and Output for Last 24 Hours 05/07/22 05/08/22 05/09/22 23:59 23:59 23:59 Intake Total 1370 / 1370 1300.58 / 1300.58 Output Total 550 / 550 880 / 880 Balance 820 / 820 420.58 / 420.58 Lab / Micro Data Result Diagrams: 05/09/22 05:20 05/09/22 05:20 Labs: Laboratory Results - last 24 hr 05/08/22 11:45: WBC 15.6 H, RBC 5.23, Hgb 17.2 H, Hct 47.6, MCV 91.0, MCH 32.9 H, MCHC 36.1 H, RDW Std Deviation 40.4, RDW Coeff of Jett 12.3, Plt Count 222, MPV9.6, Immature Gran % (Auto) 0.400, Neut % (Auto) 89.4 H, Lymph % (Auto) 6.1 L, [place] % (Auto) 3.9, Eos % (Auto) 0.1, Baso % (Auto) 0.1, Absolute Neuts (auto) 13.9 H, Absolute Lymphs (auto) 0.96, Nucleated RBC % 0 05/08/22 11:45: Sodium 143, Potassium 2.7 L*, Chloride 113 H, Carbon Dioxide 23.0, Anion Gap 7, BUN 7, Creatinine 0.76, Estim Creat Clear Calc 144.71, Est GFR (MDRD) Af Amer 155, Est GFR (MDRD) Non-Af 128, BUN/Creatinine Ratio 9.2 L, Glucose 101, Calcium 7.2 L, Total Bilirubin 0.80, AST 12 L, ALT 30, Alkaline Phosphatase 52, Total Protein 6.3 L, Albumin 3.2, Globulin 3.1, Albumin/GlobulinRatio 1.0 05/08/22 11:45: Sodium Cancelled, Potassium Cancelled, Chloride Cancelled, Carbon Dioxide Cancelled, Anion Gap Cancelled, BUN Cancelled, Creatinine Cancelled, Est GFR (MDRD) Af Amer Cancelled, Est GFR (MDRD) Non-Af Cancelled, BUN/Creatinine Ratio Cancelled, Glucose Cancelled, Calcium Cancelled, Magnesium 1.6 05/08/22 11:45: Phosphorus 1.3 L 05/08/22 13:20: Urine Color Yellow, Urine Clarity Clear, Urine pH 7.0, Ur Specific [place] 1.010, Urine Protein 30 H, Urine Glucose (UA) Normal, Urine Ketones Negative, Urine Occult Blood 10 H, Urine Nitrite Negative, Urine Bilirubin Negative, Urine Urobilinogen Normal, Ur Leukocyte Esterase 25 H, UrineRBC 0 SEEN, Urine WBC 0 SEEN, Ur Squamous Epith Cells 0 SEEN, Urine Bacteria 0 SEEN, Urine Mucus 0 SEEN 05/08/22 16:34: Sodium 139, Potassium 3.6, Chloride 105, Carbon Dioxide 25.0, Anion Gap 9, BUN 9, Creatinine 1.24, Estim Creat Clear Calc 88.69, Est GFR (MDRD) Af Amer 89, Est GFR (MDRD) Non-Af 73, BUN/Creatinine Ratio 7.3 L, [id number] H, Calcium 9.0 05/09/22 05:20: WBC 14.0 H, RBC 4.46 L, Hgb 14.6, Hct 43.2, MCV 96.9 H D, MCH 32.7 H, MCHC 33.8 D, RDW Std Deviation 45.6 H, RDW Coeff of Jett 12.9, Plt [id number], MPV 9.9, Immature Gran % (Auto) 0.600, Neut % (Auto) 88.8 H, Lymph % (Auto)6.5 L, [place] % (Auto) 4.0, Eos % (Auto) 0.0, Baso % (Auto) 0.1, Absolute Neuts (auto) 12.4 H, Absolute Lymphs (auto) 0.91, Nucleated RBC % 0 05/09/22 05:20: Sodium 140, Potassium 3.9, Chloride 106, Carbon Dioxide 28.0, Anion Gap 6, BUN 10, Creatinine 1.19, Estim Creat Clear Calc 92.42, Est GFR (MDRD) Af Amer 93, Est GFR (MDRD) Non-Af 77, BUN/Creatinine Ratio 8.4 L, [id number] H, Calcium 8.5, Magnesium 2.6 05/09/22 05:20: Phosphorus 3.4 Micro: Microbiology 05/08/22 Unknown Incision/Surgical Site Wound Culture - Preliminary GNR lactose loftsman Radiography Diagnostic Testing: Radiology Impression Abdomen/Pelvis CT 05/08/22 11:42 IMPRESSION: Acute appendicitis with appendicolith in the appendiceal lumen. Increased markings in the surrounding peritoneal fat in the right lower quadrant extending into the right pararenal space with inflammatory change. Small lymph nodes are also seen within the mesentery in the right lower quadrant. Electronically Signed: Maurilio Kwan MD at 14:11 EST Reading Location ID and State: [address] [place] [address] , Service support , Physical Exam GI GI Narrative: KATIE drain intact draining serosanguineous drainage. Inspection: abdominal distention and incision intact and healing well Auscultation: hypoactive bowel sounds Palpation: tender other (generalized minimal tenderness) Assessment & Plan Assessment/Plan (1) Acute appendicitis with perforation and generalized peritonitis: PLAN: Recommend ambulating multiple times per day today and sitting in the chair Continue NPO until passing flatus Continue antibiotic Labs were reviewed. WBC trending down We will continue to monitor patient Charges/Coding Visit Charges Inpatient E&M: 94146 Subs Hosp L1 (post-op; no charge) 05/09/22 0948 <Electronically signed by Jocelynn TRIPP PA-C> Cosigner Signature (if applicable): CC: ~ Signed [facility] Work Phone: 1(411) 208-489902-08-[address] Lambert [facility] May 08, 2022 8:51pm Note Date/Time May 08, 2022 4 :13pm [facility] Medical Records Department [address] [place] [address] Consultation - Hospitalist 05/08/22 1613 MR#: [id number] Acct: [id number] Name: LUCIANA CORDOBA Rep #:[id number] : 1995 26 From: Hailey Lambert MD PCP: Dr. Alma Beavers MD Status:ADM MANDA Location: [address] Assessment & Plan Assessment/Plan (1) Acute appendicitis: (2) No history of previous surgery: PLAN: Plan The patient is a 26 y/o M w/ PMHx: Anxiety, Tobacco use (2 packs/week, primarilySat/Sun), EtOH abuse (8 beers, 12 ounces each daily) who presents to the [facility] ED on 05/08/22 with history of persistent right lower quadrant progressively worsening abdominal pain x3 days with associated nausea with decreased appetite with no specific recent fevers or chills however did have onset of fevers while in the emergency room reporting pain severe and sharp in the right lower quadrant, 10 out of 10 in severity currently, worse with any movement or palpation. #1. Acute appendicitis: Patient will be admitted per primary service, noted plan transition from ED to OR for appendectomy per Dr. Mtz, currently n.p.o. status on IV fluids with continued IV Zosyn therapy, as needed oral and IV pain regimen per primary service discretion, as needed antiemetics. #2. Elevated BP without hypertensive diagnosis: Potentially secondary to acute presentation as noted #1 with acute pain, continue to monitor and if despite alleviation of pain ongoing elevated blood pressure may necessitate oral regimen, as needed IV hydralazine in interim. #3. Hypokalemia, hypomagnesia, hypophosphatemia: Admission potassium 2.7, magnesium obtained and noted to be 1.6 as well as Phos 1.3, supplementation administered, repeat BMP with improvement with potassium 3.6, will repeat those in the morning. #4. EtOH Abuse: Patient notes routine consumption of approximately 8 beers per day. He notes his last intake was 3 days prior to current presentation he denies any withdrawal symptoms. He states he can go days at a time without alcohol and does not have any withdrawal symptoms during those episodes either. Will maintain on CIWA protocol, MVI, thiamine and folic acid to be cautious. Magand Phos levels obtained as noted and supplementation administered. Case management consulted for substance abuse assistance. #5. Tobacco Abuse: Encouraged cessation, inpatient consultation per RT, NR if desired. #6. DVT prophylaxis: SCDs/chemoprophylaxis all per surgery discretion given planned OR. Admission Evaluation Time spent evaluating chart, patient history, patient evaluation, care planning and discussion with specialists: 60 minutes. HPI Consult Data Date of Consult: 05/08/22 HPI Narrative Reason for Consultation: Medical management HPI Narrative: The patient is a 26 y/o M w/ PMHx: Anxiety, Tobacco use (2 packs/week, primarilySat/Sun), EtOH abuse (8 beers, 12 ounces each daily) who presents to the [facility] ED on 05/08/22 with history of persistent right lower quadrant progressively worsening abdominal pain x3 days with associated nausea with decreased appetite with no specific recent fevers or chills however did have onset of fevers while in the emergency room reporting pain severe and sharp in the right lower quadrant, 10 out of 10 in severity currently, worse with any movement or palpation. [place] report that his last alcohol consumption was approximately 3 days prior to his current presentation secondary to his abdominal discomfort ongoing. Work-up in the ED included initially 98.9 however patient quickly became febrile with T103.2, heart rate 109, BP 160/89, respiratory rate 17, 96% on room air, CBC with WBC 15.6, hemoglobin 17.2, platelet 222 with left shift, CMP with sodium 143, potassium 2.7, chloride 113, glucose 101 hepatic profile not marked appearing, CT abdomen and pelvis with acute appendicitis with appendicolith in the appendiceal lumen with increased markings in the surrounding peritoneal fat in the right lower quadrant extending into the right pararenal space with inflammatory change, small lymph nodes also seen within the mesentery in the right lower quadrant. In the ED patient ministered normal saline 1 L bolus, IV Zosyn, IV Zofran and morphine. ED physician discussed case with general surgerywho planned admission with transition from ED to OR with requested hospitalist consultation given concern for patient's alcohol abuse. PFSH Medical History Alcohol abuse Anxiety Tobacco use Home Medications famotidine 20 mg tablet (Pepcid) 20 mg PO BID #28 tabs 05/07/22 [Rx Last Taken 05/08/22] bupropion HCl 150 mg 24 hr tablet, extended release 150 mg PO DAILY 05/08/22 [History Last Taken 05/08/22] ibuprofen 200 mg tablet 200 - 400 mg PO Q6H PRN Pain 05/08/22 [History Last Taken 05/08/22] Allergy/AdvReac Type Severity Reaction Status Date / Time No Known Allergies Allergy Verified 05/07/22 08:45 Family History (Updated 05/08/22 @ 20:[address] Hailey Lambert MD) Mother Breast cancer Father Hypertension Surgical History No history of previous surgery Social History (Updated 05/08/22 @ 20:[address] Hailey Lambert MD) household members: significant other Smoking Status: Current some day smoker tobacco type: cigarettes Smokeless tobacco user: chewing tobacco and other alcohol intake: current alcohol intake frequency: 3 or more drinks per day details: Drinks 8-10, 12 ounces beers daily. substance use type: does not use ROS ROS Narrative Admission Review of Systems: CONSTITUTIONAL: No weight loss, fever, chills, + weakness or fatigue although does have onset then of fever while in the ED. HEENT: Eyes: No visual loss, blurred vision, double vision or yellow sclerae. Ears, Nose, Throat: No hearing loss, sneezing, congestion, runny nose or sore throat. SKIN: No rash or itching, lesions, wounds. CARDIOVASCULAR: No chest pain, chest pressure or chest discomfort, palpitations,edema, orthopnea, syncopal events. RESPIRATORY: No shortness of breath, cough or sputum, wheezing, hemoptysis. GASTROINTESTINAL: + anorexia, nausea without vomiting, abdominal pain, No diarrhea, melena, BRBPR. GENITOURINARY: No dysuria, frequency, urgency or retention. NEUROLOGICAL: No headache, dizziness, syncope, paralysis, ataxia, numbness or tingling in the extremities, focal weakness, change in bowel or bladder control,seizure. MUSCULOSKELETAL: + muscle, back pain, joint pain or stiffness. HEMATOLOGIC: No anemia, bleeding or bruising. LYMPHATICS: No enlarged nodes. No history of splenectomy. PSYCHIATRIC: + history of depression or anxiety. ENDOCRINOLOGIC: No reports of sweating, cold or heat intolerance. No polyuria orpolydipsia. ALLERGIES: No history of asthma, hives, eczema or rhinitis. Physical Exam Narrative Physical Examination: General: Awake, alert, oriented x 3 and cooperative, seated upright in the ED bed, significantly uncomfortable appearing, ill-appearing. Skin: Flushed color, normal turgor, no icterus, no cyanosis. HEENT: AT/NC, EOMI, PERRLA, dry MM, no carotid bruits or JVD noted. Lungs: Diminished, mildly decreased bases, mildly increased respiratory rate butno distress, no rales, ronchi or wheezing. Heart: Tachycardic with regular rhythm; no gallop, rub audible. Abdomen: Soft, significant right lower quadrant discomfort with palpation with rebound and guarding, no obvious distention, distant bowel sounds, unable to discern HSM given severity of pain with palpation. Extremities: No cyanosis, clubbing, or edema. Neurological: Patient awake, alert, oriented as noted, cognitive function intact; pupils equally reactive to light and accommodation, cranial nerves II-XII grossly normal, moving all 4 extremities, no focal deficits, strength severely impaired given acute presentation with infection. Psychiatric: Affect appears uncomfortable, ill-appearing, no acute evidence of depressive or anxiety feelings. Lab / Micro Data Result Diagrams: 05/08/22 11:45 05/08/22 16:34 Labs: Laboratory Results - last 24 hr 05/08/22 11:45: WBC 15.6 H, RBC 5.23, Hgb 17.2 H, Hct 47.6, MCV 91.0, MCH 32.9 H, MCHC 36.1 H, RDW Std Deviation 40.4, RDW Coeff of Jett 12.3, Plt Count 222, MPV9.6, Immature Gran % (Auto) 0.400, Neut % (Auto) 89.4 H, Lymph % (Auto) 6.1 L, [place] % (Auto) 3.9, Eos % (Auto) 0.1, Baso % (Auto) 0.1, Absolute Neuts (auto) 13.9 H, Absolute Lymphs (auto) 0.96, Nucleated RBC % 0 05/08/22 11:45: Sodium 143, Potassium 2.7 L*, Chloride 113 H, Carbon Dioxide 23.0, Anion Gap 7, BUN 7, Creatinine 0.76, Estim Creat Clear Calc 144.71, Est GFR (MDRD) Af Amer 155, Est GFR (MDRD) Non-Af 128, BUN/Creatinine Ratio 9.2 L, Glucose 101, Calcium 7.2 L, Total Bilirubin 0.80, AST 12 L, ALT 30, Alkaline Phosphatase 52, Total Protein 6.3 L, Albumin 3.2, Globulin 3.1, Albumin/GlobulinRatio 1.0 05/08/22 13:20: Urine Color Yellow, Urine Clarity Clear, Urine pH 7.0, Ur Specific [place] 1.010, Urine Protein 30 H, Urine Glucose (UA) Normal, Urine Ketones Negative, Urine Occult Blood 10 H, Urine Nitrite Negative, Urine Bilirubin Negative, Urine Urobilinogen Normal, Ur Leukocyte Esterase 25 H, UrineRBC 0 SEEN, Urine WBC 0 SEEN, Ur Squamous Epith Cells 0 SEEN, Urine Bacteria 0 SEEN, Urine Mucus 0 SEEN Radiology Impression Abdomen/Pelvis CT 05/08/22 11:42 IMPRESSION: Acute appendicitis with appendicolith in the appendiceal lumen. Increased markings in the surrounding peritoneal fat in the right lower quadrant extending into the right pararenal space with inflammatory change. Small lymph nodes are also seen within the mesentery in the right lower quadrant. Electronically Signed: Maurilio Kwan MD at 14:11 EST , Charges/Coding Visit Charges Office Visits / Consults: 54887 IP Consult L3 05/08/222050 <Electronically signed by Hailey Lambert MD> Cosigner Signature (if applicable): CC: AGUILAR Tilley; Severiano Sandy MD; Dr. Laura Gonzalez MD; Dr. Laura Madera MD; Dr. Hailey Lambert MD; Dr. Jered Cormier MD; Dr. Pepe Zepeda DO; Dr. Alma Beavers MD; Dr. Martina Cherry MD; Dr. Lion Fish DO; Dr. Josesito Escobar MD; Dr. Marline Shin DO; Dr. Andrea Nassar DO; Dr. Marsha Vidales DO; Dr. Ivet Duque MD; Dr. Fab Ramos MD; Dr. Christina Sorenson MD; Dr. Houston Lovett MD; Dr. Chirag Luther MD; Raad Alfaro; Sameer Kumar MD~ Signed [facility] Work Phone: 1(327) 934-869902-08-2023 Procedure [facility] 05-08-2022 Procedure [facility]02-08-2023 History and physical note Author Dr. Mtz [facility] May 08, 2022 4:43pm Note Date/Time May 08, 2022 3 :55pm [facility] Medical Records Department [address] [place] [id number] History & Physical Exam 05/08/22 1539 MR#: [id number] Acct: [id number] Name: LUCIANA CORDOBA Rep #:[id number] : 1995 26 From: Jocelynn TRIPP PA-C PCP: Dr. Alma Beavers MD Status:[facility] Location: [place] [address] HPI - General General Date of Service: 05/08/22 Chief Complaint: Acute appendicitis HPI Narrative LUCIANA CORDOBA, is a 26 M who presents with 3 day history of right lower quadrant abdominal pain. Patient notes nausea associated with his abdominal pain. He notes his appetite has been poor over the last 3 days due to the pain. Patient denies vomiting. He denies fever. He notes constipation. He notes he presented to the ED yesterday however his abdomen was nontender at that time on exam and patient's labs were unremarkable. Patient was discharged to home. Patient returned to the ED today noting increased abdominal pain. CT scan of the abdomen/pelvis was obtained demonstrating acute appendicitis with appendicolith.Patient is also noted to have an elevated WBC of 15.6 with a left shift. Patient's labs are also notable for hypokalemia. Patient was given 10 meq bolus in the ED. Patient denies any cardiac or pulmonary history. Patient denies any previous abdominal surgeries. He denies having any anesthesia previously. Patient notes he is a heavy alcohol drinker daily. Patient states he drinks approximately 10-12 beers daily. He notes on the weekends he smokes cigarettes while consuming alcohol. Patient states he has not been drinking for 3 days due to his onset of abdominal symptoms. Patient was concerned that his alcohol consumption contributed to his abdominal pain. Patient denies any withdraw symptoms. He notes feeling anxious about the surgery. Patient notes he is not dependent on the alcohol, he notes he just likes to have a few drinks after work. [facility] Medical History Anxiety Home Medications famotidine 20 mg tablet (Pepcid) 20 mg PO BID #28 tabs 05/07/22 [Rx Last Taken 05/08/22] bupropion HCl 150 mg 24 hr tablet, extended release 150 mg PO DAILY 05/08/22 [History Last Taken 05/08/22] ibuprofen 200 mg tablet 200 - 400 mg PO Q6H PRN Pain 05/08/22 [History Last Taken 05/08/22] Allergy/AdvReac Type Severity Reaction Status Date / Time No Known Allergies Allergy Verified 05/07/22 08:45 Social History Smoking Status: Current some day smoker tobacco type: cigarettes Smokeless tobacco user: chewing tobacco ROS Constitutional Constitutional: Reports systems reviewed and no addt'l complaints, except as documented Eyes Eyes: Reports systems reviewed and no addt'l complaints, except as documented ENT HEENT: Reports systems reviewed and no addt'l complaints, except as documented Cardiovascular Cardiovascular: Reports systems reviewed and no addt'l complaints, except as documented Respiratory/Chest Respiratory/Chest: Reports systems reviewed and no addt'l complaints, except as documented Gastrointestinal Gastrointestinal: Reports systems reviewed and no addt'l complaints, except as documented Genitourinary Genitourinary: Reports systems reviewed and no addt'l complaints, except as documented Musculoskeletal Musculoskeletal: Reports systems reviewed and no addt'l complaints, except as documented Integumentary Integumentary: Reports systems reviewed and no addt'l complaints, except as documented Neurologic Neurologic: Reports systems reviewed and no addt'l complaints, except as documented Psychiatric Psychiatric: Reports systems reviewed and no addt'l complaints, except as documented Endocrine Endocrinology: Reports systems reviewed and no addt'l complaints, except as documented Hematologic/Lymphatic Hematologic/Lymphatic: Reports systems reviewed and no addt'l complaints, exceptas documented Allergic/Immunologic Allergic/Immunologic: Reports systems reviewed and no addt'l complaints, except as documented Vital Signs Vital Signs Vital Signs: 05/08/22 10:51 Temperature 98.9 F Temperature Source Temporal Pulse Rate 109 H Respiratory Rate 17 Blood Pressure 160/89 H Blood Pressure Mean 112 Pulse Ox 96 Oxygen Delivery Method Room Air Weight Weight: 213 lb 14.4 oz Body Mass Index (BMI) 31.6 Physical Exam Const alert and oriented x3 HEENT normocephalic and head/scalp atraumatic HEENT Narrative: Red face and neck Eyes PERRL Neck full ROM Lymph Lymphatic: no lymphadenopathy noted Resp normal respiratory effort and clear to auscultation bilaterally Cardio regular rhythm Rate: tachycardic GI Inspection: central obesity Auscultation: hypoactive bowel sounds Palpation: tender RLQ, McBurney's point and Rovsing's sign and guarding no CVA tenderness Back/Spine no CVA tenderness Extremity normal to inspection Skin no rashes or lesions noted Neuro no focal motor deficits and no sensory deficits noted Psych mental status grossly normal Mood & Affect: anxious Results Lab / Micro Data Result Diagrams: 05/08/22 11:45 05/08/22 11:45 Labs: Laboratory Results - last 24 hr 05/08/22 11:45: WBC 15.6 H, RBC 5.23, Hgb 17.2 H, Hct 47.6, MCV 91.0, MCH 32.9 H, MCHC 36.1 H, RDW Std Deviation 40.4, RDW Coeff of Jett 12.3, Plt Count 222, MPV9.6, Immature Gran % (Auto) 0.400, Neut % (Auto) 89.4 H, Lymph % (Auto) 6.1 L, [place] % (Auto) 3.9, Eos % (Auto) 0.1, Baso % (Auto) 0.1, Absolute Neuts (auto) 13.9 H, Absolute Lymphs (auto) 0.96, Nucleated RBC % 0 05/08/22 11:45: Sodium 143, Potassium 2.7 L*, Chloride 113 H, Carbon Dioxide 23.0, Anion Gap 7, BUN 7, Creatinine 0.76, Estim Creat Clear Calc 144.71, Est GFR(MDRD) Af Amer 155, Est GFR (MDRD) Non-Af 128, BUN/Creatinine Ratio 9.2 L, Glucose 101, Calcium 7.2 L, Total Bilirubin 0.80, AST 12 L, ALT 30, Alkaline Phosphatase 52, Total Protein 6.3 L, Albumin 3.2, Globulin 3.1, Albumin/GlobulinRatio 1.0 05/08/22 13:20: Urine Color Yellow, Urine Clarity Clear, Urine pH 7.0, Ur Specific [place] 1.010, Urine Protein 30 H, Urine Glucose (UA) Normal, Urine Ketones Negative, Urine Occult Blood 10 H, Urine Nitrite Negative, Urine Bilirubin Negative, Urine Urobilinogen Normal, Ur Leukocyte Esterase 25 H, UrineRBC 0 SEEN, Urine WBC 0 SEEN, Ur Squamous Epith Cells 0 SEEN, Urine Bacteria 0 SEEN, Urine Mucus 0 SEEN Radiology Impression Abdomen/Pelvis CT 05/08/22 11:42 IMPRESSION: Acute appendicitis with appendicolith in the appendiceal lumen. Increased markings in the surrounding peritoneal fat in the right lower quadrant extending into the right pararenal space with inflammatory change. Small lymph nodes are also seen within the mesentery in the right lower quadrant. Electronically Signed: Maurilio Kwan MD at 14:11 EST , Assessment & Plan Assessment/Plan (1) Acute appendicitis: PLAN: Plan I am seeing this patient in conjunction with Dr. Mtz. We will plan to admit the patient for observation. Dr. Mtz will plan to perform a laparoscopic appendectomy. Procedure details, risks and benefits have been explained. Patient and his have had the opportunity to ask and have questions answered. Patient verbally understands and agrees with the plan. We will consult the hospitalist as patient is a heavy alcohol drinker and has currently ceased his alcohol 72 hours now. Patient is currently anxious and clammy. Concern for withdrawal symptoms. Appreciate hospitalist recommendations and care of this patient. Thank you for allowing us to participate in this patient's care. Charges/Coding Visit Charges Inpatient E&M: 49929 Init Hosp L2 05/08/22 1608 <Electronically signed by Jocelynn TRIPP PA-C> Cosigner Signature (if applicable): CC: MALVIN Gonzalez; Dr. Alma Beavers MD; Dr. Ben Mtz MD~ Signed ADDENDUM by Dr. Ben Mtz MD on 05/08/22 at 1643 Addendum Patient seen and evaluated following Mrs. Gonzalez's evaluation documented above. Agree with her history as given. This is a 26-year-old male with a history of heavy alcohol use who presents with 48 hours of GI symptoms that havelocalized to the right lower quadrant. CT imaging confirms appendicitis with a appendicolith but no signs of complicated appendicitis my exam also confirms this diagnosis with a positive Rovsing and positive psoas sign. Recommended proceeding to the operating room for emergent laparoscopic appendectomy. Procedure description detailed and post procedure expectations outlined. Given the later hour and patient's risk for alcohol withdrawal, have recommended admission for observational stay. IV antibiotics initiated by ER. Emergency medicine also began repletion of hypokalemia with 2 x 10 mEq boluses of potassium chloride. Plan to recheck BMP following infusion 05/08/22 164<Electronically signed by Ben Mtz MD> Cosigner Signature (if applicable): cc: MALVIN Gonzalez; Dr. Alma Beavers MD; Dr. Ben Mtz MD ~* Signed [facility] Work Phone: 1(543) 794-585802-08-[address] Barker [facility] May 08, 2022 4:08pm Note Date/Time May 08, 2022 1 1:42am [facility] Medical Records Department [address] [place] [address] Emergency Department Summary 05/08/22 MR#: [id number] Acct: [id number] Name: LUCIANA CORDOBA Rep #:[id number] : 1995 26 From: Pepe Howard PCP: Dr. Alma Beavers MD Status:REG [facility] Location: [facility] AC-TB A-1 HPI HPI - GI History of Present Illness Chief Complaint: Abd Pain Informant: patient Abdominal Pain/Flank Pain Onset: Days (3) Context: Gradual Onset Timing: Continuous Quality: Burning Location: RLQ Worsened by: Movement Relieved by: Nothing Nausea/Vomiting/Emesis GI Symptom: Positive for Nausea; Negative for Vomiting Diarrhea/Melena/Hematochezia GI Symptom: Positive for Diarrhea; Negative for Melena or Hematochezia Associated Symptoms Associated Symptoms: Negative for Dysuria, Frequency or Hematuria Narrative Narrative: Patient presents with abdominal pain that became worse today. Patient states that it is gradually gotten worse over the last 3 days. Patient states he was seen here yesterday but states yesterday his pain was over his entire lower abdomen. Patient describes his pain as burning. Patient states today is localized to the right lower abdomen. Patient states it is worse with movement. Patient admits to nausea decreased appetite. Patient admits to diarrhea but denies any melena or hematochezia. Patient denies any vomiting. Patient deniesany dysuria or hematuria or frequency. Patient denies any fevers or chills. PFSH PFS Medical History Anxiety Home Medications famotidine 20 mg tablet (Pepcid) 20 mg PO BID #28 tabs 05/07/22 [Rx Last Taken 05/08/22] bupropion HCl 150 mg 24 hr tablet, extended release 150 mg PO DAILY 05/08/22 [History Last Taken 05/08/22] ibuprofen 200 mg tablet 200 - 400 mg PO Q6H PRN Pain 05/08/22 [History Last Taken 05/08/22] Allergy/AdvReac Type Severity Reaction Status Date / Time No Known Allergies Allergy Verified 05/07/22 08:45 Social History Smoking Status: Current some day smoker tobacco type: cigarettes Smokeless tobacco user: chewing tobacco ROS ROS ED Constitutional Constitutional ED: Denies chills or fever(s) Eyes Eyes: Denies blurry vision or change in vision ENT ENT ED: Denies rhinorrhea or sore throat Cardiovascular Cardiovascular: Denies chest pain or palpitations Respiratory/Chest Respiratory/Chest: Denies cough or dyspnea Gastrointestinal Gastrointestinal: Reports abdominal pain, diarrhea and nausea; Denies vomiting Genitourinary Genitourinary ED: Denies dysuria or hematuria Musculoskeletal Musculoskeletal: Denies back pain or neck pain Integumentary Denies abscess or rash Neurologic Neurologic: Denies headache(s) or weakness Allergic/Immunologic Allergic/Immunologic ED: Denies mouth swelling or urticaria EXAM Physical Exam Const Vital Signs: 05/08/22 10:51 Temperature 98.9 F Temperature Source Temporal Pulse Rate 109 H Respiratory Rate 17 Blood Pressure 160/89 H Blood Pressure Mean 112 Pulse Ox 96 Oxygen Delivery Method Room Air Positive well nourished, well developed and obese General Appearance ED: well developed and NAD Nutritional Appearance: obese HEENT Reports moist mucous membranes Neck supple and no JVD Resp normal respiratory effort and clear to auscultation bilaterally Cardio regular rate, regular rhythm and no murmurs GI normal to inspection, nondistended, normoactive bowel sounds Palpation: soft and tender RLQ and Rovsing's sign; Negative for guarding or rebound tenderness present Extremity normal to inspection General Extremety ED: Negative for edema or tenderness General Extremity: Negative for edema Neuro oriented x3, CN's II-XII intact bilaterally and no sensory deficits noted Sensorium / Orientation: alert Motor Exam: strength 5/5 throughout Psych mental status grossly normal Mood & Affect: anxious Skin no rashes or lesions noted MDM MDM MDM Narrative Medical decision making narrative: Differential diagnosis includes appendicitis, gastroenteritis, ureteral calculus, urinary tract infection, pyelonephritis, enteritis, colitis, and mesenteric adenitis. CBC will be obtained to assess for leukocytosis and anemia. Comprehensive metabolic profile will be obtained to assess for hepatic function, renal function, and electrolyte abnormality. Urinalysis will be obtained to assess for urinary tract infection and hematuria. CT scan of the abdomen pelvis will be obtained to assess for appendicitis, colitis, mesenteric adenitis, perforation, and enteritis. Lab Data Lab results narrative: CBC was reviewed. There is a leukocytosis of 15.6. Platelets are normal. Comprehensive metabolic profile was reviewed. There is a hypokalemia of 2.7. The remainder was within normal limits. Urinalysis was reviewed and does not show any evidence of urinary tract infection or hematuria. Labs: Laboratory Results - last 24 hr 05/08/22 05/08/22 05/08/22 11:45 11:45 13:20 WBC 15.6 H RBC 5.23 Hgb 17.2 H Hct 47.6 MCV 91.0 MCH 32.9 H MCHC 36.1 H RDW Std Deviation 40.4 RDW Coeff of Jett 12.3 Plt Count 222 MPV 9.6 Immature Gran % (Auto) 0.400 Neut % (Auto) 89.4 H Lymph % (Auto) 6.1 L [place] % (Auto) 3.9 Eos % (Auto) 0.1 Baso % (Auto) 0.1 Absolute Neuts (auto) 13.9 H Absolute Lymphs (auto) 0.96 Nucleated RBC % 0 Sodium 143 Potassium 2.7 L* Chloride 113 H Carbon Dioxide 23.0 Anion Gap 7 BUN 7 Creatinine 0.76 Estim Creat Clear Calc 144.71 Est GFR (MDRD) Af Amer 155 Est GFR (MDRD) Non-Af 128 BUN/Creatinine Ratio 9.2 L Glucose 101 Calcium 7.2 L Total Bilirubin 0.80 AST 12 L ALT 30 Alkaline Phosphatase 52 Total Protein 6.3 L Albumin 3.2 Globulin 3.1 Albumin/Globulin Ratio 1.0 Urine Color Yellow Urine Clarity Clear Urine pH 7.0 Ur Specific [place] 1.010 Urine Protein 30 H Urine Glucose (UA) Normal Urine Ketones Negative Urine Occult Blood 10 H Urine Nitrite Negative Urine Bilirubin Negative Urine Urobilinogen Normal Ur Leukocyte Esterase 25 H Urine RBC 0 SEEN Urine WBC 0 SEEN Ur Squamous Epith Cells 0 SEEN Urine Bacteria 0 SEEN Urine Mucus 0 SEEN Radiography Diagnostic Testing: Clinical Impression(s) from Imaging Studies Abdomen/Pelvis CT 05/08/22 11:42 IMPRESSION: Acute appendicitis with appendicolith in the appendiceal lumen. Increased markings in the surrounding peritoneal fat in the right lower quadrant extending into the right pararenal space with inflammatory change. Small lymph nodes are also seen within the mesentery in the right lower quadrant. Electronically Signed: Maurilio Kwan MD at 14:11 EST , CT scan of the abdomen pelvis was reviewed independently by myself. There is evidence of appendicitis with an appendicolith. There is no perforation or obstruction. Radiologist also interpreted the CT scan and agrees that there is appendicitis with an appendicolith. There are small lymph nodes noted in the mesentery of the right lower quadrant as well. Treatment and Re-Evaluation Narrative: Patient was given IV fluids, morphine, and Zofran. Patient was given a dose of IV potassium. Patient was started on Zosyn. Patient was advised of his findings of appendicitis. Patient was advised of the need for surgery. Patientis agreeable with admission for surgery. [facility] He will admit the patient to his service. He also asked to consult the hospitalist because patient reported to his physician executive staff assistant thathe drinks 8 beers per day. Previously to me, he only stated that he drank occasionally. Case was discussed with the hospitalist. She will see the patient in consultation. Patient understands and is agreeable with the plan. All questions were answered. Discharge Plan Dx/Rx/DC Orders Clinical Impression: Acute appendicitis, Right lower quadrant abdominal pain, Hypokalemia Disposition Disposition: Acute Care Hospital [facility] What to do if you have Problems For any increased pain, shortness of breath, bleeding, nausea or vomiting, chestpain, or any unexpected problems, contact your Primary Care Provider. Call [facility] ([phone]) or report to the closest Emergency Room. Call 911 if necessary. 05/08/22 1608 <Electronically signed by Pepe Barker DO> Cosigner Signature (if applicable): CC: Dr. Alma Beavers MD ~ Signed [facility] Work Phone: 1(114) 289-696402-08-[address] Barker [facility] May 08, 2022 4:08pm Note Date/Time May 08, 2022 1 1:42am [facility] Medical Records Department [address] [place] [address] Emergency Department Summary 05/08/22 MR#: [id number] Acct: [id number] Name: LUCIANA CORDOBA Rep #:[id number] : 1995 26 From: Pepe Howard PCP: Dr. Alma Beavers MD Status:[facility] Location: [facility] AC-TB A-1 HPI HPI - GI History of Present Illness Chief Complaint: Abd Pain Informant: patient Abdominal Pain/Flank Pain Onset: Days (3) Context: Gradual Onset Timing: Continuous Quality: Burning Location: RLQ Worsened by: Movement Relieved by: Nothing Nausea/Vomiting/Emesis GI Symptom: Positive for Nausea; Negative for Vomiting Diarrhea/Melena/Hematochezia GI Symptom: Positive for Diarrhea; Negative for Melena or Hematochezia Associated Symptoms Associated Symptoms: Negative for Dysuria, Frequency or Hematuria Narrative Narrative: Patient presents with abdominal pain that became worse today. Patient states that it is gradually gotten worse over the last 3 days. Patient states he was seen here yesterday but states yesterday his pain was over his entire lower abdomen. Patient describes his pain as burning. Patient states today is localized to the right lower abdomen. Patient states it is worse with movement. Patient admits to nausea decreased appetite. Patient admits to diarrhea but denies any melena or hematochezia. Patient denies any vomiting. Patient deniesany dysuria or hematuria or frequency. Patient denies any fevers or chills. PFSH PFS Medical History Anxiety Home Medications famotidine 20 mg tablet (Pepcid) 20 mg PO BID #28 tabs 05/07/22 [Rx Last Taken 05/08/22] bupropion HCl 150 mg 24 hr tablet, extended release 150 mg PO DAILY 05/08/22 [History Last Taken 05/08/22] ibuprofen 200 mg tablet 200 - 400 mg PO Q6H PRN Pain 05/08/22 [History Last Taken 05/08/22] Allergy/AdvReac Type Severity Reaction Status Date / Time No Known Allergies Allergy Verified 05/07/22 08:45 Social History Smoking Status: Current some day smoker tobacco type: cigarettes Smokeless tobacco user: chewing tobacco ROS ROS ED Constitutional Constitutional ED: Denies chills or fever(s) Eyes Eyes: Denies blurry vision or change in vision ENT ENT ED: Denies rhinorrhea or sore throat Cardiovascular Cardiovascular: Denies chest pain or palpitations Respiratory/Chest Respiratory/Chest: Denies cough or dyspnea Gastrointestinal Gastrointestinal: Reports abdominal pain, diarrhea and nausea; Denies vomiting Genitourinary Genitourinary ED: Denies dysuria or hematuria Musculoskeletal Musculoskeletal: Denies back pain or neck pain Integumentary Denies abscess or rash Neurologic Neurologic: Denies headache(s) or weakness Allergic/Immunologic Allergic/Immunologic ED: Denies mouth swelling or urticaria EXAM Physical Exam Const Vital Signs: 05/08/22 10:51 Temperature 98.9 F Temperature Source Temporal Pulse Rate 109 H Respiratory Rate 17 Blood Pressure 160/89 H Blood Pressure Mean 112 Pulse Ox 96 Oxygen Delivery Method Room Air Positive well nourished, well developed and obese General Appearance ED: well developed and NAD Nutritional Appearance: obese HEENT Reports moist mucous membranes Neck supple and no JVD Resp normal respiratory effort and clear to auscultation bilaterally Cardio regular rate, regular rhythm and no murmurs GI normal to inspection, nondistended, normoactive bowel sounds Palpation: soft and tender RLQ and Rovsing's sign; Negative for guarding or rebound tenderness present Extremity normal to inspection General Extremety ED: Negative for edema or tenderness General Extremity: Negative for edema Neuro oriented x3, CN's II-XII intact bilaterally and no sensory deficits noted Sensorium / Orientation: alert Motor Exam: strength 5/5 throughout Psych mental status grossly normal Mood & Affect: anxious Skin no rashes or lesions noted MDM MDM MDM Narrative Medical decision making narrative: Differential diagnosis includes appendicitis, gastroenteritis, ureteral calculus, urinary tract infection, pyelonephritis, enteritis, colitis, and mesenteric adenitis. CBC will be obtained to assess for leukocytosis and anemia. Comprehensive metabolic profile will be obtained to assess for hepatic function, renal function, and electrolyte abnormality. Urinalysis will be obtained to assess for urinary tract infection and hematuria. CT scan of the abdomen pelvis will be obtained to assess for appendicitis, colitis, mesenteric adenitis, perforation, and enteritis. Lab Data Lab results narrative: CBC was reviewed. There is a leukocytosis of 15.6. Platelets are normal. Comprehensive metabolic profile was reviewed. There is a hypokalemia of 2.7. The remainder was within normal limits. Urinalysis was reviewed and does not show any evidence of urinary tract infection or hematuria. Labs: Laboratory Results - last 24 hr 05/08/22 05/08/22 05/08/22 11:45 11:45 13:20 WBC 15.6 H RBC 5.23 Hgb 17.2 H Hct 47.6 MCV 91.0 MCH 32.9 H MCHC 36.1 H RDW Std Deviation 40.4 RDW Coeff of Jett 12.3 Plt Count 222 MPV 9.6 Immature Gran % (Auto) 0.400 Neut % (Auto) 89.4 H Lymph % (Auto) 6.1 L [place] % (Auto) 3.9 Eos % (Auto) 0.1 Baso % (Auto) 0.1 Absolute Neuts (auto) 13.9 H Absolute Lymphs (auto) 0.96 Nucleated RBC % 0 Sodium 143 Potassium 2.7 L* Chloride 113 H Carbon Dioxide 23.0 Anion Gap 7 BUN 7 Creatinine 0.76 Estim Creat Clear Calc 144.71 Est GFR (MDRD) Af Amer 155 Est GFR (MDRD) Non-Af 128 BUN/Creatinine Ratio 9.2 L Glucose 101 Calcium 7.2 L Total Bilirubin 0.80 AST 12 L ALT 30 Alkaline Phosphatase 52 Total Protein 6.3 L Albumin 3.2 Globulin 3.1 Albumin/Globulin Ratio 1.0 Urine Color Yellow Urine Clarity Clear Urine pH 7.0 Ur Specific [place] 1.010 Urine Protein 30 H Urine Glucose (UA) Normal Urine Ketones Negative Urine Occult Blood 10 H Urine Nitrite Negative Urine Bilirubin Negative Urine Urobilinogen Normal Ur Leukocyte Esterase 25 H Urine RBC 0 SEEN Urine WBC 0 SEEN Ur Squamous Epith Cells 0 SEEN Urine Bacteria 0 SEEN Urine Mucus 0 SEEN Radiography Diagnostic Testing: Clinical Impression(s) from Imaging Studies Abdomen/Pelvis CT 05/08/22 11:42 IMPRESSION: Acute appendicitis with appendicolith in the appendiceal lumen. Increased markings in the surrounding peritoneal fat in the right lower quadrant extending into the right pararenal space with inflammatory change. Small lymph nodes are also seen within the mesentery in the right lower quadrant. Electronically Signed: Maurilio Kwan MD at 14:11 EST , CT scan of the abdomen pelvis was reviewed independently by myself. There is evidence of appendicitis with an appendicolith. There is no perforation or obstruction. Radiologist also interpreted the CT scan and agrees that there is appendicitis with an appendicolith. There are small lymph nodes noted in the mesentery of the right lower quadrant as well. Treatment and Re-Evaluation Narrative: Patient was given IV fluids, morphine, and Zofran. Patient was given a dose of IV potassium. Patient was started on Zosyn. Patient was advised of his findings of appendicitis. Patient was advised of the need for surgery. Patientis agreeable with admission for surgery. [facility] He will admit the patient to his service. He also asked to consult the hospitalist because patient reported to his physician executive staff assistant thathe drinks 8 beers per day. Previously to me, he only stated that he drank occasionally. Case was discussed with the hospitalist. She will see the patient in consultation. Patient understands and is agreeable with the plan. All questions were answered. Discharge Plan Dx/Rx/DC Orders Clinical Impression: Acute appendicitis, Right lower quadrant abdominal pain, Hypokalemia Disposition Disposition: [facility] Care [place] [facility] What to do if you have Problems For any increased pain, shortness of breath, bleeding, nausea or vomiting, chestpain, or any unexpected problems, contact your Primary Care Provider. Call [facility] ([phone]) or report to the closest Emergency Room. Call 911 if necessary. 05/08/22 1608 <Electronically signed by Pepe Barker DO> Cosigner Signature (if applicable): CC: Dr. Alma Beavers MD ~ Signed [facility] Work Phone: [phone] [phone] History of Present illness Narrative* Alexa Aden RT(R) - 08/24/2020 4:30 PM EDT Radiology Service Progress Note PATIENT NAME: Luciana Cordoba DATE OF SERVICE: August 24, 2020 TIME: 4:22 PM PATIENT IDENTITY VERIFICATION COMPLETED USING TWO (2) IDENTIFIERS: Name and Date of confirmedby patient verbally. FALL SCREENING: Has the patient had 2 falls in the last year or 1 fall with injury or currently using an Ambulatory Assistive Device (Walker, Cane, Wheelchair, Crutches, etc.)? No PATIENT GENDER DATA: Male PATIENT RELEVANT IMPLANT DATA REVIEWED: Yes RADIOLOGY DEPARTMENT: General X-ray: Exam(s) Completed: Chest X-Ray PERIPHERAL IV DATA: Not applicable SIGNED BY: RT Isac(Zoraida) August 24, 2020 4:22 PM [facility] Author Dr. Lambert [facility] May 08, 2022 8:51pm Note Date/Time May 08, 2022 4 :13pm [facility] Medical Records Department [address] [place] [address] Consultation - Hospitalist 05/08/22 1613 MR#: [id number] Acct: [id number] Name: LUCIANA CORDOBA Rep #:[id number] : 1995 26 From: Hailey Lambert MD PCP: Dr. Alma Beavers MD Status:ADM MANDA Location: [place] [address] Assessment & Plan Assessment/Plan (1) Acute appendicitis: (2) No history of previous surgery: PLAN: Plan The patient is a 26 y/o M w/ PMHx: Anxiety, Tobacco use (2 packs/week, primarilySat/Sun), EtOH abuse (8 beers, 12 ounces each daily) who presents to the [facility] ED on 05/08/22 with history of persistent right lower quadrant progressively worsening abdominal pain x3 days with associated nausea with decreased appetite with no specific recent fevers or chills however did have onset of fevers while in the emergency room reporting pain severe and sharp in the right lower quadrant, 10 out of 10 in severity currently, worse with any movement or palpation. #1. Acute appendicitis: Patient will be admitted per primary service, noted plan transition from ED to OR for appendectomy per Dr. Mtz, currently n.p.o. status on IV fluids with continued IV Zosyn therapy, as needed oral and IV pain regimen per primary service discretion, as needed antiemetics. #2. Elevated BP without hypertensive diagnosis: Potentially secondary to acute presentation as noted #1 with acute pain, continue to monitor and if despite alleviation of pain ongoing elevated blood pressure may necessitate oral regimen, as needed IV hydralazine in interim. #3. Hypokalemia, hypomagnesia, hypophosphatemia: Admission potassium 2.7, magnesium obtained and noted to be 1.6 as well as Phos 1.3, supplementation administered, repeat BMP with improvement with potassium 3.6, will repeat those in the morning. #4. EtOH Abuse: Patient notes routine consumption of approximately 8 beers per day. He notes his last intake was 3 days prior to current presentation he denies any withdrawal symptoms. He states he can go days at a time without alcohol and does not have any withdrawal symptoms during those episodes either. Will maintain on CIWA protocol, MVI, thiamine and folic acid to be cautious. Magand Phos levels obtained as noted and supplementation administered. Case management consulted for substance abuse assistance. #5. Tobacco Abuse: Encouraged cessation, inpatient consultation per RT, NR if desired. #6. DVT prophylaxis: SCDs/chemoprophylaxis all per surgery discretion given planned OR. Admission Evaluation Time spent evaluating chart, patient history, patient evaluation, care planning and discussion with specialists: 60 minutes. HPI Consult Data Date of Consult: 05/08/22 HPI Narrative Reason for Consultation: Medical management HPI Narrative: The patient is a 26 y/o M w/ PMHx: Anxiety, Tobacco use (2 packs/week, primarilySat/Sun), EtOH abuse (8 beers, 12 ounces each daily) who presents to the [facility] ED on 05/08/22 with history of persistent right lower quadrant progressively worsening abdominal pain x3 days with associated nausea with decreased appetite with no specific recent fevers or chills however did have onset of fevers while in the emergency room reporting pain severe and sharp in the right lower quadrant, 10 out of 10 in severity currently, worse with any movement or palpation. [place] report that his last alcohol consumption was approximately 3 days prior to his current presentation secondary to his abdominal discomfort ongoing. Work-up in the ED included initially 98.9 however patient quickly became febrile with T103.2, heart rate 109, BP 160/89, respiratory rate 17, 96% on room air, CBC with WBC 15.6, hemoglobin 17.2, platelet 222 with left shift, CMP with sodium 143, potassium 2.7, chloride 113, glucose 101 hepatic profile not marked appearing, CT abdomen and pelvis with acute appendicitis with appendicolith in the appendiceal lumen with increased markings in the surrounding peritoneal fat in the right lower quadrant extending into the right pararenal space with inflammatory change, small lymph nodes also seen within the mesentery in the right lower quadrant. In the ED patient ministered normal saline 1 L bolus, IV Zosyn, IV Zofran and morphine. ED physician discussed case with general surgerywho planned admission with transition from ED to OR with requested hospitalist consultation given concern for patient's alcohol abuse. PFSH Medical History Alcohol abuse Anxiety Tobacco use Home Medications famotidine 20 mg tablet (Pepcid) 20 mg PO BID #28 tabs 05/07/22 [Rx Last Taken 05/08/22] bupropion HCl 150 mg 24 hr tablet, extended release 150 mg PO DAILY 05/08/22 [History Last Taken 05/08/22] ibuprofen 200 mg tablet 200 - 400 mg PO Q6H PRN Pain 05/08/22 [History Last Taken 05/08/22] Allergy/AdvReac Type Severity Reaction Status Date / Time No Known Allergies Allergy Verified 05/07/22 08:45 Family History (Updated 05/08/22 @ 20:[address] Hailey Lambert MD) Mother Breast cancer Father Hypertension Surgical History No history of previous surgery Social History (Updated 05/08/22 @ 20:[address] Hailey Lambert MD) household members: significant other Smoking Status: Current some day smoker tobacco type: cigarettes Smokeless tobacco user: chewing tobacco and other alcohol intake: current alcohol intake frequency: 3 or more drinks per day details: Drinks 8-10, 12 ounces beers daily. substance use type: does not use ROS ROS Narrative Admission Review of Systems: CONSTITUTIONAL: No weight loss, fever, chills, + weakness or fatigue although does have onset then of fever while in the ED. HEENT: Eyes: No visual loss, blurred vision, double vision or yellow sclerae. Ears, Nose, Throat: No hearing loss, sneezing, congestion, runny nose or sore throat. SKIN: No rash or itching, lesions, wounds. CARDIOVASCULAR: No chest pain, chest pressure or chest discomfort, palpitations,edema, orthopnea, syncopal events. RESPIRATORY: No shortness of breath, cough or sputum, wheezing, hemoptysis. GASTROINTESTINAL: + anorexia, nausea without vomiting, abdominal pain, No diarrhea, melena, BRBPR. GENITOURINARY: No dysuria, frequency, urgency or retention. NEUROLOGICAL: No headache, dizziness, syncope, paralysis, ataxia, numbness or tingling in the extremities, focal weakness, change in bowel or bladder control,seizure. MUSCULOSKELETAL: + muscle, back pain, joint pain or stiffness. HEMATOLOGIC: No anemia, bleeding or bruising. LYMPHATICS: No enlarged nodes. No history of splenectomy. PSYCHIATRIC: + history of depression or anxiety. ENDOCRINOLOGIC: No reports of sweating, cold or heat intolerance. No polyuria orpolydipsia. ALLERGIES: No history of asthma, hives, eczema or rhinitis. Physical Exam Narrative Physical Examination: General: Awake, alert, oriented x 3 and cooperative, seated upright in the ED bed, significantly uncomfortable appearing, ill-appearing. Skin: Flushed color, normal turgor, no icterus, no cyanosis. HEENT: AT/NC, EOMI, PERRLA, dry MM, no carotid bruits or JVD noted. Lungs: Diminished, mildly decreased bases, mildly increased respiratory rate butno distress, no rales, ronchi or wheezing. Heart: Tachycardic with regular rhythm; no gallop, rub audible. Abdomen: Soft, significant right lower quadrant discomfort with palpation with rebound and guarding, no obvious distention, distant bowel sounds, unable to discern HSM given severity of pain with palpation. Extremities: No cyanosis, clubbing, or edema. Neurological: Patient awake, alert, oriented as noted, cognitive function intact; pupils equally reactive to light and accommodation, cranial nerves II-XII grossly normal, moving all 4 extremities, no focal deficits, strength severely impaired given acute presentation with infection. Psychiatric: Affect appears uncomfortable, ill-appearing, no acute evidence of depressive or anxiety feelings. Lab / Micro Data Result Diagrams: 05/08/22 11:45 05/08/22 16:34 Labs: Laboratory Results - last 24 hr 05/08/22 11:45: WBC 15.6 H, RBC 5.23, Hgb 17.2 H, Hct 47.6, MCV 91.0, MCH 32.9 H, MCHC 36.1 H, RDW Std Deviation 40.4, RDW Coeff of Jett 12.3, Plt Count 222, MPV9.6, Immature Gran % (Auto) 0.400, Neut % (Auto) 89.4 H, Lymph % (Auto) 6.1 L, [place] % (Auto) 3.9, Eos % (Auto) 0.1, Baso % (Auto) 0.1, Absolute Neuts (auto) 13.9 H, Absolute Lymphs (auto) 0.96, Nucleated RBC % 0 05/08/22 11:45: Sodium 143, Potassium 2.7 L*, Chloride 113 H, Carbon Dioxide 23.0, Anion Gap 7, BUN 7, Creatinine 0.76, Estim Creat Clear Calc 144.71, Est GFR (MDRD) Af Amer 155, Est GFR (MDRD) Non-Af 128, BUN/Creatinine Ratio 9.2 L, Glucose 101, Calcium 7.2 L, Total Bilirubin 0.80, AST 12 L, ALT 30, Alkaline Phosphatase 52, Total Protein 6.3 L, Albumin 3.2, Globulin 3.1, Albumin/GlobulinRatio 1.0 05/08/22 13:20: Urine Color Yellow, Urine Clarity Clear, Urine pH 7.0, Ur Specific [place] 1.010, Urine Protein 30 H, Urine Glucose (UA) Normal, Urine Ketones Negative, Urine Occult Blood 10 H, Urine Nitrite Negative, Urine Bilirubin Negative, Urine Urobilinogen Normal, Ur Leukocyte Esterase 25 H, UrineRBC 0 SEEN, Urine WBC 0 SEEN, Ur Squamous Epith Cells 0 SEEN, Urine Bacteria 0 SEEN, Urine Mucus 0 SEEN Radiology Impression Abdomen/Pelvis CT 05/08/22 11:42 IMPRESSION: Acute appendicitis with appendicolith in the appendiceal lumen. Increased markings in the surrounding peritoneal fat in the right lower quadrant extending into the right pararenal space with inflammatory change. Small lymph nodes are also seen within the mesentery in the right lower quadrant. Electronically Signed: Maurilio Kwan MD at 14:11 EST , Charges/Coding Visit Charges Office Visits / Consults: [id number] IP Consult L3 05/08/222050 <Electronically signed by Hailey Lambert MD> Cosigner Signature (if applicable): CC: LAUNDRY SUPERVISORBao Tilley; Severiano Sandy MD; Dr. Laura Gonzalez MD; Dr. Laura Madera MD; Dr. Hailey Lambert MD; Dr. Jered Cormier MD; Dr. Pepe Zepeda DO; Dr. Alma Beavers MD; Dr. Martina Cherry MD; Dr. Lion Fish DO; Dr. Josesito Escobar MD; Dr. Marline Shin DO; Dr. Andrea Nassar DO; Dr. Marsha Vidales DO; Dr. Ivet Duque MD; Dr. Fab Ramos MD; Dr. Christina Sorenson MD; Dr. Houston Lovett MD; Dr. Chirag Luther MD; Raad Alfaro; Sameer Kumar MD~ Signed [facility] Work Phone: Discharge summary Author [facility] May 07, 2022 11:01am Note Date/Time May 07, 2022 9 :15am [facility] Medical Records Department [address] [place] [address] Emergency Department Summary 05/07/22 MR#: [id number] Acct: [id number] Name: LUCIANA CORDOBA Rep #:[id number] : 1995 26 From: Iliana Howard PCP: Dr. Alma Beavers MD Status:REG ER Location: ED HPI HPI - GI History of Present Illness Chief Complaint: Abd Pain Informant: patient Narrative Narrative: Patient is a 26-year-old male with history of heavy alcohol use (drinks 8-12 which lights a day) and gallbladder/pancreas issues presenting with lower abdominal pain. Patient states he ate [employer] around noon yesterday for lunch. He states his stomach felt bad after that. Around 6 PM he started having diarrhea. He had 1 episode of pretty bad diarrhea and thought maybe there is some small flecks of black in his stool. He since had some small but formed bowel movements. He has burning in his lower abdomen diffusely. He states whenhe woke up this morning and drink water the burning got better. He went to urgent care where they wanted him to be evaluated for that the ER. He was told he had blood in his urine at the urgent care. Denies associated urinary symptoms or back pain. Denies any fever but did have cold sweats. Notes currently he is just very anxious about being in the ER and feels nauseous secondary to being so anxious. He states he is afraid of needles as he passed out once when he had an IV. He notes his pain is improving currently. No othercomplaints at this time. PFSH PFSH Home Medications naproxen 500 mg tablet 500 mg PO BID PRN #20 tabs 06/02/15 [Rx Last Taken Unknown] oxycodone-acetaminophen 5 mg-325 mg tablet 1 - 2 tab PO Q4H PRN PRN Pain #20 tabs 06/02/15 [Rx Last Taken Unknown] azithromycin 250 mg tablet (Zithromax Z-Karel) See Rx Instructions PO .COMPLEX #6 tabs 12/23/20 [Rx Last Taken Unknown] prednisone 10 mg tablet 10 mg PO .COMPLEX #30 tabs 12/23/20 [Rx Last Taken Unknown] famotidine 20 mg tablet (Pepcid) 20 mg PO BID #28 tabs 05/07/22 [Rx Last Taken Unknown] Allergy/AdvReac Type Severity Reaction Status Date / Time No Known Allergies Allergy Verified 05/07/22 08:45 Social History Smoking Status: Unknown if ever smoked Smokeless tobacco user: chewing tobacco ROS ROS ED Constitutional Constitutional ED: Reports sweats; Denies chills or fever(s) Cardiovascular Cardiovascular: Denies chest pain Respiratory/Chest Respiratory/Chest: Denies cough Gastrointestinal Gastrointestinal: Reports abdominal pain, diarrhea and nausea; Denies melena or vomiting Genitourinary Genitourinary ED: Denies dysuria, hematuria or urinary frequency Musculoskeletal Musculoskeletal: Denies arthralgias, back pain or myalgias Integumentary Denies rash Neurologic Neurologic: Denies headache(s) or weakness Psychiatric Psychiatric: Reports anxiety; Denies depression Hematologic/Lymphatic Hematologic/Lymphatic: Denies easy bleeding or easy bruising EXAM Physical Exam Const Vital Signs: 05/07/22 08:43 Temperature 97.2 F L Temperature Source Temporal Pulse Rate 86 Respiratory Rate 14 Blood Pressure 167/95 H Blood Pressure Mean 119 Pulse Ox 97 Oxygen Delivery Method Room Air Positive well nourished and well developed General Appearance ED: well developed and NAD; Negative for pallor HEENT Reports dry mucous membranes Mouth ED: Yes dry mucous membranes Mouth: dry mucous membranes Eyes PERRL and EOMs intact bilaterally Neck supple Resp normal respiratory effort and clear to auscultation bilaterally Cardio regular rate, regular rhythm and no murmurs GI non-tender and non-distended Inspection: Negative for abdominal distention Auscultation: hyperactive bowel sounds Palpation: soft; Negative for guarding, rigid, pulsatile mass or rebound tenderness present Back/Spine no CVA tenderness Extremity full ROM General Extremety ED: Negative for edema General Extremity: Negative for edema Neuro moves all extremities Sensorium / Orientation: alert, oriented to person, oriented to place and oriented to time Psych mental status grossly normal and thought process normal Mood & Affect: anxious Skin no wounds General Skin Exam: Negative for jaundice or pallor MDM MDM MDM Narrative Medical decision making narrative: Patient is evaluated for lower abdominal discomfort that been going on for a little over 12 hours. He is quite anxious but otherwise peers nontoxic. Abdominal exam is pretty benign. He describes a burning lower abdominal pain. Urinalysis is largely normal and not consistent with infection or hematuria. Patient does not appear dehydrated based on his specific gravity 1.005, lack ofketones and normal kidney function. He has a slightly elevated hemoglobin of 17.9 but this appears to be patient's baseline. Patient does not have any significant electrolyte abnormalities. Patient counseled that given his benign abdominal exam, lack of fever, normal labs and normal vital signs I do not thinkhe requires further emergent evaluation including CT imaging. He is comfortablewith this. Patient is counseled the importance of abstaining from alcohol, following with a primary care doctor and given his anxiety discussed follow-up with the counseling center. He is also given information for 180 for his alcohol use. At this time patient does not appear to be having any signs of active alcohol withdrawal and I do not think requires medical admission for detox. Patient is given return precautions. Discharged home in stable condition. Lab Data Attestation: I reviewed the patient's lab results. Labs: Laboratory Results - last 24 hr 05/07/22 05/07/22 05/07/22 09:45 09:53 09:53 WBC 10.9 RBC 5.44 Hgb 17.9 H Hct 49.3 MCV 90.6 MCH 32.9 H MCHC 36.3 H RDW Std Deviation 39.7 RDW Coeff of Jett 12.1 Plt Count 234 MPV 9.6 Immature Gran % (Auto) 0.500 Neut % (Auto) 82.7 H Lymph % (Auto) 12.2 L [place] % (Auto) 3.5 Eos % (Auto) 0.5 Baso % (Auto) 0.6 Absolute Neuts (auto) 9.0 H Absolute Lymphs (auto) 1.32 Nucleated RBC % 0 Sodium 138 Potassium 4.1 Chloride 106 Carbon Dioxide 24.0 Anion Gap 8 BUN 12 Creatinine 1.10 Estim Creat Clear Calc 99.98 Est GFR (MDRD) Af Amer 102 Est GFR (MDRD) Non-Af 84 BUN/Creatinine Ratio 10.9 Glucose 128 H Calcium 9.9 Total Bilirubin 0.70 AST 36 ALT 57 Alkaline Phosphatase 71 Total Protein 8.7 H Albumin 4.6 Globulin 4.1 Albumin/Globulin Ratio 1.1 Lipase 114 Urine Color Yellow Urine Clarity Clear Urine pH 6.0 Ur Specific [place] 1.005 Urine Protein Negative Urine Glucose (UA) Normal Urine Ketones Negative Urine Occult Blood Negative Urine Nitrite Negative Urine Bilirubin Negative Urine Urobilinogen Normal Ur Leukocyte Esterase Negative Urine RBC 0 SEEN Urine WBC 0 SEEN Ur Squamous Epith Cells 0 SEEN Urine Bacteria 0 SEEN Urine Mucus 0 SEEN Discharge Plan Triage Chief Complaint: Abd Pain ED Provider: Iliana Nixon Dx/Rx/DC Orders Clinical Impression: Lower abdominal pain Instructions: ED Abdominal Pain Unkn Cause Male... Prescriptions: New famotidine [Pepcid] 20 mg tablet 20 mg PO BID Qty: 28 0RF No Action azithromycin [Zithromax Z-Karel] 250 mg tablet See Rx Instructions PO .COMPLEX Qty: 6 0RF Rx Instructions: take 500 mg today (day 1), then 250 mg for 4 days (days 2-5) PO prednisone 10 mg tablet 10 mg PO .COMPLEX Qty: 30 0RF Rx Instructions: Take 4 pills for 3 days, 3 pills for 3 days, 2 pills for 3 days, take 1 pill for 3 days naproxen 500 MG tablet 500 mg PO BID PRN Qty: 20 0RF oxycodone-acetaminophen 1 TABLET tablet 1 - 2 tab PO Q4H PRN PRN (Reason: Pain) Qty: 20 0RF Stand Alone Forms: ED Work / School Excuse Primary Care Provider: Alma Beavers Referrals: Alma Beavers MD [Primary Care Provider] - Martina Cherry MD [Med Staff - Active Staff] - As soon as possible [facility] [Non-Staff] - As soon as possible Activity Restrictions/Additional Instructions: Drink lots of fluids. You can take [id number] Pepto-Bismol for your discomfort. At this time your lab work is largely normal. I recommend you follow-up with a primary care doctor as well as abstain from alcohol. To be given referral to [facility] which is a service in [facility] for addiction. There is also the counseling center if you like to talk to someone about your anxiety. Disposition Disposition: Home, Self Care What to do if you have Problems For any increased pain, shortness of breath, bleeding, nausea or vomiting, chestpain, or any unexpected problems, contact your Primary Care Provider. Call [facility] ([phone]) or report to the closest Emergency Room. Call 911 if necessary. 05/07/22 1101 <Electronically signed by Iliana Nixon DO> Cosigner Signature (if applicable): CC: Dr. Alma Beavers MD ~ Signed [facility] Work Phone: Evaluation noteNo assessment information available [facility] Work Phone: Evaluation note* Diagnosis Onset Date Resolution Status Acute appendicitis acute Hypokalemia acute Right lower quadrant abdominal pain acute [facility] Work Phone: Evaluocomu note* Diagnosis Onset Date Resolution Status Acute appendicitis acute Acute appendicitis with perf oration and generalized peritonitis acute Elevated blood pressure reading acute Fever acute Hypokalemia acute Leukocytosis acute Right lower quadrant abdominal pain acute Tachycardia acute [facility] Work Phone: Evaluation note* Diagnosis Vertigo- Primary Dizziness and giddiness [facility] Diagnosis Dermatitis due to plants, including poison alba, sumac, and oak- Primary Contact dermatitis and other eczema due to plants (except food) [facility]* Diagnosis Sinobronchitis- Primary Unspecified sinusitis (chronic) [facility]* Diagnosis Viral illness- Primary Unspecified viral infection, in conditions classified elsewhere and of unspecified site [facility] Diagnosis Pain- Primary Generalized pain Pain Generalized pain [facility] Diagnosis Pain Generalized pain [facility] Author Dr. Mtz [facility] May 08, 2022 4:43pm Note Date/Time May 08, 2022 3 :55pm [facility] Medical Records Department [address] [place] [address] History & Physical Exam 05/08/22 1539 MR#: [id number] Acct: [id number] Name: LUCIANA CORDOBA Rep #:[id number] : 1995 26 From: Jocelynn TRIPP PA-C PCP: Dr. Alma Beavers MD Status:[facility] Location: [facility] HPI - General General Date of Service: 05/08/22 Chief Complaint: Acute appendicitis HPI Narrative LUCIANA CORDOBA, is a 26 M who presents with 3 day history of right lower quadrant abdominal pain. Patient notes nausea associated with his abdominal pain. He notes his appetite has been poor over the last 3 days due to the pain. Patient denies vomiting. He denies fever. He notes constipation. He notes he presented to the ED yesterday however his abdomen was nontender at that time on exam and patient's labs were unremarkable. Patient was discharged to home. Patient returned to the ED today noting increased abdominal pain. CT scan of the abdomen/pelvis was obtained demonstrating acute appendicitis with appendicolith.Patient is also noted to have an elevated WBC of 15.6 with a left shift. Patient's labs are also notable for hypokalemia. Patient was given 10 meq bolus in the ED. Patient denies any cardiac or pulmonary history. Patient denies any previous abdominal surgeries. He denies having any anesthesia previously. Patient notes he is a heavy alcohol drinker daily. Patient states he drinks approximately 10-12 beers daily. He notes on the weekends he smokes cigarettes while consuming alcohol. Patient states he has not been drinking for 3 days due to his onset of abdominal symptoms. Patient was concerned that his alcohol consumption contributed to his abdominal pain. Patient denies any withdraw symptoms. He notes feeling anxious about the surgery. Patient notes he is not dependent on the alcohol, he notes he just likes to have a few drinks after work. [facility] Medical History Anxiety Home Medications famotidine 20 mg tablet (Pepcid) 20 mg PO BID #28 tabs 05/07/22 [Rx Last Taken 05/08/22] bupropion HCl 150 mg 24 hr tablet, extended release 150 mg PO DAILY 05/08/22 [History Last Taken 05/08/22] ibuprofen 200 mg tablet 200 - 400 mg PO Q6H PRN Pain 05/08/22 [History Last Taken 05/08/22] Allergy/AdvReac Type Severity Reaction Status Date / Time No Known Allergies Allergy Verified 05/07/22 08:45 Social History Smoking Status: Current some day smoker tobacco type: cigarettes Smokeless tobacco user: chewing tobacco ROS Constitutional Constitutional: Reports systems reviewed and no addt'l complaints, except as documented Eyes Eyes: Reports systems reviewed and no addt'l complaints, except as documented ENT HEENT: Reports systems reviewed and no addt'l complaints, except as documented Cardiovascular Cardiovascular: Reports systems reviewed and no addt'l complaints, except as documented Respiratory/Chest Respiratory/Chest: Reports systems reviewed and no addt'l complaints, except as documented Gastrointestinal Gastrointestinal: Reports systems reviewed and no addt'l complaints, except as documented Genitourinary Genitourinary: Reports systems reviewed and no addt'l complaints, except as documented Musculoskeletal Musculoskeletal: Reports systems reviewed and no addt'l complaints, except as documented Integumentary Integumentary: Reports systems reviewed and no addt'l complaints, except as documented Neurologic Neurologic: Reports systems reviewed and no addt'l complaints, except as documented Psychiatric Psychiatric: Reports systems reviewed and no addt'l complaints, except as documented Endocrine Endocrinology: Reports systems reviewed and no addt'l complaints, except as documented Hematologic/Lymphatic Hematologic/Lymphatic: Reports systems reviewed and no addt'l complaints, exceptas documented Allergic/Immunologic Allergic/Immunologic: Reports systems reviewed and no addt'l complaints, except as documented Vital Signs Vital Signs Vital Signs: 05/08/22 10:51 Temperature 98.9 F Temperature Source Temporal Pulse Rate 109 H Respiratory Rate 17 Blood Pressure 160/89 H Blood Pressure Mean 112 Pulse Ox 96 Oxygen Delivery Method Room Air Weight Weight: 213 lb 14.4 oz Body Mass Index (BMI) 31.6 Physical Exam Const alert and oriented x3 HEENT normocephalic and head/scalp atraumatic HEENT Narrative: Red face and neck Eyes PERRL Neck full ROM Lymph Lymphatic: no lymphadenopathy noted Resp normal respiratory effort and clear to auscultation bilaterally Cardio regular rhythm Rate: tachycardic GI Inspection: central obesity Auscultation: hypoactive bowel sounds Palpation: tender RLQ, McBurney's point and Rovsing's sign and guarding no CVA tenderness Back/Spine no CVA tenderness Extremity normal to inspection Skin no rashes or lesions noted Neuro no focal motor deficits and no sensory deficits noted Psych mental status grossly normal Mood & Affect: anxious Results Lab / Micro Data Result Diagrams: 05/08/22 11:45 05/08/22 11:45 Labs: Laboratory Results - last 24 hr 05/08/22 11:45: WBC 15.6 H, RBC 5.23, Hgb 17.2 H, Hct 47.6, MCV 91.0, MCH 32.9 H, MCHC 36.1 H, RDW Std Deviation 40.4, RDW Coeff of Jett 12.3, Plt Count 222, MPV9.6, Immature Gran % (Auto) 0.400, Neut % (Auto) 89.4 H, Lymph % (Auto) 6.1 L, [place] % (Auto) 3.9, Eos % (Auto) 0.1, Baso % (Auto) 0.1, Absolute Neuts (auto) 13.9 H, Absolute Lymphs (auto) 0.96, Nucleated RBC % 0 05/08/22 11:45: Sodium 143, Potassium 2.7 L*, Chloride 113 H, Carbon Dioxide 23.0, Anion Gap 7, BUN 7, Creatinine 0.76, Estim Creat Clear Calc 144.71, Est GFR(MDRD) Af Amer 155, Est GFR (MDRD) Non-Af 128, BUN/Creatinine Ratio 9.2 L, Glucose 101, Calcium 7.2 L, Total Bilirubin 0.80, AST 12 L, ALT 30, Alkaline Phosphatase 52, Total Protein 6.3 L, Albumin 3.2, Globulin 3.1, Albumin/GlobulinRatio 1.0 05/08/22 13:20: Urine Color Yellow, Urine Clarity Clear, Urine pH 7.0, Ur Specific [place] 1.010, Urine Protein 30 H, Urine Glucose (UA) Normal, Urine Ketones Negative, Urine Occult Blood 10 H, Urine Nitrite Negative, Urine Bilirubin Negative, Urine Urobilinogen Normal, Ur Leukocyte Esterase 25 H, UrineRBC 0 SEEN, Urine WBC 0 SEEN, Ur Squamous Epith Cells 0 SEEN, Urine Bacteria 0 SEEN, Urine Mucus 0 SEEN Radiology Impression Abdomen/Pelvis CT 05/08/22 11:42 IMPRESSION: Acute appendicitis with appendicolith in the appendiceal lumen. Increased markings in the surrounding peritoneal fat in the right lower quadrant extending into the right pararenal space with inflammatory change. Small lymph nodes are also seen within the mesentery in the right lower quadrant. Electronically Signed: Maurilio Kwan MD at 14:11 EST , Assessment & Plan Assessment/Plan (1) Acute appendicitis: PLAN: Plan I am seeing this patient in conjunction with Dr. Mtz. We will plan to admit the patient for observation. Dr. Mtz will plan to perform a laparoscopic appendectomy. Procedure details, risks and benefits have been explained. Patient and his have had the opportunity to ask and have questions answered. Patient verbally understands and agrees with the plan. We will consult the hospitalist as patient is a heavy alcohol drinker and has currently ceased his alcohol 72 hours now. Patient is currently anxious and clammy. Concern for withdrawal symptoms. Appreciate hospitalist recommendations and care of this patient. Thank you for allowing us to participate in this patient's care. Charges/Coding Visit Charges Inpatient E&M: 55673 Init Hosp L2 05/08/22 1608 <Electronically signed by Jocelynn TRIPP PA-C> Cosigner Signature (if applicable): CC: MALVIN Gonzalez; Dr. Alma Beavers MD; Dr. Ben Mtz MD~ Signed ADDENDUM by Dr. Ben Mtz MD on 05/08/22 at 1643 Addendum Patient seen and evaluated following Mrs. Gonzalez's evaluation documented above. Agree with her history as given. This is a 26-year-old male with a history of heavy alcohol use who presents with 48 hours of GI symptoms that havelocalized to the right lower quadrant. CT imaging confirms appendicitis with a appendicolith but no signs of complicated appendicitis my exam also confirms this diagnosis with a positive Rovsing and positive psoas sign. Recommended proceeding to the operating room for emergent laparoscopic appendectomy. Procedure description detailed and post procedure expectations outlined. Given the later hour and patient's risk for alcohol withdrawal, have recommended admission for observational stay. IV antibiotics initiated by ER. Emergency medicine also began repletion of hypokalemia with 2 x 10 mEq boluses of potassium chloride. Plan to recheck BMP following infusion 05/08/22 1643<Electronically signed by Ben Mtz MD> Cosigner Signature (if applicable): cc: MALVIN Gonzalez; Dr. Alma Beavers MD; Dr. Ben Mtz MD ~* Signed [facility] Work Phone: Hospital Discharge instructions Additional Instructions Drink lots of fluids. You can take [id number] Pepto-Bismol for your discomfort. At this time your lab work is largely normal. I recommend you follow-up with a primary care doctor as well as abstain from alcohol. To be given referral to [facility] which is a service in [facility] for addiction. There is also the counseling center if you like to talk to someone about your anxiety.[facility] Work Phone: Progress note Author Marline Shin [facility] May 09, 2022 11:19am Note Date/Time May 09, 2022 7 :25am [facility] Medical Records Department [address] [place] [id number] Progress Note - Hospitalist 05/09/22 0716 MR#: [id number] Acct: [id number] Name: LUCIANA CORDOBA Rep #:[id number] : 1995 26 From: Marline Shin DO PCP: Dr. Alma Beavers MD Status:ADM IN [place] [facility] [id number] Reason for Visit Reason for Visit: Diagnoses Unspecified acute appendicitis (05/08/22) Subjective Subjective Mr. Cordoba is a 26-year-old white male with a history of alcohol abuse (8 12 ounce beers daily) who presented to [facility] on 05/08/2022 with right lower quadrant pain that had worsened over 3 days with associated decreased appetite and nausea. He rated the pain sharp in the right lower quadrant at10 out of 10 in severity at its worse. He did indicate it worsened with any movement or palpation. Last alcohol consumption was approximately 3 days prior to presentation. CT of the abdomen pelvis showed acute appendicitis and he was taken to the OR on 05/08/2022. He was diagnosed with acute perforated appendicitis and a laparoscopic appendectomy with drain placement was performed. He tolerated the surgery well and we were consulted postoperatively for medicalmanagement. No flatus. Pain is minimal. Patient is anxious to get out of bed and get moving around some. He states he is tired of laying in bed. States he is little bit anxious just because of everything that happened. No specific complaints. Objective Data Objective Data Vital Signs: Vital Signs Temp Pulse Resp BP Pulse Ox O2 Del Method O2 Flow Rate 99.2 F H 95 18 141/87 H 100 Room Air 2 05/09/22 02:28 05/09/22 02:28 05/09/22 02:28 05/09/22 02:28 05/09/22 02:28 05/09/22 02:28 05/08/22 22:45 Oxygen Flow Rate (L/min) 2 Oxygen Delivery Method Room Air Weight: 97 kg Body Mass Index (BMI) 31.6 Intake & Output: Intake and Output for Last 24 Hours 05/07/22 05/08/22 05/09/22 23:59 23:59 23:59 Intake Total 1370 / 1370 1300.58 / 1300.58 Output Total 550 / 550 880 / 880 Balance 820 / 820 420.58 / 420.58 Lab / Micro Data Result Diagrams: 05/09/22 05:20 05/09/22 05:20 Labs: Laboratory Results - last 24 hr 05/08/22 11:45: WBC 15.6 H, RBC 5.23, Hgb 17.2 H, Hct 47.6, MCV 91.0, MCH 32.9 H, MCHC 36.1 H, RDW Std Deviation 40.4, RDW Coeff of Jett 12.3, Plt Count 222, MPV9.6, Immature Gran % (Auto) 0.400, Neut % (Auto) 89.4 H, Lymph % (Auto) 6.1 L, [place] % (Auto) 3.9, Eos % (Auto) 0.1, Baso % (Auto) 0.1, Absolute Neuts (auto) 13.9 H, Absolute Lymphs (auto) 0.96, Nucleated RBC % 0 05/08/22 11:45: Sodium 143, Potassium 2.7 L*, Chloride 113 H, Carbon Dioxide 23.0, Anion Gap 7, BUN 7, Creatinine 0.76, Estim Creat Clear Calc 144.71, Est GFR (MDRD) Af Amer 155, Est GFR (MDRD) Non-Af 128, BUN/Creatinine Ratio 9.2 L, Glucose 101, Calcium 7.2 L, Total Bilirubin 0.80, AST 12 L, ALT 30, Alkaline Phosphatase 52, Total Protein 6.3 L, Albumin 3.2, Globulin 3.1, Albumin/GlobulinRatio 1.0 05/08/22 11:45: Sodium Cancelled, Potassium Cancelled, Chloride Cancelled, Carbon Dioxide Cancelled, Anion Gap Cancelled, BUN Cancelled, Creatinine Cancelled, Est GFR (MDRD) Af Amer Cancelled, Est GFR (MDRD) Non-Af Cancelled, BUN/Creatinine Ratio Cancelled, Glucose Cancelled, Calcium Cancelled, Magnesium 1.6 05/08/22 11:45: Phosphorus 1.3 L 05/08/22 13:20: Urine Color Yellow, Urine Clarity Clear, Urine pH 7.0, Ur Specific [place] 1.010, Urine Protein 30 H, Urine Glucose (UA) Normal, Urine Ketones Negative, Urine Occult Blood 10 H, Urine Nitrite Negative, Urine Bilirubin Negative, Urine Urobilinogen Normal, Ur Leukocyte Esterase 25 H, UrineRBC 0 SEEN, Urine WBC 0 SEEN, Ur Squamous Epith Cells 0 SEEN, Urine Bacteria 0 SEEN, Urine Mucus 0 SEEN 05/08/22 16:34: Sodium 139, Potassium 3.6, Chloride 105, Carbon Dioxide 25.0, Anion Gap 9, BUN 9, Creatinine 1.24, Estim Creat Clear Calc 88.69, Est GFR (MDRD) Af Amer 89, Est GFR (MDRD) Non-Af 73, BUN/Creatinine Ratio 7.3 L, [id number] H, Calcium 9.0 05/09/22 05:20: WBC 14.0 H, RBC 4.46 L, Hgb 14.6, Hct 43.2, MCV 96.9 H D, MCH 32.7 H, MCHC 33.8 D, RDW Std Deviation 45.6 H, RDW Coeff of Jett 12.9, Plt [id number], MPV 9.9, Immature Gran % (Auto) 0.600, Neut % (Auto) 88.8 H, Lymph % (Auto)6.5 L, [place] % (Auto) 4.0, Eos % (Auto) 0.0, Baso % (Auto) 0.1, Absolute Neuts (auto) 12.4 H, Absolute Lymphs (auto) 0.91, Nucleated RBC % 0 05/09/22 05:20: Sodium 140, Potassium 3.9, Chloride 106, Carbon Dioxide 28.0, Anion Gap 6, BUN 10, Creatinine 1.19, Estim Creat Clear Calc 92.42, Est GFR (MDRD) Af Amer 93, Est GFR (MDRD) Non-Af 77, BUN/Creatinine Ratio 8.4 L, [id number] H, Calcium 8.5, Magnesium 2.6 05/09/22 05:20: Phosphorus 3.4 Radiography Diagnostic Testing: Radiology Impression Abdomen/Pelvis CT 05/08/22 11:42 IMPRESSION: Acute appendicitis with appendicolith in the appendiceal lumen. Increased markings in the surrounding peritoneal fat in the right lower quadrant extending into the right pararenal space with inflammatory change. Small lymph nodes are also seen within the mesentery in the right lower quadrant. Electronically Signed: Maurilio Kwan MD at 14:11 EST , Physical Exam Const alert, oriented x3, no apparent distress and well nourished Constitutional Narrative: Obese, young, white male, sitting up in bed, appears comfortable nontoxic, nursing at bedside HEENT head/scalp atraumatic and moist oral mucous membranes Head and Scalp: normocephalic Resp normal respiratory effort, no retractions, no use of accessory muscles and clearto auscultation bilaterally Auscultation: Negative for rales, rhonchi or wheezes Cardio regular rate, regular rhythm, S1 normal heart sound, S2 normal heart sound, no murmurs, no rub, no gallops and no clicks GI GI Narrative: Bowel sounds are hypoactive, Doron-Kruger drain in place with serosanguineous drainage, abdomen is soft and no significant distention, mild diffuse tendernessrelated to operative procedure Extremity no clubbing, cyanosis or edema Extremity Narrative: 2+ pedal pulses Neuro oriented x3, moves all extremities and no focal motor deficits Speech: speech normal Psych affect normal Mood & Affect: anxious Assessment & Plan Assessment/Plan (1) Acute appendicitis: (2) Right lower quadrant abdominal pain: (3) Leukocytosis: (4) Fever: (5) Hypokalemia: (6) Elevated blood pressure reading: (7) Tachycardia: PLAN: Plan Right lower quadrant pain secondary to acute appendicitis with perforation -Postop day 1 status post laparoscopic appendectomy with drain placement -Management per primary service -Continue pain medications -Continue IV fluids--> will decrease to 75 cc/h -Patient remains n.p.o. -Await return of bowel function--> high risk for postoperative ileus with perforation Fever/leukocytosis -Suspect attributed to the above -Seems to be clinically improving -White count has trended down subtly -Tmax through the night was 100 and fever curve seems to be improving Tachycardia -Mild and seems to be improving -Suspect reactive with acute infection -Continue to monitor Hypokalemia -Replaced and resolved Elevated blood pressure reading -Suspect related to acute events -As needed hydralazine for systolic pressure greater than 160 -Would monitor and follow-up as an outpatient once acute issues are resolved to see if he actually has the diagnosis of hypertension Alcohol abuse -Patient does regularly consume 8 beers per day -Last intake was 3 days prior to admission -Given the length of time from his last use until now acute alcohol withdrawal is highly unlikely -Continue thiamine and folate -CIWA as ordered Tobacco abuse -Recommend cessation -Nicotine replacement DVT prophylaxis -SCDs -Chemoprophylaxis per primary service Charges/Coding Visit Charges Inpatient E&M: 51940 Subs Hosp L2 05/09/22 1119 <Electronically signed by Marline Shin DO> Cosigner Signature (if applicable): CC: ~ Signed [facility] Work Phone: Progress note Author Jocelynn Gonzalez [facility] May 09, 2022 9:48am Note Date/Time May 09, 2022 9 :48am [facility] Medical Records Department [address] [place] [address] Progress Note - Surgery 05/09/22939 MR#: [id number] Acct: [id number] Name: LUCIANA CORDOBA Rep #:[id number] : 1995 26 From: Jocelynn TRIPP PA-C PCP: Dr. Alma Beavers MD Status:ADM MANDA Location: CO3 [id number] Subjective Subjective Patient evaluated resting comfortably in bed. Patient notes minimal amount of incisional discomfort. Patient denies nausea, vomiting, fever. Patient denies passing flatus or bowel movement. He notes pain is much improved compared to yesterday. Objective Data Objective Data Vital Signs: Vital Signs Temp Pulse Resp BP Pulse Ox O2 Del Method O2 Flow Rate 99.2 F H 98 18 141/86 H 92 Room Air 2 05/09/22 08:25 05/09/22 08:25 05/09/22 08:25 05/09/22 08:25 05/09/22 09:10 05/09/22 09:10 05/08/22 22:45 Oxygen Flow Rate (L/min) 2 Oxygen Delivery Method Room Air Weight: 213 lb 13.574 oz Body Mass Index (BMI) 31.6 Intake & Output: Intake and Output for Last 24 Hours 05/07/22 05/08/22 05/09/22 23:59 23:59 23:59 Intake Total 1370 / 1370 1300.58 / 1300.58 Output Total 550 / 550 880 / 880 Balance 820 / 820 420.58 / 420.58 Lab / Micro Data Result Diagrams: 05/09/22 05:20 05/09/22 05:20 Labs: Laboratory Results - last 24 hr 05/08/22 11:45: WBC 15.6 H, RBC 5.23, Hgb 17.2 H, Hct 47.6, MCV 91.0, MCH 32.9 H, MCHC 36.1 H, RDW Std Deviation 40.4, RDW Coeff of Jett 12.3, Plt Count 222, MPV9.6, Immature Gran % (Auto) 0.400, Neut % (Auto) 89.4 H, Lymph % (Auto) 6.1 L, [place] % (Auto) 3.9, Eos % (Auto) 0.1, Baso % (Auto) 0.1, Absolute Neuts (auto) 13.9 H, Absolute Lymphs (auto) 0.96, Nucleated RBC % 0 05/08/22 11:45: Sodium 143, Potassium 2.7 L*, Chloride 113 H, Carbon Dioxide 23.0, Anion Gap 7, BUN 7, Creatinine 0.76, Estim Creat Clear Calc 144.71, Est GFR (MDRD) Af Amer 155, Est GFR (MDRD) Non-Af 128, BUN/Creatinine Ratio 9.2 L, Glucose 101, Calcium 7.2 L, Total Bilirubin 0.80, AST 12 L, ALT 30, Alkaline Phosphatase 52, Total Protein 6.3 L, Albumin 3.2, Globulin 3.1, Albumin/GlobulinRatio 1.0 05/08/22 11:45: Sodium Cancelled, Potassium Cancelled, Chloride Cancelled, Carbon Dioxide Cancelled, Anion Gap Cancelled, BUN Cancelled, Creatinine Cancelled, Est GFR (MDRD) Af Amer Cancelled, Est GFR (MDRD) Non-Af Cancelled, BUN/Creatinine Ratio Cancelled, Glucose Cancelled, Calcium Cancelled, Magnesium 1.6 05/08/22 11:45: Phosphorus 1.3 L 05/08/22 13:20: Urine Color Yellow, Urine Clarity Clear, Urine pH 7.0, Ur Specific [place] 1.010, Urine Protein 30 H, Urine Glucose (UA) Normal, Urine Ketones Negative, Urine Occult Blood 10 H, Urine Nitrite Negative, Urine Bilirubin Negative, Urine Urobilinogen Normal, Ur Leukocyte Esterase 25 H, UrineRBC 0 SEEN, Urine WBC 0 SEEN, Ur Squamous Epith Cells 0 SEEN, Urine Bacteria 0 SEEN, Urine Mucus 0 SEEN 05/08/22 16:34: Sodium 139, Potassium 3.6, Chloride 105, Carbon Dioxide 25.0, Anion Gap 9, BUN 9, Creatinine 1.24, Estim Creat Clear Calc 88.69, Est GFR (MDRD) Af Amer 89, Est GFR (MDRD) Non-Af 73, BUN/Creatinine Ratio 7.3 L, [id number] H, Calcium 9.0 05/09/22 05:20: WBC 14.0 H, RBC 4.46 L, Hgb 14.6, Hct 43.2, MCV 96.9 H D, MCH 32.7 H, MCHC 33.8 D, RDW Std Deviation 45.6 H, RDW Coeff of Jett 12.9, Plt [id number], MPV 9.9, Immature Gran % (Auto) 0.600, Neut % (Auto) 88.8 H, Lymph % (Auto)6.5 L, [place] % (Auto) 4.0, Eos % (Auto) 0.0, Baso % (Auto) 0.1, Absolute Neuts (auto) 12.4 H, Absolute Lymphs (auto) 0.91, Nucleated RBC % 0 05/09/22 05:20: Sodium 140, Potassium 3.9, Chloride 106, Carbon Dioxide 28.0, Anion Gap 6, BUN 10, Creatinine 1.19, Estim Creat Clear Calc 92.42, Est GFR (MDRD) Af Amer 93, Est GFR (MDRD) Non-Af 77, BUN/Creatinine Ratio 8.4 L, [id number] H, Calcium 8.5, Magnesium 2.6 05/09/22 05:20: Phosphorus 3.4 Micro: Microbiology 05/08/22 Unknown Incision/Surgical Site Wound Culture - Preliminary GNR lactose loftsman Radiography Diagnostic Testing: Radiology Impression Abdomen/Pelvis CT 05/08/22 11:42 IMPRESSION: Acute appendicitis with appendicolith in the appendiceal lumen. Increased markings in the surrounding peritoneal fat in the right lower quadrant extending into the right pararenal space with inflammatory change. Small lymph nodes are also seen within the mesentery in the right lower quadrant. Electronically Signed: Maurilio Kwan MD at 14:11 EST , Physical Exam GI GI Narrative: KATIE drain intact draining serosanguineous drainage. Inspection: abdominal distention and incision intact and healing well Auscultation: hypoactive bowel sounds Palpation: tender other (generalized minimal tenderness) Assessment & Plan Assessment/Plan (1) Acute appendicitis with perforation and generalized peritonitis: PLAN: Recommend ambulating multiple times per day today and sitting in the chair Continue NPO until passing flatus Continue antibiotic Labs were reviewed. WBC trending down We will continue to monitor patient Charges/Coding Visit Charges Inpatient E&M: 59831 Subs Hosp L1 (post-op; no charge) 05/09/22 0948 <Electronically signed by Jocelynn TRIPP PA-C> Cosigner Signature (if applicable): CC: ~ Signed [facility] Work Phone: Reason for visit Narrative* Diagnostic Procedure Only (Urgent) - Closed Specialty Diagnoses / Procedures Referred By Contac t Referred To Contact XR IMAGING Diagnoses Pain Procedures XR ANKLE GENERAL 3V AP/LAT/OBL RIGHT RADEX ANKLE COMPLETE MINIMUM 3 VIEWS Mary Jane Morataya APRN.SOFTWARE ENGINEERING SPECIALIST [address] [place] [address] Phone: tel: fax: [place] [address] Referral ID Status Reason Start Date Expiration Date V isits Requested Visits Authorized [id number] Closed Auto-Generate d Referral 05/19/2024 06/18/2025 1 1 [facility] Summary Purpose Family History No Family History Records Found Relationship Condition Age at Onset Recorded Date/T rafael mother Malignant neoplasm of breast Unknown father Hypertension Unknown Advance Directives No Advanced Directives Records Found Advance Directive Response Recorded Date/ Time Living Will No May 07 10:20am Power of Trimmer Machine Operator No May 07, 2022 10:20am Advance Directive Response Recorded Date/ Time Living Will No May 08 10:51am Power of Trimmer Machine Operator No May 08, 2022 10:51am Advance Directive Response Recorded Date/ Time Living Will No May 08 10:51pm Power of Trimmer Machine Operator No May 08, 2022 10:51pm Chief Complaint and Reason for Visit Chief Complaint abd pain Chief Complaint abd pain ACUTE APPENDICITIS ACUTE APPENDICITIS Reason for Visit Acute appendicitis Hypokalemia Right lower quadrant abdominal pain Chief Complaint abd pain ACUTE APPENDICITIS ACUTE APPENDICITIS ACUTE APPENDICITIS ACUTE APPENDICITIS ACUTE APPENDICITIS ACUTE APPENDICITIS ACUTE APPENDICITIS Reason for Visit Acute appendicitis Acute appendicitis with perforation and generalized peritonitis Elevated blood pressure reading Fever Hypokalemia Leukocytosis Right lower quadrant abdominal pain Tachycardia Additional Source Comments (unrecognized sect ion and content) No Status Records FoundNo Status Records FoundNo Status Records Found INFORMATION SOURCE (unrecogn ized section and content) DATE CREATED AUTHOR 06/02/2020 [facility] DATE CREATED AUTHOR AUTHOR'S ORGANIZ ATASHLEY 05/21/2024 [facility] DATE CREATED AUTHOR AUTHOR'S ORGANIZ ATION 09/01/2024 [facility] Care Teams (unrecognized sec tion and content) Team Status: Active Member Role Status Dates Dr. Kyle Gayle MD Family Provider Active Dr. Alma Beavers MD Primary Care Provider Active Team Status: Inactive Member Role Status Dates Dr. Alma Beavers MD Primary Care Provider Active Dr. Iliana Nixon , DO Emergency Provider Active Team Status: Active Member Role Status Dates Dr. Alma Beavers MD Primary Care Provider Active Dr. Pepe Barker , DO Emergency Provider Active Dr. Ben Mtz MD Other Provider Active Jocelynn Gonzalez PA, PA-C Attending Provider Active Team Status: Active Member Role Status Dates Dr. Alma Beavers MD Primary Care Provider Active Dr. Pepe Barker , DO Emergency Provider Active Dr. Ben Mtz MD Admit Provider, Attending Provi ester Active Team Status: Active Member Role Status Dates Dr. Alma Beavers MD Primary Care Provider Active Dr. Pepe Barker , DO Emergency Provider Active Dr. Ben Mtz MD Admit Provider, Other Provider Active Dr. Laura Gonzalez MD Other Provider Active Dr. Laura Madera MD Other Provider Active Dr. Hailey Lambert MD Attending Provider, Other Prov ider Active Dr. Marsha Vidales , DO Other Provider Active Dr. Jered Cormier MD Other Provider Active Severiano Sandy MD Other Provider Active Dr. Pepe Zepeda , DO Other Provider Active Dr. Martina Cherry MD Other Provider Active Dr. Josesito Escobar MD Other Provider Active Dr. Raad Alfaro MD Other Provider Active Dr. Lion Fish , DO Other Provider Active Dr. Marline Shin , DO Other Provider Active Dr. Andrea Nassar , DO Other Provider Active Dr. Ivet Duque MD Other Provider Active Dr. Fab Ramos MD Other Provider Active Dr. Chirag Luther MD Other Provider Active Dr. Houston Lovett MD Other Provider Active Dr. Christina Sorenson MD Other Provider Active Dr. Sameer Kumar MD Other Provider Active Berta Tilley LAUNDRY SUPERVISOR, LAUNDRY SUPERVISOR-C Other Provider Active Team Status: Active Member Role Status Dates Dr. Alma Beavers MD Primary Care Provider Active Dr. Pepe Barker , DO Emergency Provider Active Dr. Ben Mtz MD Admit Provider, Other Provider Active Dr. Laura Gonzalez MD Other Provider Active Dr. Laura Madera MD Other Provider Active Dr. Hailey Lambert MD Other Provider Active Dr. Marsha Vidales , DO Other Provider Active Dr. Jered Cormier MD Other Provider Active Severiano Sandy MD Other Provider Active Dr. Pepe Zepeda , DO Other Provider Active Dr. Martina Cherry MD Other Provider Active Dr. Josesito Escobar MD Other Provider Active Dr. Raad Alfaro MD Other Provider Active Dr. Lion Fish , DO Other Provider Active Dr. Marline Shin , DO Other Provider Active Dr. Andrea Nassar , DO Other Provider Active Dr. Ivet Duque MD Other Provider Active Dr. Fab Ramos MD Other Provider Active Dr. Chirag Luther MD Other Provider Active Dr. Houston Lovett MD Other Provider Active Dr. Christina Sorenson MD Other Provider Active Dr. Sameer Kumar MD Other Provider Active Berta Tilley LAUNDRY SUPERVISOR, LAUNDRY SUPERVISOR-C Other Provider Active Jocelynn Gonzalez PA, PA-C Attending Provider Active Team Status: Active Member Role Status Dates Dr. Alma Beavers MD Primary Care Provider Active Dr. Pepe Barker , DO Emergency Provider Active Dr. Ben Mtz MD Admit Provider, Other Provider Active Dr. Laura Gonzalez MD Other Provider Active Dr. Laura Madera MD Other Provider Active Dr. Hailey Lambert MD Other Provider Active Dr. Marsha Vidales , DO Other Provider Active Dr. Jered Cormier MD Other Provider Active Severiano Sandy MD Other Provider Active Dr. Pepe Zepeda , DO Other Provider Active Dr. Martina Cherry MD Other Provider Active Dr. Josesito Escobar MD Other Provider Active Dr. Raad Alfaro MD Other Provider Active Dr. Lion Fish , DO Other Provider Active Dr. Marline Shin , DO Attending Provider, Other Provide r Active Dr. Andrea Nassar , DO Other Provider Active Dr. Ivet Duque MD Other Provider Active Dr. Fab Ramos MD Other Provider Active Dr. Chirag Luther MD Other Provider Active Dr. Houston Lovett MD Other Provider Active Dr. Christina Sorenson MD Other Provider Active Dr. Sameer Kumar MD Other Provider Active Berta Tilley NP, LAUNDRY SUPERVISOR-C Other Provider Active Team Status: Active Member Role Status Dates Dr. Alma Beavers MD Primary Care Provider Active Dr. Pepe Barker , DO Emergency Provider Active Dr. Ben Mtz MD Admit Provider, A ttending Provider, Other Provider Active Dr. Laura Gonzalez MD Other Provider Active Dr. Laura Madera MD Other Provider Active Dr. Hailey Lambert MD Other Provider Active Dr. Marsha Vidales , DO Other Provider Active Dr. Jered Cormier MD Other Provider Active Severiano Sandy MD Other Provider Active Dr. Pepe Zepeda , DO Other Provider Active Dr. Martina Cherry MD Other Provider Active Dr. Josesito Escobar MD Other Provider Active Dr. Raad Alfaro MD Other Provider Active Dr. Lion Fish , DO Other Provider Active Dr. Marline Shin , DO Other Provider Active Dr. Andrea Nassar , DO Other Provider Active Dr. Ivet Duque MD Other Provider Active Dr. Fab Ramos MD Other Provider Active Dr. Chirag Luther MD Other Provider Active Dr. [place]on Lovett MD Other Provider Active Dr. Christina Sorenson MD Other Provider Active Dr. Sameer Kumar MD Other Provider Active Berta Tilley LAUNDRY SUPERVISOR, LAUNDRY SUPERVISOR-C Other Provider Active Team Status: Inactive Member Role Status Dates Dr. Alma Beavers MD Primary Care Provider Active Dr. Pepe Barker , DO Emergency Provider Active Dr. Ben Mtz MD Admit Provider, Attending Provi ester Active Dr. Laura Gonzalez MD Other Provider Active Dr. Laura Madera MD Other Provider Active Dr. Hailey Lambert MD Other Provider Active Dr. Marsha Vidales , DO Other Provider Active Dr. Jered Cormier MD Other Provider Active Severiano Sandy MD Other Provider Active Dr. Pepe Zepeda , DO Other Provider Active Dr. Martina Cherry MD Other Provider Active Dr. Josesito Escobar MD Other Provider Active Dr. Raad Alfaro MD Other Provider Active Dr. Lion Fish , DO Other Provider Active Dr. Marline Shin , DO Other Provider Active Dr. Andrea Nassar , DO Other Provider Active Dr. Ivet uDque MD Other Provider Active Dr. Fab Ramos MD Other Provider Active Dr. Chirag Luther MD Other Provider Active Dr. Houston Lovett MD Other Provider Active Dr. Christina Sorenson MD Other Provider Active Dr. Sameer Kumar MD Other Provider Active Berta Tilley LAUNDRY SUPERVISOR, LAUNDRY SUPERVISOR-C Other Provider Active [employer] Machine Operator Relationship Specialty Start Date End Date Alma Beavers MD [address] [place], [place] [address] PCP - General Family Medicine 05/07/22 Diecast Machine Operator Relationship Specialty Start Date End Date Alma Beavers MD [address] [place], [place] [id number] PCP - General Family Medicine 05/07/22 Diecast Machine Operator Relationship Specialty Start Date End Date Alma Beavers MD [address] [place], [place] [id number] PCP - General Family Medicine 05/07/22 Team Status: Active Member Role Status Dates Dr. Kyle Gayle MD Family Provider Active AGUILAR Christiansen Primary Care Provider Active Team Status: Inactive Member Role Status Dates AGUILAR Christiansen Primary Care Provider, Attending Isauro vázquez Active Team Status: Inactive Member Role Status Dates AGUILAR Christiansen Primary Care Provide r, Attending Provider, Referring Provider Active Diecast Machine Operator Relationship Specialty Start Date End Date Kole Daniel MD [address] [facility] [address] PCP - General Family Medicine 04/11/20 05/06/22 Diecast Machine Operator Relationship Specialty Start Date End Date Alma Beavers MD [address] [place] [address] PCP - General Family Medicine 05/07/22 Diecast Machine Operator Relationship Specialty Start Date End Date Alma Beavers MD [address] [place] [address] PCP - General Family Medicine 05/07/22 Goals (unrecognized section and content) Goals may be documented in a n alternate sectionGoals may be documented in an alternate sectionGoals may be documented in an alternate sectionGoals may be documented in an alternate section Source Comments (unrecognize d section and content) In the event this informatio n is protected by the Federal Confidentiality of Alcohol and Drug Abuse Patient Records regulations: The Federal rules restrict any use of the information to criminally investigate or prosecute any alcohol or drug abuse patient.[facility] the event this information is protected by the Federal Confidentiality of Alcohol and Drug Abuse Patient Records regulations: The Federal rules restrict any use of the information to criminally investigate or prosecute any alcohol or drug abuse patient.[facility] the event this information is protected by the Federal Confidentiality of Alcohol and Drug Abuse Patient Records regulations: The Federal rules restrict any use of the information to criminally investigate or prosecute any alcohol or drug abuse patient.[facility] the event this information is protected by the Federal Confidentiality of Alcohol and Drug Abuse Patient Records regulations: The Federal rules restrict any use of the information to criminally investigate or prosecute any alcohol or drug abuse patient.[facility] the event this information is protected by the Federal Confidentiality of Alcohol and Drug Abuse Patient Records regulations: The Federal rules restrict any use of the information to criminally investigate or prosecute any alcohol or drug abuse patient.[facility] the event this information is protected by the Federal Confidentiality of Alcohol and Drug Abuse Patient Records regulations: The Federal rules restrict any use of the information to criminally investigate or prosecute any alcohol or drug abuse patient.[facility] the event this information is protected by the Federal Confidentiality of Alcohol and Drug Abuse Patient Records regulations: The Federal rules restrict any use of the information to criminally investigate or prosecute any alcohol or drug abuse patient.[facility] Reason for Visit (unrecogniz ed section and content) Reason Comments Dizziness Possible vertigo x 1 .5 weeks Reason Comments Rash Poison alba x 1 month Reason Comments Chest Congestion cough x 3 days Reason Comments Flu Like Symptoms Cough, fever, bodyac hes, chills, OREILLY x last night Reason Comments Ankle Pain right and swelling x 1 week FOR RECORDS PERTAINING TO PATIENTS WHO ARE [...] BE BASED ON THE PRIMARY CLINICAL RECORDS. [facility]. provides no warranty or guarantee of the accuracy or completeness of information in this document.
--- NOTE | 2024-09-03 07:08 | US_ITS ---
EXAM: US Abdomen Limited, Right Upper Quadrant CLINICAL INDICATION: ASSESS FOR ABNORMALITIES TECHNIQUE: Real-time ultrasound of the right upper quadrant with image documentation. COMPARISON: No relevant prior studies available. FINDINGS: LIVER: Liver measures of the 8.5 cm. Fatty infiltration of the liver. No intrahepatic bile duct dilation. GALLBLADDER: Negative Castro's sign was reported by the poultry farmworker. No gallstones. COMMON BILE DUCT: Unremarkable as visualized. No stones. No dilation. Common bile duct measures 0.41 cm in diameter. PANCREAS: Unremarkable as visualized. RIGHT KIDNEY: Unremarkable. No stones. No hydronephrosis. The right kidney measures 11.6 x 5.7 x 6.1 cm. US/Abdomen Limited IMPRESSION: Fatty infiltration of the liver. Reading Location: [id number]
== END | disposition home or self-care (01) ==
PROVIDERS: PCP Nurse Practitioner Family; Referring Provider Nurse Practitioner Family; Visit Provider Nurse Practitioner Family
DX: R10.11 Right upper quadrant pain (principal)
CPT/HCPCS: 76705

== ENCOUNTER → 2024-10-18 | Outpatient (CLI) | payer BC, SELFPAY ==
--- NOTE | 2024-10-18 13:53 | NM_ITS ---
PROCEDURE: HEPATOBILIARY IMG W/PHARM INT 10/18/2024 REASON FOR EXAM: RUQ PAIN TECHNIQUE: Intravenous Choletec with planar imaging of the abdomen. RADIOPHARMACEUTICAL: 5.6 mCi mebrofenin COMPARISON: Ultrasound 09/03/2024 FINDINGS: Homogeneous liver uptake. CBD and bowel activity by 10 minutes. Gallbladder activity by 15 minutes. After 1.9 mCi injection of CCK, gallbladder ejection fraction of 66% is calculated. NM/Hepatobilliary Img w/Pharm Int IMPRESSION: Unremarkable HIDA scan with ejection fraction. Reading Location: [place] [id number]
== END | disposition home or self-care (01) ==
LOC: NM 13:48
PROVIDERS: PCP Nurse Practitioner Family; Referring Provider Family Medicine; Visit Provider Family Medicine
DX: R10.11 Right upper quadrant pain (principal)
CPT/HCPCS: 78227; A9537; J2805

== ENCOUNTER → 2025-02-14 | Outpatient (CLI) | payer BC, SELFPAY ==
[2025-02-14 15:13] LABS: Hematocrit 48.5 % (40-54); Hemoglobin 17.1 g/dL (13.0-16.5); Immature Granulocytes Count 0.020 X10^3/uL (0.0-0.0); Mean Corp Hgb Conc 35.3 g/dL (32-36); Mean Corpuscular Volume 92.6 fL (80-94); Mean Platelet Vol. 9.9 fl (6.2-12.0); NRBC Flagged by Analyzer 0 % (0-5); Platelet Count 252 K/mm3 (150-450); RBC Distribution Width CV 11.9 % (11.6-14.6); RBC Distribution Width SD 41.2 fl (35.1-43.9); Red Blood Count 5.24 M/mm3 (4.6-6.2); White Blood Count 6.0 K/mm3 (4.4-11.0)
[2025-02-14 15:35] LABS: AST(SGOT) 23 U/L (<=37); Alanine Aminotransfer ALT/SGPT 28 U/L (<=46); Albumin, Serum 5.0 g/dL (3.5-5.0); Alkaline Phosphatase 64 U/L (40-129); Anion Gap 13 (5-15); BUN 12 mg/dL (4-19); BUN/Creat Ratio 13.3 RATIO (10-20); Calcium,Total 10.6 mg/dL (7.6-11.0); Carbon Dioxide 23.6 mmol/L (21.0-32.0); Chloride 104 mmol/L (98-108); Globulin 3.2 g/dL (2.2-4.2); Glucose 100 mg/dL (70-99); Potassium 3.9 mmol/L (3.3-5.1)
[2025-02-16 03:07] LABS: HEPATITIS B SURFACE AG Negative (Negative); Hep C Antibodies Non Reactive (Non Reactive)
== END | disposition home or self-care (01) ==
LOC: BFHLAB 11:46
PROVIDERS: PCP Nurse Practitioner Family; Visit Provider Nurse Practitioner Family
DX: R74.8 Abnormal levels of other serum enzymes (principal); R10.11 Right upper quadrant pain
CPT/HCPCS: 36415; 80053; 80074; 85025

== ENCOUNTER → 2025-02-22 | Outpatient (CLI) | payer BC, OTHER, SELFPAY ==
--- NOTE | 2025-02-22 07:51 | US_ITS ---
PROCEDURE: ABDOMEN LIMITED 02/22/2025 REASON FOR EXAM: ASSESS FOR CAUSE OF RUQ PAIN, GALLBLADDER TECHNIQUE: Procedure Code: USABDL Modality: US Procedure: ABDOMEN LIMITED FINDINGS: Liver: Grossly normal size and echotexture. No mass. Gallbladder: No stones, sludge, wall thickening or tenderness. Common bile duct: Normal measuring 3 mm. Pancreas: Visualized portions are sonographically unremarkable. Kidneys: The right kidney measures 11.4 x 5.9 x 6.8 cm. Renal parenchymal thicknesses and echotextures are preserved. No hydronephrosis. No ascites US/Abdomen Limited IMPRESSION: Unremarkable ultrasound of the right upper quadrant. Reading Location: [id number]
== END | disposition home or self-care (01) ==
LOC: US 07:50
PROVIDERS: PCP Nurse Practitioner Family; Referring Provider Nurse Practitioner Family; Visit Provider Nurse Practitioner Family
DX: R10.11 Right upper quadrant pain (principal)
CPT/HCPCS: 76705